=== PATIENT | male | born 1955 | race Caucasian/White ===

== ENCOUNTER 2021-12-06 10:03 | Outpatient (RCR) | payer MEDICARE, MEDICAID, SELFPAY ==
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
== END 2022-02-19 09:43 | disposition home or self-care (01) ==
LOC: ANHOT 10:03
PROVIDERS: PCP Family Medicine; Visit Provider Family Medicine
DX: M48.062 Spinal stenosis, lumbar region with neurogenic claudication (principal)
CPT/HCPCS: 97165

== ENCOUNTER 2023-10-19 11:22 | Emergency (ER) | payer OTHER, MEDICARE, MEDICAID, SELFPAY ==
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
[2023-10-19 11:25] VITALS: BP 132/78; PULSE 80; RESP 16; TEMP 36.4; O2SAT 95
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
[2023-10-19 16:07] LABS: Estimated CRCL calculation 91 ml/min; Estimated Glomerular Filt Rate > 60
[2023-10-19] MEDS: HYDROmorphone HCL INJ (*CRX) 1 MG/ML SYR IV PUSH (16:27)
[2023-10-19] MEDS: CYCLOBENZAPRINE HCL 10 MG TABLET PO (16:27)
[2023-10-19 16:29] LABS: Basophils Percent Auto 0.3 % (0.2-1.2); Eosinophils Absolute Auto 0.2 K/mm3 (0-0.3); Eosinophils Percent Auto 3.2 % (0-4.4); Hematocrit 44.9 % (42.0-52.0); Hemoglobin 15.8 g/dL (14.0-18.0); Immature Granulocyte Absolute 0.02 K/mm3 (0.00-0.031); Immature Granulocyte Percent A 0.3 % (0-0.5); Lymphocytes Absolute Auto 1.92 K/mm3 (0.9-3.2); Lymphocytes Percent Auto 27.7 % (18.3-44.2); Mean Corpuscular HGB Conc 35.2 g/dl (32-36); Mean Corpuscular Hemoglobin 29.9 pg (26-34); Mean Corpuscular Volume 84.9 fl (80-100); Mean Platelet Volume 9.3 fl (7.4-10.4); Monocytes Absolute Auto 0.6 K/mm3 (0.1-0.6); Monocytes Percent Auto 8.5 % (2.6-8.5); Neutrophils Absolute Auto 4.2 K/mm3 (1.3-6.7); Platelet Count Result 213 k/mm3 (150-375); Red Blood Count 5.29 M/mm3 (4.6-6.20); Red Cell Distribution Width 13.8 % (11.5-14.5); White Blood Count 6.9 K/mm3 (4.5-10.0)
[2023-10-19 16:33] VITALS: BP 170/95; PULSE 79; RESP 16; O2SAT 99
[2023-10-19 16:39] LABS: Alanine Aminotransferase 23 U/L (6-50); Alkaline Phosphatase 78 U/L (38-126); Anion Gap 7 mmol/L (4-12); Aspartate Amino Transferase 28 U/L (17-59); Bilirubin,Total 0.9 mg/dL (0.2-1.3); Blood Urea Nitrogen 13 mg/dL (9-20); Calcium 8.8 mg/dL (8.4-10.2); Carbon Dioxide 33 mmol/L (22-30); Chloride 96 mmol/L (98-107); Estimated CRCL calculation 114 ml/min; Estimated Glomerular Filt Rate > 60; Glucose 90 mg/dL (65-110); Potassium 3.3 mmol/L (3.4-5.0); Sodium 136 mmol/L (137-145)
[2023-10-19 16:41] LABS: Add Urine Microscopic? NO; Appearance Urine Clear (Clear); Bilirubin Urine Negative (Negative); Blood Urine Negative (Negative); Color Urine Yellow (Yellow); Glucose Urine UA Negative (Negative); Ketones Urine Negative (Negative); Leukocyte Esterase Ur Negative LEU/UL (Negative); Nitrate Urine Negative (Negative); Protein Urine Negative (Negative); Specific Grav Ur > 1.045 (1.001-1.035); pH Urine 7.5 (5.0-9.0)
== END 2023-10-19 17:12 | disposition home or self-care (01) ==
PROVIDERS: Physician Assistant; Emergency Provider Student in an Organized Health Care Education/Training Program; PCP Family Medicine
DX: S06.0XAA Concussion with loss of consciousness status unknown, initial encounter (principal); S13.4XXA Sprain of ligaments of cervical spine, initial encounter; S39.012A Strain of muscle, fascia and tendon of lower back, initial encounter; R07.9 Chest pain, unspecified; Z79.01 Long term (current) use of anticoagulants; V89.2XXA Person injured in unspecified motor-vehicle accident, traffic, initial encounter
CPT/HCPCS: 36415; 70450; 71260; 72125; 72129; 72132; 73030; 73562; 74177; 80053; 81003; 85025; 96374; 99284; A9270; J1170; Q9967

== ENCOUNTER 2024-02-27 14:47 | Inpatient (IN) | payer MEDICARE, MEDICAID, SELFPAY ==
--- NOTE | ~2024-02-27 | CT_ITS ---
EXAMINATION: CT pelvis w con DATE: 02/27/2024 16:25 INDICATION: [place] TECHNIQUE: High resolution computed tomography (CT) of the pelvis was performed with 100 mL Omnipaque -350 intravenous contrast. Additional sagittal and coronal reconstructions were performed. Automated exposure control and iterative reconstruction technique were employed. The dose-length product was 55 8.51 mGy-cm. COMPARISON: 10/19/2023 FINDINGS: Muniz catheter within the decompressed bladder which demonstrates prominent edematous wall thickening and surrounding inflammatory stranding consistent with cystitis. Enhancing urothelial thickening ext ending proximally along the bilateral ureters and the right renal pelvis consistent with associated a scending urinary tract infection. 8 mm cyst at the visualized lower pole of right kidney. Appendix an d visualized small bowel are normal. Large amount of stool in the distal colon with rectal wall thick ening and perirectal stranding suggestive of colitis/proctitis potentially stercoral colitis. No path ologically enlarged pelvic or inguinal lymphadenopathy. No free fluid or abscess in the pelvis. Stent ing of the right common iliac vein extending to the origin of the right common femoral vein. There we re bilateral common femoral and external femoral vein stents. There is a relatively shallow sacral de cubitus ulcer along the medial side of the gluteal cleft. No evident associated abscess, extension to the bone or underlying osteomyelitis is to suggest osteomyelitis. IMPRESSION: 1. Sella sacral decubitus ulcer without underlying abscess or osteomyelitis. 2. Findings consistent with cystitis and bilateral ascending urinary tract infections. 3. Distal colitis/proctitis prominent stool in the distal colon suggests this is likely related to ce rvical colitis differential including infectious, inflammatory or least likely ischemic in etiology. Reviewed, dictated and finalized at location A. GRAPHICAL FIELD ASSISTANT IMPRESSION: 1. Sella sacral decubitus ulcer without underlying abscess or osteomyelitis. 2. Findings consistent with cystitis and bilateral ascending urinary tract infe ctions. 3. Distal colitis/proctitis prominent stool in the distal colon suggests this i s likely related to cervical colitis differential including infectious, inflamm atory or least likely ischemic in etiology.
--- NOTE | ~2024-02-27 | US_ITS ---
EXAMINATION: US venous doppler [facility] DATE: 03/01/2024 08:24 INDICATION: Lower limb edema. TECHNIQUE: Grayscale ultrasound images without and with compression and Doppler ultrasound images of the bilateral lower extremity veins were obtained. COMPARISON: None. FINDINGS: The visualized portions of right common femoral vein, profunda (deep) femoral vein, femoral vein, pop liteal vein, peroneal veins, posterior tibial veins, and greater saphenous vein outflow are patent. The visualized portions of left common femoral vein, profunda femoral vein, femoral vein, popliteal v ein, peroneal veins, posterior tibial veins, and greater saphenous vein outflow are patent. IMPRESSION: 1. No deep venous thrombosis. Reviewed, dictated and finalized at location A. Y READER
[2024-02-27 14:43] VITALS: BP 149/83; PULSE 93; RESP 18; TEMP 36.4; O2SAT 97
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
[2024-02-27 15:25] LABS: Basophils Absolute Auto 0.1 K/mm3 (0.0-0.1); Basophils Percent Auto 0.4 % (0.2-1.2); Eosinophils Absolute Auto 0.3 K/mm3 (0-0.3); Eosinophils Percent Auto 2.2 % (0-4.4); Hematocrit 45.6 % (42.0-52.0); Hemoglobin 15.2 g/dL (14.0-18.0); Immature Granulocyte Absolute 0.11 K/mm3 (0.00-0.031); Immature Granulocyte Percent A 0.8 % (0-0.5); Lymphocytes Absolute Auto 2.76 K/mm3 (0.9-3.2); Lymphocytes Percent Auto 20.5 % (18.3-44.2); Mean Corpuscular HGB Conc 33.3 g/dl (32-36); Mean Corpuscular Hemoglobin 28.9 pg (26-34); Mean Corpuscular Volume 86.7 fl (80-100); Mean Platelet Volume 8.7 fl (7.4-10.4); Monocytes Absolute Auto 0.8 K/mm3 (0.1-0.6); Monocytes Percent Auto 6.1 % (2.6-8.5); Neutrophils Absolute Auto 9.4 K/mm3 (1.3-6.7); Platelet Count Result 319 k/mm3 (150-375); Red Blood Count 5.26 M/mm3 (4.6-6.20); Red Cell Distribution Width 13.9 % (11.5-14.5); White Blood Count 13.5 K/mm3 (4.5-10.0)
[2024-02-27 15:34] LABS: Alanine Aminotransferase 15 U/L (6-50); Albumin Level 3.4 g/dL (3.5-5.1); Alkaline Phosphatase 88 U/L (38-126); Anion Gap 7 mmol/L (4-12); Aspartate Amino Transferase 27 U/L (17-59); Bilirubin,Total 0.9 mg/dL (0.2-1.3); Blood Urea Nitrogen 18 mg/dL (9-20); Calcium 8.6 mg/dL (8.4-10.2); Carbon Dioxide 29 mmol/L (22-30); Chloride 101 mmol/L (98-107); Estimated CRCL calculation 123 ml/min; Estimated Glomerular Filt Rate > 60; Glucose 103 mg/dL (65-110); Potassium 3.8 mmol/L (3.4-5.0); Sodium 137 mmol/L (137-145)
[2024-02-27 15:38] LABS: Add Urine Microscopic? YES; Appearance Urine Turbid (Clear); Bacteria Urine 4+ /hpf; Bilirubin Urine Negative (Negative); Blood Urine 3+ (Negative); Color Urine Dark Yellow (Yellow); Glucose Urine UA Negative (Negative); Ketones Urine 1+ mg/dL (Negative); Leukocyte Esterase Ur 3+ LEU/UL (Negative); Need Manual Microscopic Reviewed; Nitrate Urine Positive (Negative); Protein Urine 3+ mg/dL (Negative); RBC Urine 51-100 /hpf (0-2); Specific Grav Ur 1.019 (1.001-1.035); Squamous Epithelial Cell Urine None Seen /hpf (Few); WBC Clumps Urine Present /HPF; WBC Urine >100 /hpf (0-3)
[2024-02-27 15:50] LABS: INR 1.1; Partial Thromboplastin Time 27.2 Seconds (22.3-36.8); Prothrombin Time 14.3 Seconds (11.1-14.7)
--- NOTE | 2024-02-27 16:13 | PC.NURSE ---
Patient's orantes catheter changed by this RN per verbal order from Dr Almonte.
[2024-02-27 16:23] LABS: Amorphous Sediment Urine Moderate
[2024-02-27 16:30] LABS: Lactic Acid Reflex 0.9 mmol/L (0.7-2.0)
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
[2024-02-27] MEDS: levoFLOXacin 750 MG/D5W 150 ML 750 MG/150 ML BAG 100 MG IVPB (18:02)
[2024-02-27 19:14] VITALS: BP 126/87; PULSE 88; RESP 16; TEMP 37.2; O2SAT 95
[2024-02-27] MEDS: CLINDAMYCIN 600 MG/D5W 50 ML 600 MG/50 ML PIGGYBACK 100 MG IVPB (19:23)
[2024-02-27 21:08] VITALS: BMI 27.3
--- NOTE | 2024-02-27 21:10 | ADMGEN ---
This patient, Aravind Callahan, was admitted to Medical Room 252-01. Patient/family oriented to hospital policies and general routines including ID bracelet, bed and alarms, visiting hours, pain management, procedures, bathroom and other care routines, personal items, smoking policy, room service/diet, and visiting hours. Information on how to activate the Rapid Response Team has been discussed. Patient/Family are encouraged to report perceived risks to care and to ask questions if they do not understand what they are told or what they should do.
[2024-02-27 21:32] VITALS: BP 130/69; PULSE 71; RESP 20; TEMP 36.8; O2SAT 99
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
[2024-02-27] MEDS: OMEGA 3 POLYUNSAT FATTY ACIDS 1 GM CAP 2 GM PO (23:54)
[2024-02-28] MEDS: CLINDAMYCIN 600 MG/D5W 50 ML 600 MG/50 ML PIGGYBACK 100 MG IVPB (04:54)
[2024-02-28 06:00] VITALS: BP 112/53; PULSE 83; RESP 12; TEMP 36.3; O2SAT 94
[2024-02-28 08:36] VITALS: O2SAT 95
[2024-02-28 09:16] LABS: Hematocrit 42.3 % (42.0-52.0); Hemoglobin 14.3 g/dL (14.0-18.0); Mean Corpuscular HGB Conc 33.8 g/dl (32-36); Mean Corpuscular Hemoglobin 28.9 pg (26-34); Mean Corpuscular Volume 85.6 fl (80-100); Mean Platelet Volume 8.6 fl (7.4-10.4); Platelet Count Result 298 k/mm3 (150-375); Red Blood Count 4.94 M/mm3 (4.6-6.20); Red Cell Distribution Width 13.7 % (11.5-14.5); White Blood Count 13.6 K/mm3 (4.5-10.0)
[2024-02-28] MEDS: ATORVASTATIN 20 MG TABLET PO (09:18)
[2024-02-28] MEDS: MULTIVITAMINS THERAPEUTIC TAB (*BKC) 1 TABLET PO (09:18)
[2024-02-28] MEDS: hydroCHLOROthiazide 25 MG TABLET PO (09:18)
[2024-02-28] MEDS: OMEGA 3 POLYUNSAT FATTY ACIDS 1 GM CAP 2 GM PO ×2 (09:18→20:28)
[2024-02-28] MEDS: CLOPIDOGREL BISULFATE 75 MG TABLET PO (09:32)
[2024-02-28 09:35] LABS: Alanine Aminotransferase 14 U/L (6-50); Alkaline Phosphatase 83 U/L (38-126); Anion Gap 4 mmol/L (4-12); Aspartate Amino Transferase 25 U/L (17-59); Bilirubin,Total 0.6 mg/dL (0.2-1.3); Blood Urea Nitrogen 14 mg/dL (9-20); Calcium 8.3 mg/dL (8.4-10.2); Carbon Dioxide 30 mmol/L (22-30); Chloride 99 mmol/L (98-107); Estimated CRCL calculation 105 ml/min; Estimated Glomerular Filt Rate > 60; Glucose 117 mg/dL (65-110); Potassium 3.7 mmol/L (3.4-5.0); Sodium 133 mmol/L (137-145)
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
[2024-02-28 11:36] VITALS: BMI 27.3
[2024-02-28 14:00] VITALS: BP 112/51; PULSE 90; RESP 28; TEMP 37.2; O2SAT 96
[2024-02-28] MEDS: metroNIDAZOLE 500 MG TABLET PO ×2 (14:17→20:28)
[2024-02-28] MEDS: LINEZOLID 600 MG TABLET PO ×2 (14:17→20:28)
--- NOTE | 2024-02-28 14:24 | P.PNIM_ITS ---
Progress Note: A&P Assessment and Plan (1) Sacral ulcer: Code(s): L98.429 - Non-pressure chronic ulcer of back with unspecified severity Status: Acute (2) UTI (urinary tract infection): Code(s): N39.0 - Urinary tract infection, site not specified Status: Acute Plan # Sacral Ulcer Pending wound and blood culture Monitor leukocytosis Discontinue clindamycin Started metronidazole and linezolid Pain meds as needed Nutritional and skin care assessment Pressure reducing device Repositioning every 2 hours Consulted surgery and wound care #UTI Started on Levofloxacin UC pending #Right leg stent -Xarelto and clopidogrel DVT Prophylaxis: Hold Xarelto if surgery decide debridement Subjective Date/time seen: 02/28/24 14:24 Interval history: Surgery evaluated and advised to continue wound care and medical management. Discontinued clindamycin and started metronidazole and linezolid for the decubitus ulcer. Continue levofloxacillin for UTI Exam Narrative: GENERAL: Well-appearing, well-nourished, and in no acute distress. HEAD: Normocephalic, atraumatic. NECK/BACK: Tenderness to the cervical, thoracic and lumbar spinal palpation throughout. No overlying skin changes. No crepitus, step-offs or deformities CHEST: Clear to auscultation. ?No respiratory distress. tenderness to anterior chest wall without ecchymosis, crepitus, step-offs or deformities ABD: tenderness to the right lower quadrant along the seatbelt distribution without overlying ecchymosis, hematoma, rebound, guarding or rigidity. MSK: Tenderness to the anterior aspect of the proximal left humerus with full active and passive range of motion. Tenderness to the proximal right tibia with full active and passive range of motion of knee. Radial and DP pulses 2+. Sensation intact. HEART: Regular rate and rhythm.? NEURO: ?Alert and oriented x3. SKIN : Stage 3 sacral ulcer Objective Data Vital Signs Vital Signs: Vital Signs - 24 hr 02/27/24 14:43 02/27/24 19:14 02/27/24 21:32 Temperature 97.6 F 99 F 98.2 F Pulse Rate 93 88 71 Respiratory Rate 18 16 20 Blood Pressure 149/83 H 126/87 130/69 Pulse Oximetry 97 95 99 Oxygen Delivery Room Air Fraction of Inspired Oxygen 02/28/24 06:00 02/28/24 08:36 02/28/24 09:30 Temperature 97.3 F L Pulse Rate 83 Respiratory Rate 12 Blood Pressure 112/53 L Pulse Oximetry 94 95 Oxygen Delivery Room Air Room Air Fraction of Inspired Oxygen 21 Intake/Output Intake/Output: Intake & Output 02/25/24 02/26/24 02/27/24 02/28/24 23:59 23:59 23:59 23:59 Intake Total 200 810 Output Total 1300 Balance 200 -490 Meds/Results Medications: Active Medications Generic Name Dose Route Start Last Admin Trade Name Freq PRN Reason Stop Dose Admin Atorvastatin Calcium 20 mg 02/28/24 09:00 02/28/24 09:18 Atorvastatin 20 Mg Tablet PO 20 mg DAILY ARASH Administration Clopidogrel Bisulfate 75 mg 02/28/24 09:00 02/28/24 09:32 Clopidogrel Bisulfate 75 Mg Tablet PO 75 mg DAILY ARASH Administration Fish Oil 2 gm 02/27/24 23:10 02/28/24 09:18 [place] 3 Polyunsat Fatty Acids 1 Gm Cap PO 2 gm Q12HR ARASH Administration Fluticasone Propionate 1 spray 02/28/24 21:00 Fluticasone Propionate 0.05% Na Spr 16 Gm Btl (*Bkc) NASAL HS ARASH Hydrochlorothiazide 25 mg 02/28/24 09:00 02/28/24 09:18 Hydrochlorothiazide 25 Mg Tablet PO 25 mg DAILY ARASH Administration Levofloxacin/Dextrose 750 mg in 150 mls @ 100 mls/hr 02/27/24 17:45 02/27/24 19:23 Levaquin 750 Mg/D5w 150 Ml IVPB Infused DAILY@1700 ARASH Infusion Linezolid 600 mg 02/28/24 14:30 02/28/24 14:17 Linezolid 600 Mg Tablet PO 600 mg Q12HR ARASH Administration Metronidazole 500 mg 02/28/24 14:30 02/28/24 14:17 Metronidazole 500 Mg Tablet PO 500 mg Q8HR ARASH Administration Multivitamins Therapeutic 1 tablet 02/28/24 09:00 02/28/24 09:18 Multivitamins Therapeutic Tab (*Bkc) PO 1 tablet DAILY ARASH Administration Oxycodone/Acetaminophen 1 tablet 02/27/24 23:07 Oxycodone/Acetaminophen (*Crx) 5-325 Mg Tablet PO Q6H PRN pain 4-6 Oxycodone/Acetaminophen 1 tab 02/27/24 23:07 Oxycodone/Acetaminophen (*Crx) 10-325 Mg Tablet PO Q6H PRN pain 7-10 Rivaroxaban 20 mg 02/28/24 09:00 Rivaroxaban 20 Mg Tablet PO DAILY ARASH Tamsulosin HCl 0.4 mg 02/28/24 21:00 Tamsulosin Hcl 0.4 Mg Capsule PO HS ARASH Radiology Results: ITS Impressions Pelvis CT 02/27/24 16:26 IMPRESSION: 1. Sella sacral decubitus ulcer without underlying abscess or osteomyelitis. 2. Findings consistent with cystitis and bilateral ascending urinary tract infections. 3. Distal colitis/proctitis prominent stool in the distal colon suggests this is likely related to cervical colitis differential including infectious, inflammatory or least likely ischemic in etiology. Labs Labs: Laboratory Results - last 24 hr 02/27/24 02/27/24 02/28/24 15:16 16:07 09:08 WBC 13.5 H 13.6 H RBC 5.26 4.94 Hgb 15.2 14.3 Hct 45.6 42.3 MCV 86.7 85.6 MCH 28.9 28.9 MCHC 33.3 33.8 RDW 13.9 13.7 Plt Count 319 298 MPV 8.7 8.6 Immature Gran % (Auto) 0.8 H Neut % (Auto) 70.0 Lymph % (Auto) 20.5 [place] % (Auto) 6.1 Eos % (Auto) 2.2 Baso % (Auto) 0.4 Lymph # (Auto) 2.76 [place] # (Auto) 0.8 H Eos # (Auto) 0.3 Baso # (Auto) 0.1 Abs Immat Gran (auto) 0.11 H Absolute Neuts (auto) 9.4 H Absolute Nucleated RBC 0.000 Nucleated RBC % 0.0 PT 14.3 INR 1.1 APTT 27.2 Sodium 137 133 L Potassium 3.8 3.7 Chloride 101 99 Carbon Dioxide 29 30 Anion Gap 7 4 BUN 18 14 Creatinine 0.50 L 0.60 L Estim Creat Clear Calc 123 105 Estimated GFR > 60 > 60 Glucose 103 117 H Lactic Acid 0.9 Calcium 8.6 8.3 L Total Bilirubin 0.9 0.6 AST 27 25 ALT 15 14 Alkaline Phosphatase 88 83 Total Protein 7.0 6.0 L Albumin 3.4 L 3.0 L Urine Color Dark yellow Urine Appearance Turbid H Urine pH 6.0 Ur Specific [place] 1.019 Urine Protein 3+ H Urine Glucose (UA) Negative Urine Ketones 1+ H Ur Blood (Man) 3+ H Urine Nitrate Positive H Urine Bilirubin Negative Urine Urobilinogen 1.0 Add Ur Microanalysis Reviewed Leukocyte Esterase Rfl 3+ H Urine RBC 51-100 H Urine WBC >100 H Urine WBC Clumps Present H Ur Squamous Epith Cells None seen Amorphous Sediment Moderate H Urine Bacteria 4+ H Urine Casts 6-10 Hospitalist MIPS Advance Care Plan I have confirmed that the patient's Advanced Care Plan is present, code status is documented, or surrogate decision maker is listed in patient medical record.: Yes Medication Reconciliation I have utilized all available resources to obtain, update and review the patients current medications (includes all prescriptions, OTC, herbals, cannabis, and nutritional supplements).: Yes
[2024-02-28 15:51] LABS: MRSA (PCR) NOT DETECTED (NOT DETECTE)
[2024-02-28 17:35] VITALS: PULSE 74; RESP 18; O2SAT 95
[2024-02-28] MEDS: levoFLOXacin 750 MG/D5W 150 ML 750 MG/150 ML BAG 100 MG IVPB (17:58)
[2024-02-28 20:00] VITALS: PULSE 90; RESP 20; O2SAT 96
[2024-02-28] MEDS: TAMSULOSIN HCL 0.4 MG CAPSULE PO (20:28)
[2024-02-28 20:29] VITALS: BP 115/61; PULSE 90; RESP 20; TEMP 36.9; O2SAT 96
[2024-02-29 05:35] VITALS: BP 132/73; PULSE 83; RESP 20; TEMP 36.3; O2SAT 95
[2024-02-29 05:39] LABS: Hematocrit 40.4 % (42.0-52.0); Hemoglobin 13.6 g/dL (14.0-18.0); Mean Corpuscular HGB Conc 33.7 g/dl (32-36); Mean Corpuscular Hemoglobin 28.5 pg (26-34); Mean Corpuscular Volume 84.5 fl (80-100); Mean Platelet Volume 8.8 fl (7.4-10.4); Platelet Count Result 294 k/mm3 (150-375); Red Blood Count 4.78 M/mm3 (4.6-6.20); Red Cell Distribution Width 13.6 % (11.5-14.5); White Blood Count 11.8 K/mm3 (4.5-10.0)
[2024-02-29 05:56] LABS: Alanine Aminotransferase 13 U/L (6-50); Albumin Level 2.9 g/dL (3.5-5.1); Alkaline Phosphatase 79 U/L (38-126); Anion Gap 1 mmol/L (4-12); Aspartate Amino Transferase 20 U/L (17-59); Bilirubin,Total 0.5 mg/dL (0.2-1.3); Blood Urea Nitrogen 14 mg/dL (9-20); Calcium 8.2 mg/dL (8.4-10.2); Carbon Dioxide 34 mmol/L (22-30); Chloride 97 mmol/L (98-107); Estimated CRCL calculation 123 ml/min; Estimated Glomerular Filt Rate > 60; Glucose 112 mg/dL (65-110); Potassium 3.2 mmol/L (3.4-5.0); Sodium 132 mmol/L (137-145)
[2024-02-29] MEDS: metroNIDAZOLE 500 MG TABLET PO ×3 (05:57→21:03)
[2024-02-29] MEDS: OMEGA 3 POLYUNSAT FATTY ACIDS 1 GM CAP 2 GM PO ×2 (09:14→21:03)
[2024-02-29] MEDS: MULTIVITAMINS THERAPEUTIC TAB (*BKC) 1 TABLET PO (09:14)
[2024-02-29] MEDS: LINEZOLID 600 MG TABLET PO ×2 (09:14→21:03)
[2024-02-29] MEDS: hydroCHLOROthiazide 25 MG TABLET PO (09:14)
[2024-02-29] MEDS: ATORVASTATIN 20 MG TABLET PO (09:14)
[2024-02-29] MEDS: CLOPIDOGREL BISULFATE 75 MG TABLET PO (09:14)
--- NOTE | 2024-02-29 13:14 | PCPTNOTE ---
attempted PT eval, pt politely declined stating he is having pain in his bottom and is scared to move since the wound care team told him not to scoot on his bottom, pt stated he wishes to speak to the wound care team first for some peace of mind before attempting to get out of bed, will follow
[2024-02-29 14:00] VITALS: BP 120/68; PULSE 85; RESP 24; TEMP 37.2; O2SAT 96
--- NOTE | 2024-02-29 15:21 | P.PNIM_ITS ---
Progress Note: A&P Assessment and Plan (1) Sacral ulcer: Code(s): L98.429 - Non-pressure chronic ulcer of back with unspecified severity Status: Acute (2) UTI (urinary tract infection): Code(s): N39.0 - Urinary tract infection, site not specified Status: Acute (3) Severe protein-calorie malnutrition: Code(s): E43 - Unspecified severe protein-calorie malnutrition Status: Acute Assessment and Plan: Consulted Nutrition Plan # Sacral Ulcer Pending wound and blood culture Monitor leukocytosis Discontinue clindamycin Started metronidazole and linezolid Pain meds as needed Nutritional and skin care assessment Pressure reducing device Repositioning every 2 hours Consulted surgery and wound care #UTI Started on Levofloxacin UC pending #Right leg stent -Xarelto and clopidogrel DVT Prophylaxis: Hold Xarelto if surgery decide debridement Subjective Date/time seen: 02/29/24 15:21 Interval history: Denies any complaints. Patient is followed by Nutrition. Surgery recommend medical management for now. Wound Care is on board. Exam Narrative: GENERAL: Well-appearing, well-nourished, and in no acute distress. HEAD: Normocephalic, atraumatic. NECK/BACK: Tenderness to the cervical, thoracic and lumbar spinal palpation throughout. No overlying skin changes. No crepitus, step-offs or deformities CHEST: Clear to auscultation. ?No respiratory distress. tenderness to anterior chest wall without ecchymosis, crepitus, step-offs or deformities ABD: tenderness to the right lower quadrant along the seatbelt distribution without overlying ecchymosis, hematoma, rebound, guarding or rigidity. MSK: Tenderness to the anterior aspect of the proximal left humerus with full active and passive range of motion. Tenderness to the proximal right tibia with full active and passive range of motion of knee. Radial and DP pulses 2+. Sensation intact. HEART: Regular rate and rhythm.? NEURO: ?Alert and oriented x3. SKIN : Stage 3 sacral ulcer Objective Data Vital Signs Vital Signs: Vital Signs - 24 hr 02/28/24 17:35 02/28/24 20:00 02/28/24 20:29 Temperature 98.4 F Pulse Rate 74 90 90 Respiratory Rate 18 20 20 Blood Pressure 115/61 Pulse Oximetry 95 96 96 Oxygen Delivery Room Air Fraction of Inspired Oxygen 02/29/24 05:35 02/29/24 09:20 Temperature 97.3 F L Pulse Rate 83 Respiratory Rate 20 Blood Pressure 132/73 Pulse Oximetry 95 Oxygen Delivery Room Air Fraction of Inspired Oxygen Intake/Output Intake/Output: Intake & Output 02/26/24 02/27/24 02/28/24 02/29/24 23:59 23:59 23:59 23:59 Intake Total 200 2220 1030 Output Total 1700 1725 Balance 200 520 -695 Meds/Results Medications: Active Medications Generic Name Dose Route Start Last Admin Trade Name Freq PRN Reason Stop Dose Admin Atorvastatin Calcium 20 mg 02/28/24 09:00 02/29/24 09:14 Atorvastatin 20 Mg Tablet PO 20 mg DAILY ARASH Administration Clopidogrel Bisulfate 75 mg 02/28/24 09:00 02/29/24 09:14 Clopidogrel Bisulfate 75 Mg Tablet PO 75 mg DAILY ARASH Administration Fish Oil 2 gm 02/27/24 23:10 02/29/24 09:14 [place] 3 Polyunsat Fatty Acids 1 Gm Cap PO 2 gm Q12HR ARASH Administration Fluticasone Propionate 1 spray 02/28/24 21:00 02/28/24 22:54 Fluticasone Propionate 0.05% Na Spr 16 Gm Btl (*Bkc) NASAL Not Given HS ARASH Hydrochlorothiazide 25 mg 02/28/24 09:00 02/29/24 09:14 Hydrochlorothiazide 25 Mg Tablet PO 25 mg DAILY ARASH Administration Levofloxacin/Dextrose 750 mg in 150 mls @ 100 mls/hr 02/27/24 17:45 02/28/24 17:58 Levaquin 750 Mg/D5w 150 Ml IVPB 100 mls/hr DAILY@1700 ARASH Administration Linezolid 600 mg 02/28/24 14:30 02/29/24 09:14 Linezolid 600 Mg Tablet PO 600 mg Q12HR ARASH Administration Metronidazole 500 mg 02/28/24 14:30 02/29/24 05:57 Metronidazole 500 Mg Tablet PO 500 mg Q8HR ARASH Administration Multivitamins Therapeutic 1 tablet 02/28/24 09:00 02/29/24 09:14 Multivitamins Therapeutic Tab (*Bkc) PO 1 tablet DAILY ARASH Administration Oxycodone/Acetaminophen 1 tablet 02/27/24 23:07 Oxycodone/Acetaminophen (*Crx) 5-325 Mg Tablet PO Q6H PRN pain 4-6 Oxycodone/Acetaminophen 1 tab 02/27/24 23:07 Oxycodone/Acetaminophen (*Crx) 10-325 Mg Tablet PO Q6H PRN pain 7-10 Rivaroxaban 20 mg 02/28/24 09:00 Rivaroxaban 20 Mg Tablet PO DAILY ARASH Tamsulosin HCl 0.4 mg 02/28/24 21:00 02/28/24 20:28 Tamsulosin Hcl 0.4 Mg Capsule PO 0.4 mg HS ARASH Administration Radiology Results: ITS Impressions Pelvis CT 02/27/24 16:26 IMPRESSION: 1. Sella sacral decubitus ulcer without underlying abscess or osteomyelitis. 2. Findings consistent with cystitis and bilateral ascending urinary tract infections. 3. Distal colitis/proctitis prominent stool in the distal colon suggests this is likely related to cervical colitis differential including infectious, inflammatory or least likely ischemic in etiology. Labs Labs: Laboratory Results - last 24 hr 02/28/24 02/29/24 14:20 05:17 WBC 11.8 H RBC 4.78 Hgb 13.6 L Hct 40.4 L MCV 84.5 MCH 28.5 MCHC 33.7 RDW 13.6 Plt Count 294 MPV 8.8 Sodium 132 L Potassium 3.2 L Chloride 97 L Carbon Dioxide 34 H Anion Gap 1 L BUN 14 Creatinine 0.50 L Estim Creat Clear Calc 123 Estimated GFR > 60 Glucose 112 H Calcium 8.2 L Total Bilirubin 0.5 AST 20 ALT 13 Alkaline Phosphatase 79 Total Protein 6.0 L Albumin 2.9 L Nasal MRSA (PCR) Not detected Hospitalist MIPS Advance Care Plan I have confirmed that the patient's Advanced Care Plan is present, code status is documented, or surrogate decision maker is listed in patient medical record.: Yes Medication Reconciliation I have utilized all available resources to obtain, update and review the patients current medications (includes all prescriptions, OTC, herbals, cannabis, and nutritional supplements).: Yes
[2024-02-29] MEDS: levoFLOXacin 750 MG/D5W 150 ML 750 MG/150 ML BAG 100 MG IVPB (17:57)
[2024-02-29 20:00] VITALS: PULSE 85; RESP 16; O2SAT 100
[2024-02-29 20:06] VITALS: BP 122/80; PULSE 75; RESP 16; TEMP 37; O2SAT 100
[2024-02-29 20:24] VITALS: BP 120/62; PULSE 85; RESP 16; TEMP 36.9; O2SAT 100
[2024-02-29 22:38] VITALS: BP 108/66; PULSE 89; RESP 18; TEMP 36.6; O2SAT 98
[2024-03-01] VITALS (7 sets, daily range): BP systolic 109–133; BP diastolic 61–77; PULSE 81–93; RESP 16–24; TEMP 36.3–36.9; O2SAT 95–98
[2024-03-01] MEDS: metroNIDAZOLE 500 MG TABLET PO ×3 (05:29→20:18)
[2024-03-01 05:54] LABS: Hematocrit 41.2 % (42.0-52.0); Hemoglobin 13.8 g/dL (14.0-18.0); Mean Corpuscular HGB Conc 33.5 g/dl (32-36); Mean Corpuscular Hemoglobin 29.2 pg (26-34); Mean Corpuscular Volume 87.1 fl (80-100); Mean Platelet Volume 8.9 fl (7.4-10.4); Platelet Count Result 323 k/mm3 (150-375); Red Blood Count 4.73 M/mm3 (4.6-6.20); Red Cell Distribution Width 13.7 % (11.5-14.5); White Blood Count 11.5 K/mm3 (4.5-10.0)
[2024-03-01 06:08] LABS: Alanine Aminotransferase 11 U/L (6-50); Alkaline Phosphatase 71 U/L (38-126); Anion Gap 1 mmol/L (4-12); Aspartate Amino Transferase 18 U/L (17-59); Bilirubin,Total 0.4 mg/dL (0.2-1.3); Blood Urea Nitrogen 17 mg/dL (9-20); Calcium 8.3 mg/dL (8.4-10.2); Carbon Dioxide 36 mmol/L (22-30); Chloride 96 mmol/L (98-107); Estimated CRCL calculation 123 ml/min; Estimated Glomerular Filt Rate > 60; Glucose 127 mg/dL (65-110); Potassium 3.2 mmol/L (3.4-5.0); Sodium 133 mmol/L (137-145)
--- NOTE | 2024-03-01 07:57 | PCPTNOTE ---
attempted PT eval, pt currently getting venous doppler for possible DVT, will check back in later after results are published
[2024-03-01] MEDS: CLOPIDOGREL BISULFATE 75 MG TABLET PO (08:21)
[2024-03-01] MEDS: OMEGA 3 POLYUNSAT FATTY ACIDS 1 GM CAP 2 GM PO ×2 (08:21→20:18)
[2024-03-01] MEDS: ATORVASTATIN 20 MG TABLET PO (08:21)
[2024-03-01] MEDS: LINEZOLID 600 MG TABLET PO ×2 (08:22→20:19)
[2024-03-01] MEDS: hydroCHLOROthiazide 25 MG TABLET PO (08:22)
[2024-03-01] MEDS: MULTIVITAMINS THERAPEUTIC TAB (*BKC) 1 TABLET PO (08:22)
--- NOTE | 2024-03-01 11:38 | P.PNIM_ITS ---
Progress Note: A&P Assessment and Plan (1) Sacral ulcer: Code(s): L98.429 - Non-pressure chronic ulcer of back with unspecified severity Status: Acute (2) UTI (urinary tract infection): Code(s): N39.0 - Urinary tract infection, site not specified Status: Acute (3) Severe protein-calorie malnutrition: Code(s): E43 - Unspecified severe protein-calorie malnutrition Status: Acute Assessment and Plan: Consulted Nutrition Plan # Sacral Ulcer Pending wound and blood culture Monitor leukocytosis Discontinue clindamycin Started metronidazole and linezolid Pain meds as needed Nutritional and skin care assessment Pressure reducing device Repositioning every 2 hours Consulted surgery and wound care #UTI Started on Levofloxacin UC pending #Right leg stent -Xarelto and clopidogrel DVT Prophylaxis: Hold Xarelto if surgery decide debridement Subjective Date/time seen: 03/01/24 11:38 Interval history: Surgery recommends medical management since stage 3 sacral ulcer.Replenished K 60meq and repeat shows 3.1. Again replenished K 60meq and ordered Magnesium. Patient will be discharged possibly tomorrow to rehab or long term. Exam Narrative: GENERAL: Well-appearing, well-nourished, and in no acute distress. HEAD: Normocephalic, atraumatic. NECK/BACK: Tenderness to the cervical, thoracic and lumbar spinal palpation throughout. No overlying skin changes. No crepitus, step-offs or deformities CHEST: Clear to auscultation. ?No respiratory distress. tenderness to anterior chest wall without ecchymosis, crepitus, step-offs or deformities ABD: tenderness to the right lower quadrant along the seatbelt distribution without overlying ecchymosis, hematoma, rebound, guarding or rigidity. MSK: Tenderness to the anterior aspect of the proximal left humerus with full active and passive range of motion. Tenderness to the proximal right tibia with full active and passive range of motion of knee. Radial and DP pulses 2+. Sensation intact. HEART: Regular rate and rhythm.? NEURO: ?Alert and oriented x3. SKIN : Stage 3 sacral ulcer Objective Data Vital Signs Vital Signs: Vital Signs - 24 hr 02/29/24 14:00 02/29/24 20:00 02/29/24 20:06 Temperature 98.9 F 98.6 F Pulse Rate 85 85 75 Respiratory Rate 24 H 16 16 Blood Pressure 120/68 122/80 Pulse Oximetry 96 100 100 Oxygen Delivery Room Air Fraction of Inspired Oxygen 21 02/29/24 20:24 02/29/24 22:38 03/01/24 04:49 Temperature 98.5 F 97.8 F 98.0 F Pulse Rate 85 89 86 Respiratory Rate 16 18 18 Blood Pressure 120/62 108/66 112/61 Pulse Oximetry 100 98 95 Oxygen Delivery Fraction of Inspired Oxygen 03/01/24 08:20 03/01/24 08:21 Temperature 97.3 F L Pulse Rate 81 81 Respiratory Rate 16 16 Blood Pressure 119/74 Pulse Oximetry 95 95 Oxygen Delivery Room Air Fraction of Inspired Oxygen 21 Intake/Output Intake/Output: Intake & Output 02/27/24 02/28/24 02/29/24 03/01/24 23:59 23:59 23:59 23:59 Intake Total 200 2370 2630 940 Output Total 1700 2600 Balance 200 670 30 940 Meds/Results Medications: Active Medications Generic Name Dose Route Start Last Admin Trade Name Rahq PRN Reason Stop Dose Admin Atorvastatin Calcium 20 mg 02/28/24 09:00 03/01/24 08:21 Atorvastatin 20 Mg Tablet PO 20 mg DAILY ARAHS Administration Clopidogrel Bisulfate 75 mg 02/28/24 09:00 03/01/24 08:21 Clopidogrel Bisulfate 75 Mg Tablet PO 75 mg DAILY ARASH Administration Fish Oil 2 gm 02/27/24 23:10 03/01/24 08:21 [place] 3 Polyunsat Fatty Acids 1 Gm Cap PO 2 gm Q12HR ARASH Administration Fluticasone Propionate 1 spray 02/28/24 21:00 02/29/24 21:03 Fluticasone Propionate 0.05% Na Spr 16 Gm Btl (*Bkc) NASAL Not Given HS ARASH Hydrochlorothiazide 25 mg 02/28/24 09:00 03/01/24 08:22 Hydrochlorothiazide 25 Mg Tablet PO 25 mg DAILY ARASH Administration Levofloxacin/Dextrose 750 mg in 150 mls @ 100 mls/hr 02/27/24 17:45 02/29/24 19:27 Levaquin 750 Mg/D5w 150 Ml IVPB Infused DAILY@1700 ARASH Infusion Linezolid 600 mg 02/28/24 14:30 03/01/24 08:22 Linezolid 600 Mg Tablet PO 600 mg Q12HR ARASH Administration Metronidazole 500 mg 02/28/24 14:30 03/01/24 05:29 Metronidazole 500 Mg Tablet PO 500 mg Q8HR ARASH Administration Multivitamins Therapeutic 1 tablet 02/28/24 09:00 03/01/24 08:22 Multivitamins Therapeutic Tab (*Bkc) PO 1 tablet DAILY ARASH Administration Oxycodone/Acetaminophen 1 tablet 02/27/24 23:07 Oxycodone/Acetaminophen (*Crx) 5-325 Mg Tablet PO Q6H PRN pain 4-6 Oxycodone/Acetaminophen 1 tab 02/27/24 23:07 Oxycodone/Acetaminophen (*Crx) 10-325 Mg Tablet PO Q6H PRN pain 7-10 Rivaroxaban 20 mg 02/28/24 09:00 Rivaroxaban 20 Mg Tablet PO DAILY ARASH Tamsulosin HCl 0.4 mg 02/28/24 21:00 02/29/24 21:03 Tamsulosin Hcl 0.4 Mg Capsule PO Not Given HS [facility] Radiology Results: ITS Impressions Pelvis CT 02/27/24 16:26 IMPRESSION: 1. Sella sacral decubitus ulcer without underlying abscess or osteomyelitis. 2. Findings consistent with cystitis and bilateral ascending urinary tract infections. 3. Distal colitis/proctitis prominent stool in the distal colon suggests this is likely related to cervical colitis differential including infectious, inflammatory or least likely ischemic in etiology. Venous Doppler Study 03/01/24 08:26 IMPRESSION: 1. No deep venous thrombosis. Labs Labs: Laboratory Results - last 24 hr 03/01/24 05:31 WBC 11.5 H RBC 4.73 Hgb 13.8 L Hct 41.2 L MCV 87.1 MCH 29.2 MCHC 33.5 RDW 13.7 Plt Count 323 MPV 8.9 Sodium 133 L Potassium 3.2 L Chloride 96 L Carbon Dioxide 36 H Anion Gap 1 L BUN 17 Creatinine 0.50 L Estim Creat Clear Calc 123 Estimated GFR > 60 Glucose 127 H Calcium 8.3 L Total Bilirubin 0.4 AST 18 ALT 11 Alkaline Phosphatase 71 Total Protein 6.0 L Albumin 3.0 L Hospitalist MIPS Advance Care Plan I have confirmed that the patient's Advanced Care Plan is present, code status is documented, or surrogate decision maker is listed in patient medical record.: Yes Medication Reconciliation I have utilized all available resources to obtain, update and review the patients current medications (includes all prescriptions, OTC, herbals, cannabis, and nutritional supplements).: Yes
[2024-03-01] MEDS: POTASSIUM CHLORIDE 20 MEQ ER TABLET 60 MEQ PO ×2 (12:00→16:05)
--- NOTE | 2024-03-01 12:09 | PCPTNOTE ---
attempted PT eval, pt declined eval and stated that a person from wound care came to see him yesterday and told him not to do anything to aggravate the wound , he wants to talk to another person from the wound care team before doing bed mobility or moving, spoke with nursing staff and they do not recall that encounter between pt and wound care, pt asked PT to come back tomorrow, will follow
[2024-03-01 15:17] LABS: Potassium 3.1 mmol/L (3.4-5.0)
[2024-03-01] MEDS: levoFLOXacin 750 MG/D5W 150 ML 750 MG/150 ML BAG 100 MG IVPB (16:04)
[2024-03-01] MEDS: FLUTICASONE PROPIONATE 0.05% NA SPR 16 GM BTL (*BKC) 1 SPRAY NASAL (20:18)
[2024-03-01] MEDS: TAMSULOSIN HCL 0.4 MG CAPSULE PO (20:18)
[2024-03-02] MEDS: metroNIDAZOLE 500 MG TABLET PO ×3 (05:43→20:38)
[2024-03-02 06:08] LABS: Hemoglobin 14.4 g/dL (14.0-18.0); Mean Corpuscular HGB Conc 32.7 g/dl (32-36); Mean Corpuscular Hemoglobin 28.6 pg (26-34); Mean Corpuscular Volume 87.5 fl (80-100); Mean Platelet Volume 8.8 fl (7.4-10.4); Platelet Count Result 371 k/mm3 (150-375); Red Blood Count 5.03 M/mm3 (4.6-6.20); White Blood Count 11.2 K/mm3 (4.5-10.0)
[2024-03-02 06:18] LABS: Alanine Aminotransferase 12 U/L (6-50); Albumin Level 3.3 g/dL (3.5-5.1); Alkaline Phosphatase 81 U/L (38-126); Anion Gap -1 mmol/L (4-12); Aspartate Amino Transferase 20 U/L (17-59); Bilirubin,Total 0.5 mg/dL (0.2-1.3); Blood Urea Nitrogen 17 mg/dL (9-20); Calcium 8.9 mg/dL (8.4-10.2); Carbon Dioxide 39 mmol/L (22-30); Chloride 97 mmol/L (98-107); Estimated CRCL calculation 105 ml/min; Estimated Glomerular Filt Rate > 60; Glucose 129 mg/dL (65-110); Potassium 4.7 mmol/L (3.4-5.0); Sodium 135 mmol/L (137-145)
[2024-03-02 08:04] VITALS: BP 130/75; PULSE 86; RESP 18; TEMP 36.4; O2SAT 97
[2024-03-02] MEDS: hydroCHLOROthiazide 25 MG TABLET PO (08:06)
[2024-03-02 08:07] VITALS: O2SAT 97
[2024-03-02] MEDS: CLOPIDOGREL BISULFATE 75 MG TABLET PO (08:07)
[2024-03-02] MEDS: OMEGA 3 POLYUNSAT FATTY ACIDS 1 GM CAP 2 GM PO ×2 (08:07→20:38)
[2024-03-02] MEDS: MULTIVITAMINS THERAPEUTIC TAB (*BKC) 1 TABLET PO (08:07)
[2024-03-02] MEDS: LINEZOLID 600 MG TABLET PO ×2 (08:07→20:38)
[2024-03-02] MEDS: ATORVASTATIN 20 MG TABLET PO (08:07)
[2024-03-02 14:00] VITALS: BP 130/77; PULSE 98; RESP 18; TEMP 36.8; O2SAT 97
--- NOTE | 2024-03-02 14:17 | PCNFU ---
Nutrition Follow-Up Complete: Severe Protein Calorie Malnutrition as related to inadequate protein energy intake as evidenced by significant weight loss of 70 ibs, 27% in 3 months, minimal oral intake for > 1-2 months, moderate muscle wasting (temporalis) and moderate subcutaneous fat loss (orbital fat pads). goal: Meet estimated nutritional needs Patient is progressing towards goal. No new goal. Pt current nutrition is Heart Healthy with Ensure Enlive TID and [place] BID. Last recorded weight is 86.4 kg. Bowel Motility:+BM reported 02/25 Labs Reviewed:Glu 129, Na 135, Alb 3.3 Meds Noted: Lipitor, Fish Oil, MVI Skin: stage III-sacrum. Additional Notes: Patient remains on a heart healthy diet. Intake has been good > 75% of meals. Diet supplements of Ensure Enlive are providing an additional 350 kcal and 20 gm protein. [place] BID for additional 80 kcal, 2.5 gm protein, 7 gm glutamine and 7 gm arginine. Agree with diet orders. Will monitor weight, labs, skin, oral intake, meds every 5 days.
--- NOTE | 2024-03-02 14:25 | P.PNIM_ITS ---
Progress Note: A&P Assessment and Plan (1) Sacral ulcer: Code(s): L98.429 - Non-pressure chronic ulcer of back with unspecified severity Status: Acute (2) UTI (urinary tract infection): Code(s): N39.0 - Urinary tract infection, site not specified Status: Acute (3) Severe protein-calorie malnutrition: Code(s): E43 - Unspecified severe protein-calorie malnutrition Status: Acute Assessment and Plan: Consulted Nutrition Plan # Sacral Ulcer Wound and Bc are negative Continue oral metronidazole and linezolid and prn pain meds Nutritional and skin care assessment Pressure reducing device Repositioning every 2 hours Consulted surgery and wound care on board in hospital Pt not for surgery Continue wound care in SNF #UTI UC are neg can dc iv levaquin #Right leg stent -Xarelto and clopidogrel restart xarelto Subjective Date/time seen: 03/02/24 14:25 Interval history: Pt admitted with severe malnutrition, uti and sacral ulcer Pt is improving can transition to oral abx awaiting dc to facility unable to look after himself at home because of leg weakness Review of Systems Review of Systems: No specific complaints Exam Const: General: in distress and overweight (malnournished and weak deconditioned man ) Nutritional Appearance: overweight Orientation/consciousness: oriented to person HENMT: Head: normal to inspection Resp: Effort & Inspection: no respiratory distress Auscultation: no rhonchi and no wheezes Cardio: Rate: regular rate Rhythm: regular rhythm GI: Inspection: normal to inspection GI Palp: No abdominal tenderness, No Guarding due to palpation present (GI) and No Hepatomegaly present Auscultation: normal bowel sounds Neuro: General: oriented to person Objective Data Vital Signs Vital Signs: Vital Signs - 24 hr 03/01/24 19:54 03/01/24 20:00 03/01/24 22:03 Temperature 36.5 C 36.8 C Pulse Rate 83 83 93 Respiratory Rate 16 16 16 Blood Pressure 109/77 133/68 Pulse Oximetry 98 98 96 Oxygen Delivery Room Air Fraction of Inspired Oxygen 21 03/02/24 08:04 03/02/24 08:07 03/02/24 11:35 Temperature 36.4 C L Pulse Rate 86 Respiratory Rate 18 Blood Pressure 130/75 Pulse Oximetry 97 97 Oxygen Delivery Room Air Room Air Fraction of Inspired Oxygen Intake/Output Intake/Output: Intake & Output 02/28/24 02/29/24 03/01/24 03/02/24 23:59 23:59 23:59 23:59 Intake Total 2370 2630 1790 740 Output Total 1700 2600 1850 500 Balance 670 30 -60 240 Meds/Results Medications: Active Medications Generic Name Dose Route Start Last Admin Trade Name Freq PRN Reason Stop Dose Admin Atorvastatin Calcium 20 mg 02/28/24 09:00 03/02/24 08:07 Atorvastatin 20 Mg Tablet PO 20 mg DAILY ARASH Administration Clopidogrel Bisulfate 75 mg 02/28/24 09:00 03/02/24 08:07 Clopidogrel Bisulfate 75 Mg Tablet PO 75 mg DAILY ARASH Administration Fish Oil 2 gm 02/27/24 23:10 03/02/24 08:07 [place] 3 Polyunsat Fatty Acids 1 Gm Cap PO 2 gm Q12HR ARASH Administration Fluticasone Propionate 1 spray 02/28/24 21:00 03/01/24 20:18 Fluticasone Propionate 0.05% Na Spr 16 Gm Btl (*Bkc) NASAL 1 spray HS ARASH Administration Hydrochlorothiazide 25 mg 02/28/24 09:00 03/02/24 08:06 Hydrochlorothiazide 25 Mg Tablet PO 25 mg DAILY ARSAH Administration Levofloxacin/Dextrose 750 mg in 150 mls @ 100 mls/hr 02/27/24 17:45 03/01/24 17:34 Levaquin 750 Mg/D5w 150 Ml IVPB Infused DAILY@1700 ARASH Infusion Linezolid 600 mg 02/28/24 14:30 03/02/24 08:07 Linezolid 600 Mg Tablet PO 600 mg Q12HR ARASH Administration Metronidazole 500 mg 02/28/24 14:30 03/02/24 05:43 Metronidazole 500 Mg Tablet PO 500 mg Q8HR ARASH Administration Multivitamins Therapeutic 1 tablet 02/28/24 09:00 03/02/24 08:07 Multivitamins Therapeutic Tab (*Bkc) PO 1 tablet DAILY ARASH Administration Oxycodone/Acetaminophen 1 tablet 02/27/24 23:07 Oxycodone/Acetaminophen (*Crx) 5-325 Mg Tablet PO Q6H PRN pain 4-6 Oxycodone/Acetaminophen 1 tab 02/27/24 23:07 Oxycodone/Acetaminophen (*Crx) 10-325 Mg Tablet PO Q6H PRN pain 7-10 Rivaroxaban 20 mg 02/28/24 09:00 Rivaroxaban 20 Mg Tablet PO DAILY ARASH Tamsulosin HCl 0.4 mg 02/28/24 21:00 03/01/24 20:18 Tamsulosin Hcl 0.4 Mg Capsule PO 0.4 mg HS ARASH Administration Radiology Results: ITS Impressions Pelvis CT 02/27/24 16:26 IMPRESSION: 1. Sella sacral decubitus ulcer without underlying abscess or osteomyelitis. 2. Findings consistent with cystitis and bilateral ascending urinary tract infections. 3. Distal colitis/proctitis prominent stool in the distal colon suggests this is likely related to cervical colitis differential including infectious, inflammatory or least likely ischemic in etiology. Venous Doppler Study 03/01/24 08:26 IMPRESSION: 1. No deep venous thrombosis. Labs Labs: Laboratory Results - last 24 hr 03/01/24 03/02/24 14:48 05:42 WBC 11.2 H RBC 5.03 Hgb 14.4 Hct 44.0 MCV 87.5 MCH 28.6 MCHC 32.7 RDW 14.0 Plt Count 371 MPV 8.8 Sodium 135 L Potassium 3.1 L 4.7 Chloride 97 L Carbon Dioxide 39 H Anion Gap -1 L BUN 17 Creatinine 0.60 L Estim Creat Clear Calc 105 Estimated GFR > 60 Glucose 129 H Calcium 8.9 Magnesium 2.0 Total Bilirubin 0.5 AST 20 ALT 12 Alkaline Phosphatase 81 Total Protein 6.0 L Albumin 3.3 L
[2024-03-02 20:00] VITALS: PULSE 89; RESP 18; O2SAT 98
[2024-03-02] MEDS: FLUTICASONE PROPIONATE 0.05% NA SPR 16 GM BTL (*BKC) 1 SPRAY NASAL (20:39)
[2024-03-02] MEDS: TAMSULOSIN HCL 0.4 MG CAPSULE PO (20:39)
[2024-03-02] MEDS: oxyCODONE/ACETAMINOPHEN (*CRX) 5-325 MG TABLET 1 TABLET PO (20:39)
[2024-03-02 22:00] VITALS: BP 134/71; PULSE 89; RESP 18; TEMP 36.9; O2SAT 98
[2024-03-03] MEDS: metroNIDAZOLE 500 MG TABLET PO ×3 (05:35→21:05)
[2024-03-03 06:00] VITALS: BP 114/63; PULSE 84; RESP 18; TEMP 36.9; O2SAT 95
[2024-03-03 09:17] VITALS: BP 106/65; PULSE 86; RESP 16; TEMP 36.4; O2SAT 98
[2024-03-03 09:18] VITALS: PULSE 86; RESP 16; O2SAT 98
[2024-03-03] MEDS: MULTIVITAMINS THERAPEUTIC TAB (*BKC) 1 TABLET PO (09:18)
[2024-03-03] MEDS: OMEGA 3 POLYUNSAT FATTY ACIDS 1 GM CAP 2 GM PO ×2 (09:18→21:05)
[2024-03-03] MEDS: LINEZOLID 600 MG TABLET PO ×2 (09:19→20:54)
[2024-03-03] MEDS: CLOPIDOGREL BISULFATE 75 MG TABLET PO (09:19)
[2024-03-03] MEDS: ATORVASTATIN 20 MG TABLET PO (09:19)
[2024-03-03] MEDS: hydroCHLOROthiazide 25 MG TABLET PO (09:23)
--- NOTE | 2024-03-03 11:08 | PM.IMPN ---
Progress Note: A&P Assessment and Plan (1) Sacral ulcer: Code(s): L98.429 - Non-pressure chronic ulcer of back with unspecified severity Status: Acute (2) UTI (urinary tract infection): Code(s): N39.0 - Urinary tract infection, site not specified Status: Acute (3) Severe protein-calorie malnutrition: Code(s): E43 - Unspecified severe protein-calorie malnutrition Status: Acute Assessment and Plan: Consulted Nutrition Plan # Sacral Ulcer Wound and Bc are negative Continue oral metronidazole and linezolid and prn pain meds Nutritional and skin care assessment Pressure reducing device Repositioning every 2 hours Consulted surgery and wound care on board in hospital Pt not for surgery Continue wound care in SNF #UTI UC are neg can dc iv levaquin #Right leg stent -Xarelto and clopidogrel restart xarelto DVT prophylaxis on Xarelto Awaiting placement Subjective Date/time seen: 03/03/24 11:08 Interval history: Comfortable at bedside Awaiting placement Review of Systems Review of Systems: No specific complaints Exam Narrative: GENERAL: Well-appearing, well-nourished, and in no acute distress. HEAD: Normocephalic, atraumatic. NECK/BACK: Tenderness to the cervical, thoracic and lumbar spinal palpation throughout. No overlying skin changes. No crepitus, step-offs or deformities CHEST: Clear to auscultation. ?No respiratory distress. tenderness to anterior chest wall without ecchymosis, crepitus, step-offs or deformities ABD: tenderness to the right lower quadrant along the seatbelt distribution without overlying ecchymosis, hematoma, rebound, guarding or rigidity. MSK: Tenderness to the anterior aspect of the proximal left humerus with full active and passive range of motion. Tenderness to the proximal right tibia with full active and passive range of motion of knee. Radial and DP pulses 2+. Sensation intact. HEART: Regular rate and rhythm.? NEURO: ?Alert and oriented x3. SKIN : Stage 3 sacral ulcer Const: General: in distress and overweight (malnournished and weak deconditioned man ) Nutritional Appearance: overweight (malnournished and weak deconditioned man ) Orientation/consciousness: oriented to person HENMT: Head: normal to inspection Resp: Effort & Inspection: no respiratory distress Auscultation: no rhonchi and no wheezes Cardio: Rate: regular rate Rhythm: regular rhythm GI: Inspection: normal to inspection Auscultation: normal bowel sounds Neuro: General: oriented to person Objective Data Vital Signs Vital Signs: Vital Signs - 24 hr 03/02/24 11:35 03/02/24 14:00 03/02/24 20:00 Temperature 98.2 F Pulse Rate 98 89 Respiratory Rate 18 18 Blood Pressure 130/77 Pulse Oximetry 97 98 Oxygen Delivery Room Air Room Air Fraction of Inspired Oxygen 21 03/02/24 22:00 03/03/24 06:00 03/03/24 09:17 Temperature 98.4 F 98.4 F 97.6 F Pulse Rate 89 84 86 Respiratory Rate 18 18 16 Blood Pressure 134/71 114/63 106/65 Pulse Oximetry 98 95 98 Oxygen Delivery Fraction of Inspired Oxygen 03/03/24 09:18 Temperature Pulse Rate 86 Respiratory Rate 16 Blood Pressure Pulse Oximetry 98 Oxygen Delivery Room Air Fraction of Inspired Oxygen 21 Intake/Output Intake/Output: Intake & Output 02/29/24 03/01/24 03/02/24 03/03/24 23:59 23:59 23:59 23:59 Intake Total 2630 1790 2780 240 Output Total 2600 1850 1750 1500 Balance 30 -60 1030 -1260 Meds/Results Medications: Active Medications Generic Name Dose Route Start Last Admin Trade Name Rahq PRN Reason Stop Dose Admin Atorvastatin Calcium 20 mg 02/28/24 09:00 03/03/24 09:19 Atorvastatin 20 Mg Tablet PO 20 mg DAILY ARASH Administration Clopidogrel Bisulfate 75 mg 02/28/24 09:00 03/03/24 09:19 Clopidogrel Bisulfate 75 Mg Tablet PO 75 mg DAILY ARASH Administration Fish Oil 2 gm 02/27/24 23:10 03/03/24 09:18 [place] 3 Polyunsat Fatty Acids 1 Gm Cap PO 2 gm Q12HR ARASH Administration Fluticasone Propionate 1 spray 02/28/24 21:00 03/02/24 20:39 Fluticasone Propionate 0.05% Na Spr 16 Gm Btl (*Bkc) NASAL 1 spray HS ARASH Administration Hydrochlorothiazide 25 mg 02/28/24 09:00 03/03/24 09:23 Hydrochlorothiazide 25 Mg Tablet PO 25 mg DAILY ARASH Administration Linezolid 600 mg 02/28/24 14:30 03/03/24 09:19 Linezolid 600 Mg Tablet PO 600 mg Q12HR ARASH Administration Metronidazole 500 mg 02/28/24 14:30 03/03/24 05:35 Metronidazole 500 Mg Tablet PO 500 mg Q8HR ARASH Administration Multivitamins Therapeutic 1 tablet 02/28/24 09:00 03/03/24 09:18 Multivitamins Therapeutic Tab (*Bkc) PO 1 tablet DAILY ARASH Administration Oxycodone/Acetaminophen 1 tablet 02/27/24 23:07 03/02/24 20:39 Oxycodone/Acetaminophen (*Crx) 5-325 Mg Tablet PO 1 tablet Q6H PRN Administration pain 4-6 Oxycodone/Acetaminophen 1 tab 02/27/24 23:07 Oxycodone/Acetaminophen (*Crx) 10-325 Mg Tablet PO Q6H PRN pain 7-10 Rivaroxaban 20 mg 02/28/24 09:00 Rivaroxaban 20 Mg Tablet PO DAILY ARASH Tamsulosin HCl 0.4 mg 02/28/24 21:00 03/02/24 20:39 Tamsulosin Hcl 0.4 Mg Capsule PO 0.4 mg HS ARASH Administration Radiology Results: ITS Impressions Pelvis CT 02/27/24 16:26 IMPRESSION: 1. Sella sacral decubitus ulcer without underlying abscess or osteomyelitis. 2. Findings consistent with cystitis and bilateral ascending urinary tract infections. 3. Distal colitis/proctitis prominent stool in the distal colon suggests this is likely related to cervical colitis differential including infectious, inflammatory or least likely ischemic in etiology. Venous Doppler Study 03/01/24 08:26 IMPRESSION: 1. No deep venous thrombosis.
[2024-03-03 14:00] VITALS: BP 128/64; PULSE 91; RESP 16; TEMP 36.6; O2SAT 96
[2024-03-03 20:50] VITALS: PULSE 91; RESP 16; O2SAT 96
[2024-03-03] MEDS: FLUTICASONE PROPIONATE 0.05% NA SPR 16 GM BTL (*BKC) 1 SPRAY NASAL (20:54)
[2024-03-03] MEDS: TAMSULOSIN HCL 0.4 MG CAPSULE PO (21:05)
[2024-03-03] MEDS: oxyCODONE/ACETAMINOPHEN (*CRX) 10-325 MG TABLET 1 TAB PO (21:05)
[2024-03-03 22:00] VITALS: BP 141/63; PULSE 91; RESP 18; TEMP 37.1; O2SAT 93
[2024-03-04] MEDS: metroNIDAZOLE 500 MG TABLET PO ×3 (05:31→20:35)
[2024-03-04 06:00] VITALS: BP 136/71; PULSE 84; RESP 18; TEMP 36.8; O2SAT 93
[2024-03-04] MEDS: hydroCHLOROthiazide 25 MG TABLET PO (08:34)
[2024-03-04] MEDS: CLOPIDOGREL BISULFATE 75 MG TABLET PO (08:34)
[2024-03-04] MEDS: OMEGA 3 POLYUNSAT FATTY ACIDS 1 GM CAP 2 GM PO ×2 (08:34→20:32)
[2024-03-04] MEDS: MULTIVITAMINS THERAPEUTIC TAB (*BKC) 1 TABLET PO (08:34)
[2024-03-04] MEDS: ATORVASTATIN 20 MG TABLET PO (08:34)
[2024-03-04] MEDS: LINEZOLID 600 MG TABLET PO ×2 (08:34→20:32)
--- NOTE | 2024-03-04 09:52 | P.PNIM_ITS ---
Progress Note: A&P Assessment and Plan (1) Sacral ulcer: Code(s): L98.429 - Non-pressure chronic ulcer of back with unspecified severity Status: Acute (2) UTI (urinary tract infection): Code(s): N39.0 - Urinary tract infection, site not specified Status: Acute (3) Severe protein-calorie malnutrition: Code(s): E43 - Unspecified severe protein-calorie malnutrition Status: Acute Assessment and Plan: Consulted Nutrition Plan # Sacral Ulcer Wound and Bc are negative Continue oral metronidazole and linezolid and prn pain meds Nutritional and skin care assessment Pressure reducing device Repositioning every 2 hours Consulted surgery and wound care on board in hospital Pt not for surgery Continue wound care in SNF #UTI UC are neg can dc iv levaquin #Right leg stent -Xarelto and clopidogrel restart xarelto DVT prophylaxis on Xarelto Awaiting placement tomorrow Subjective Date/time seen: 03/04/24 09:52 Interval history: Comfortable at bedside Awaiting placement tomorrow Review of Systems Review of Systems: No specific complaints Exam Narrative: GENERAL: Well-appearing, well-nourished, and in no acute distress. HEAD: Normocephalic, atraumatic. NECK/BACK: Tenderness to the cervical, thoracic and lumbar spinal palpation throughout. No overlying skin changes. No crepitus, step-offs or deformities CHEST: Clear to auscultation. ?No respiratory distress. tenderness to anterior chest wall without ecchymosis, crepitus, step-offs or deformities ABD: tenderness to the right lower quadrant along the seatbelt distribution without overlying ecchymosis, hematoma, rebound, guarding or rigidity. MSK: Tenderness to the anterior aspect of the proximal left humerus with full active and passive range of motion. Tenderness to the proximal right tibia with full active and passive range of motion of knee. Radial and DP pulses 2+. Sensation intact. HEART: Regular rate and rhythm.? NEURO: ?Alert and oriented x3. SKIN : Stage 3 sacral ulcer Const: General: in distress and overweight (malnournished and weak deconditioned man ) Nutritional Appearance: overweight (malnournished and weak deconditioned man ) Orientation/consciousness: oriented to person HENMT: Head: normal to inspection Resp: Effort & Inspection: no respiratory distress Auscultation: no rhonchi and no wheezes Cardio: Rate: regular rate Rhythm: regular rhythm GI: Inspection: normal to inspection Auscultation: normal bowel sounds Neuro: General: oriented to person Objective Data Vital Signs Vital Signs: Vital Signs - 24 hr 03/03/24 14:00 03/03/24 20:50 03/03/24 22:00 Temperature 97.8 F 98.7 F Pulse Rate 91 91 91 Respiratory Rate 16 16 18 Blood Pressure 128/64 141/63 H Pulse Oximetry 96 96 93 Oxygen Delivery Room Air Fraction of Inspired Oxygen 21 03/04/24 06:00 Temperature 98.3 F Pulse Rate 84 Respiratory Rate 18 Blood Pressure 136/71 Pulse Oximetry 93 Oxygen Delivery Fraction of Inspired Oxygen Intake/Output Intake/Output: Intake & Output 03/01/24 03/02/24 03/03/24 03/04/24 23:59 23:59 23:59 23:59 Intake Total 1790 2780 1030 600 Output Total 1850 1750 2300 1700 Balance -60 1030 -1270 -1100 Meds/Results Medications: Active Medications Generic Name Dose Route Start Last Admin Trade Name Freq PRN Reason Stop Dose Admin Atorvastatin Calcium 20 mg 02/28/24 09:00 03/04/24 08:34 Atorvastatin 20 Mg Tablet PO 20 mg DAILY ARASH Administration Clopidogrel Bisulfate 75 mg 02/28/24 09:00 03/04/24 08:34 Clopidogrel Bisulfate 75 Mg Tablet PO 75 mg DAILY ARASH Administration Fish Oil 2 gm 02/27/24 23:10 03/04/24 08:34 [place] 3 Polyunsat Fatty Acids 1 Gm Cap PO 2 gm Q12HR ARASH Administration Fluticasone Propionate 1 spray 02/28/24 21:00 03/03/24 20:54 Fluticasone Propionate 0.05% Na Spr 16 Gm Btl (*Bkc) NASAL 1 spray HS ARASH Administration Hydrochlorothiazide 25 mg 02/28/24 09:00 03/04/24 08:34 Hydrochlorothiazide 25 Mg Tablet PO 25 mg DAILY ARASH Administration Linezolid 600 mg 02/28/24 14:30 03/04/24 08:34 Linezolid 600 Mg Tablet PO 600 mg Q12HR ARASH Administration Metronidazole 500 mg 02/28/24 14:30 03/04/24 05:31 Metronidazole 500 Mg Tablet PO 500 mg Q8HR ARASH Administration Multivitamins Therapeutic 1 tablet 02/28/24 09:00 03/04/24 08:34 Multivitamins Therapeutic Tab (*Bkc) PO 1 tablet DAILY ARASH Administration Oxycodone/Acetaminophen 1 tablet 02/27/24 23:07 03/02/24 20:39 Oxycodone/Acetaminophen (*Crx) 5-325 Mg Tablet PO 1 tablet Q6H PRN Administration pain 4-6 Oxycodone/Acetaminophen 1 tab 02/27/24 23:07 03/03/24 21:05 Oxycodone/Acetaminophen (*Crx) 10-325 Mg Tablet PO 1 tab Q6H PRN Administration pain 7-10 Rivaroxaban 20 mg 02/28/24 09:00 Rivaroxaban 20 Mg Tablet PO DAILY ARASH Tamsulosin HCl 0.4 mg 02/28/24 21:00 03/03/24 21:05 Tamsulosin Hcl 0.4 Mg Capsule PO 0.4 mg HS ARASH Administration Radiology Results: ITS Impressions Pelvis CT 02/27/24 16:26 IMPRESSION: 1. Sella sacral decubitus ulcer without underlying abscess or osteomyelitis. 2. Findings consistent with cystitis and bilateral ascending urinary tract infections. 3. Distal colitis/proctitis prominent stool in the distal colon suggests this is likely related to cervical colitis differential including infectious, inflammatory or least likely ischemic in etiology. Venous Doppler Study 03/01/24 08:26 IMPRESSION: 1. No deep venous thrombosis.
[2024-03-04 14:00] VITALS: BP 128/74; PULSE 74; RESP 17; TEMP 36.6; O2SAT 94
[2024-03-04] MEDS: TAMSULOSIN HCL 0.4 MG CAPSULE PO (20:34)
[2024-03-04 20:38] VITALS: BP 127/64; PULSE 93; RESP 16; TEMP 36.7; O2SAT 96
[2024-03-04] MEDS: oxyCODONE/ACETAMINOPHEN (*CRX) 10-325 MG TABLET 1 TAB PO (20:40)
[2024-03-04] MEDS: FLUTICASONE PROPIONATE 0.05% NA SPR 16 GM BTL (*BKC) 1 SPRAY NASAL (20:42)
[2024-03-05] MEDS: metroNIDAZOLE 500 MG TABLET PO ×3 (05:34→21:40)
[2024-03-05 06:37] VITALS: BP 119/61; PULSE 86; RESP 18; TEMP 36.7; O2SAT 97
[2024-03-05] MEDS: MULTIVITAMINS THERAPEUTIC TAB (*BKC) 1 TABLET PO (08:44)
[2024-03-05] MEDS: LINEZOLID 600 MG TABLET PO ×2 (08:44→21:40)
[2024-03-05] MEDS: ATORVASTATIN 20 MG TABLET PO (08:44)
[2024-03-05] MEDS: OMEGA 3 POLYUNSAT FATTY ACIDS 1 GM CAP 2 GM PO ×2 (08:44→21:41)
[2024-03-05] MEDS: hydroCHLOROthiazide 25 MG TABLET PO (08:44)
[2024-03-05] MEDS: CLOPIDOGREL BISULFATE 75 MG TABLET PO (08:44)
--- NOTE | 2024-03-05 11:58 | PCPTNOTE ---
Patient refused treatment this session. Patient reported he did not want to get up to chair and reported it hurts too much to move. Educated patient on the importance of moving and working with PT, patient agreed to working with PT, then patient reported he needed bed prieto. Patient refused to get up to commode and wanted to be on bed prieto. Bed prieto placed, Patient hospice care transitions coordinator made aware.
[2024-03-05 14:00] VITALS: BP 112/62; PULSE 91; RESP 18; TEMP 36.5; O2SAT 96
--- NOTE | 2024-03-05 14:04 | PM.IMPN ---
Progress Note: A&P Assessment and Plan (1) Sacral ulcer: Code(s): L98.429 - Non-pressure chronic ulcer of back with unspecified severity Status: Acute (2) UTI (urinary tract infection): Code(s): N39.0 - Urinary tract infection, site not specified Status: Acute (3) Severe protein-calorie malnutrition: Code(s): E43 - Unspecified severe protein-calorie malnutrition Status: Acute Assessment and Plan: Consulted Nutrition Plan # Sacral Ulcer Wound and Bc are negative Continue oral metronidazole and linezolid and prn pain meds Nutritional and skin care assessment Pressure reducing device Repositioning every 2 hours Consulted surgery and wound care on board in hospital Pt not for surgery Continue wound care in SNF #UTI UC are neg can dc iv levaquin #Right leg stent -Xarelto and clopidogrel restart xarelto DVT prophylaxis on Xarelto Awaiting placement Subjective Date/time seen: 03/05/24 14:04 Interval history: Comfortable at bedside Awaiting placement Review of Systems Review of Systems: No specific complaints Exam Narrative: GENERAL: Well-appearing, well-nourished, and in no acute distress. HEAD: Normocephalic, atraumatic. NECK/BACK: Tenderness to the cervical, thoracic and lumbar spinal palpation throughout. No overlying skin changes. No crepitus, step-offs or deformities CHEST: Clear to auscultation. ?No respiratory distress. tenderness to anterior chest wall without ecchymosis, crepitus, step-offs or deformities ABD: tenderness to the right lower quadrant along the seatbelt distribution without overlying ecchymosis, hematoma, rebound, guarding or rigidity. MSK: Tenderness to the anterior aspect of the proximal left humerus with full active and passive range of motion. Tenderness to the proximal right tibia with full active and passive range of motion of knee. Radial and DP pulses 2+. Sensation intact. HEART: Regular rate and rhythm.? NEURO: ?Alert and oriented x3. SKIN : Stage 3 sacral ulcer Const: General: in distress and overweight (malnournished and weak deconditioned man ) Nutritional Appearance: overweight (malnournished and weak deconditioned man ) Orientation/consciousness: oriented to person HENMT: Head: normal to inspection Resp: Effort & Inspection: no respiratory distress Auscultation: no rhonchi and no wheezes Cardio: Rate: regular rate Rhythm: regular rhythm GI: Inspection: normal to inspection Auscultation: normal bowel sounds Neuro: General: oriented to person Objective Data Vital Signs Vital Signs: Vital Signs - 24 hr 03/04/24 20:00 03/04/24 20:38 03/05/24 06:37 Temperature 98.0 F 98.0 F Pulse Rate 93 86 Respiratory Rate 16 18 Blood Pressure 127/64 119/61 Pulse Oximetry 96 97 Oxygen Delivery Room Air Intake/Output Intake/Output: Intake & Output 03/02/24 03/03/24 03/04/24 03/05/24 23:59 23:59 23:59 23:59 Intake Total 2780 1030 1760 920 Output Total 1750 2300 2700 1350 Balance 1030 -1270 -940 -430 Meds/Results Medications: Active Medications Generic Name Dose Route Start Last Admin Trade Name Freq PRN Reason Stop Dose Admin Atorvastatin Calcium 20 mg 02/28/24 09:00 03/05/24 08:44 Atorvastatin 20 Mg Tablet PO 20 mg DAILY ARASH Administration Clopidogrel Bisulfate 75 mg 02/28/24 09:00 03/05/24 08:44 Clopidogrel Bisulfate 75 Mg Tablet PO 75 mg DAILY ARASH Administration Fish Oil 2 gm 02/27/24 23:10 03/05/24 08:44 [place] 3 Polyunsat Fatty Acids 1 Gm Cap PO 2 gm Q12HR ARASH Administration Fluticasone Propionate 1 spray 02/28/24 21:00 03/04/24 20:42 Fluticasone Propionate 0.05% Na Spr 16 Gm Btl (*Bkc) NASAL 1 spray HS ARASH Administration Hydrochlorothiazide 25 mg 02/28/24 09:00 03/05/24 08:44 Hydrochlorothiazide 25 Mg Tablet PO 25 mg DAILY ARASH Administration Linezolid 600 mg 02/28/24 14:30 03/05/24 08:44 Linezolid 600 Mg Tablet PO 600 mg Q12HR ARASH Administration Metronidazole 500 mg 02/28/24 14:30 03/05/24 13:02 Metronidazole 500 Mg Tablet PO 500 mg Q8HR ARASH Administration Multivitamins Therapeutic 1 tablet 02/28/24 09:00 03/05/24 08:44 Multivitamins Therapeutic Tab (*Bkc) PO 1 tablet DAILY ARASH Administration Oxycodone/Acetaminophen 1 tablet 02/27/24 23:07 03/02/24 20:39 Oxycodone/Acetaminophen (*Crx) 5-325 Mg Tablet PO 1 tablet Q6H PRN Administration pain 4-6 Oxycodone/Acetaminophen 1 tab 02/27/24 23:07 03/04/24 20:40 Oxycodone/Acetaminophen (*Crx) 10-325 Mg Tablet PO 1 tab Q6H PRN Administration pain 7-10 Rivaroxaban 20 mg 02/28/24 09:00 Rivaroxaban 20 Mg Tablet PO DAILY ARASH Tamsulosin HCl 0.4 mg 02/28/24 21:00 03/04/24 20:34 Tamsulosin Hcl 0.4 Mg Capsule PO 0.4 mg HS ARASH Administration Radiology Results: ITS Impressions Pelvis CT 02/27/24 16:26 IMPRESSION: 1. Sella sacral decubitus ulcer without underlying abscess or osteomyelitis. 2. Findings consistent with cystitis and bilateral ascending urinary tract infections. 3. Distal colitis/proctitis prominent stool in the distal colon suggests this is likely related to cervical colitis differential including infectious, inflammatory or least likely ischemic in etiology. Venous Doppler Study 03/01/24 08:26 IMPRESSION: 1. No deep venous thrombosis.
[2024-03-05 21:17] VITALS: BP 130/67; PULSE 92; RESP 16; TEMP 36.6; O2SAT 95
[2024-03-05] MEDS: TAMSULOSIN HCL 0.4 MG CAPSULE PO (21:40)
[2024-03-05] MEDS: FLUTICASONE PROPIONATE 0.05% NA SPR 16 GM BTL (*BKC) 1 SPRAY NASAL (21:42)
[2024-03-05] MEDS: oxyCODONE/ACETAMINOPHEN (*CRX) 10-325 MG TABLET 1 TAB PO (21:42)
[2024-03-06 05:11] VITALS: BP 117/72; PULSE 87; RESP 14; TEMP 36.4; O2SAT 94
[2024-03-06 05:32] LABS: Basophils Percent Auto 0.4 % (0.2-1.2); Eosinophils Absolute Auto 0.3 K/mm3 (0-0.3); Eosinophils Percent Auto 3.6 % (0-4.4); Hemoglobin 13.2 g/dL (14.0-18.0); Immature Granulocyte Absolute 0.05 K/mm3 (0.00-0.031); Immature Granulocyte Percent A 0.5 % (0-0.5); Lymphocytes Absolute Auto 2.42 K/mm3 (0.9-3.2); Lymphocytes Percent Auto 26.5 % (18.3-44.2); Mean Corpuscular HGB Conc 33.8 g/dl (32-36); Mean Corpuscular Hemoglobin 29.1 pg (26-34); Mean Corpuscular Volume 85.9 fl (80-100); Mean Platelet Volume 8.4 fl (7.4-10.4); Monocytes Absolute Auto 0.7 K/mm3 (0.1-0.6); Monocytes Percent Auto 7.5 % (2.6-8.5); Neutrophils Absolute Auto 5.6 K/mm3 (1.3-6.7); Neutrophils Percent Auto 61.5 % (45.5-73.1); Platelet Count Result 312 k/mm3 (150-375); Red Blood Count 4.54 M/mm3 (4.6-6.20); Red Cell Distribution Width 14.2 % (11.5-14.5); White Blood Count 9.1 K/mm3 (4.5-10.0)
[2024-03-06 05:40] LABS: Alanine Aminotransferase 18 U/L (6-50); Albumin Level 2.9 g/dL (3.5-5.1); Alkaline Phosphatase 67 U/L (38-126); Anion Gap -2 mmol/L (4-12); Aspartate Amino Transferase 26 U/L (17-59); Bilirubin,Total 0.4 mg/dL (0.2-1.3); Blood Urea Nitrogen 19 mg/dL (9-20); Calcium 8.2 mg/dL (8.4-10.2); Carbon Dioxide 38 mmol/L (22-30); Chloride 96 mmol/L (98-107); Estimated CRCL calculation 123 ml/min; Estimated Glomerular Filt Rate > 60; Glucose 107 mg/dL (65-110); Magnesium 2.1 mg/dL (1.6-2.3); Potassium 3.1 mmol/L (3.4-5.0); Sodium 132 mmol/L (137-145)
[2024-03-06] MEDS: metroNIDAZOLE 500 MG TABLET PO ×3 (06:01→21:53)
[2024-03-06] MEDS: hydroCHLOROthiazide 25 MG TABLET PO (08:56)
[2024-03-06] MEDS: LINEZOLID 600 MG TABLET PO ×2 (08:56→21:53)
[2024-03-06] MEDS: CLOPIDOGREL BISULFATE 75 MG TABLET PO (08:56)
[2024-03-06] MEDS: ATORVASTATIN 20 MG TABLET PO (08:56)
[2024-03-06] MEDS: MULTIVITAMINS THERAPEUTIC TAB (*BKC) 1 TABLET PO (08:56)
[2024-03-06] MEDS: OMEGA 3 POLYUNSAT FATTY ACIDS 1 GM CAP 2 GM PO ×2 (08:56→21:54)
--- NOTE | 2024-03-06 11:08 | P.PNIM_ITS ---
Progress Note: A&P Assessment and Plan (1) Sacral ulcer: Code(s): L98.429 - Non-pressure chronic ulcer of back with unspecified severity Status: Acute (2) UTI (urinary tract infection): Code(s): N39.0 - Urinary tract infection, site not specified Status: Acute (3) Severe protein-calorie malnutrition: Code(s): E43 - Unspecified severe protein-calorie malnutrition Status: Acute Assessment and Plan: Consulted Nutrition Plan # Sacral Ulcer Wound and Bc are negative Continue oral metronidazole and linezolid and prn pain meds Nutritional and skin care assessment Pressure reducing device Repositioning every 2 hours Consulted surgery and wound care on board in hospital Pt not for surgery Continue wound care in SNF #UTI UC are neg can dc iv levaquin #Right leg stent -Xarelto and clopidogrel restart xarelto DVT prophylaxis on Xarelto Awaiting placement Subjective Date/time seen: 03/06/24 11:08 Interval history: Comfortable at bedside Awaiting placement Review of Systems Review of Systems: No specific complaints Exam Narrative: GENERAL: Well-appearing, well-nourished, and in no acute distress. HEAD: Normocephalic, atraumatic. NECK/BACK: Tenderness to the cervical, thoracic and lumbar spinal palpation throughout. No overlying skin changes. No crepitus, step-offs or deformities CHEST: Clear to auscultation. ?No respiratory distress. tenderness to anterior chest wall without ecchymosis, crepitus, step-offs or deformities ABD: tenderness to the right lower quadrant along the seatbelt distribution without overlying ecchymosis, hematoma, rebound, guarding or rigidity. MSK: Tenderness to the anterior aspect of the proximal left humerus with full active and passive range of motion. Tenderness to the proximal right tibia with full active and passive range of motion of knee. Radial and DP pulses 2+. Sensation intact. HEART: Regular rate and rhythm.? NEURO: ?Alert and oriented x3. SKIN : Stage 3 sacral ulcer Const: General: in distress and overweight (malnournished and weak deconditioned man ) Nutritional Appearance: overweight (malnournished and weak deconditioned man ) Orientation/consciousness: oriented to person HENMT: Head: normal to inspection Resp: Effort & Inspection: no respiratory distress Auscultation: no rhonchi and no wheezes Cardio: Rate: regular rate Rhythm: regular rhythm GI: Inspection: normal to inspection Auscultation: normal bowel sounds Neuro: General: oriented to person Objective Data Vital Signs Vital Signs: Vital Signs - 24 hr 03/05/24 14:00 03/05/24 20:00 03/05/24 21:17 Temperature 97.7 F 97.8 F Pulse Rate 91 92 Respiratory Rate 18 16 Blood Pressure 112/62 130/67 Pulse Oximetry 96 95 Oxygen Delivery Room Air 03/06/24 05:11 Temperature 97.6 F Pulse Rate 87 Respiratory Rate 14 Blood Pressure 117/72 Pulse Oximetry 94 Oxygen Delivery Intake/Output Intake/Output: Intake & Output 03/03/24 03/04/24 03/05/24 03/06/24 23:59 23:59 23:59 23:59 Intake Total 1030 1760 1640 907 Output Total 2300 2700 1950 1000 Balance -1270 -940 -310 -93 Meds/Results Medications: Active Medications Generic Name Dose Route Start Last Admin Trade Name Freq PRN Reason Stop Dose Admin Atorvastatin Calcium 20 mg 02/28/24 09:00 03/06/24 08:56 Atorvastatin 20 Mg Tablet PO 20 mg DAILY ARASH Administration Clopidogrel Bisulfate 75 mg 02/28/24 09:00 03/06/24 08:56 Clopidogrel Bisulfate 75 Mg Tablet PO 75 mg DAILY ARASH Administration Fish Oil 2 gm 02/27/24 23:10 03/06/24 08:56 [place] 3 Polyunsat Fatty Acids 1 Gm Cap PO 2 gm Q12HR ARASH Administration Fluticasone Propionate 1 spray 02/28/24 21:00 03/05/24 21:42 Fluticasone Propionate 0.05% Na Spr 16 Gm Btl (*Bkc) NASAL 1 spray HS ARASH Administration Hydrochlorothiazide 25 mg 02/28/24 09:00 03/06/24 08:56 Hydrochlorothiazide 25 Mg Tablet PO 25 mg DAILY ARASH Administration Linezolid 600 mg 02/28/24 14:30 03/06/24 08:56 Linezolid 600 Mg Tablet PO 600 mg Q12HR ARASH Administration Metronidazole 500 mg 02/28/24 14:30 03/06/24 06:01 Metronidazole 500 Mg Tablet PO 500 mg Q8HR ARASH Administration Multivitamins Therapeutic 1 tablet 02/28/24 09:00 03/06/24 08:56 Multivitamins Therapeutic Tab (*Bkc) PO 1 tablet DAILY ARASH Administration Oxycodone/Acetaminophen 1 tablet 02/27/24 23:07 03/02/24 20:39 Oxycodone/Acetaminophen (*Crx) 5-325 Mg Tablet PO 1 tablet Q6H PRN Administration pain 4-6 Oxycodone/Acetaminophen 1 tab 02/27/24 23:07 03/05/24 21:42 Oxycodone/Acetaminophen (*Crx) 10-325 Mg Tablet PO 1 tab Q6H PRN Administration pain 7-10 Rivaroxaban 20 mg 02/28/24 09:00 Rivaroxaban 20 Mg Tablet PO DAILY ARASH Tamsulosin HCl 0.4 mg 02/28/24 21:00 03/05/24 21:40 Tamsulosin Hcl 0.4 Mg Capsule PO 0.4 mg HS ARASH Administration Radiology Results: ITS Impressions Pelvis CT 02/27/24 16:26 IMPRESSION: 1. Sella sacral decubitus ulcer without underlying abscess or osteomyelitis. 2. Findings consistent with cystitis and bilateral ascending urinary tract infections. 3. Distal colitis/proctitis prominent stool in the distal colon suggests this is likely related to cervical colitis differential including infectious, inflammatory or least likely ischemic in etiology. Venous Doppler Study 03/01/24 08:26 IMPRESSION: 1. No deep venous thrombosis. Labs Labs: Laboratory Results - last 24 hr 03/06/24 04:56 WBC 9.1 RBC 4.54 L Hgb 13.2 L Hct 39.0 L MCV 85.9 MCH 29.1 MCHC 33.8 RDW 14.2 Plt Count 312 MPV 8.4 Immature Gran % (Auto) 0.5 Neut % (Auto) 61.5 Lymph % (Auto) 26.5 [place] % (Auto) 7.5 Eos % (Auto) 3.6 Baso % (Auto) 0.4 Lymph # (Auto) 2.42 [place] # (Auto) 0.7 H Eos # (Auto) 0.3 Baso # (Auto) 0.0 Abs Immat Gran (auto) 0.05 H Absolute Neuts (auto) 5.6 Absolute Nucleated RBC 0.000 Nucleated RBC % 0.0 Sodium 132 L Potassium 3.1 L Chloride 96 L Carbon Dioxide 38 H Anion Gap -2 L BUN 19 Creatinine 0.50 L Estim Creat Clear Calc 123 Estimated GFR > 60 Glucose 107 Calcium 8.2 L Magnesium 2.1 Total Bilirubin 0.4 AST 26 ALT 18 Alkaline Phosphatase 67 Total Protein 6.0 L Albumin 2.9 L
[2024-03-06 14:00] VITALS: BP 120/66; PULSE 92; RESP 18; TEMP 36.1; O2SAT 96
[2024-03-06 20:00] VITALS: PULSE 89; RESP 16; O2SAT 98
[2024-03-06] MEDS: TAMSULOSIN HCL 0.4 MG CAPSULE PO (21:51)
[2024-03-06] MEDS: oxyCODONE/ACETAMINOPHEN (*CRX) 5-325 MG TABLET 1 TABLET PO (21:52)
[2024-03-06] MEDS: FLUTICASONE PROPIONATE 0.05% NA SPR 16 GM BTL (*BKC) 1 SPRAY NASAL (21:54)
[2024-03-06 21:56] VITALS: BP 114/61; PULSE 89; RESP 16; TEMP 36.4; O2SAT 98
[2024-03-07] MEDS: metroNIDAZOLE 500 MG TABLET PO ×3 (05:24→20:26)
[2024-03-07 06:00] VITALS: BP 123/69; PULSE 88; RESP 16; TEMP 36.4; O2SAT 97
[2024-03-07] MEDS: hydroCHLOROthiazide 25 MG TABLET PO (08:44)
[2024-03-07] MEDS: OMEGA 3 POLYUNSAT FATTY ACIDS 1 GM CAP 2 GM PO ×2 (08:44→20:26)
[2024-03-07] MEDS: CLOPIDOGREL BISULFATE 75 MG TABLET PO (08:44)
[2024-03-07] MEDS: MULTIVITAMINS THERAPEUTIC TAB (*BKC) 1 TABLET PO (08:44)
[2024-03-07] MEDS: LINEZOLID 600 MG TABLET PO ×2 (08:44→20:26)
[2024-03-07] MEDS: ATORVASTATIN 20 MG TABLET PO (08:44)
[2024-03-07 14:00] VITALS: BP 98/61; PULSE 91; RESP 16; TEMP 36.2; O2SAT 97
--- NOTE | 2024-03-07 14:39 | PM.IMPN ---
Progress Note: A&P Assessment and Plan (1) Sacral ulcer: Code(s): L98.429 - Non-pressure chronic ulcer of back with unspecified severity Status: Acute (2) UTI (urinary tract infection): Code(s): N39.0 - Urinary tract infection, site not specified Status: Acute (3) Severe protein-calorie malnutrition: Code(s): E43 - Unspecified severe protein-calorie malnutrition Status: Acute Assessment and Plan: Consulted Nutrition Plan # Sacral Ulcer Wound and Bc are negative Continue oral metronidazole and linezolid and prn pain meds Nutritional and skin care assessment Pressure reducing device Repositioning every 2 hours Consulted surgery and wound care on board in hospital Pt not for surgery Continue wound care in SNF #UTI UC are neg can dc iv levaquin #Right leg stent -Xarelto and clopidogrel restart xarelto DVT prophylaxis on Xarelto Awaiting placement alternative Subjective Date/time seen: 03/07/24 14:39 Interval history: Comfortable at bedside Insurance declined authorization yesterday CC working on alternatives Review of Systems Review of Systems: No specific complaints Exam Narrative: GENERAL: Well-appearing, well-nourished, and in no acute distress. HEAD: Normocephalic, atraumatic. NECK/BACK: Tenderness to the cervical, thoracic and lumbar spinal palpation throughout. No overlying skin changes. No crepitus, step-offs or deformities CHEST: Clear to auscultation. ?No respiratory distress. tenderness to anterior chest wall without ecchymosis, crepitus, step-offs or deformities ABD: tenderness to the right lower quadrant along the seatbelt distribution without overlying ecchymosis, hematoma, rebound, guarding or rigidity. MSK: Tenderness to the anterior aspect of the proximal left humerus with full active and passive range of motion. Tenderness to the proximal right tibia with full active and passive range of motion of knee. Radial and DP pulses 2+. Sensation intact. HEART: Regular rate and rhythm.? NEURO: ?Alert and oriented x3. SKIN : Stage 3 sacral ulcer Const: General: in distress and overweight (malnournished and weak deconditioned man ) Nutritional Appearance: overweight (malnournished and weak deconditioned man ) Orientation/consciousness: oriented to person HENMT: Head: normal to inspection Resp: Effort & Inspection: no respiratory distress Auscultation: no rhonchi and no wheezes Cardio: Rate: regular rate Rhythm: regular rhythm GI: Inspection: normal to inspection Auscultation: normal bowel sounds Neuro: General: oriented to person Objective Data Vital Signs Vital Signs: Vital Signs - 24 hr 03/06/24 20:00 03/06/24 21:56 03/07/24 06:00 Temperature 97.6 F 97.5 F L Pulse Rate 89 89 88 Respiratory Rate 16 16 16 Blood Pressure 114/61 123/69 Pulse Oximetry 98 98 97 Oxygen Delivery Room Air Fraction of Inspired Oxygen 21 Intake/Output Intake/Output: Intake & Output 03/04/24 03/05/24 03/06/24 03/07/24 23:59 23:59 23:59 23:59 Intake Total 1760 1640 2701 1120 Output Total 2700 1950 1000 1500 Balance -940 -310 1701 -380 Meds/Results Medications: Active Medications Generic Name Dose Route Start Last Admin Trade Name Freq PRN Reason Stop Dose Admin Atorvastatin Calcium 20 mg 02/28/24 09:00 03/07/24 08:44 Atorvastatin 20 Mg Tablet PO 20 mg DAILY ARASH Administration Clopidogrel Bisulfate 75 mg 02/28/24 09:00 03/07/24 08:44 Clopidogrel Bisulfate 75 Mg Tablet PO 75 mg DAILY ARASH Administration Fish Oil 2 gm 02/27/24 23:10 03/07/24 08:44 [place] 3 Polyunsat Fatty Acids 1 Gm Cap PO 2 gm Q12HR ARASH Administration Fluticasone Propionate 1 spray 02/28/24 21:00 03/06/24 21:54 Fluticasone Propionate 0.05% Na Spr 16 Gm Btl (*Bkc) NASAL 1 spray HS ARASH Administration Hydrochlorothiazide 25 mg 02/28/24 09:00 03/07/24 08:44 Hydrochlorothiazide 25 Mg Tablet PO 25 mg DAILY ARASH Administration Linezolid 600 mg 02/28/24 14:30 03/07/24 08:44 Linezolid 600 Mg Tablet PO 600 mg Q12HR ARASH Administration Metronidazole 500 mg 02/28/24 14:30 03/07/24 14:04 Metronidazole 500 Mg Tablet PO 500 mg Q8HR ARASH Administration Multivitamins Therapeutic 1 tablet 02/28/24 09:00 03/07/24 08:44 Multivitamins Therapeutic Tab (*Bkc) PO 1 tablet DAILY ARASH Administration Oxycodone/Acetaminophen 1 tablet 02/27/24 23:07 03/06/24 21:52 Oxycodone/Acetaminophen (*Crx) 5-325 Mg Tablet PO 1 tablet Q6H PRN Administration pain 4-6 Oxycodone/Acetaminophen 1 tab 02/27/24 23:07 03/05/24 21:42 Oxycodone/Acetaminophen (*Crx) 10-325 Mg Tablet PO 1 tab Q6H PRN Administration pain 7-10 Rivaroxaban 20 mg 02/28/24 09:00 Rivaroxaban 20 Mg Tablet PO DAILY ARASH Tamsulosin HCl 0.4 mg 02/28/24 21:00 03/06/24 21:51 Tamsulosin Hcl 0.4 Mg Capsule PO 0.4 mg HS ARASH Administration Radiology Results: ITS Impressions Pelvis CT 02/27/24 16:26 IMPRESSION: 1. Sella sacral decubitus ulcer without underlying abscess or osteomyelitis. 2. Findings consistent with cystitis and bilateral ascending urinary tract infections. 3. Distal colitis/proctitis prominent stool in the distal colon suggests this is likely related to cervical colitis differential including infectious, inflammatory or least likely ischemic in etiology. Venous Doppler Study 03/01/24 08:26 IMPRESSION: 1. No deep venous thrombosis.
[2024-03-07] MEDS: TAMSULOSIN HCL 0.4 MG CAPSULE PO (20:26)
[2024-03-07] MEDS: FLUTICASONE PROPIONATE 0.05% NA SPR 16 GM BTL (*BKC) 1 SPRAY NASAL (20:27)
[2024-03-07 22:00] VITALS: BP 132/63; PULSE 84; RESP 18; TEMP 36.7; O2SAT 96
[2024-03-08 06:00] VITALS: BP 116/62; PULSE 95; RESP 18; TEMP 36.7; O2SAT 92
[2024-03-08] MEDS: metroNIDAZOLE 500 MG TABLET PO ×3 (06:29→20:37)
[2024-03-08] MEDS: OMEGA 3 POLYUNSAT FATTY ACIDS 1 GM CAP 2 GM PO ×2 (08:55→20:37)
[2024-03-08] MEDS: MULTIVITAMINS THERAPEUTIC TAB (*BKC) 1 TABLET PO (08:56)
[2024-03-08] MEDS: LINEZOLID 600 MG TABLET PO ×2 (08:56→20:37)
[2024-03-08] MEDS: CLOPIDOGREL BISULFATE 75 MG TABLET PO (08:56)
[2024-03-08] MEDS: hydroCHLOROthiazide 25 MG TABLET PO (08:56)
[2024-03-08] MEDS: ATORVASTATIN 20 MG TABLET PO (08:56)
--- NOTE | 2024-03-08 10:15 | P.PNIM_ITS ---
Progress Note: A&P Assessment and Plan (1) Sacral ulcer: Code(s): L98.429 - Non-pressure chronic ulcer of back with unspecified severity Status: Acute (2) UTI (urinary tract infection): Code(s): N39.0 - Urinary tract infection, site not specified Status: Acute (3) Severe protein-calorie malnutrition: Code(s): E43 - Unspecified severe protein-calorie malnutrition Status: Acute Assessment and Plan: Consulted Nutrition Plan # Sacral Ulcer Wound and Bc are negative Continue oral metronidazole and linezolid and prn pain meds Nutritional and skin care assessment Pressure reducing device Repositioning every 2 hours Consulted surgery and wound care on board in hospital Pt not for surgery Continue wound care in SNF #UTI UC are neg can dc iv levaquin #Right leg stent -Xarelto and clopidogrel restart xarelto DVT prophylaxis on Xarelto Awaiting placement alternative Subjective Date/time seen: 03/08/24 10:15 Interval history: Comfortable at bedside Insurance declined authorization yesterday CC working on alternatives Review of Systems Review of Systems: No specific complaints Exam Narrative: GENERAL: Well-appearing, well-nourished, and in no acute distress. HEAD: Normocephalic, atraumatic. NECK/BACK: Tenderness to the cervical, thoracic and lumbar spinal palpation throughout. No overlying skin changes. No crepitus, step-offs or deformities CHEST: Clear to auscultation. ?No respiratory distress. tenderness to anterior chest wall without ecchymosis, crepitus, step-offs or deformities ABD: tenderness to the right lower quadrant along the seatbelt distribution without overlying ecchymosis, hematoma, rebound, guarding or rigidity. MSK: Tenderness to the anterior aspect of the proximal left humerus with full active and passive range of motion. Tenderness to the proximal right tibia with full active and passive range of motion of knee. Radial and DP pulses 2+. Sensation intact. HEART: Regular rate and rhythm.? NEURO: ?Alert and oriented x3. SKIN : Stage 3 sacral ulcer Const: General: in distress and overweight (malnournished and weak deconditioned man ) Nutritional Appearance: overweight (malnournished and weak deconditioned man ) Orientation/consciousness: oriented to person HENMT: Head: normal to inspection Resp: Effort & Inspection: no respiratory distress Auscultation: no rhonchi and no wheezes Cardio: Rate: regular rate Rhythm: regular rhythm GI: Inspection: normal to inspection Auscultation: normal bowel sounds Neuro: General: oriented to person Objective Data Vital Signs Vital Signs: Vital Signs - 24 hr 03/07/24 14:00 03/07/24 22:00 03/08/24 06:00 Temperature 97.1 F L 98.1 F 98.0 F Pulse Rate 91 84 95 Respiratory Rate 16 18 18 Blood Pressure 98/61 L 132/63 116/62 Pulse Oximetry 97 96 92 Intake/Output Intake/Output: Intake & Output 03/05/24 03/06/24 03/07/24 03/08/24 23:59 23:59 23:59 23:59 Intake Total 1640 2701 1900 440 Output Total 1950 1000 2800 1800 Balance -310 6676 -333 -1383 Meds/Results Medications: Active Medications Generic Name Dose Route Start Last Admin Trade Name Freq PRN Reason Stop Dose Admin Atorvastatin Calcium 20 mg 02/28/24 09:00 03/08/24 08:56 Atorvastatin 20 Mg Tablet PO 20 mg DAILY ARASH Administration Clopidogrel Bisulfate 75 mg 02/28/24 09:00 03/08/24 08:56 Clopidogrel Bisulfate 75 Mg Tablet PO 75 mg DAILY ARASH Administration Fish Oil 2 gm 02/27/24 23:10 03/08/24 08:55 [place] 3 Polyunsat Fatty Acids 1 Gm Cap PO 2 gm Q12HR ARASH Administration Fluticasone Propionate 1 spray 02/28/24 21:00 03/07/24 20:27 Fluticasone Propionate 0.05% Na Spr 16 Gm Btl (*Bkc) NASAL 1 spray ARASH Administration Hydrochlorothiazide 25 mg 02/28/24 09:00 03/08/24 08:56 Hydrochlorothiazide 25 Mg Tablet PO 25 mg DAILY ARASH Administration Linezolid 600 mg 02/28/24 14:30 03/08/24 08:56 Linezolid 600 Mg Tablet PO 600 mg Q12HR ARASH Administration Metronidazole 500 mg 02/28/24 14:30 03/08/24 06:29 Metronidazole 500 Mg Tablet PO 500 mg Q8HR ARASH Administration Miscellaneous Information 1 each 03/08/24 00:01 Order Clarification XX 04/07/24 00:00 [facility] Multivitamins Therapeutic 1 tablet 02/28/24 09:00 03/08/24 08:56 Multivitamins Therapeutic Tab (*Bkc) PO 1 tablet DAILY ARASH Administration Oxycodone/Acetaminophen 1 tablet 02/27/24 23:07 03/06/24 21:52 Oxycodone/Acetaminophen (*Crx) 5-325 Mg Tablet PO 1 tablet Q6H PRN Administration pain 4-6 Oxycodone/Acetaminophen 1 tab 02/27/24 23:07 03/05/24 21:42 Oxycodone/Acetaminophen (*Crx) 10-325 Mg Tablet PO 1 tab Q6H PRN Administration pain 7-10 Rivaroxaban 20 mg 02/28/24 09:00 Rivaroxaban 20 Mg Tablet PO DAILY ARASH Tamsulosin HCl 0.4 mg 02/28/24 21:00 03/07/24 20:26 Tamsulosin Hcl 0.4 Mg Capsule PO 0.4 mg HS ARASH Administration Radiology Results: ITS Impressions Pelvis CT 02/27/24 16:26 IMPRESSION: 1. Sella sacral decubitus ulcer without underlying abscess or osteomyelitis. 2. Findings consistent with cystitis and bilateral ascending urinary tract infections. 3. Distal colitis/proctitis prominent stool in the distal colon suggests this is likely related to cervical colitis differential including infectious, inflammatory or least likely ischemic in etiology. Venous Doppler Study 03/01/24 08:26 IMPRESSION: 1. No deep venous thrombosis.
[2024-03-08 14:00] VITALS: BP 123/65; PULSE 96; RESP 24; TEMP 36.8; O2SAT 95
--- NOTE | 2024-03-08 14:58 | PC.NURSE ---
Patient resting in bed during morning assessment. Complaints of chronic neck pain but patient denies the need for medication at this time. Stat Loc in place. Patient understands he is waiting for placement. PO ABX.
[2024-03-08] MEDS: TAMSULOSIN HCL 0.4 MG CAPSULE PO (20:37)
[2024-03-08] MEDS: FLUTICASONE PROPIONATE 0.05% NA SPR 16 GM BTL (*BKC) 1 SPRAY NASAL (20:38)
[2024-03-08] MEDS: oxyCODONE/ACETAMINOPHEN (*CRX) 10-325 MG TABLET 1 TAB PO (20:41)
[2024-03-08 22:00] VITALS: BP 136/63; PULSE 91; RESP 18; TEMP 36.9; O2SAT 95
[2024-03-09] MEDS: metroNIDAZOLE 500 MG TABLET PO ×2 (05:57→14:09)
[2024-03-09 06:00] VITALS: BP 118/67; PULSE 82; RESP 18; TEMP 37.1; O2SAT 95
[2024-03-09] MEDS: hydroCHLOROthiazide 25 MG TABLET PO (09:10)
[2024-03-09] MEDS: LINEZOLID 600 MG TABLET PO (09:10)
[2024-03-09] MEDS: MULTIVITAMINS THERAPEUTIC TAB (*BKC) 1 TABLET PO (09:10)
[2024-03-09] MEDS: CLOPIDOGREL BISULFATE 75 MG TABLET PO (09:10)
[2024-03-09] MEDS: ATORVASTATIN 20 MG TABLET PO (09:10)
[2024-03-09] MEDS: OMEGA 3 POLYUNSAT FATTY ACIDS 1 GM CAP 2 GM PO ×2 (09:10→20:31)
--- NOTE | 2024-03-09 11:55 | P.PNIM_ITS ---
Progress Note: A&P Assessment and Plan (1) Sacral ulcer: Code(s): L98.429 - Non-pressure chronic ulcer of back with unspecified severity Status: Acute (2) UTI (urinary tract infection): Code(s): N39.0 - Urinary tract infection, site not specified Status: Acute (3) Severe protein-calorie malnutrition: Code(s): E43 - Unspecified severe protein-calorie malnutrition Status: Acute Assessment and Plan: Consulted Nutrition Plan # Sacral Ulcer Wound and Bc are negative Continue oral metronidazole and linezolid and prn pain meds Nutritional and skin care assessment Pressure reducing device Repositioning every 2 hours Consulted surgery and wound care on board in hospital Pt not for surgery Continue wound care in SNF #UTI UC are neg can dc iv levaquin #Right leg stent -Xarelto and clopidogrel restart xarelto DVT prophylaxis on Xarelto Awaiting placement alternative Subjective Date/time seen: 03/09/24 11:55 Interval history: Comfortable at bedside Insurance declined authorization CC working on alternatives Review of Systems Review of Systems: No specific complaints Exam Narrative: GENERAL: Well-appearing, well-nourished, and in no acute distress. HEAD: Normocephalic, atraumatic. NECK/BACK: Tenderness to the cervical, thoracic and lumbar spinal palpation throughout. No overlying skin changes. No crepitus, step-offs or deformities CHEST: Clear to auscultation. ?No respiratory distress. tenderness to anterior chest wall without ecchymosis, crepitus, step-offs or deformities ABD: tenderness to the right lower quadrant along the seatbelt distribution without overlying ecchymosis, hematoma, rebound, guarding or rigidity. MSK: Tenderness to the anterior aspect of the proximal left humerus with full active and passive range of motion. Tenderness to the proximal right tibia with full active and passive range of motion of knee. Radial and DP pulses 2+. Sensation intact. HEART: Regular rate and rhythm.? NEURO: ?Alert and oriented x3. SKIN : Stage 3 sacral ulcer Const: General: in distress and overweight (malnournished and weak deconditioned man ) Nutritional Appearance: overweight (malnournished and weak deconditioned man ) Orientation/consciousness: oriented to person HENMT: Head: normal to inspection Resp: Effort & Inspection: no respiratory distress Auscultation: no rhonchi and no wheezes Cardio: Rate: regular rate Rhythm: regular rhythm GI: Inspection: normal to inspection Auscultation: normal bowel sounds Neuro: General: oriented to person Objective Data Vital Signs Vital Signs: Vital Signs - 24 hr 03/08/24 14:00 03/08/24 22:00 03/09/24 06:00 Temperature 98.3 F 98.5 F 98.8 F Pulse Rate 96 91 82 Respiratory Rate 24 H 18 18 Blood Pressure 123/65 136/63 118/67 Pulse Oximetry 95 95 95 Intake/Output Intake/Output: Intake & Output 03/06/24 03/07/24 03/08/24 03/09/24 23:59 23:59 23:59 23:59 Intake Total 2701 1900 1350 600 Output Total 1000 2800 2225 2000 Balance 0073 -686 -696 -3040 Meds/Results Medications: Active Medications Generic Name Dose Route Start Last Admin Trade Name Freq PRN Reason Stop Dose Admin Atorvastatin Calcium 20 mg 02/28/24 09:00 03/09/24 09:10 Atorvastatin 20 Mg Tablet PO 20 mg DAILY ARASH Administration Clopidogrel Bisulfate 75 mg 02/28/24 09:00 03/09/24 09:10 Clopidogrel Bisulfate 75 Mg Tablet PO 75 mg DAILY ARASH Administration Fish Oil 2 gm 02/27/24 23:10 03/09/24 09:10 [place] 3 Polyunsat Fatty Acids 1 Gm Cap PO 2 gm Q12HR ARASH Administration Fluticasone Propionate 1 spray 02/28/24 21:00 03/08/24 20:38 Fluticasone Propionate 0.05% Na Spr 16 Gm Btl (*Bkc) NASAL 1 spray HS ARASH Administration Hydrochlorothiazide 25 mg 02/28/24 09:00 03/09/24 09:10 Hydrochlorothiazide 25 Mg Tablet PO 25 mg DAILY ARASH Administration Linezolid 600 mg 02/28/24 14:30 03/09/24 09:10 Linezolid 600 Mg Tablet PO 600 mg Q12HR ARASH Administration Metronidazole 500 mg 02/28/24 14:30 03/09/24 05:57 Metronidazole 500 Mg Tablet PO 500 mg Q8HR ARASH Administration Miscellaneous Information 1 each 03/08/24 00:01 Order Clarification XX 04/07/24 00:00 CLARIFY ARASH Multivitamins Therapeutic 1 tablet 02/28/24 09:00 03/09/24 09:10 Multivitamins Therapeutic Tab (*Bkc) PO 1 tablet DAILY [facility] Administration Rivaroxaban 20 mg 02/28/24 09:00 Rivaroxaban 20 Mg Tablet PO DAILY [facility] Tamsulosin HCl 0.4 mg 02/28/24 21:00 03/08/24 20:37 Tamsulosin Hcl 0.4 Mg Capsule PO 0.4 mg HS [facility] Administration Radiology Results: ITS Impressions Pelvis CT 02/27/24 16:26 IMPRESSION: 1. Sella sacral decubitus ulcer without underlying abscess or osteomyelitis. 2. Findings consistent with cystitis and bilateral ascending urinary tract infections. 3. Distal colitis/proctitis prominent stool in the distal colon suggests this is likely related to cervical colitis differential including infectious, inflammatory or least likely ischemic in etiology. Venous Doppler Study 03/01/24 08:26 IMPRESSION: 1. No deep venous thrombosis.
[2024-03-09 14:00] VITALS: BP 124/64; PULSE 78; RESP 18; TEMP 36.6; O2SAT 95
[2024-03-09] MEDS: FLUTICASONE PROPIONATE 0.05% NA SPR 16 GM BTL (*BKC) 1 SPRAY NASAL (20:31)
[2024-03-09] MEDS: oxyCODONE/ACETAMINOPHEN (*CRX) 10-325 MG TABLET 1 TAB PO (20:31)
[2024-03-09] MEDS: TAMSULOSIN HCL 0.4 MG CAPSULE PO (20:31)
[2024-03-09 22:06] VITALS: BP 109/66; PULSE 91; RESP 16; TEMP 36.9; O2SAT 96
[2024-03-10 05:51] VITALS: BP 120/70; PULSE 89; RESP 17; TEMP 36.4; O2SAT 95
[2024-03-10] MEDS: OMEGA 3 POLYUNSAT FATTY ACIDS 1 GM CAP 2 GM PO (08:52)
[2024-03-10] MEDS: MULTIVITAMINS THERAPEUTIC TAB (*BKC) 1 TABLET PO (08:52)
[2024-03-10] MEDS: ATORVASTATIN 20 MG TABLET PO (08:52)
[2024-03-10] MEDS: CLOPIDOGREL BISULFATE 75 MG TABLET PO (08:52)
[2024-03-10] MEDS: hydroCHLOROthiazide 25 MG TABLET PO (08:52)
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
[2024-03-10] MEDS: POTASSIUM CHLORIDE 20 MEQ ER TABLET 40 MEQ PO (10:52)
== END 2024-03-10 13:15 | DRG 592 ==
LOC: ANHED 15:08 → ANH3MEDSUR 18:48 → ANH2MED 20:39
PROVIDERS: Internal Medicine; Admitting Provider General Practice; Emergency Provider Emergency Medicine; Visit Provider Internal Medicine
DX: L89.153 Pressure ulcer of sacral region, stage 3 (principal); E43 Unspecified severe protein-calorie malnutrition; K52.89 Other specified noninfective gastroenteritis and colitis; Z68.27 Body mass index [BMI] 27.0-27.9, adult; R62.7 Adult failure to thrive; Z74.01 Bed confinement status; Z98.890 Other specified postprocedural states; S14.109D Unspecified injury at unspecified level of cervical spinal cord, subsequent encounter; V89.2XXD Person injured in unspecified motor-vehicle accident, traffic, subsequent encounter; Z96.698 Presence of other orthopedic joint implants
CPT/HCPCS: 36415; 72193; 80053; 81001; 83605; 83735; 84132; 85025; 85027; 85610; 85730; 87040; 87086; 87641; 93970; 96366; 97110; 97161; 97165; 97530; 97535; 99212; 99285; A9270; G0378; G0463; J1956; Q9967

== ENCOUNTER 2025-02-07 09:32 | Inpatient (IN) | payer MEDICARE, MEDICAID, SELFPAY ==
--- OUTSIDE RECORDS SUMMARY | 2023-12-17 08:00 | XMS_ITS ---
Author Organization [facility] Address [address] [place] [address] Care Team Providers Care Marketing Development Representative Name Role Phone Dre Singh Primary Care Provider Unavailab Agusto Espinoza Unavailable [phone] Beronica Esqueda Unavailable [phone] ALLERGIES No Known Allergies RESULTS Component Value Reference Range Notes X ray : Cervical Spine 7 vie ws, AP, Lateral, Swimmers, Obliques, Flexion and Extension Reviewed date:12/20/2023 11:10:15 AM Interpretation:done Performing Lab: Notes/Report: done REASON FOR VISIT 1st post op ACDF MEDICATIONS Medication SIG (Take, Route, Frequency, Duration) Notes Start Date End Date Status predniSONE 10 MG 1 tablet Orally twic e a day for 10 days 12/02/2023 Not-Taking Percocet 10-325 MG 1 tablet as needed Orally every 4 hrs for 7 days 12/02/2023 Not-Taking HYDROcodone-Acetaminophen Not-Taking predniSONE 10 MG 1 tablet Orally twic e a day for 10 days 12/05/2023 Active Percocet 10-325 MG 1-2 tablet as needed Orally every 4 hrs for 15 days 12/05/2023 Active hydroCHLOROthiazide Active Multivitamin Active Tamsulosin HCl Activ e Vascepa Active Xarelto Active Plavix Active SOCIAL HISTORY Tobacco Use: Social History Observation Description Date Details (start date - stop date) Never Smoker NA - NA Sex Assigned At : Social History Observation Description Sex Assigned At Unknown Tobacco Use/Smoking Question Answer Notes Are you a nonsmoker Section Notes: He is with two child marley. He denies use of alcohol. He denies drug or chemical addiction. He is in a wheelchair and is disabled. Encounters Encounter Location Date Provider Diagnosis [facility] [address] [place] [address] 12/17/2023 Beronica Esqueda [facility] Z47.89 ; Arthrodesis status Z98.1 and Neck pain M54.2 ASSESSMENTS Encounter Date Diagnosis Assessment Notes Treatment Notes Treatment Clinical Notes Section Notes 12/17/2023 [facility] (ICD-10 - Z47.89) &nbsp 1. Status Post Cervical Fusion &nbsp <b>PLAN:</b> From a pain standpoint, Mr. Callahan is trending in an appropriate direction. He is also trending in an appropriate direction with regard to his myelopathy symptoms. I discussed with him that these symptoms will take time to see improvement, and there is no guarantee that they will fully resolve. If he has any worsening of his symptoms, he is to contact us. Otherwise, we will plan to see him back in two months. &nbsp Thank you for allowing us to participate in the care of your patient. &nbsp Sincerely, &nbsp HARRIET Andrade The patient's exam findings and imaging studies were reviewed with Agusto Rasmussen M.D. (Dictated but not read. Signed electronically by hospice patient care secretary to expedite) &nbsp LV/mknatasha 12/17/2023 Arthrodesis status (ICD-10 - Z98.1) &nbsp 1. Status Post Cervical Fusion &nbsp <b>PLAN:</b> From a pain standpoint, Mr. Callahan is trending in an appropriate direction. He is also trending in an appropriate direction with regard to his myelopathy symptoms. I discussed with him that these symptoms will take time to see improvement, and there is no guarantee that they will fully resolve. If he has any worsening of his symptoms, he is to contact us. Otherwise, we will plan to see him back in two months. &nbsp Thank you for allowing us to participate in the care of your patient. &nbsp Sincerely, &nbsp HARRIET Andrade The patient's exam findings and imaging studies were reviewed with Agusto Rasmussen M.D. (Dictated but not read. Signed electronically by hospice patient care secretary to expedite) &nbsp LV/mknatasha 12/17/2023 Neck pain (ICD-10 - M54.2) &nbsp 1. Status Post Cervical Fusion &nbsp <b>PLAN:</b> From a pain standpoint, Mr. Callahan is trending in an appropriate direction. He is also trending in an appropriate direction with regard to his myelopathy symptoms. I discussed with him that these symptoms will take time to see improvement, and there is no guarantee that they will fully resolve. If he has any worsening of his symptoms, he is to contact us. Otherwise, we will plan to see him back in two months. &nbsp Thank you for allowing us to participate in the care of your patient. &nbsp Sincerely, &nbsp HRARIET Andrade The patient's exam findings and imaging studies were reviewed with Agusto Rasmussen M.D. (Dictated but not read. Signed electronically by hospice patient care secretary to expedite) &nbsp LV/mkd PLAN OF TREATMENT No Information Progress Notes * Examination Category Sub-Category Detail Notes Category Not es X-Ray CERVICAL SPINE X-RAY: Seven view s of the cervical spine were obtained today. They demonstrate hardware and grafting from C4 to 7 that appears to be in good position. There are no signs of loosening or cage subsidence &nbsp On physical examination his surgical wound appears to be in good condition and healing well. It is still covered with majority of Dermabond glue.
--- OUTSIDE RECORDS SUMMARY | 2023-12-17 08:00 | XMS_ITS ---
Author Organization [facility] Address [address] [place] [address] Care Team Providers Care Teacher Lip Reading Name Role Phone Dre Singh Primary Care Provider Unavailab Agusto Espinoza Unavailable [phone] Beronica Esqueda Unavailable [phone] ALLERGIES No Known Allergies RESULTS Component Value [...] Encounter Location Date Provider Diagnosis [facility], [address] [place] [address] 12/17/2023 Beronica Esqueda [facility] Z47.89 ; [...] (Dictated but not read. Signed electronically by alumnae secretary to expedite) &nbsp LV/mknatasha 12/17/2023 Arthrodesis [...] (Dictated but not read. Signed electronically by alumnae secretary to expedite) &nbsp LV/mknatasha 12/17/2023 Neck [...] (Dictated but not read. Signed electronically by alumnae secretary to expedite) &nbsp LV/mkd PLAN OF [...]
--- OUTSIDE RECORDS SUMMARY | 2023-12-17 09:39 | XMS_ITS ---
Author Organization [facility] Address [address] [facility] [address] [place] [address] Care Team Providers Care Boring Machine Operator Production Name Role Phone Dre Singh Primary Care Provider Unavailab Agusto Espinoza Unavailable [phone] REASON FOR VISIT refill RX MEDICATIONS Medication SIG (Take, Route, Frequency, Duration) Notes Start Date End Date Status HYDROcodone-Acetaminophen Not-Taking predniSONE 10 MG 1 tablet Orally twic e a day for 10 days 12/05/2023 Active Percocet 5-325 MG 1 tablet as needed Orally every 6 hrs 12/17/2023 Active Plavix Active Percocet 10-325 MG 1-2 tablet as needed Orally every 4 hrs for 15 days 12/05/2023 Active hydroCHLOROthiazide Active Xarelto Active predniSONE 10 MG 1 tablet Orally twic e a day for 10 days 12/02/2023 Not-Taking Vascepa Active Percocet 10-325 MG 1 tablet as needed Orally every 4 hrs for 7 days 12/02/2023 Not-Taking Tamsulosin HCl Activ e Multivitamin Active Encounters Encounter Location Date Provider Diagnosis [facility] [address] [facility] [address] [place] [address] 12/17/2023 Agusto Rasmussen PLAN OF TREATMENT Medication Medication Name Sig Start Date Stop Date Notes Percocet 5-325 MG 1 tablet as needed Orally every 6 hrs
--- OUTSIDE RECORDS SUMMARY | 2023-12-17 09:39 | XMS_ITS ---
Author Organization [facility] Address [address] [facility] [address] [place] [address] Care Team Providers Care Supervisor Fiberglass Boat Assembly Name Role Phone Dre Singh Primary Care Provider Unavailab Agusto Espinoza Unavailable [phone] REASON FOR VISIT refill RX MEDICATIONS Medication [...] [facility] [address] [facility] [address] [place] [address] 12/17/2023 Agusto Rasmussen PLAN OF TREATMENT Medication Medication Name Sig Start Date Stop Date Notes Percocet 5-325 MG 1 tablet as needed Orally every 6 hrs
--- OUTSIDE RECORDS SUMMARY | 2023-12-26 08:08 | XMS_ITS ---
Author Organization [facility] Address [address] [place] [address] Care Team Providers Care Orchestrator Name Role Phone Dre Singh Primary Care Provider Unavailab Agusto Espinoza Unavailable [phone] REASON FOR VISIT call back Encounters Encounter Location Date Provider Diagnosis [facility] [address] [place] [address] 12/26/2023 Agusto Rasmussen PLAN OF TREATMENT No Information
--- OUTSIDE RECORDS SUMMARY | 2023-12-26 08:08 | XMS_ITS ---
Author Organization [facility] Address [address] [place] [address] Care Team Providers Care Pier Hand Helper Name Role Phone Dre Singh Primary Care Provider Unavailab Agusto Espinoza Unavailable [phone] REASON FOR VISIT call back Encounters Encounter Location Date Provider Diagnosis [facility] [address] [place] [address] 12/26/2023 Agusto Rasmussen PLAN OF TREATMENT No Information
--- OUTSIDE RECORDS SUMMARY | 2023-12-27 05:28 | XMS_ITS ---
Author Organization [facility] Address [address] [place] [address] Care Team Providers Care Slot Floor Attendant Name Role Phone Dre Singh Primary Care Provider Unavailab Agusto Espinoza Unavailable [phone] REASON FOR VISIT Urgent call back Encounters Encounter Location Date Provider Diagnosis [facility] [address] [place] [address] 12/27/2023 Agusto Rasmussen PLAN OF TREATMENT No Information
--- OUTSIDE RECORDS SUMMARY | 2023-12-27 05:28 | XMS_ITS ---
Author Organization [facility] Address [address] [place] [address] Care Team Providers Care Clip Coater Name Role Phone Dre Singh Primary Care Provider Unavailab Agusto Espinoza Unavailable [phone] REASON FOR VISIT Urgent call back Encounters Encounter Location Date Provider Diagnosis [facility] [address] [place] [address] 12/27/2023 Agusto Rasmussen PLAN OF TREATMENT No Information
--- OUTSIDE RECORDS SUMMARY | 2024-01-02 07:00 | XMS_ITS ---
Author Organization [facility] Address [address] [place] [address] Care Team Providers Care Insurance Risk Surveyor Name Role Phone Dre Singh Primary Care Provider Unavailab Agusto Espinoza Unavailable [phone] REASON FOR VISIT C4-6 Post Lami PROBLEMS Problem Type ICD Code Onset Dates Problem Status W/U Status Risk SNOMED Code Notes Problem Cervical myelopathy (G95.9) Active confirmed Cervical myelopathy (748771617) Encounters Encounter Location Date Provider Diagnosis [facility] - Inpatient [address] [place] [address] 01/02/2024 Agusto Rasmussen PLAN OF TREATMENT No Information
--- OUTSIDE RECORDS SUMMARY | 2024-01-02 07:00 | XMS_ITS ---
Author Organization [facility] Address [address] [place] [address] Care Team Providers Care Floor Layer Tile Name Role Phone Dre Singh Primary Care Provider Unavailab Agusto Espinoza Unavailable [phone] REASON FOR VISIT C4-6 Post Lami PROBLEMS Problem Type ICD Code Onset Dates Problem Status W/U Status Risk SNOMED Code Notes Problem Cervical myelopathy (G95.9) Active confirmed Information temporarily unavailable Encounters Encounter Location Date Provider Diagnosis [facility] - Inpatient [address] [place] [address] 01/02/2024 Agusto Rasmussen PLAN OF TREATMENT No Information
--- OUTSIDE RECORDS SUMMARY | 2024-01-02 07:00 | XMS_ITS ---
Author Organization [facility] Address [address] [place] [address] Care Team Providers Care Marble Polisher Name Role Phone Dre Singh Primary Care Provider Unavailab Agusto Espinoza Unavailable [phone] Magdi Mclain Unavailable [phone] REASON FOR VISIT C4-6 Post Lami Encounters Encounter Location Date Provider Diagnosis [facility] - Inpatient [address] [place] [address] 01/02/2024 Magdi Mclain PLAN OF TREATMENT No Information
--- OUTSIDE RECORDS SUMMARY | 2024-01-02 07:00 | XMS_ITS ---
Author Organization [facility] Address [address] [place] [address] Care Team Providers Care Commercial Print Salesman Name Role Phone Dre Singh Primary Care Provider Unavailab Agusto Espinoza Unavailable [phone] Magdi Mclain Unavailable [phone] REASON FOR VISIT C4-6 Post Lami Encounters Encounter Location Date Provider Diagnosis [facility] - Inpatient [address] [place] [address] 01/02/2024 Magdi Mclain PLAN OF TREATMENT No Information
--- OUTSIDE RECORDS SUMMARY | 2024-01-03 09:03 | XMS_ITS ---
Author Organization [facility] [address] [facility] [address] [place] [address] Care Team Providers Care Equipment Records Supervisor Name Role Phone Dre Singh Primary Care Provider Unavailab Agusto Espinoza Unavailable [phone] REASON FOR VISIT Postop rx MEDICATIONS Medication SIG (Take, Route, Fr equency, Duration) Notes Start Date End Date Status Percocet 5-325 MG 1 tablet as needed O rally every 4 hrs for 7 days 01/03/2024 Active predniSONE 10 MG 1 tablet Orally twic e a day for 10 days 01/03/2024 Active Encounters Encounter Location Date Provider Diagnosis [facility], [address] [facility] [address] [place] [address] 01/03/2024 Agusto Rasmussen [facility] Z47.89 ASSESSMENTS Encounter Date Diagnosis Assessment Notes Treatment Notes Treatment Clinical Notes Section Notes 01/03/2024 [facility] (ICD-10 - Z47.89) PLAN OF TREATMENT Medication Medication Name Sig Start Date Stop Date Notes Percocet 5-325 MG 1 tablet as needed O rally every 4 hrs for 7 days 01/03/2024 predniSONE 10 MG 1 tablet Orally twice a day for 10 days 1
--- OUTSIDE RECORDS SUMMARY | 2024-01-03 09:03 | XMS_ITS ---
Author Organization [facility] [address] [facility] [address] [place] [address] Care Team Providers Care Oliver Filter Operator Name Role Phone Dre Singh Primary Care Provider Unavailab Agusto Espinoza Unavailable [phone] REASON FOR VISIT Postop rx MEDICATIONS Medication SIG (Take, Route, Fr equency, Duration) Notes Start Date End Date Status Percocet 5-325 MG 1 tablet as needed O rally every 4 hrs for 7 days 01/03/2024 Active predniSONE 10 MG 1 tablet Orally twic e a day for 10 days 01/03/2024 Active Encounters Encounter Location Date Provider Diagnosis [facility], [address] [facility] [address] [place] [address] 01/03/2024 Agusto Rasmussen [facility] Z47.89 [...]
--- OUTSIDE RECORDS SUMMARY | 2024-02-03 10:03 | XMS_ITS ---
Author Organization [facility] [address] [facility] [address] [place] [address] Care Team Providers Care Laborer Cement Gun Placing Name Role Phone Dre Singh Primary Care Provider Unavailab Agusto Espinoza Unavailable [phone] REASON FOR VISIT make apt. Encounters Encounter Location Date Provider Diagnosis [facility] [address] [place] [address] 02/03/2024 Agusto Rasmussen PLAN OF TREATMENT No Information
--- OUTSIDE RECORDS SUMMARY | 2024-02-03 10:03 | XMS_ITS ---
Author Organization [facility] [address] [facility] [address] [place] [address] Care Team Providers Care Scouring Train Operator Name Role Phone Dre Singh Primary Care Provider Unavailab Agusto Espinoza Unavailable [phone] REASON FOR VISIT make apt. Encounters Encounter Location Date Provider Diagnosis [facility] [address] [place] [address] 02/03/2024 Agusto Rasmussen PLAN OF TREATMENT No Information
--- OUTSIDE RECORDS SUMMARY | 2024-02-18 08:30 | XMS_ITS ---
Author Organization [facility] [address] [place] [address] Care Team Providers Care Technical Aide Name Role Phone Dre Singh Primary Care Provider Unavailab Agusto Espinoza Unavailable [phone] REASON FOR VISIT 2nd post op ACDF Encounters Encounter Location Date Provider Diagnosis [facility] [address] [place] [address] 02/18/2024 Agusto Rasmussen PLAN OF TREATMENT No Information
--- OUTSIDE RECORDS SUMMARY | 2024-02-18 08:30 | XMS_ITS ---
Author Organization [facility] Address [address] [place] [address] Care Team Providers Care Mutual Fund Manager Name Role Phone Dre Singh Primary Care Provider Unavailab Agusto Espinoza Unavailable [phone] REASON FOR VISIT 2nd post op ACDF Encounters Encounter Location Date Provider Diagnosis [facility] [address] [place] [address] 02/18/2024 Agusto Rasmussen PLAN OF TREATMENT No Information
[2025-02-07] VITALS (16 sets, daily range): BP systolic 96–144; BP diastolic 51–70; PULSE 71–95; RESP 15–19; TEMP 36.1–36.8; O2SAT 95–100; BMI 16.4
--- NOTE | ~2025-02-07 | US_ITS ---
EXAMINATION: US venous doppler LE RT, 02/10/2025 15:19 RECORD TESTER HISTORY: RLE swelling Comparison: Comparison 03/01/2024. Technique: Batres-scale and color Doppler images were attempted of the lower saphenofemoral junction, common femoral vein,superficial femoral vein, proximal deep femoral vein, proximal deep femoral vein, popliteal vein and posterior tibial veins. Findings: Deep Venous System:There is thrombus with diminished flow in the femoral and popliteal veins, the thrombus has an echogenic appearance and is in peripheral location possibly chronic in nature, the remaining visualized deep venous system is unremarkable. Superficial Venous SystemNo superficial thrombophlebitis. Soft tissues: Soft tissues are unremarkable. Impression: Probable sequelae of remote right-sided DVT, distinction from acute thrombus is limited. Follow-up is recommended to assess for change Reviewed, dictated and finalized at location P. RD TESTER Impression: Probable sequelae of remote right-sided DVT, distinction from acute thrombus is limited. Follow-up is recommended to assess for change
--- NOTE | ~2025-02-07 | CT_ITS ---
EXAMINATION: CT abdomen pelvis w con DATE: 02/07/2025 10:43 INDICATION: Draining scrotal abscess. TECHNIQUE: Computed tomography (CT) of the abdomen and pelvis was performed with 100 mL Omnipaque 350 intravenous contrast. Automated exposure control and iterative reconstruction technique were employed. The dose-length product was 292.00 mGy-cm. COMPARISON: CT pelvis 02/27/2024 FINDINGS: The visualized portions of lung bases demonstrate mild atelectasis. There are trace right and small left pleural effusions. The heart size is normal. There is a small pericardial effusion. There is mild intrahepatic biliary duct dilatation, and the common duct is dilated to 13 mm, likely not clinically significant given the normal liver function tests. Calcifications in the spleen are consistent with old granulomatous disease. The pancreas and adrenal glands are normal. There is cortical thinning in the kidneys. There are cysts in the kidneys measuring up to 10 mm on the right. There are approximately 6 stones in right kidney measuring up to 7 mm. There is a 9 mm stone in left kidney. There is urothelial thickening and enhancement in the ureters bilaterally, consistent with pyelitis. There is diffuse bladder wall thickening, consistent with cystitis. The bladder is decompressed by a Muniz catheter. The prostate is moderately enlarged. Stool distends the rectum. There is a moderate volume of stool in the colon. The appendix is normal. There are stents in the common iliac and external iliac veins. There is nonocclusive thrombus within the stents. There are no pathologically enlarged lymph nodes. There is no free intraperitoneal fluid. There is a 4.4 x 2.1 x 5.2 cm fluid collection in the scrotum on the left containing gas and drains to the skin. There is a 5.2 x 2.0 x 3.7 cm fluid collection in the scrotum on the right. There is a sacral decubitus ulcer. There are erosions of the sacrococcygeal region, consistent with osteomyelitis. There is severe lumbar spondylosis. There is mild chronic anterior wedging of multiple vertebral bodies. There are bridging endplate osteophytes at multiple levels in the thoracic spine, consistent with diffuse idiopathic skeletal hyperostosis (DISH). IMPRESSION: 1. Bilateral scrotal abscesses. 2. Cystitis. Bilateral pyelitis. 3. Sacral decubitus ulcer with sacrococcygeal osteomyelitis. 4. Small left pleural effusion. 5. Small pericardial effusion. 6. Nonocclusive thrombus within stents in pelvic veins. Reviewed, dictated and finalized at location E. SAWYER
--- NOTE | 2025-02-07 09:42 | ECG_ITS ---
Test Date: 2025-02-07 11:04:14 Measurements Intervals [place] Rate: 80 P: 71 PA: 164 QRS: 62 QRSD: 106 T: 47 QT: 405 QTc: 469 Interpretive Statements SINUS RHYTHM MODERATE T-WAVE ABNORMALITY, CONSIDER ANTERIOR ISCHEMIA [-0.1+ mV T-WAVE IN V3/V4] No previous ECG available for comparison Electronically Signed On 02-07-2025 15:27:39 [employer]OB SITE SUPERVISOR by Venessa Kulkarni M.D.
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
[2025-02-07 10:03] LABS: Hematocrit 30.6 % (42.0-52.0); Hemoglobin 9.8 g/dL (14.0-18.0); Immature Granulocyte Percent A 0.5 % (0-0.5); Lymphocytes Absolute Auto 2.34 K/mm3 (0.9-3.2); Mean Corpuscular HGB Conc 32.0 g/dl (32-36); Mean Corpuscular Hemoglobin 23.6 pg (26-34); Mean Corpuscular Volume 73.6 fl (80-100); Nucleated Red Blood Cells Absolute Auto 0.000 K/mm3 (0.0-0.012); Nucleated Red Blood Cells Perc 0.0 % (0.0-0.2); Platelet Count Result 380 k/mm3 (150-375); Red Blood Count 4.16 M/mm3 (4.6-6.20); White Blood Count 15.1 K/mm3 (4.5-10.0)
--- OUTSIDE RECORDS SUMMARY | 2025-02-07 10:03 | XMS_ITS | Continuity of Care Document ---
Author Organization [facility], [facility] Masood Address [address] [address] Assessment Encounter Date Assessment Date Assessment LastModified by Organization Details LastModified Time 12/08/2024 12/08/2024 The patient gave verbal consent using TelePhonic services and the consent is documented in the medical record prior to using the service. The patient has been informed of what a TeleMedicine visit is. Patient is located at home. Provider is located at office. Names and roles of persons in addition to the patient and provider participating in telemedicine services include staff. The patient had a 16 minute TeleMedicine consultation via phone call to discuss the following: D/w pt about his findings and further plan of care. Educated pt about alarming symptoms to monitor at home. Pt has very limited mobility and sacral decubitus ulcer and he will benefit from Powered mobility chair for his overall health improvement. F/u as directed. [email or web address] Not available 12/08/2024 14:33:41 Plan of Treatment Reminders Order Date Submit Date Provider Last Modified By Organization Details Last Modified Time Details Appointments None recorded. Lab None recorded. Referral None recorded. Procedures None recorded. Surgeries None recorded. Imaging None recorded. Medication Orders methocarbam ol 750 mg tablet 2024 025 [facility] [address], [address] [place], [address], 14:18:35 meloxicam 7.5 mg tablet 2024 025 [facility] [address], [address] [place], [address], 5 14:18:33 hydrocodone 10 mg-acetamin ophen 325 mg tablet 2024 025 [facility] [address], [address] [place] [address], [address], 5 14:18:39 atorvastati n 20 mg tablet 2024 025 [facility] [address], [address] [place] [address], [address], 5 14:18:34 Xarelto 20 mg tablet 2024 [facility] [address], [address] [place] [address], [address], 5 14:18:31 tamsulosin 0.4 mg capsule 2024 [place] [address], [address] [place] [address], [address], 5 14:18:35 Lomotil 2.5 mg-0.025 mg tablet 2024 [place] [address], [address] [place] [address], [address], 5 14:18:37 Patient TargetsNo targets recorded. Patient Instructions Encounter Date Encounter Id Patient Instructions Last Modified By Organization Details Last Modified Time 12/08/2024 [id number] Due to the COVID-19 (Novel Coronavirus) pandemic, it is within this context (and with the understanding that this method of patient encounter is in the patient s best interest as well as the health and safety of other patients and the public) that [facility] is being provided for this patient encounter rather than a kboi-[id number] visit. This patient encounter is appropriate at this time. This patient has been advised of the potential risks and limitations of this mode of treatment (including, but not limited to, the absence of in-person examination) and has agreed to be treated in a remote fashion despite these risks. Any and all of the patient s /patient s family s questions on this issue have been answered, and I have made no promises or guarantees to the patient. The patient has also been advised to contact this office for worsening conditions or problems, and seek emergency medical treatment and/or call 911 if the patient deems either necessary. HPI and/or vitals, if listed, were provided by the patient. [email or web address] Not available 12/08/2024 14:01:27 Reason for Referral None Reported. Problems Name Problem SNOMED Code Status Onset Date Resolution Date Notes Provider Name and Address Organization Details Recorded Time Hyperlipid emia 57476950 Active Not Available [facility] 3 11:19:25 Pain of wrist region 23716893 Active Not Available [facility] 3 11:19:25 Low back pain 656088372 Active 2016 Not Available [facility] 3 11:19:25 Recurrent deep vein thrombosis 046984227 Active 2021 Daniel Anne MD [address], [address], [place], [address] , [employer] 5 14:27:20 Colorectal cancer detected by DNA-based stool screening 562398051 Active 2021 Not Available [facility] 3 11:19:25 Edema of lower extremity 636771072 Active 2022 Not Available [facility] 3 11:19:25 Abnormal gait due to impairment of balance 825954617 Active 2022 Not Available [facility] 3 11:19:25 Obesity 212718964 Active 2022 Not Available [facility] 3 11:19:25 Cellulitis 164522997 Active 2022 Not Available [facility] 3 11:19:25 Chronic back pain 043804316 Active 2022 Palak Flanagan MD [address], [address], [place], [address] , [employer] 3 16:20:27 Impaired fasting glycemia 515601736 Active 2022 Palak Flanagan MD [address], [address], [place], [address] , [facility] 3 16:27:36 Chronic low back pain 565863914 Active 2022 Ilan Bates RN null, [facility] 3 10:20:01 Sinusitis 98094256 Active 2023 MARIANA Sanchez [address], [address], [place], [address] , [facility] 4 09:39:28 Expiratory wheezing 4289203 Active 2023 MARIANA Sanchez [address], [address], [place], [address] , [facility] 4 16:26:26 Screening for malignant neoplasm of prostate Active 2023 MARAINA Sanchez [address], [address], [place], [address] , [facility] 4 10:23:02 Cervical radiculopa thy 03630625 Active 2023 Ilan Bates RN null, [facility] 4 12:02:44 Acute diarrhea 099737445 Active 2024 FABRIZIO Riddle [address], [address], [place], [address] , [facility] 5 12:41:54 Diarrhea 62665257 Active 2024 Daniel Anne MD [address], [address], [place], [address] , [facility] 5 14:11:16 Pressure injury of sacral region of back 787551243 Active 2024 Daniel Anne MD [address], [address], [place], [address] , [facility] 5 16:48:17 Chronic back pain greater than three months duration 194640773394 Active 2024 Daniel Anne MD [address], [address], [place], [address] , [facility] 5 16:53:14 Benign hypertensi on 31832348 Active 2024 Daniel Anne MD [address], [address], [place], [address] , [facility] 5 16:54:29 Mixed hyperlipid emia 762589257 Active 2024 Daniel Anne MD [address], [address], [place], [address] , [facility] 5 16:54:38 Nocturia due to benign prostatic hypertroph y 4680277109827 Active 2024 Daniel Anne MD [address], [address], [place], [address] , [facility] 5 16:59:58 Body mass index 30+ - obesity 893369884 Active 2024 Daniel Anne MD [address], [address], [place], [address] , [facility] 5 17:08:49 Pressure injury 9450901155 Active 2024 Daniel Anne MD [address], [place], [address] , [facility] 5 17:13:11 Bronchitis 09417038 Active 2024 Daniel Anne MD [address], [place], [address] , [facility] 5 15:34:24 Asthenia 53204589 Active 2024 FABRIZIO Riddle [address], [place], [address] , [facility] [employer] 15:25:41 Notes:Some problems listed i n Documents: #[id number], #[id number], #[id number], #[id number], #[id number] could not be added to this patient's chart. Please review these documents and add these problems to the patient's chart manually as needed. Problem Notes None recorded. Procedures Surgical History Date Name Laterality Status Provider Name and Address Organization Details Recorded Time Medicare Wellness CPT Code, Initial completed Dary Patel RN [place] [facility] 11/28/2022 15:03:34 Imaging Results None recorded. Procedure Notes None recorded. Medical Equipment None Reported. Allergies Allergen ID Allergen Name Allergen Category Reaction Reaction Severity Criticality Documentation Date Start Date Code Code System Note Provider Name and Address Organization Details Recorded Time 02130 Product containin g penicilli n (product) medicatio n anaphylax is Not available Not available 01/22/2025 17054 8001 SNOMED Not Available [employer] [facility] 17:03:00 60999 metformin medicatio n Not available Not available Not available 01/22/2025 6809 RxNorm Not Available [employer] [facility] [employer] 17:04:28 Medications Name Sig Start Date Stop Date Status Note LastModified by Organization Details LastModified Time cyclobenzap rine 10 mg tablet TK 1 T PO TID PRF [facility] 11/10 completed Not Available Not Available Not Available amoxicillin 500 mg capsule Take 1 capsule 3 times a day by oral route for 10 days. 01/29 completed Not Available Not Available Not Available prednisone 10 mg tablet TAKE 1 TABLET BY MOUTH TWICE DAILY 11/10 completed Not Available Not Available Not Available atorvastati n 20 mg tablet Take 1 tablet every day by oral route at bedtime for 90 days. 2024 active Not Available Not Available Not Avai lable loperamide 2 mg capsule TAKE 1 CAPSULE BY MOUTH EVERY 2 HOURS NEEDED FOR DIARRHEA AFTER EACH LOOSE STOOL (MAX DAILY DOSE OF 6 TABLETS) 11/10 completed Not Available Not Available Not Available Tab-A-Caryn tablet TAKE ONE TABLET BY MOUTH ONCE DAILY active Not Available Not Available No t Available azithromyci n 250 mg tablet TAKE 2 TABLETS (500 MG) BY ORAL ROUTE ONCE DAILY FOR 1 DAY THEN 1 TABLET (250 MG) BY ORAL ROUTE ONCE DAILY FOR 4 DAYS 06/26 completed Not Available Not Available Not Available hydrocodone 5 mg-acetamin ophen 325 mg tablet TAKE 1 TABLET BY MOUTH EVERY 4 HOURS NEEDED FOR PAIN 11/10 completed Not Available Not Available Not Available meloxicam 15 mg tablet 1 po daily 06/26 completed Not Available Not Available Not Available ondansetron HCl 4 mg tablet 11/10 completed Not Available Not Available Not Available Medrol (Julio) 4 mg tablets in a dose pack Take by oral route as directed 08/16 completed Not Available Not Available Not Available diphenoxyla te-atropine 2.5 mg-0.025 mg tablet TAKE 1 TABLET BY MOUTH EVERY 8 HOURS NEEDED FOR 15 DAYS active Not Available Not Available No t Available clopidogrel 75 mg tablet TAKE 1 TABLET BY MOUTH EVERY DAY active Not Available Not Available No t Available amlodipine 5 mg tablet active Not Available Not Available Not Available sulfamethox azole 800 mg-trimetho prim 160 mg tablet TAKE 1 TABLET BY MOUTH EVERY 12 HOURS 07/16 completed Not Available Not Available Not Available hydrocodone 10 mg-acetamin ophen 325 mg tablet TAKE 1 TABLET BY MOUTH EVERY 12 HOURS NEEDED active Not Available Not Available No t Available tramadol 50 mg tablet Take 1 tablet every 6 hours by oral route. active Not Available Not Available No t Available amoxicillin 500 mg tablet Take 1 tablet 3 times a day by oral route. active Not Available Not Available No t Available dexamethaso ne sodium phosphate 0.1 % eye drops 2 gtts affected eye 4 times a day 11/10 completed Not Available Not Available Not Available meloxicam 7.5 mg tablet Take 1 tablet every day by oral route as needed for 90 days. 2024 active Not Available Not Available Not Avai lable oxycodone-a cetaminophe n 5 mg-325 mg tablet TAKE 1 TABLET BY MOUTH EVERY 6 HOURS NEEDED 11/10 completed Not Available Not Available Not Available hydrocortis one 2.5 % topical cream with perineal applicator APPLY A THIN LAYER TO THE AFFECTED AREA(S) BY TOPICAL ROUTE 2-4 TIMESDAIL Y 11/10 completed Not Available Not Available Not Available amoxicillin 875 mg tablet TAKE 1 TABLET BY MOUTH EVERY 12 HOURS active Not Available Not Available No t Available methocarbam ol 750 mg tablet Take 1 tablet every 8 hours by oral route as needed for 30 days. 2024 active Not Available Not Available Not Avai lable oxycodone-a cetaminophe n 10 mg-325 mg tablet TAKE 1 TO 2 TABLETS BY MOUTH NEEDED EVERY 4 HOURS MAX 8 TABLETS IN 24 HOURS 11/10 completed Not Available Not Available Not Available tamsulosin 0.4 mg capsule TAKE 1 CAPSULE BY MOUTH EVERY DAY [facility] 2024 active Not Available Not Available Not Avai lable baclofen 10 mg tablet TAKE 1 TABLET BY MOUTH EVERY 8 HOURS NEEDED active Not Available Not Available No t Available amlodipine 10 mg tablet active Not Available Not Available Not Available simvastatin 20 mg tablet TAKE 1 TABLET BY MOUTH EVERY DAY active Not Available Not Available No t Available warfarin 2 mg tablet TAKE 1 TABLET BY MOUTH EVERY DAY 07/22 completed Not Available Not Available Not Available warfarin 5 mg tablet TAKE 1 TABLET BY MOUTH EVERY DAY 11/10 completed Not Available Not Available Not Available hydrochloro thiazide 25 mg tablet TAKE 1 TABLET BY MOUTH ONCE DAILY active Not Available Not Available No t Available cefdinir 300 mg capsule Take 1 capsule twice a day by oral route as directed for 10 days. 02/04 completed Not Available Not Available Not Available neomycin 3.5 mg-polymyxi n 10,000 unit-hydroc ort 10 mg/mL eye drop,susp INSTILL 1 DROP INTO AFFECTED EYE(S) BY OPHTHALMI C ROUTE EVERY 4 HOURS active Not Available Not Available No t Available fluticasone propionate 50 mcg/actuati on nasal spray,suspe nsion SPRAY 2 SPRAYS INTO EACH NOSTRIL EVERY DAY active Not Available Not Available No t Available metformin ER 500 mg tablet,exte nded release 24 hr Take 1 tablet every day by oral route. 07/22 completed Not Available Not Available Not Available naproxen 500 mg tablet TAKE 1 TABLET BY MOUTH TWICE DAILY 11/10 completed Not Available Not Available Not Available amoxicillin 875 mg-potassiu m clavulanate 125 mg tablet Take 1 tablet every 12 hours by oral route for 10 days. 07/16 completed Not Available Not Available Not Available Ventolin HFA 90 mcg/actuati on aerosol inhaler INHALE 2 PUFFS BY MOUTH EVERY 6 HOURS NEEDED active Not Available Not Available No t Available One Daily Multivitami n tablet TAKE ONE TABLET BY MOUTH ONCE DAILY active Not Available Not Available No t Available Oyster Shell Calcium-500 500 mg (as carbonate 1,250 mg) tablet take 1 tablet twice a day 07/16 completed Not Available Not Available Not Available fenofibrate 160 mg tablet 1 po daily 06/26 completed Not Available Not Available Not Available fenofibrate nanocrystal lized 145 mg tablet TK 1 T PO QD 07/21 completed Not Available Not Available Not Available Golytely 236 gram-22.74 gram-6.74 gram-5.86 gram oral solution DIRECTED 07/16 completed Not Available Not Available Not Available Xarelto 20 mg tablet Take 1 tablet every day by oral route as directed for 90 days. 2024 active Not Available Not Available Not Avai lable icosapent ethyl 1 gram capsule TAKE 2 CAPSULES BY MOUTH EVERY 12 HOURS active Not Available Not Available No t Available potassium chloride ER 20 mEq tablet,exte nded release TAKE 1 TABLET BY MOUTH ONCE DAILY active Not Available Not Available No t Available naloxone 4 mg/actuatio n nasal spray CALL 911. ADMINISTE R A SINGLE SPRAY INTRANASA LLY INTO ONE NOSTRIL UPON SIGNS OF OPIOID OVERDOSE. MAY REPEAT AFTER 3 MINUTES IF NO RESPONSE. active Not Available Not Available No t Available Wegovy 0.25 mg/0.5 mL subcutaneou s pen injector Inject 0.25 mg every week by subcutane ous route. 07/16 completed Not Available Not Available Not Available Daily-Caryn (with folic acid) 400 mcg tablet TAKE 1 TABLET BY MOUTH EVERY DAY 2023 active Not Available Not Available Not Avai lable Vitals None Recorded Social History Question Answer Notes LastModified by Organizat ion Details LastModified Time Tobacco Smoking Status Never Smoker Not Available [facility] 05/09/2022 14:45:50 What Is Your Level Of Caffeine Consumption? None Water, Tea With Little Caffine And Soda With Zero Caffine. [id number] Information not available 05/09/2022 What Type Of Diet Are You Following? REGULAR Low Salt [id number].[id number] Information not available 05/09/2022 Have There Been Any Changes To Your Family Or Social Situation? No [id number] Information not available 05/09/2022 What Was The Date Of Your Most Recent Tobacco Screening? 08/30/2021 [id number] Information not available 05/09/2022 What Is Your Relationship Status? [id number] 4111 Information not available 05/09/2022 Have You Recently Traveled Abroad? No [id number].[id number] 9602 Information not available 05/09/2022 Do You Have Any Dietary Restrictions? No MIGRATION.[id number] 5473 Information not available 05/09/2022 Sex: Unknown Functional Status Question Answer Note LastModified by Organizat ion Details LastModified Time Do you use any illicit or recreational drugs? No [id number] 026 Information not available 05/09/2022 Do you or have you ever used any other forms of tobacco or nicotine? No [id number].[id number] 026 Information not available 05/09/2022 What is your level of alcohol consumption? 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 None [id number] 026 Information not available 05/09/2022 Mental Status None recorded. Family History Nothing Reported Notes:pt was adopted Medical History No medical history recorded. Past Encounters Encounter ID Performer Location Encounter Start Date Encounter Closed Date Diagnosis/Indication Diagnosis SNOMED-CT Code Diagnosis ICD10 Code Diagnosis IMO Codes Diagnosis Note [id number] Daniel Anne MD [facility] [address] [address] 11/10/2024 16:37:31 11/10/2024 17:07:38 Seen in department 647859133 Z76.89 [id number] Staff to get recent ED records. Pressure i njury of sacral region of back 729564969 L89.159 4850595712 Recurrent deep vein thrombosis 438806349 I82.509 Chronic ba ck pain greater than three months duration 6291737207 02 M54.9 G89.29 2686244 Benign hypertension 1072 5009 I10 364943 Mixed hyperlipidemia 267 427822 E78.2 07091 Nocturia d ue to benign prostatic hypertrophy 1262744157 101 N40.1 R35.1 9039168 Body mass index 30+ - obesity 235263588 E66.9 4810598 Clinical finding 4115195 03 Z74.09 Z78.9 [id number] Daniel Anne MD [facility] [address] [place] [address] 12/08/2024 13:58:41 12/08/2024 14:35:45 Pressure injury of sacral region of back 434415323 L89.159 5201421256 Recurrent deep vein thrombosis 584600727 I82.509 Chronic ba ck pain greater than three months duration 9147467653 02 M54.9 G89.29 3892506 Benign hypertension 1072 5009 I10 135616 Mixed hyperlipidemia 267 623587 E78.2 21834 Nocturia d ue to benign prostatic hypertrophy 6824163360 101 N40.1 R35.1 0959163 Body mass index 30+ - obesity 050779607 E66.9 5156181 Clinical finding [id number] 03 Z74.09 Z78.9 0432578 [facility] 97465096 R19.7 [id number] Health Concerns Section Related Observation LastModified by Organization Detai ls LastModified Time None Recorded Concern Status LastModified by Organization Details LastModified Time None Recorded Payers Encounter Date Sequence Insurance Name Policy Number Policy Rendon Covered Member ID Rendon Member ID Guarantor Name 12/08/2024 2 [place] [employer] [employer] Aravind Callahan [id number] Aravind Callahan 12/08/2024 1 [place] Aravind Callahan [id number] Aravind Callahan Notes Date Note Type Note Provider Name and Address Organization Details Recorded Time 12/08/2024 text/html Telephone visit.ACV: Pt lives with his . Pt's son lives 5 mins from him and he also helps them out. Pt is getting home health and wound care - every Tue and Fri and they recommended pt to get Powered wheelchair for his sacral wound that his not healed yet. Pt will be out of his [place] in few days and is requesting refill on it until he can come for the office visit. He still has very limited mobility and they hired a helping lady, who comes 3 times per week to help them out. He is feeling overall better than before. His sacral wound is getting smaller and better. Pt has air mattress at home and he is not able to walk too much. Pt was seen in ED at [facility] last month and he was admitted there for IV antibiotics for his sacral wound and then he was d/c to Rehab place and about 3 weeks ago, he was d/c to home. Pt is f/u with Cardio for his HTN and PVD and is on meds by them. Daniel Anne MD [address] [place] [address], [place] [address], [place], [address], [place] [facility] 12/08/2024 14:33:53
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
--- OUTSIDE RECORDS SUMMARY | 2025-02-07 10:03 | XMS_ITS | Continuity of Care Document ---
Author Organization ID - [facility], [facility] Family [facility] Address [address] [place] [address] Assessment Encounter Date Assessment Date Assessment LastModified by Organization Details LastModified Time 01/26/2025 01/26/2025 The patient gave verbal consent [...] had a 10 minute TeleMedicine consultation via [email or web address] to discuss the following: [email or web address] Not available 01/26/2025 15:25:06 Plan of Treatment Reminders Order Date Submit Date Provider Last Modified By Organization Details Last Modified Time Details Appointments None record ed. Lab None record ed. Referral None record ed. Procedures None record ed. Surgeries None record ed. Imaging None record ed. Medication Orders None record ed. Patient TargetsNo targets recorded. Patient Instructions Encounter Date Encounter Id Patient Instructions Last Modified By Organization Details Last Modified Time 01/26/2025 [id number] Due to the COVID-19 (Novel Coronavirus) pandemic, it is within this context (and with the understanding that this method of patient encounter is in the patient s best interest as well as the health and safety of other patients and the public) that t elehealth is being provided for this patient encounter rather than a kufk-qe-jqmo visit. This patient encounter is appropriate at [...] Not available 01/26/2025 15:13:23 Reason for Referral None Reported. Problems Name Problem SNOMED Code Status Onset Date Resolution Date Notes Provider Name and Address Organization Details Recorded Time Hyperlipid emia 38780433 Active Not Available [facility] 3 11:19:25 Pain of wrist region 90344698 Active Not Available [facility] 3 11:19:25 Low back pain 430738120 Active 2016 Not Available [facility] 3 11:19:25 Recurrent deep vein thrombosis 794742477 Active 2021 Daniel Anne MD [address], [place], [address] , [employer] 5 14:27:20 Colorectal cancer detected by DNA-based stool screening 284111591 Active 2021 Not Available [facility] 3 11:19:25 Edema of lower extremity 779715516 Active 2022 Not Available [facility] 3 11:19:25 Abnormal gait due to impairment of balance 011890952 Active 2022 Not Available [facility] 3 11:19:25 Obesity 001802124 Active 2022 Not Available [facility] 3 11:19:25 Cellulitis 813824007 Active 2022 Not Available [facility] 3 11:19:25 Chronic back pain 717466053 Active 2022 Palak Flanagan MD [address], [place], [address] , [employer] 3 16:20:27 Impaired fasting glycemia 537530627 Active 2022 Palak Flanagan MD [address], [address], [place], [address] , [facility] 3 16:27:36 Chronic low back pain 513062209 Active 2022 Ilan Bates RN null, [facility] 3 10:20:01 Sinusitis 56142027 Active 2023 MARIANA Sanchez [address], [address], [place], [address] , [facility] - [facility] 4 09:39:28 Expiratory wheezing 9723901 Active 2023 MARIANA Sanchez [address], [place], [address] , [facility] - [facility] 4 16:26:26 Screening for malignant neoplasm of prostate Active 2023 MARIANA Sanchez [address], [place], [address] , [facility] 4 10:23:02 Cervical radiculopa thy 24795322 Active 2023 Ilan Bates RN null, [facility] 4 12:02:44 Acute diarrhea 068330881 Active 2024 FABRIZIO Riddle [address], [address], [place], [address] , [facility] 5 12:41:54 Diarrhea 22136521 Active 2024 Daniel Anne MD [address], [place], [address] , [facility] 5 14:11:16 Pressure injury of sacral region of back 218449000 Active 2024 Daniel Anne MD [address], [place], [address] , [facility] - [facility] 5 16:48:17 Chronic back pain greater than three months duration 822607342295 Active 2024 Daniel Anne MD [address], [address], [place], [address] , [employer] [facility] [employer] [facility] 5 16:53:14 Benign hypertensi on 92151003 Active 2024 Daniel Anne MD [address], [address], [place], [address] , [employer] [facility] [employer] [facility] 5 16:54:29 Mixed hyperlipid emia 366214473 Active 2024 Daniel Anne MD [address], [address], [place], [address] , [employer] [facility] [employer] [facility] 16:54:38 Nocturia due to benign prostatic hypertroph y 8951629022366 Active 2024 Daniel Anne MD [address], [address], [place], [address] , [employer] [facility] 5 16:59:58 Body mass index 30+ - obesity 177253525 Active 2024 Daniel Anne MD [address], [address], [place], [address] , [employer] [facility] 5 17:08:49 Pressure injury 0044633788 Active 2024 Daniel Anne MD [address], [address], [place], [address] , [employer] [facility] 5 17:13:11 Bronchitis 54510021 Active 2024 Daniel Anne MD [address], [address], [place], [address] , [employer] [facility] 5 15:34:24 Asthenia 76618189 Active 2024 FABRIZIO Riddle [address], [address], [place], [address] , [employer] [facility] [employer] [facility] 15:25:41 Notes:Some problems listed i n Documents: #[id number], #[id number], #[id number], #[id number], #[id number] could not be added to this patient's chart. Please review these documents and add these problems to the patient's chart manually as needed. Problem Notes None recorded. Procedures Surgical History Date Name Laterality Status Provider Name and Address Organization Details Recorded Time Medicare Wellness CPT Code, Initial completed Dary Patel RN [place] [facility] [employer] [facility] 11/28/2022 15:03:34 Imaging Results None recorded. Procedure Notes None recorded. Medical Equipment None Reported. Allergies Allergen ID Allergen Name Allergen Category Reaction Reaction Severity Criticality Documentation Date Start Date Code Code System Note Provider Name and Address Organization Details Recorded Time 67898 Product containin g penicilli n (product) medicatio n anaphylax is Not available Not available 01/22/2025 95079 8001 SNOMED Not Available [employer] - prod 17:03:00 20690 metformin medicatio n Not available Not available Not available 01/22/2025 6809 RxNorm Not Available [employer] [facility] [employer] 17:04:28 Medications Name Sig Start Date Stop [...] TAKE 1 CAPSULE BY MOUTH EVERY DAY Q 2024 active Not Available Not Available Not [...] Tobacco Smoking Status Never Smoker Not Available [facility] 05/09/2022 14:45:50 What Is Your Level Of Caffeine Consumption? None Water, Tea With Little Caffine And Soda With Zero Caffine. [id number] Information not available 05/09/2022 What Type Of Diet Are You Following? REGULAR Low Salt [id number].[id number] 6336 Information not available 05/09/2022 Have There Been Any Changes To Your Family Or Social Situation? No MIGRATION.853934 3496 Information not available 05/09/2022 What Was The Date Of Your Most Recent Tobacco Screening? 08/30/2021 [id number].[id number] Information not available 05/09/2022 What Is Your Relationship Status? MIGRATION.727438 6179 Information not available 05/09/2022 Have You Recently Traveled Abroad? No MIGRATION.247509 1301 Information not available 05/09/2022 Do You Have Any Dietary Restrictions? No MIGRATION.951904 7223 Information not available 05/09/2022 Sex: Unknown Functional Status Question Answer Note LastModified by Organizat ion Details LastModified Time Do you use any illicit or recreational drugs? No MIGRATION.[id number] 026 Information not available 05/09/2022 Do you or have you ever used any other forms of tobacco or nicotine? No MIGRATION.4633065 026 Information not available 05/09/2022 What is your level of alcohol consumption? 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 None MIGRATION.[id number] 026 Information not available 05/09/2022 Mental Status None recorded. Family History Nothing Reported Notes:pt was adopted Medical History No medical history recorded. Past Encounters Encounter ID Performer Location Encounter Start Date Encounter Closed Date Diagnosis/Indication Diagnosis SNOMED-CT Code Diagnosis ICD10 Code Diagnosis IMO Codes Diagnosis Note [id number] FABRIZIO Riddle [facility] [address] [address] 01/26/2025 14:13:24 01/26/2025 15:38:53 Asthenia 34597420 R53.1 48638 Is unable to reposition or turn in bed independen tly,Requir es assistance with transfers, Has adequate upper-body strength to safely use a trapeze,Th e trapeze will significan tly improve safety and reduce caregiver burden. Abnormal g ait due to impairment of balance 706521485 R26.89 Generalize d weakness, unable to position or leave bed independan tly Pressure injury 40442409 07 L89.90 [id number] Related to weakness and inability to reposition in bed. Health Concerns Section Related Observation LastModified by Organization Detai ls LastModified Time None Recorded Concern Status LastModified by Organization Details LastModified Time None Recorded Payers Encounter Date Sequence Insurance Name Policy Number Policy Rendon Covered Member ID Rendon Member ID Guarantor Name 01/26/2025 2 [place] Aravind Callahan [id number] Aravind Callahan 01/26/2025 1 [place] Aravind Callahan [id number] Aravind Callahan Notes Date Note Type Note Provider Name and Address Organization Details Recorded Time 01/26/2025 text/html Aravind Callahan is a 69 year old male patient [...] for skin breakdown and injury during transfers. Teodora Butt, OPERATION SPECIALIST [address] [facility] [facility] [address], [place], [address], [facility] [employer] [facility] 01/26/2025 15:29:28
--- OUTSIDE RECORDS SUMMARY | 2025-02-07 10:03 | XMS_ITS | Clinical Summary ---
Author Organization [facility] [employer] Address [address] [place] [address] Care Team Providers Care Office Bookkeeper Name Role Phone Palak Flanagan MD Primary Care Provider [phone] Source Comments [facility],non-owned Affiliates and Associated Physician Practices is amultiple site organization consisting of ambulatory clinics and hospital sitesin [place], [place], [place] and [place]. This disclosure is being madepursuant to the Care Everywhere program and may not contain all information available regarding this patient. Last updated 17.[facility] [employer] Allergies Active Allergy Reactions Criticality Noted Date Comments Penicillins Anaphylaxis High 04/16/2018 Medications * Be aware that medications may not be up to date on this document. Alwaysverify current medications with the patient. fenofibrate (LOFIBRA) 160 MG tabletIndicati ons:Hyperlipid emia,Take at night with dinner Take 160 mg by mouth once daily Take with largest meal of the day. Reasons: High Amount of Fats in the Blood, Take at night with dinner Active polyethylene glycol 3350 (MIRALAX) packet Take 17 g by mouth once daily 9 Active loratadine (CLARITIN) 10 MG tablet Take 1 tablet by mouth once daily 9 Active HYDROcodone-ac etaminophen (NORCO) 5-325 MG tablet Take 1 tablet by mouth every 4 hours as needed for Pain Do not exceed 3 grams of acetaminophen (TYLENOL) daily. 42 tablet 9 Active docusate sodium (COLACE) 50 MG capsule Take 1 capsule by mouth once daily 30 capsule 9 Active HYDROcodone-ac etaminophen (NORCO) 5-325 MG tablet Take 2 tablets by mouth every 8 hours as needed for Pain 60 tablet 9 Active cyclobenzaprin e (FLEXERIL) 10 MG tablet Take 1 tablet by mouth 3 times daily as needed for Muscle Spasms 90 tablet 9 Active tamsulosin (FLOMAX) 0.4 MG capsule 1 po daily Active apixaban (ELIQUIS) 5 MG tablet Take 2 tablets (10 mg) twice daily for 6 days then take one tablet (5 mg) twice daily until you are told to stop 36 tablet 2 9 Active Active Problems Problem Noted Date Diagnosed Date Deep vein thrombosis (DVT) o f proximal vein of both lower extremities 07/23/2018 Class 1 obesity in adult 04/18/2018 Vitamin D deficiency 04/17/2018 H/O urinary retention 04/17/2018 Trauma 04/17/2018 Closed displaced fracture of lateral malleolus of right fibula 04/16/2018 Bimalleolar ankle fracture, right, closed, initial encounter Ankle syndesmosis disruption, right, initial enc ounter Family History Medical History Relation Name Comments Hypertension Father Relation Name Status Comments Father Social History Tobacco Use Types Packs/Day Years Used Date Smoking Tobacco: Never Smokeless Tobacco: Never Alcohol Use Standard Drinks/Week Comments No 0 (1 standard drink = 0.6 oz pur e alcohol) Sex and Gender Information Value Date Recorded Sex Assigned at Not on file Legal Sex Male 5:44 PM MARBLEIZER Gender Identity Not on file Sexual Orientation Not on file Last Filed Vital Signs Vital Sign Reading Time Taken Comments Blood Pressure 158/81 07/24/2018 11:30 AM CDT Pulse 88 07/24/2018 11:30 AM CDT Temperature 36.6 C (97.9 F) 07/24/2018 11:30 AM CDT Respiratory Rate 18 07/24/2018 11:30 AM CDT Oxygen Saturation 100% 07/24/2018 11:30 AM CDT Inhaled Oxygen Concentration 21% 04/21/2018 7 :22 AM MARBLEIZER Weight 108 kg (238 lb) 07/23/2018 3:01 PM CDT Height 177.8 cm (5' 10) 07/23/2018 3:01 PM CDT Body Mass Index 34.15 07/23/2018 3:01 PM CDT Plan of Treatment Health Maintenance Due Date Last Done Comments COLOGUARD (AGES 45-75) - COLON CA SCREENING 1956 COLON MONITORING 1956 COLONOSCOPY - COLON CA SCREENING 1956 CT COLONOGRAPHY - COLON CA SCREENING 1955 Colorectal Cancer Screening 1956 FIT - COLON CA SCREENING 1956 FLEX SIG - COLON CA SCREENING 1956 LIPID TESTING 1956 DTAP/TDAP/TD VACCINES (1 - Tdap) 10/10/1975 PNEUMOCOCCAL VACCINE 50+ (1 of 1 - PCV) 2006 ZOSTER VACCINE (1 of 2) 2006 SCREENING FOR DIABETES 07/23/2021 9, 04/21/2018, 04/20/2018, Additional history exists DEPRESSION SCREENING 03/11/2024 COVID-19 VACCINE ( - 2024- season) 2024 INFLUENZA VACCINE (#1) 2024 Respiratory Syncytial Virus (RSV) Vaccine Pt: or over 60 yrs (1 - 1-dose 75+ series) 10/10/2031 HEPATITIS C SCREENING Completed 07/23/2018 HEPATITIS B VACCINE Aged Out No longe r eligible based on patient's age to complete this topic HIB VACCINE Aged Out No longer eligi ble based on patient's age to complete this topic HPV VACCINE Aged Out No longer eligi ble based on patient's age to complete this topic MENINGOCOCCAL (Group B) VACCINE SHARED DECISION-MAKING Aged Out No longer eligible based on patient's age to complete this topic MENINGOCOCCAL GROUPS A/C/Y/W VACCINE Aged Out No longer eligible based on patient's age to complete this topic Medical Devices Implanted Type Area Slubber Frame Changer Device Identifier Shelf Expiration Date Model / Serial / Lot Plate 106mm 6 Hl Lck Ss 2.7-3.5mm Screw Implanted:Qty: 1 on 04/17/2018 by Jesus Copeland MD at [facility] Right: Ankle [employer] [id number] / / Screw 3.5mm 2.7mm 16mm Elb [employer] Periart Implanted:Qty: 3 on 04/17/2018 by Jesus Copeland MD at [facility] Right: Ankle [employer] [id number] / / Screw 3.5mm 56mm Hua Slf-Tap Bone Implanted:Qty: 1 on 04/17/2018 by Jesus Copeland MD at [facility] Right: Ankle [employer] [id number] / / Screw 2.7mm 2.5mm 18mm Hua Slf-Tap Sm Implanted:Qty: 1 on 04/17/2018 by Jesus Copeland MD at [facility] Right: Ankle [employer] [id number] / / Screw 2.7mm 2.5mm 20mm Hua Slf-Tap Sm Implanted:Qty: 4 on 04/17/2018 by Jesus Copeland MD at [facility] Right: Ankle [employer] [id number] / / Procedures Procedure Name Priority Date/Time Associated Diagnosis Comments COMPREHENSIVE METABOLIC PANEL STAT 07/23/2018 5:07 PM CDT HEPATITIS C AB SCREEN RFLX NAAT QUANT STAT 07/23/2018 5:07 PM CDT from Last 3 Months or Most Recently Relevant to Health Maintenance Results * HEPATITIS C AB SCREEN RFLX NAAT QUANT (07/23/2018 5:07 PM CDT) Hepatitis C Antibody Non-react radha Non-reac tive 07/23/2018 5:56 PM CDT [facility] Comment: Hepatitis C Antibody screen indicates no serologic evidence of past or current infection with Hepatitis C Virus. Patients with unexplained liver disease who are immunocompromised or suspected of having acute Hepatitis C infection may benefit from Nucleic Acid Test (PRIETO) for Hepatitis C Viral RNA to confirm Hepatitis C status. Blood BLOOD SPECIMEN / Unknown Venipuncture / Unknown 07/23/2018 5:07 PM CDT 07/23/2018 5:16 PM CDT us Lou Paz MD LAB - CHEMISTRY ORDERABLES Fi nal Result [facility] [address] [place] [address] * (ABNORMAL) COMPREHENSIVE METABOLIC PANEL (07/23/2018 5:07 PM T) BUN 21 7 - 26 mg/dL 07/23/2018 6:02 PM [facility] Creatinine 1.0 0.6 - 1.2 mg/dL 07/23/2018 6:02 PM [facility] Sodium 143 136 - 145 mmol/L 07/23/2018 6:02 PM [facility] Potassium 4.0 3.5 - 4.5 mmol/L 07/23/2018 6:02 PM [facility] Chloride 108(H) 98 - 107 mmol/L 07/23/2018 6:02 PM [facility] CO2 27 22 - 29 mmol/L 07/23/2018 6:02 PM [facility] Glucose 113 70 - 115 mg/dL 07/23/2018 6:02 PM [facility] Calcium 9.7 8.4 - 10.2 mg/dL 07/23/2018 6:02 PM [facility] Protein Total 6.5 6.0 - 8.3 g/dL 07/23/2018 6:02 PM [facility] Albumin 3.5 3.4 - 5.0 g/dL 07/23/2018 6:02 PM [facility] Bilirubin Total 0.1(L) 0.2 - 1.2 mg/dL 07/23/2018 6:02 PM [facility] Alkaline Phosphatase 71 40 - 150 Units/L 07/23/2018 6:02 PM [facility] ALT 26 0 - 55 Units/L 07/23/2018 6:02 PM [facility] AST 18 5 - 34 Units/L 07/23/2018 6:02 PM [facility] Anion Gap 12 8 - 18 07/23/2018 6:02 PM [facility] BUN/Creatinine Ratio 21 7 - 23 07/23/2018 6:02 PM [facility] Osmolality Calculated 300 270 - 300 mOsm/kg 07/23/2018 6:02 PM CDT [facility] Albumin/Globulin Ratio 1.2 1.1 - 2.3 07/23/2018 6:02 PM CDT [facility] eGFR >60 >60 mL/min/1.7 3 m2 07/23/2018 6:02 PM CDT [facility] Blood BLOOD SPECIMEN / Unknown Venipuncture / Unknown 07/23/2018 5:07 PM CDT 07/23/2018 5:16 PM CDT us Lou Paz MD LAB - CHEMISTRY ORDERABLES Fi nal Result [address] [phone] from Last 3 Months or Most Recently Relevant to Health Maintenance [place] [address] [employer] [place] MED[place] Advance Directives * Full Code (Latest Code Status on File) Date Activated Date Inactivated Comments 07/23/2018 5:33 PM 07/24/2018 4:25 PM * Full Code Date Activated Date Inactivated Comments 04/16/2018 8:20 PM 04/21/2018 2:33 PM Care Teams Office Bookkeeper Relationship Specialty Start Date End Date Palak Flanagan MD [facility] [place] [address] PCP - General Family Medicine 04/16/18
--- OUTSIDE RECORDS SUMMARY | 2025-02-07 10:04 | XMS_ITS | Clinical Summary ---
Author Organization [facility] Address [address] [place] [address] Phone Care Team Providers Care [employer] [facility] Name Role Phone Unavailable Primary Care Provider Unavailabl e Allergies No known active allergies Medications atorvastatin (LIPITOR) 20 mg tablet Take 20 mg by mouth daily. 12/02/2023 Active clopidogreL (PLAVIX) 75 mg Tablet Take 1 Tablet by mouth daily. 01/26/2022 Active rivaroxaban (Xarelto) 20 mg Tablet Take 20 mg by mouth daily with supper. 12/02/2023 Active tamsulosin (FLOMAX) 0.4 mg capsule Take 0.4 mg by mouth daily at bedtime. 12/02/2023 Active oxyCODONE-acetam inophen (Percocet) 5-325 mg tablet Take 1 Tablet by mouth every 6 hours as needed. 12/17/2023 Active amLODIPine (NORVASC) 5 mg tablet Take 1 Tablet (5 mg) by mouth daily. 30 Tablet 12/31/2023 Active Active Problems Problem Noted Date Diagnosed Date JEM (acute kidney injury) 12/30/2023 Fever 12/30/2023 Generalized muscle weakness 12/29/2023 Food impaction of esophagus 12/28/2023 H/O neck surgery 12/28/2023 Overview (12/28/2023): C4-7 ACDF December 05, 2023 Dysphagia 12/28/2023 Essential hypertension 12/28/2023 BPH (benign prostatic hyperplasia) 12/28/2023 Personal history of DVT (deep vein thrombosis) 1 Overview (12/28/2023): Bilateral lower extremity DVTs 2019 Chronic anticoagulation 12/28/2023 Peripheral vascular disease 12/28/2023 Lower extremity weakness 12/28/2023 Chronic idiopathic constipation 12/28/2023 Encounters Date Type Department Care Team Description 12/29/2024 External Device Data [facility]STRACTION Provider, Abstract 12/22/2024 External Device Data [facility] Provider, Abstract 12/15/2024 External Device Data [facility] Provider, Abstract 11/24/2024 External Device Data [facility]STRACTION Provider, Abstract from Last 3 Months Family History Medical History Relation Name Comments Cancer Father Cancer Mother Relation Name Status Comments Father Mother Social History Tobacco Use Types Packs/Day Years Used Date Smoking Tobacco: Never Smokeless Tobacco: Never Tobacco Cessation:Counseling Given: Not Answered Alcohol Use Standard Drinks/Week Comments Not Currently 0 (1 standard drink = 0.6 oz pur e alcohol) Feeling Safe Answer Date Recorded Are you in a relationship wi th someone who hurts you emotionally and/or physically? No 12/28/2023 Food Insecurity Answer Date Recorded Patient needs follow up regardin 07/19/2024 Transportation Needs Answer Date Record ed Patient needs follow up regardin 07/19/2024 Housing Stability Answer Date Recorded Social/Environmental Concerns No concerns Utility Needs Answer Date Recorded Patient needs follow up regardin 07/19/2024 Sex and Gender Information Value Date Recorded Sex Assigned at Not on file Legal Sex Male 11:32 AM CDT Gender Identity Not on file Sexual Orientation Not on file Last Filed Vital Signs Vital Sign Reading Time Taken Comments Blood Pressure 161/83 12/30/2023 3:41 PM CDT Pulse 69 12/30/2023 3:41 PM CDT Temperature 37.2 C (99 F) 12/30/2023 3:41 PM CDT Respiratory Rate 18 12/30/2023 3:41 PM CDT Oxygen Saturation 96% 12/30/2023 3:41 PM CDT Inhaled Oxygen Concentration - - Weight 97.3 kg (214 lb 8 oz) 12/28/2023 4:16 PM CDT Height 177.8 cm (5' 10) 12/28/2023 4:16 PM CDT Body Mass Index 30.78 12/28/2023 4:16 PM CDT Plan of Treatment Health Maintenance Due Date Last Done Comments DTAP/TDAP/TD VACCINES (1 - Tdap) 10/10/1975 COLORECTAL SCREENING 2001 Colorectal Cancer Screening 2001 FIT-DNA Q 3 years 2001 FIT/FOBT Q 1 year 2001 Flex Sig/CT Colonography Q 5 years 2001 PNEUMOCOCCAL VACCINE 50+ YEARS (1 of 1 - PCV) 10/10/19 07 ZOSTER VACCINE (1 of 2) 2006 INFLUENZA VACCINE (#1) 2024 RSV VACCINE (60+ or ) (1 - 1-dose 75+ series) 10/10/2031 Insurance MEDICAID [place] Advance Directives For more information, please contact: [phone] * Full Code (Latest Code Status on File) Date Activated Date Inactivated Comments 12/28/2023 4:22 PM 12/30/2023 8:39 PM
--- OUTSIDE RECORDS SUMMARY | 2025-02-07 10:04 | XMS_ITS | Patient Health Record ---
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 Name Role Phone Dre Singh Primary Care Provider Unavailab Agusto Espinoza Unavailable [phone] ALLERGIES No Known Allergies REASON FOR REFERRAL No Information MEDICATIONS Medication SIG (Take, Route, Frequency, Duration) Notes Start Date End Date Status predniSONE 10 MG 1 tablet Orally twic e a day for 10 days 01/03/2024 Active HYDROcodone-Acetaminophen Not-Taking Tamsulosin HCl Activ e predniSONE 10 MG 1 tablet Orally twic e a day for 10 days 12/05/2023 Active Percocet 5-325 MG 1 tablet as needed Orally every 6 hrs 12/17/2023 Active Plavix Active Percocet 5-325 MG 1 tablet as needed Orally every 4 hrs for 7 days 01/03/2024 Active hydroCHLOROthiazide Active Xarelto Active Multivitamin Active predniSONE 10 MG 1 tablet Orally twic e a day for 10 days 12/02/2023 Not-Taking Percocet 10-325 MG 1-2 tablet as needed Orally every 4 hrs for 15 days 12/05/2023 Active Vascepa Active Percocet 10-325 MG 1 tablet as needed Orally every 4 hrs for 7 days 12/02/2023 Not-Taking SOCIAL HISTORY Tobacco Use: Social History Observation [...] is in a wheelchair and is disabled. He is with two child marley. He denies use of alcohol. He denies drug or chemical addiction. He is in a wheelchair and is disabled. He is with two child marley. He denies use of alcohol. He denies drug or chemical addiction. He is in a wheelchair and is disabled. PROBLEMS Problem Type ICD Code Onset Dates Problem Status W/U Status Risk SNOMED Code Notes Problem Cervical myelopathy with cervical 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) Active confirmed Information temporarily unavailable Problem Orthopedic aftercare (Z47.89) Active confirmed Information temporarily unavailable Problem Cervical myelopathy (G95.9) Active confirmed Information temporarily unavailable Encounters Encounter Location Date Provider Diagnosis [facility] [address] [place] [address] 02/18/2024 Agusto Rasmussen PLAN OF TREATMENT Pending Test Test Name Order Date Anterior Cervical Discectomy and Fusion 11/28/2023 Insurance Providers Payer Name Payer Address Payer Phone Subscriber Number Group Number Insured Name Patient Relationship to Insured Coverage Start Date Coverage End Date [employer] Medicare Advantage HMO [address] [address] [place] [address] [id number] Aravind Callahan Self - patient is the insured 4 MEDICAL (GENERAL) HISTORY Medical History History ICD Code Blood Clots Surgical History Surgery Date(Month/Year) C4-5, C5-6, C6-7 Anterior Fusions for My elopathy 11/21/23 Hospitalization History Reason Date(Month/Year) As per above.
--- OUTSIDE RECORDS SUMMARY | 2025-02-07 10:04 | XMS_ITS | Clinical Summary ---
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[employer] Name Role Phone Jeremy Levin MD Unavailable [phone] Dre Singh Primary Care Provider + Allergies Active Allergy Reactions Criticality Noted Date Comments Penicillins Anaphylaxis High 04/16/2018 Medications atorvastatin (LIPITOR) 20 mg tablet 4 9 Active calcium carbonate (OS-MADINA) 1,250 MG (500 mg of elemental calcium) tablet Oyster Shell Calcium 500 500 mg calcium (1,250 mg) tablet take 1 tablet twice a day Active tamsulosin (FLOMAX) 0.4 mg extended release capsule Take 1 capsule (0.4 mg total) by mouth nightly Active HYDROcodone-vini taminophen (NORCO) 5-325 mg per tabletIndicatio ns:Pain Take 1 tablet by mouth every 6 (six) hours as needed for pain 60 tablet 9 Active Additional Information Patient taking differently:1 tablet oralEvery 4 hours PRN, pain, Indications: Pain, Reported on 08/20/2024 fluticasone propionate (FLONASE) 50 mcg/actuation nasal spray fluticasone propionate 50 mcg/actuation nasal spray,suspension SPRAY 2 SPRAYS INTO EACH NOSTRIL EVERY DAY Active rivaroxaban (XARELTO) 20 mg tablet Take 1 tablet (20 mg total) by mouth daily with dinner Active clopidogreL (PLAVIX) 75 mg tablet Take 1 tablet (75 mg total) by mouth daily Active icosapent ethyL (VASCEPA) 1 gram capsule Take 2 capsules (2 g total) by mouth 2 (two) times a day Active sodium chloride 0.9% flush syringeIndicati ons:Sacral wound, initial encounter Infuse 10 mL IV as needed for line care 86126 mL 5 08/29/19 Active heparin 10 unit/mL syringe flush syringeIndicati ons:Sacral wound, initial encounter Infuse 5 mL (50 Units total) IV as needed (line care) 01911 mL 5 08/29/19 Active cyclobenzaprine (FLEXERIL) 10 mg tablet Take 1 tablet (10 mg total) by mouth 3 (three) times a day as needed for muscle spasms 5 Active acetaminophen (TYLENOL) 325 mg tablet Take 2 tablets (650 mg total) by mouth every 6 (six) hours as needed for pain 5 Active ferrous sulfate 325 mg (65 mg of elemental iron) tabletIndicatio ns:Iron Deficiency Anemia Take 1 tablet (65 mg of elemental iron total) by mouth every other day 5 09/04/19 Active loperamide (IMODIUM) 2 mg capsule Take 1 capsule (2 mg total) by mouth 3 (three) times a day 5 Active loperamide (IMODIUM) 2 mg capsule Take 2 capsules (4 mg total) by mouth 3 (three) times a day as needed for diarrhea 5 Active ampicillin-sulb actam 3 g in sodium chloride 0.9% 100 mL IVPBIndications :Bone/Joint Infection Infuse 3 g IV every 6 (six) hours for 30 minutes at 200 mL/hr Till 10/08/2024. 5 Active Active Problems Problem Noted Date Diagnosed Date Protein-calorie malnutrition, moderate 5 Sacral wound, initial encounter 08/19/2024 BPH (benign prostatic hyperplasia) 12/28/2023 Dysphagia 12/28/2023 PAD (peripheral artery disease) 12/18/2021 DVT (deep venous thrombosis) 10/03/2021 Overview (10/03/2021): Added automatically from request for surgery [id number] Positive colorectal cancer s creening using DNA-based stool test 08/30/2021 Essential hypertension 08/10/2019 Hyperlipidemia 08/10/2019 Deep vein thrombosis (DVT) o f proximal vein of both lower extremities 07/23/2018 Medical History Medical History Date Comments Hypertension BPH (benign prostatic hyperplasia) DVT (deep venous thrombosis) PAD (peripheral artery disease) Social History Tobacco Use Types Packs/Day Years Used Date Smoking Tobacco: Never Alcohol Use Standard Drinks/Week Comments Not Currently 0 (1 standard drink = 0.6 oz pur e alcohol) [facility] Utilities Answer Date Recorded In the past 12 months has th e [employer], [employer], oil, or water [employer] threatened to shut off services in your home? No 08/21/2024 Social Connection and Isolation Panel Answer Date Recorded In a typical week, how many times do you talk on the phone with family, friends, or neighbors? More than three times a week 08/21/2024 How often do you get togethe r with friends or relatives? More than three times a week 08/21/2024 How often do you attend chur ch or lutheran services? Never 08/21/2024 Do you belong to any clubs o r organizations such as denominational groups, unions, fraternal or athletic groups, or school groups? No 08/21/2024 How often do you attend meet ings of the clubs or organizations you belong to? Never 08/21/2024 Are you , , di vorced, , never , or living with a partner? 08/21/2024 Overall Financial Resource Strain (CARDIA) Answe r Date Recorded How hard is it for you to pa y for the very basics like food, housing, medical care, and heating? Not hard at all 08/21/2024 Hunger Vital Sign Answer Date Recorded Within the past 12 months, y ou worried that your food would run out before you got the money to buy more. Never true 08/22/19 25 Within the past 12 months, t he food you bought just didn't last and you didn't have money to get more. Never true 08/21/2024 PRAPARE - Transportation Answer Date Re corded In the past 12 months, has l ack of transportation kept you from medical appointments or from getting medications? No 08/09 In the past 12 months, has l ack of transportation kept you from meetings, work, or from getting things needed for daily living? No 08/21/2024 Housing Stability Vital Sign Answer Brad e Recorded In the last 12 months, was t here a time when you were not able to pay the mortgage or rent on time? No 08/21/2024 In the past 12 months, how m any times have you moved where you were living? 0 08/21/2024 At any time in the past 12 m [facility], were you homeless or living in a group home (including now)? No 08/21/2024 Personal Safety Answer Date Recorded Have you ever been in or are you currently in a harmful physical or emotional relationship or is someone making you feel afraid or unsafe? 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 Gender Identity Not on file Sexual Orientation Not on file Last Filed Vital Signs Vital Sign Reading Time Taken Comments Blood Pressure 113/63 09/10/2024 9:00 PM CDT Pulse 82 09/10/2024 9:00 PM CDT Temperature 36.8 C (98.2 F) 09/10/2024 6:44 PM CDT Respiratory Rate 17 09/10/2024 9:00 PM CDT Oxygen Saturation 97% 09/10/2024 9:00 PM CDT Inhaled Oxygen Concentration - - Weight 74.8 kg (164 lb 14.5 oz) 09/10/2024 6:44 PM CDT Height 175.3 cm (5' 9.02) 08/20/2024 1 1:52 AM CDT Body Mass Index 24.34 08/20/2024 11:52 AM CDT Plan of Treatment Health Maintenance Due Date Last Done Comments Colon Cancer Screening-Colonoscopy 1955 Depression Screening 1955 Hepatitis C Screening 1955 Prostate Cancer Screening-PSA 1956 DTaP/Tdap/Td Vaccine (1 - Tdap) 10/10/1967 Hepatitis B Screening 1974 Pneumococcal vaccine 65+ (1 of 1 - PCV) 2006 Zoster Vaccine (1 of 2) 2006 Well Visit 65+ 2021 Covid-19 Vaccine ( - season) 2024, 06/02/2020 Influenza Vaccine (#1) 2024 Fall Risk Assessment 09/01/2025 09/01/2024 Additional Health Concerns Infection Onset Date Last Indicated MDR gram neg/ESBL Comment:ACINETOBACTER CALCOACETICUS-BAUMANNII COMPLEX sacral wound 08/22/2024 08/22/2024 08/22/2024 Insurance [facility] HMO REF MEDICARE [place] MEDICARE Advance Directives For more information, please contact: [phone] * Full Code (Latest Code Status on File) Date Activated Date Inactivated Comments 08/19/2024 6:54 PM 09/02/2024 1:00 PM Care Teams Supervisor Newspaper Deliveries Relationship Specialty [place] [address] [place] [address] PCP - Home Infusion Attending Infectious Diseases 08/26/24 Dre Singh PA [address] [place] [address] PCP - General Internal Medicine 08/27/24
--- OUTSIDE RECORDS SUMMARY | 2025-02-07 10:04 | XMS_ITS | Continuity of Care Document ---
Author Organization [place] - [facility], [facility] Masood Address [address] [place] [address] Assessment Encounter Date Assessment Date Assessment LastModified [...] via phone call to discuss the following: [email or web address] Not available 11/10/2024 17:07:47 Plan of Treatment Reminders Order Date Submit Date Provider Last Modified By Organization Details Last Modified Time Details Appointments None recorded. Lab None recorded. Referral wound care referral - Please call patient to schedule an appointment . Thank you. 2024 025 [email or web address] [facility], [address] [facility], [address], [place], [address], 18:45:01 Procedures None recorded. Surgeries None recorded. Imaging None recorded. Medication Orders methocarbam ol 750 mg tablet 2024 025 [facility], [address] [place] [address], [id number], 17:04:19 meloxicam 7.5 mg tablet 2024 025 [facility], [address] [place], [address], 5 17:04:17 hydrocodone 10 mg-acetamin ophen 325 mg tablet 2024 025 [facility], [address] [place] [address], [id number], 5 17:04:20 atorvastati n 20 mg tablet 2024 025 [facility], [address] [place] [address], [id number], 5 17:04:19 Xarelto 20 mg tablet 2024 025 [facility], [address] [place] [address], [id number], 5 17:04:18 tamsulosin 0.4 mg capsule 2024 025 [facility], [address] [place] [address], [id number], 5 17:04:18 Patient TargetsNo targets recorded. Patient Instructions Encounter Date Encounter Id Patient Instructions Last Modified By Organization Details Last Modified Time 11/10/2024 [id number] Due to the COVID-19 (Novel Coronavirus) pandemic, it is within this context (and with the understanding that this method of patient encounter is in the patient s best interest as well as the health and safety of other patients and the public) that [facility] is being provided for this patient encounter rather than a sjdo-zi-hiae visit. This patient encounter is appropriate at [...] by the patient. Not available 11/10/2024 16:43:36 Reason for Referral Please call patient to rosalba vinese an appointment. Thank you. Referring Physician: Daniel Anne, Family Medicine, Encounter Date: 11/10/2024 Problems Name Problem SNOMED Code Status Onset Date Resolution Date Notes Provider Name and Address Organization Details Recorded Time Hyperlipid emia 81612278 Active Not Available [facility] 3 11:19:25 Pain of wrist region 66925997 Active Not Available [facility] 3 11:19:25 Low back pain 601376616 Active 2016 Not Available [facility] 3 11:19:25 Recurrent deep vein thrombosis 033221758 Active 2021 Daniel Anne MD [address] [facility], [facility] [address], [place], [address] , [facility] 5 14:27:20 Colorectal cancer detected by DNA-based stool screening 888895166 Active 2021 Not Available [facility] 3 11:19:25 Edema of lower extremity 230999993 Active 2022 Not Available [facility] 3 11:19:25 Abnormal gait due to impairment of balance 430808037 Active 2022 Not Available [facility] 3 11:19:25 Obesity 673214766 Active 2022 Not Available [facility] 3 11:19:25 Cellulitis 553563006 Active 2022 Not Available [facility] 3 11:19:25 Chronic back pain 405737872 Active 2022 Palak Flanagan MD [address], [place], [address] , [facility] 3 16:20:27 Impaired fasting glycemia 541069143 Active 2022 Palak Flanagan MD [address], [place], [address] , [facility] 3 16:27:36 Chronic low back pain 510485492 Active 2022 Ilan Bates RN null, [place] [facility] 3 10:20:01 Sinusitis 48814227 Active 2023 MARIANA Sanchez [address], [place], [address] , [facility] 4 09:39:28 Expiratory wheezing 2220259 Active 2023 MARIANA Sanchez [address], [place], [address] , [facility] 4 16:26:26 Screening for malignant neoplasm of prostate Active 2023 MARIANA Sanchez [address], [place], [address] , [facility] 4 10:23:02 Cervical radiculopa thy 61547590 Active 2023 Ilan Bates RN null, [facility] 4 12:02:44 Acute diarrhea 016563213 Active 2024 FABRIZIO Riddle [address], [place], [address] , [facility] 5 12:41:54 Diarrhea 88350748 Active 2024 Daniel nAne MD [address], [place], [address] , [facility] 5 14:11:16 Pressure injury of sacral region of back 475322695 Active 2024 Daniel Anne MD [address], [place], [address] , [facility] 5 16:48:17 Chronic back pain greater than three months duration 394802320624 Active 2024 Daniel Anne MD [address], [place], [address] , [place] [facility] 5 16:53:14 Benign hypertensi on 20365829 Active 2024 Daniel Anne MD [address], [place], [address] , [place] [facility] 5 16:54:29 Mixed hyperlipid emia 758649581 Active 2024 Daniel Anne MD [address], [place], [address] , [employer] [place] [facility] 5 16:54:38 Nocturia due to benign prostatic hypertroph y 5319147295915 Active 2024 Daniel Anne MD [address], [place], [address] , [employer] [facility] 5 16:59:58 Body mass index 30+ - obesity 950002243 Active 2024 Daniel Anne MD [address], [place], [address] , [employer] [facility] 17:08:49 Pressure injury 7385191473 Active 2024 Dnaiel Anne MD [address], [place], [address] , [facility] 17:13:11 Bronchitis 94253151 Active 2024 Daniel Anne MD [address], [place], [address] , [place] [facility] 15:34:24 Asthenia 04409534 Active 2024 F[address]RIZIO Riddle [address], [place], [address] , [place] [facility] 15:25:41 Notes:Some problems listed i n Documents: #[id number], #[id number], #[id number], #[id number], #[id number] could not be added to this patient's chart. Please review these documents and add these problems to the patient's chart manually as needed. Problem Notes None recorded. Procedures Surgical History Date Name Laterality Status Provider Name and Address Organization Details Recorded Time Medicare Wellness CPT Code, Initial completed Dary Patel RN [place] [facility] [employer] [facility] 11/28/2022 15:03:34 Imaging Results None recorded. Procedure Notes None recorded. Medical Equipment None Reported. Allergies Allergen ID Allergen Name Allergen Category Reaction Reaction Severity Criticality Documentation Date Start Date Code Code System Note Provider Name and Address Organization Details Recorded Time 93720 Product containin g penicilli n (product) medicatio n anaphylax is Not available Not available 01/22/2025 94865 8001 SNOMED Not Available [employer] - prod 17:03:00 63168 metformin medicatio n Not available Not available Not available 01/22/2025 6809 RxNorm Not Available [employer] - prod 17:04:28 Medications Name [...] TAKE 1 CAPSULE BY MOUTH EVERY DAY [facility] 2024 active Not Available Not [...] Tobacco Smoking Status Never Smoker Not Available [employer] 05/09/2022 14:45:50 What Is Your Level Of Caffeine Consumption? None Water, Tea With Little Caffine And Soda With Zero Caffine. [id number] Information not available 05/09/2022 What Type Of Diet Are You Following? REGULAR Low Salt [id number].507161 7907 Information not available 05/09/2022 Have There Been Any Changes To Your Family Or Social Situation? No [id number].[id number] 3353 Information not available 05/09/2022 What Was The Date Of Your Most Recent Tobacco Screening? 08/30/2021 [id number] Information not available 05/09/2022 What Is Your Relationship Status? [id number].[id number] 4383 Information not available 05/09/2022 Have You Recently Traveled Abroad? No [id number].538368 6005 Information not available 05/09/2022 Do You Have Any Dietary Restrictions? No MIGRATION.084429 9174 Information not available 05/09/2022 Sex: Unknown Functional Status Question Answer Note LastModified by Organizat ion Details LastModified Time Do you use any illicit or recreational drugs? No [id number].[id number] 026 Information not available 05/09/2022 Do you or have you ever used any other forms of tobacco or nicotine? No [id number].6261809 026 Information not available 05/09/2022 What is your level of alcohol consumption? 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 None [id number].[id number] 026 Information not available 05/09/2022 Mental Status None recorded. Family History Nothing Reported Notes:pt was adopted Medical History No medical history recorded. Past Encounters Encounter ID Performer Location Encounter Start Date Encounter Closed Date Diagnosis/Indication Diagnosis SNOMED-CT Code Diagnosis ICD10 Code Diagnosis IMO Codes Diagnosis Note [id number] Daniel Anne MD [facility] [address] [address] 11/10/2024 16:37:31 11/10/2024 17:07:38 Seen in department 942223618 Z76.89 [id number] Staff to get recent ED records. Pressure i njury of sacral region of back 745311744 L89.159 [id number] Recurrent deep vein thrombosis 207839249 I82.509 Chronic ba ck pain greater than three months duration 6074167932 02 M54.9 G89.29 2013720 Benign hypertension 1072 5009 I10 466581 Mixed hyperlipidemia 267 836683 E78.2 19109 Nocturia d ue to benign prostatic hypertrophy 8112288932 101 N40.1 R35.1 6650856 Body mass index 30+ - obesity 417980666 E66.9 0843430 Clinical finding 1806655 03 Z74.09 Z78.9 4710058 Health Concerns Section Related Observation LastModified by Organization Detai ls LastModified Time None Recorded Concern Status LastModified by Organization Details LastModified Time None Recorded Payers Encounter Date Sequence Insurance Name Policy Number Policy Rendon Covered Member ID Rendon Member ID Guarantor Name 11/10/2024 2 [place] [employer]PARTMENT [employer] PUBLIC [employer] Aravind Callahan [id number] Aravind Callahan 11/10/2024 1 MEDICARE-[place] (MEDICARE) Aravind Callahan [id number] Aravind Callahan Notes Date Note Type Note Provider Name and Address Organization Details Recorded Time 11/10/2024 text/html Telephone visit.ED fuv: Pt lives with his . Pt has [facility] set up too. Pt was seen in ED at [place] last month and he was admitted there for IV antibiotics for his sacral wound and then he was d/c to Rehab place and about 3 weeks ago, he was d/c to home. Pt is out of his [place] for his chronic sacral pain and he is requesting it. Pt is f/u with Cardio for his HTN and PVD and is on meds by them. Feeling overall better than before. His sacral wound is getting smaller and better. Pt has air mattress at home and he is not able to walk too much. Daniel Anne MD [address] [place] [address], [place] [address], [place], [address], [place] [facility] [employer] 11/10/2024 17:10:23
--- OUTSIDE RECORDS SUMMARY | 2025-02-07 10:04 | XMS_ITS | Continuity of Care Document ---
Author Organization [employer] [facility] Address [address] [place] [address] [place] [id number] Problems Condition ICD9 code ICD10 code SNOMED code Start Date End Date S tatus Results No Results Allergies, adverse reactions, alerts Substance Reaction Date Status Type No allergies have been recorded Non Drug Medications No administered medications reported Vital Signs No vital signs reported Social History No smoking Hx information available Encounters Type CPT Code Date Location Provider Indication s encounter report 09/02/2024 09:1 0 AM - 10/20/2024 12:25 PM Dave Maria MD
[2025-02-07 10:14] LABS: INR 2.3; Prothrombin Time 24.9 Seconds (11.1-14.7)
[2025-02-07 10:15] LABS: Partial Thromboplastin Time 50.6 Seconds (22.3-36.8)
[2025-02-07] MEDS: LACTATED RINGERS 800 ML 999 ML IV CONT (10:17)
[2025-02-07] MEDS: LACTATED RINGERS 1,000 ML 999 ML IV CONT (10:17)
[2025-02-07 10:18] LABS: Hypochromasia 1+; Microcytosis 1+ (NORMAL); Ovalocytes Occasional; Poikilocytosis 1+; Schistocytes Rare
[2025-02-07 10:21] LABS: Alanine Aminotransferase 8 U/L (6-50); Albumin Level 2.7 g/dL (3.5-5.1); Alkaline Phosphatase 92 U/L (38-126); Anion Gap 2 mmol/L (4-12); Aspartate Amino Transferase 24 U/L (17-59); Bilirubin,Total 0.5 mg/dL (0.2-1.3); Blood Urea Nitrogen 8 mg/dL (9-20); Calcium 8.1 mg/dL (8.4-10.2); Carbon Dioxide 35 mmol/L (22-30); Chloride 88 mmol/L (98-107); Estimated CRCL calculation 105 ml/min; Estimated Glomerular Filt Rate > 60; Glucose 97 mg/dL (65-110); Potassium 3.0 mmol/L (3.4-5.0); Sodium 125 mmol/L (137-145); Total Protein 5.9 g/dL (6.3-8.2)
[2025-02-07] MEDS: VANCOMYCIN 1,500 MG/NS 500 ML 1,500 MG/500 ML BAG 250 MG IVPB (12:03)
[2025-02-07 12:12] LABS: CRP 13.0 mg/dL (<1.0)
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
--- NOTE | 2025-02-07 12:39 | WPCEDHO ---
ED Hand Off Checklist All vitals saved:yes IV Site documented:yes All med administrations documented:yes Triage Note Triage Note Patient to the ED with complaints 02/07/25 09:29 of testicular abscess that has ruptured. EMS states abscess was noticed on Saturday by family and home health nurse. Patient was unable to get an order for antibiotic. Patient has orantes catheter in place upon arrival to the ED. Allergies Penicillins Allergy (Severe, Verified 02/07/25 10:16) Anaphylaxis as a child Active Medications including assessments/comments Vancomycin HCl (Vancomycin 1,500 Mg/Ns 500 Ml) 1,500 mg in 500 mls @ 250 mls/hr IVPB ONCE ONE Stop: 02/07/25 13:59 Last Admin: 02/07/25 12:03 Dose: 250 mls/hr Documented By: [facility] Infusion/Titration Document 02/07/25 12:03 [facility] (Rec: 02/07/25 12:03 [facility] [id number]) Intake IV Site Peripheral Access Right Wrist Container Volume 500 Waste Amount 0 Dosing Infusion Rate 250 Increase/Decrease Started Elapsed Time Elapsed Time ( 0m minutes) Administered/Completed Medications Discontinued Medications Lactated Ringer's (Lr - Lactated Ringers Iv) 1,000 mls @ 999 mls/hr IV CONT .Q1H1M STA Stop: 02/07/25 10:44 Last Infusion: 02/07/25 12:37 Dose: Infused Documented By: [facility] Admin: 02/07/25 10:17 Dose: 999 mls/hr Documented By: [facility] Lactated Ringer's (Lr - Lactated Ringers Iv) 800 mls @ 999 mls/hr IV CONT .Q49M STA Stop: 02/07/25 10:32 Last Infusion: 02/07/25 12:37 Dose: Infused Documented By: [facility] Admin: 02/07/25 10:17 Dose: 999 mls/hr Documented By: [facility] Interventions/Assessments IV / Saline Lock, Insert Start: 02/07/25 09:26 Freq: Status: Active Protocol: Document 02/07/25 12:02 [facility] (Rec: 02/07/25 12:02 [facility] [id number]) IV Assessment Peripheral Access Right Wrist IV Catheter Access Initiated IV Insertion Date 02/07/25 IV Insertion Time 12:02 Catheter Gauge 20 IV Insertion 1 Attempts Ultrasound Used for No Placement IV Site Assessment WNL IV Care and WNL Maintenance Last Vital Signs Temperature 98.2 F 02/07/25 09:29 Pulse Rate 75 02/07/25 12:30 Respiratory Rate 18 02/07/25 12:30 Pulse Oximetry 100 02/07/25 12:30 Blood Pressure 111/55 L 02/07/25 12:30 Blood Pressure Mean 73 02/07/25 12:30 Oxygen Delivery Room Air 02/07/25 09:29 Weight 58.7 kg 02/07/25 09:29 Last Result - Abnormals Only WBC 15.1 K/mm3 (4.5-10.0) H 02/07/25 09:50 RBC 4.16 M/mm3 (4.6-6.20) L 02/07/25 09:50 Hgb 9.8 g/dL (14.0-18.0) L D 02/07/25 09:50 Hct 30.6 % (42.0-52.0) L 02/07/25 09:50 MCV 73.6 fl (80-100) L 02/07/25 09:50 MCH 23.6 pg (26-34) L 02/07/25 09:50 RDW 15.8 % (11.5-14.5) H 02/07/25 09:50 Plt Count 380 k/mm3 (150-375) H 02/07/25 09:50 Neut % (Auto) 77.3 % (45.5-73.1) H 02/07/25 09:50 Lymph % (Auto) 15.5 % (18.3-44.2) L 02/07/25 09:50 [place] # (Auto) 1.0 K/mm3 (0.1-0.6) H 02/07/25 09:50 Abs Immat Gran (auto) 0.07 K/mm3 (0.00-0.031) H 02/07/25 09:50 Absolute Neuts (auto) 11.6 K/mm3 (1.3-6.7) H 02/07/25 09:50 PT 24.9 Seconds (11.1-14.7) H 02/07/25 09:50 APTT 50.6 Seconds (22.3-36.8) H 02/07/25 09:50 Sodium 125 mmol/L (137-145) L 02/07/25 09:50 Potassium 3.0 mmol/L (3.4-5.0) L 02/07/25 09:50 Chloride 88 mmol/L (98-107) L 02/07/25 09:50 Carbon Dioxide 35 mmol/L (22-30) H 02/07/25 09:50 Anion Gap 2 mmol/L (4-12) L 02/07/25 09:50 BUN 8 mg/dL (9-20) L D 02/07/25 09:50 Creatinine 0.46 mg/dL (0.7-1.3) L 02/07/25 09:50 Calcium 8.1 mg/dL (8.4-10.2) L 02/07/25 09:50 C-Reactive Protein 13.0 mg/dL (<1.0) H 02/07/25 09:50 Total Protein 5.9 g/dL (6.3-8.2) L 02/07/25 09:50 Albumin 2.7 g/dL (3.5-5.1) L 02/07/25 09:50 Most Recent Suicide Severity Rating Suicide Severity Rating NO RISK INDICATED 02/07/25 09:29
[2025-02-07] MEDS: LACTATED RINGERS 1,000 ML 125 ML IV CONT ×2 (14:12→23:43)
--- NOTE | 2025-02-07 15:25 | ADMGEN ---
This patient, Aravind Callahan, was admitted to IMU Room 205-01. Patient/family oriented to hospital policies and general routines including ID bracelet, bed and alarms, visiting hours, pain management, procedures, bathroom and other care routines, personal items, smoking policy, room service/diet, and visiting hours. Information on how to activate the Rapid Response Team has been discussed. Patient/Family are encouraged to report perceived risks to care and to ask questions if they do not understand what they are told or what they should do. Patient resting in bed and son's at bedside. Admission completed and documented. Patient voiced no complaints or concerns at this time. Call light in reach and bed low and locked. Will continue to monitor. Brenda Honeycutt RN.
--- NOTE | 2025-02-07 16:19 | WNDPHOTO ---
PHOTO ONLY - See Nursing Notes and/ or assessments for documentation.
--- NOTE | 2025-02-07 16:38 | WNDPHOTO ---
PHOTO ONLY - See Nursing Notes and/ or assessments for documentation.
--- NOTE | 2025-02-07 16:39 | WNDPHOTO ---
PHOTO ONLY - See Nursing Notes and/ or assessments for documentation.
--- NOTE | 2025-02-07 16:40 | WNDPHOTO ---
PHOTO ONLY - See Nursing Notes and/ or assessments for documentation.
--- NOTE | 2025-02-07 16:42 | WNDPHOTO ---
PHOTO ONLY - See Nursing Notes and/ or assessments for documentation.
--- NOTE | 2025-02-07 16:42 | WNDPHOTO ---
PHOTO ONLY - See Nursing Notes and/ or assessments for documentation.
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
--- NOTE | 2025-02-07 20:27 | WPDHPUPDATE1 ---
History and Physical Update Update Date/Time: 02/07/25 20:27 History and Physical has been reviewed, including an updated exam of the patient. There are NO changes in the patient's condition. Risks, benefits, and alternatives have been discussed and questions answered. Patient agrees to proceed with procedure.
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
--- NOTE | 2025-02-07 21:07 | WPDANESEPPF ---
Anes - Initial Pre Proc Eval Procedure: Operation Date: 02/07/25 21:30 Proposed Procedures p I&D Scrotal Abscess - Evelin Camp MD Date/Time: 02/07/25 21:07 Surgeon: Bebeto whitney Oca, MD Pre Op Diagnosis: osteomyelitis scrotal abscess Patient Data Age: 69 Gender: M Height: 1.75 m Weight: 50.5 kg Last Vital Signs Temp 97.7 F 02/07/25 19:36 Pulse 77 02/07/25 19:36 Resp 19 02/07/25 19:36 BP 144/70 H 02/07/25 19:36 Pulse Ox 99 02/07/25 19:36 O2 Del Method Room Air 02/07/25 16:00 Allergies Allergy/AdvReac Type Severity Reaction Status Date / Time Penicillins Allergy Severe Anaphylaxis Verified 02/07/25 13:38 Home Medications ?Medication ?Instructions ?Recorded ?Confirmed ?Type atorvastatin 20 mg tablet 20 mg PO DAILY 02/27/24 02/07/25 History clopidogrel 75 mg tablet 75 mg PO DAILY right leg stent 02/27/24 02/07/25 History fluticasone propionate 50 1 spray intranasal HS allergies 02/27/24 02/07/25 History mcg/actuation nasal spray,suspension hydrochlorothiazide 25 mg tablet 25 mg PO DAILY 02/27/24 02/07/25 History icosapent ethyl 1 gram capsule 2 g PO .q12 02/27/24 02/07/25 History (Vascepa) multivitamin with folic acid 400 1 tablet PO DAILY 02/27/24 02/07/25 History mcg tablet (Tab-A-Caryn) rivaroxaban 20 mg tablet (Xarelto) 20 mg PO DAILY 02/27/24 02/07/25 History tamsulosin 0.4 mg capsule 0.4 mg PO HS BPH 02/27/24 02/07/25 History potassium chloride 20 mEq 20 meq PO DAILY #1 tablet 03/10/24 02/07/25 Rx tablet,extended release diphenoxylate-atropine 2.5 1 tablet PO QID PRN diarrhea 02/07/25 02/07/25 History mg-0.025 mg tablet (Lomotil) hydrocodone 10 mg-acetaminophen 1 tablet PO Q12H PRN pain 02/07/25 02/07/25 History 325 mg tablet meloxicam 7.5 mg tablet 7.5 mg PO DAILY PRN pain 02/07/25 02/07/25 History Laboratory Tests 02/07/25 09:50 WBC 15.1 H K/mm3 (4.5-10.0) RBC 4.16 L M/mm3 (4.6-6.20) Hgb 9.8 L D g/dL (14.0-18.0) Hct 30.6 L % (42.0-52.0) MCV 73.6 L fl (80-100) MCH 23.6 L pg (26-34) MCHC 32.0 g/dl (32-36) RDW 15.8 H % (11.5-14.5) Plt Count 380 H k/mm3 (150-375) MPV 7.8 fl (7.4-10.4) Immature Gran % (Auto) 0.5 % (0-0.5) Neut % (Auto) 77.3 H % (45.5-73.1) Lymph % (Auto) 15.5 L % (18.3-44.2) [place] % (Auto) 6.3 % (2.6-8.5) Eos % (Auto) 0.2 % (0-4.4) Baso % (Auto) 0.2 % (0.2-1.2) Lymph # (Auto) 2.34 K/mm3 (0.9-3.2) [place] # (Auto) 1.0 H K/mm3 (0.1-0.6) Eos # (Auto) 0.0 K/mm3 (0-0.3) Baso # (Auto) 0.0 K/mm3 (0.0-0.1) Abs Immat Gran (auto) 0.07 H K/mm3 (0.00-0.031) Absolute Neuts (auto) 11.6 H K/mm3 (1.3-6.7) Absolute Nucleated RBC 0.000 K/mm3 (0.0-0.012) Band Neutrophils % Not Reportable Nucleated RBC % 0.0 % (0.0-0.2) Atypical Lymphocytes Present Platelet Estimate Adequate (Adequate) Hypochromasia 1+ Poikilocytosis 1+ Microcytosis 1+ (NORMAL) Ovalocytes Occasional Schistocytes Rare PT 24.9 H Seconds (11.1-14.7) INR 2.3 APTT 50.6 H Seconds (22.3-36.8) Sodium 125 L mmol/L (137-145) Potassium 3.0 L mmol/L (3.4-5.0) Chloride 88 L mmol/L (98-107) Carbon Dioxide 35 H mmol/L (22-30) Anion Gap 2 L mmol/L (4-12) BUN 8 L D mg/dL (9-20) Creatinine 0.46 L mg/dL (0.7-1.3) Estim Creat Clear Calc 105 ml/min Estimated GFR > 60 (59 - ) Glucose 97 mg/dL (65-110) Lactic Acid 1.0 mmol/L (0.7-2.0) Calcium 8.1 L mg/dL (8.4-10.2) Total Bilirubin 0.5 mg/dL (0.2-1.3) AST 24 U/L (17-59) ALT 8 U/L (6-50) Alkaline Phosphatase 92 U/L (38-126) C-Reactive Protein 13.0 H mg/dL (<1.0) Total Protein 5.9 L g/dL (6.3-8.2) Albumin 2.7 L g/dL (3.5-5.1) Patient hx anesthesia problems: none Family hx anesthesia problems: none Results Review: All pre-operative results and documents have been reviewed as part of the pre-operative evaluation. [facility] Past Medical History Medical History senior living current use of anticoagulant PVD (peripheral vascular disease) CAD (coronary artery disease) HTN (hypertension), benign Family History Family History Other Unknown family medical history Social History Social History Smoking status: Never smoker Alcohol intake: never Substance use: never Substance use type: does not use Lack of Transportation: No Lack of Food: Never True Current Housing: I Have Housing Concerned About Future Housing: No Difficulty Paying Gas/Electric Bills: No Difficulty Paying for Meds: No Currently Unemployed: No Education: High School Diploma/GED Difficulty w/ Childcare or Family Care: No Spiritual care concerns: No Anes - Eval Final PreProcedure Day of Procedure 02/07/25 21:07 Patient weight: normal and thin Lungs: normal air movement Airway: Mallampati scale (Full mcmanus. ) class II Neurological: alert and oriented Last oral intake: >/= 8 hours ASA classification: III Emergent: yes Anesthetic plan: proceed Anesthesia type and monitoring: general LMA and standard monitoring Results Review: All pre-operative results and documents have been reviewed as part of the pre-operative evaluation. Complicated pt for emergent I and D of scrotal abscess, stable hemodynamics preop. Full discussion w pt and OR team. Informed Consent: The patient's anesthetic plan and its attendant risks and benefits were discussed with the patient/family/POA. Questions were solicited and answers provided to the satisfaction of the patient/family/POA.
--- NOTE | 2025-02-07 22:10 | PC.NURSE ---
2040 Patient taken to OR
--- NOTE | 2025-02-07 22:21 | W.PM.PROC2 ---
Procedure Note - Detailed Date of Procedure 02/07/25 Pre-op Diagnosis Bilateral scrotal abscesses Post-op Diagnosis Same Procedure Performed Incision, drainage and washout of right scrotal abscess, washout and debridement of left scrotal wound measuring [id number] Surgeon Evelin Camp MD Anesthesia General Findings Large, approximately [id number] abscess cavities bilaterally, exudative and necrotic tissue in the left hemiscrotum Description of Procedure Patient was correctly identified informed consent was obtained. He was taken the operating placed in the dorsal lithotomy position. He was prepped and draped in the standard fashion. The left hemiscrotal wound was noted to be open and draining and an additional approximately 50 cc of purulent material was expressed. There was noted to be exudative as well as necrotic tissue of the left of the left scrotal wound. The necrotic tissue was debrided sharply using Metzenbaum scissors until the edges were bleeding. With use of ultrasound the right fluid collection was identified and an 18 gauge needle was used to aspirate with return of bloody purulent fluid. An approximately 2x2cm incision was made over the fluid collection and purulent bloody material was expressed. This cavity was bluntly dissected and probed notably extending posteriorly and communicating with the left hemiscrotum. It did appear that much of the fluid may have drained spontaneously via the left scrotal opening. Both wounds were copiously irrigated with normal saline. Saline soaked gauze with 2 x 2 Kerlix was packed into the right scrotal wound and 4 x 4 Kerlix was packed into the left scrotal wound. The scrotum was then dressed with ABD pads fluffs and mesh panties. A 16 Chinese coude catheter was placed into the bladder and 10 cc instilled into the balloon and. The patient tolerated the procedure well. Estimated Blood Loss 10 Packing Yes (2x2 Kerlix in the right scrotal wound, 4x4 Kerlix in the left scrotal wound) Condition Stable
[2025-02-07] MEDS: SODIUM CHLORIDE 0.9% IV 1,000 ML 30 ML IV CONT ×2 (22:22)
--- NOTE | 2025-02-07 23:28 | PC.NURSE ---
2328 Patient to 232 from PACU
[2025-02-07] MEDS: CEFEPIME 1 GM in SODIUM CHLORIDE 0.9% IV 50 ML 100 ML IVPB (23:43)
[2025-02-08] VITALS (19 sets, daily range): BP systolic 86–118; BP diastolic 42–78; PULSE 76–98; RESP 16–22; TEMP 36–36.8; O2SAT 96–100; BMI 19.8
[2025-02-08] MEDS: VANCOMYCIN 1,250 MG/NS 250 ML 1,250 MG/250 ML BAG 166.7 MG IVPB (00:19)
[2025-02-08 00:29] LABS: Add Urine Microscopic? YES; Appearance Urine Cloudy (Clear); Glucose Urine UA Negative (Negative); Leukocyte Esterase Ur 3+ LEU/UL (Negative); Need Manual Microscopic Reviewed; Nitrate Urine Negative (Negative); Specific Grav Ur 1.008 (1.001-1.035)
[2025-02-08 04:10] LABS: Hematocrit 24.9 % (42.0-52.0); Hemoglobin 7.8 g/dL (14.0-18.0); Immature Granulocyte Percent A 0.6 % (0-0.5); Lymphocytes Absolute Auto 1.71 K/mm3 (0.9-3.2); Mean Corpuscular HGB Conc 31.3 g/dl (32-36); Mean Corpuscular Hemoglobin 23.5 pg (26-34); Mean Corpuscular Volume 75.0 fl (80-100); Nucleated Red Blood Cells Absolute Auto 0.000 K/mm3 (0.0-0.012); Nucleated Red Blood Cells Perc 0.0 % (0.0-0.2); Platelet Count Result 303 k/mm3 (150-375); Red Blood Count 3.32 M/mm3 (4.6-6.20); White Blood Count 8.2 K/mm3 (4.5-10.0)
[2025-02-08 04:43] LABS: Alanine Aminotransferase 7 U/L (6-50); Albumin Level 2.0 g/dL (3.5-5.1); Alkaline Phosphatase 69 U/L (38-126); Anion Gap -3 mmol/L (4-12); Aspartate Amino Transferase 17 U/L (17-59); Bilirubin,Total 0.2 mg/dL (0.2-1.3); Blood Urea Nitrogen 8 mg/dL (9-20); Calcium 7.5 mg/dL (8.4-10.2); Carbon Dioxide 35 mmol/L (22-30); Chloride 97 mmol/L (98-107); Estimated CRCL calculation 76 ml/min; Estimated Glomerular Filt Rate > 60; Glucose 109 mg/dL (65-110); Potassium 2.8 mmol/L (3.4-5.0); Sodium 129 mmol/L (137-145); Total Protein 4.5 g/dL (6.3-8.2)
[2025-02-08] MEDS: POTASSIUM CHLORIDE INJ 40 MEQ in SODIUM CHLORIDE 0.9% IV 500 ML 130 MEQ IVPB (05:52)
--- NOTE | 2025-02-08 07:22 | P.PNAN_ITS ---
Anes - Prog Note Post-Op Date/Time: 02/08/25 07:22 Cardiovascular status: normal Respiratory status: normal Airway patency: baseline Mental status: baseline Post-Op hydration status: normal Vital Signs: Last Vital Signs Temp 36.4 C L 02/08/25 04:30 Pulse 81 02/08/25 05:41 Resp 18 02/08/25 04:30 BP 111/55 L 02/08/25 05:41 Pulse Ox 100 02/08/25 04:30 O2 Del Method Room Air 02/07/25 23:30 O2 Flow Rate 8 02/07/25 22:22 Pain Score (VAS): 3 I/O: Intake & Output 02/07/25 02/07/25 02/08/25 15:59 23:59 07:59 Intake Total 1800 1100 450 Output Total 315 100 Balance 1800 785 350 Laboratory Tests 02/08/25 03:51 02/08/25 03:51 02/07/25 02/08/25 02/08/25 09:50 00:00 03:51 WBC 15.1 H 8.2 RBC 4.16 L 3.32 L Hgb 9.8 L D 7.8 L Hct 30.6 L 24.9 L MCV 73.6 L 75.0 L MCH 23.6 L 23.5 L MCHC 32.0 31.3 L RDW 15.8 H 15.8 H Plt Count 380 H 303 MPV 7.8 8.1 Immature Gran % (Auto) 0.5 0.6 H Neut % (Auto) 77.3 H 70.5 Lymph % (Auto) 15.5 L 20.8 [place] % (Auto) 6.3 6.6 Eos % (Auto) 0.2 1.1 Baso % (Auto) 0.2 0.4 Lymph # (Auto) 2.34 1.71 [place] # (Auto) 1.0 H 0.5 Eos # (Auto) 0.0 0.1 Baso # (Auto) 0.0 0.0 Abs Immat Gran (auto) 0.07 H 0.05 H Absolute Neuts (auto) 11.6 H 5.8 Absolute Nucleated RBC 0.000 0.000 Band Neutrophils % Not Reportable Nucleated RBC % 0.0 0.0 Atypical Lymphocytes Present Platelet Estimate Adequate Hypochromasia 1+ Poikilocytosis 1+ Microcytosis 1+ Ovalocytes Occasional Schistocytes Rare PT 24.9 H INR 2.3 APTT 50.6 H Sodium 125 L 129 L Potassium 3.0 L 2.8 L* Chloride 88 L 97 L Carbon Dioxide 35 H 35 H Anion Gap 2 L -3 L BUN 8 L D 8 L Creatinine 0.46 L 0.56 L Estim Creat Clear Calc 105 76 Estimated GFR > 60 > 60 Glucose 97 109 Lactic Acid 1.0 Calcium 8.1 L 7.5 L Total Bilirubin 0.5 0.2 AST 24 17 ALT 8 7 Alkaline Phosphatase 92 69 C-Reactive Protein 13.0 H Total Protein 5.9 L 4.5 L Albumin 2.7 L 2.0 L Urine Color Pr[place] Urine Appearance Cloudy H Urine pH 7.0 Ur Specific [place] 1.008 Urine Protein 2+ H Urine Glucose (UA) Negative Urine Ketones Negative Ur Blood (Man) 3+ H Urine Nitrate Negative Urine Bilirubin Negative Urine Urobilinogen 1.0 Add Ur Microanalysis Reviewed Leukocyte Esterase Rfl 3+ H Urine RBC 3-5 H Urine WBC >100 H Ur Squamous Epith Cells None seen Urine Bacteria None seen Urine Casts 3-5 Post-procedural complaints: none Patient Feedback: Patient satisfied with anesthetic care.
[2025-02-08] MEDS: CEFEPIME 1 GM in SODIUM CHLORIDE 0.9% IV 50 ML 100 ML IVPB ×2 (08:17→20:33)
[2025-02-08] MEDS: POTASSIUM CHLORIDE 20 MEQ ER TABLET PO ×2 (08:19→11:55)
[2025-02-08] MEDS: ATORVASTATIN 20 MG TABLET PO (08:19)
[2025-02-08] MEDS: OMEGA 3 POLYUNSAT FATTY ACIDS 1 GM CAP 2 GM PO (08:19)
--- NOTE | 2025-02-08 09:00 | PC.NURSE ---
Spoke with Urology PA regarding pt's home medications of Xeralto and Plavix. New order to hold both these medications for at least 48 hrs in case pt has to return to the OR. Order entered by this RN
[2025-02-08] MEDS: LACTATED RINGERS 1,000 ML 125 ML IV CONT ×2 (10:30→18:33)
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
[2025-02-08 11:31] LABS: Anion Gap -2 mmol/L (4-12); Blood Urea Nitrogen 7 mg/dL (9-20); Calcium 7.5 mg/dL (8.4-10.2); Carbon Dioxide 32 mmol/L (22-30); Chloride 99 mmol/L (98-107); Estimated CRCL calculation 88 ml/min; Estimated Glomerular Filt Rate > 60; Glucose 92 mg/dL (65-110); Potassium 3.7 mmol/L (3.4-5.0); Sodium 129 mmol/L (137-145)
[2025-02-08] MEDS: VANCOMYCIN 1,250 MG/NS 250 ML 1,250 MG/250 ML BAG 167 MG IVPB (11:56)
--- NOTE | 2025-02-08 11:56 | WPDUROPN2 ---
Progress Note: A&P Assessment and Plan (1) Abscess of scrotum: Code(s): N49.2 - Inflammatory disorders of scrotum Status: Acute Assessment and Plan: - S/p I&D of Right hemiscrotum and Left scrotal debridement with Dr. Camp (02/07/2025) - Recovering well currently; minimal pain - Continue wet to dry dressing changes BID or when significantly soiled - Wound care following and to make further recommendations - Hold Xarelto/Eliquis 1-2 days - Will evaluate tomorrow morning to assess possible need for take back for further debridement (2) Urinary retention: Code(s): R33.9 - Retention of urine, unspecified Status: Acute Assessment and Plan: - Uses Muniz catheter chronically at home - Maintain Muniz on discharge; pt with home health in place managing exchanges Subjective Subjective Date/Time Seen: 02/08/25 11:56 Interval history: NAEO; resting comfortably in bed. Pt reports some mild discomfort related to the scrotum but overall tolerating well. Exam Const: General: comfortable and no acute distress HENMT: Face/Nose/Sinus: Normal nares present Eyes: General: appearance normal, both eyes and all related structures Resp: Effort & Inspection: normal respiratory effort : General: Yes bladder normal to palpation Other: Two incisional wounds of the Left hemiscrotum packed with dressings without significant drainage or bleeding. Dressings replaced; healthy appearing pink granulation tissue without any significant purulence, induration, expanding erythema Urinary Catheter: Urinary Catheter: patent and draining and urine clear Skin: General skin exam: normal color Neuro: Speech: normal speech Psych: Mental Status: mental status grossly normal Objective Data Vital Signs Vital Signs: Vital Signs - 24 hr 02/07/25 12:30 02/07/25 13:10 02/07/25 13:37 Temperature 36.4 C Pulse Rate 75 78 Respiratory Rate 18 16 Blood Pressure 111/55 L 96/54 L Pulse Oximetry 100 95 100 Oxygen Delivery Room Air Oxygen Flow Rate 02/07/25 14:00 02/07/25 16:00 02/07/25 16:00 Temperature 36.3 C L Pulse Rate 72 73 Respiratory Rate 18 Blood Pressure 106/63 Pulse Oximetry 100 100 Oxygen Delivery Room Air Oxygen Flow Rate 02/07/25 16:00 02/07/25 18:00 02/07/25 19:36 Temperature 36.5 C Pulse Rate 72 71 77 Respiratory Rate 19 Blood Pressure 144/70 H Pulse Oximetry 99 Oxygen Delivery Oxygen Flow Rate 02/07/25 20:00 02/07/25 20:00 02/07/25 22:22 Temperature 36.1 C L Pulse Rate 72 80 Respiratory Rate 16 Blood Pressure 103/61 Pulse Oximetry 99 100 Oxygen Delivery Room Air Simple Face Mask Oxygen Flow Rate 8 02/07/25 22:30 02/07/25 22:45 02/07/25 23:00 Temperature Pulse Rate 77 79 75 Respiratory Rate 16 16 16 Blood Pressure 122/61 102/63 101/64 Pulse Oximetry 100 100 99 Oxygen Delivery Room Air Room Air Room Air Oxygen Flow Rate 02/07/25 23:15 02/07/25 23:30 02/07/25 23:30 Temperature 36.3 C L Pulse Rate 75 73 Respiratory Rate 15 15 Blood Pressure 104/58 L 96/51 L Pulse Oximetry 99 98 99 Oxygen Delivery Room Air Room Air Oxygen Flow Rate 02/08/25 00:00 02/08/25 00:00 02/08/25 00:30 Temperature 36.0 C L 36.4 C L Pulse Rate 98 87 85 Respiratory Rate 16 16 Blood Pressure 99/55 L 118/78 Pulse Oximetry 98 98 Oxygen Delivery Oxygen Flow Rate 02/08/25 01:00 02/08/25 01:05 02/08/25 01:23 Temperature 36.5 C Pulse Rate 85 86 82 Respiratory Rate 16 Blood Pressure 86/44 L 88/42 L 95/52 L Pulse Oximetry 99 Oxygen Delivery Oxygen Flow Rate 02/08/25 01:30 02/08/25 02:00 02/08/25 02:27 Temperature 36.4 C L 36.5 C Pulse Rate 78 77 76 Respiratory Rate 18 18 Blood Pressure 97/57 L 93/58 L Pulse Oximetry 99 100 Oxygen Delivery Oxygen Flow Rate 02/08/25 03:31 02/08/25 04:00 02/08/25 04:30 Temperature 36.4 C L 36.4 C L Pulse Rate 80 78 79 Respiratory Rate 16 18 Blood Pressure 99/53 L 95/59 L Pulse Oximetry 100 100 Oxygen Delivery Oxygen Flow Rate 02/08/25 05:41 02/08/25 08:00 02/08/25 08:00 Temperature 36.6 C Pulse Rate 81 80 80 Respiratory Rate 16 16 Blood Pressure 111/55 L 114/62 Pulse Oximetry 98 98 Oxygen Delivery Room Air Oxygen Flow Rate 02/08/25 08:00 02/08/25 10:00 Temperature Pulse Rate 82 81 Respiratory Rate Blood Pressure Pulse Oximetry Oxygen Delivery Oxygen Flow Rate Intake/Output Intake/Output: Intake & Output 02/05/25 02/06/25 02/07/25 02/08/25 23:59 23:59 23:59 23:59 Intake Total 2900 2140 Output Total 315 100 Balance 2585 2040 Meds/Results Medications: Active Medications Generic Name Dose Route Start Last Admin Trade Name Freq PRN Reason Stop Dose Admin Hydrocodone Bitart/Acetaminophen 1 tab 02/07/25 17:37 Hydrocodone/Acetaminophen (*Crx) 10-325 Mg Tablet PO Q12H PRN Pain 4-6 Atorvastatin Calcium 20 mg 02/08/25 09:00 02/08/25 08:19 Atorvastatin 20 Mg Tablet PO 20 mg DAILY ARASH Administration Clopidogrel Bisulfate 75 mg 02/08/25 09:00 Clopidogrel Bisulfate 75 Mg Tablet PO On Hold: 02/08/25 09:00 DAILY ARASH Resume: 02/10/25 09:00 Fentanyl Citrate 25 mcg 02/07/25 21:08 Fentanyl Citrate Inj (*Crx) 100 Mcg/2 Ml Vial IV PUSH Q2M PRN Pain Fish Oil 2 gm 02/07/25 21:00 02/08/25 08:19 [place] 3 Polyunsat Fatty Acids 1 Gm Cap PO 2 gm Q12HR ARASH Administration Fluticasone Propionate 1 spray 02/07/25 21:00 02/07/25 20:05 Fluticasone Propionate 0.05% Na Spr 16 Gm Btl (*Bkc) NASAL Not Given HS ARASH Hydrochlorothiazide 25 mg 02/08/25 09:00 02/08/25 08:19 Hydrochlorothiazide 25 Mg Tablet PO 25 mg DAILY ARASH Administration Lactated Ringer's 1,000 mls @ 125 mls/hr 02/07/25 11:50 02/08/25 10:30 Lr - Lactated Ringers Iv IV CONT 125 mls/hr .Q8H ARASH Administration Vancomycin HCl 1,250 mg in 250 mls @ 166.667 mls/hr 02/08/25 00:00 02/08/25 01:49 Vancomycin 1,250 Mg/Ns 250 Ml IVPB Infused Q12H ARASH Infusion Sodium Chloride 1,000 mls @ 30 mls/hr 02/07/25 22:30 02/07/25 22:22 Normal Saline Iv IV CONT 30 mls/hr .Q24H ARASH Administration Sodium Chloride 1,000 mls @ 30 mls/hr 02/07/25 22:30 02/07/25 23:08 Normal Saline Iv IV CONT Infused .Q24H ARASH Infusion Cefepime HCl 1 gm/ Sodium 50 mls @ 100 mls/hr 02/07/25 23:30 02/08/25 10:56 Chloride IVPB Infused Q12HR ARASH Infusion Naloxone HCl 0.1 mg 02/07/25 13:05 Naloxone Hcl 0.4 Mg/Ml Vial IV PUSH Q2M PRN Opiate Reversal Ondansetron HCl 4 mg 02/07/25 13:05 Ondansetron Inj 4 Mg/2 Ml Vial IV PUSH Q6H PRN Nausea And Vomiting Ondansetron HCl 4 mg 02/07/25 21:08 Ondansetron Inj 4 Mg/2 Ml Vial IV PUSH ONCE PRN Nausea Oxycodone HCl 5 mg 02/07/25 21:08 Oxycodone Hcl (*Crx) 5 Mg Tab Ir PO ONCE PRN Pain Potassium Chloride 20 meq 02/08/25 09:00 02/08/25 08:19 Potassium Chloride 20 Meq Er Tablet PO 20 meq DAILY [facility] Administration Rivaroxaban 20 mg 02/08/25 09:00 Rivaroxaban 20 Mg Tablet PO On Hold: 02/08/25 09:00 DAILY [facility] Resume: 02/10/25 09:00 Tamsulosin HCl 0.4 mg 02/07/25 21:00 02/07/25 20:05 Tamsulosin Hcl 0.4 Mg Capsule PO Not Given HS [facility] Radiology Results: ITS Impressions Abdomen/Pelvis CT 02/07/25 10:54 IMPRESSION: 1. Bilateral scrotal abscesses. 2. Cystitis. Bilateral pyelitis. 3. Sacral decubitus ulcer with sacrococcygeal osteomyelitis. 4. Small left pleural effusion. 5. Small pericardial effusion. 6. Nonocclusive thrombus within stents in pelvic veins. Labs Labs: Laboratory Results - last 24 hr 02/07/25 02/08/25 02/08/25 09:50 00:00 03:51 WBC 8.2 RBC 3.32 L Hgb 7.8 L Hct 24.9 L MCV 75.0 L MCH 23.5 L MCHC 31.3 L RDW 15.8 H Plt Count 303 MPV 8.1 Immature Gran % (Auto) 0.6 H Neut % (Auto) 70.5 Lymph % (Auto) 20.8 [place] % (Auto) 6.6 Eos % (Auto) 1.1 Baso % (Auto) 0.4 Lymph # (Auto) 1.71 [place] # (Auto) 0.5 Eos # (Auto) 0.1 Baso # (Auto) 0.0 Abs Immat Gran (auto) 0.05 H Absolute Neuts (auto) 5.8 Absolute Nucleated RBC 0.000 Nucleated RBC % 0.0 Sodium 129 L Potassium 2.8 L* Chloride 97 L Carbon Dioxide 35 H Anion Gap -3 L BUN 8 L Creatinine 0.56 L Estim Creat Clear Calc 76 Estimated GFR > 60 Glucose 109 Calcium 7.5 L Total Bilirubin 0.2 AST 17 ALT 7 Alkaline Phosphatase 69 C-Reactive Protein 13.0 H Total Protein 4.5 L Albumin 2.0 L Urine Color [place] Urine Appearance Cloudy H Urine pH 7.0 Ur Specific [place] 1.008 Urine Protein 2+ H Urine Glucose (UA) Negative Urine Ketones Negative Ur Blood (Man) 3+ H Urine Nitrate Negative Urine Bilirubin Negative Urine Urobilinogen 1.0 Add Ur Microanalysis Reviewed Leukocyte Esterase Rfl 3+ H Urine RBC 3-5 H Urine WBC >100 H Ur Squamous Epith Cells None seen Urine Bacteria None seen Urine Casts 3-5 02/08/25 10:53 WBC RBC Hgb Hct MCV MCH MCHC RDW Plt Count MPV Immature Gran % (Auto) Neut % (Auto) Lymph % (Auto) [place] % (Auto) Eos % (Auto) Baso % (Auto) Lymph # (Auto) [place] # (Auto) Eos # (Auto) Baso # (Auto) Abs Immat Gran (auto) Absolute Neuts (auto) Absolute Nucleated RBC Nucleated RBC % Sodium 129 L Potassium 3.7 Chloride 99 Carbon Dioxide 32 H Anion Gap -2 L BUN 7 L Creatinine 0.59 L Estim Creat Clear Calc 88 Estimated GFR > 60 Glucose 92 Calcium 7.5 L Total Bilirubin AST ALT Alkaline Phosphatase C-Reactive Protein Total Protein Albumin Urine Color Urine Appearance Urine pH Ur Specific [place] Urine Protein Urine Glucose (UA) Urine Ketones Ur Blood (Man) Urine Nitrate Urine Bilirubin Urine Urobilinogen Add Ur Microanalysis Leukocyte Esterase Rfl Urine RBC Urine WBC Ur Squamous Epith Cells Urine Bacteria Urine Casts
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
[2025-02-08 15:19] LABS: Anion Gap -5 mmol/L (4-12); Blood Urea Nitrogen 7 mg/dL (9-20); Calcium 7.5 mg/dL (8.4-10.2); Carbon Dioxide 35 mmol/L (22-30); Chloride 98 mmol/L (98-107); Estimated CRCL calculation 94 ml/min; Estimated Glomerular Filt Rate > 60; Glucose 106 mg/dL (65-110); Potassium 3.7 mmol/L (3.4-5.0); Sodium 128 mmol/L (137-145)
--- OUTSIDE RECORDS SUMMARY | 2025-02-08 16:24 | XMS_ITS | Clinical Summary ---
Author Organization [facility] [employer] Address [address] [facility] [place] [address] Care Team Providers Care Certified Coder Name Role Phone Palak Flanagan MD Primary Care Provider [phone] Source Comments [facility],non-owned Affiliates and Associated Physician Practices is amultiple site organization consisting of ambulatory clinics and hospital sitesin [place], [place], [place] and [place]. This disclosure is being madepursuant to the Care Everywhere program and may not contain all information available regarding this patient. 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 Gender Identity Not on file Sexual Orientation [...] Oxygen Concentration 21% 04/21/2018 7 :22 AM [facility] NURSE Weight 108 kg (238 lb) 07/23/2018 3:01 [...] this topic Medical Devices Implanted Type Area Underlay Stitcher Device Identifier Shelf Expiration Date Model / Serial / Lot Plate 106mm 6 Hl Lck Ss 2.7-3.5mm Screw Implanted:Qty: 1 on 04/17/2018 by Jesus Copeland MD at [facility] Right: Ankle [employer] [id number] / / Screw 3.5mm 2.7mm 16mm Elb Hua Periart Implanted:Qty: 3 on 04/17/2018 by Jesus Copeland MD at [facility] Right: Ankle [employer] [id number] / / Screw 3.5mm 56mm Hua Slf-Tap Bone Implanted:Qty: 1 on 04/17/2018 by Jesus Copeland MD at [facility] Right: Ankle [employer] [id number] / / Screw 2.7mm 2.5mm 18mm Hua Slf-Tap Sm Implanted:Qty: 1 on 04/17/2018 by Jesus Copeland MD at [facility] Right: Ankle [employer] [id number] / / Screw 2.7mm 2.5mm 20mm Hua Slf-Tap Sm Implanted:Qty: 4 on 04/17/2018 by Jesus Copeland MD at [facility] Right: Ankle [employer] [id number] / / Procedures Procedure Name Priority Date/Time [...] radha Non-reac tive 07/23/2018 5:56 PM CDT [facility] Comment: Hepatitis C Antibody screen [...] LAB - CHEMISTRY ORDERABLES Fi nal Result [facility] [address] [place] [address] * (ABNORMAL) COMPREHENSIVE METABOLIC PANEL (07/23/2018 5:07 PM T) BUN 21 7 - 26 mg/dL 07/23/2018 6:02 PM [facility] Creatinine 1.0 0.6 - 1.2 mg/dL 07/23/2018 6:02 PM [facility] Sodium 143 136 - 145 mmol/L 07/23/2018 6:02 PM [facility] Potassium 4.0 3.5 - 4.5 mmol/L 07/23/2018 6:02 PM [facility] Chloride 108(H) 98 - 107 mmol/L 07/23/2018 6:02 PM [facility] CO2 27 22 - 29 mmol/L 07/23/2018 6:02 PM [facility] Glucose 113 70 - 115 mg/dL 07/23/2018 6:02 PM [facility] Calcium 9.7 8.4 - 10.2 mg/dL 07/23/2018 6:02 PM [facility] Protein Total 6.5 6.0 - 8.3 g/dL 07/23/2018 6:02 PM [facility] Albumin 3.5 3.4 - 5.0 g/dL 07/23/2018 6:02 PM [facility] Bilirubin Total 0.1(L) 0.2 - 1.2 mg/dL 07/23/2018 6:02 PM [facility] Alkaline Phosphatase 71 40 - 150 Units/L 07/23/2018 6:02 PM [facility] ALT 26 0 - 55 Units/L 07/23/2018 6:02 PM [facility] AST 18 5 - 34 Units/L 07/23/2018 6:02 PM [facility] Anion Gap 12 8 - 18 07/23/2018 6:02 PM [facility] BUN/Creatinine Ratio 21 7 - 23 07/23/2018 6:02 PM [facility] Osmolality Calculated 300 270 - 300 mOsm/kg 07/23/2018 6:02 PM CDT [facility] Albumin/Globulin Ratio 1.2 1.1 - 2.3 07/23/2018 6:02 PM CDT [facility] eGFR >60 >60 mL/min/1.7 3 m2 07/23/2018 6:02 PM CDT [facility] Blood BLOOD SPECIMEN / Unknown Venipuncture / Unknown 07/23/2018 5:07 PM CDT 07/23/2018 5:16 PM CDT us Lou Paz MD LAB - CHEMISTRY ORDERABLES Fi nal Result [address] [phone] from Last 3 Months or Most Recently Relevant to Health Maintenance Insurance MEDICAID - [place] MED[place] Advance Directives * Full Code (Latest Code Status on File) Date Activated Date Inactivated Comments 07/23/2018 5:33 PM 07/24/2018 4:25 PM * Full Code Date Activated Date Inactivated Comments 04/16/2018 8:20 PM 04/21/2018 2:33 PM Care Teams Certified Coder Relationship Specialty Start Date End Date Palak Flanagan MD [facility] [place] [address] PCP - General Family Medicine 04/16/18
--- OUTSIDE RECORDS SUMMARY | 2025-02-08 16:25 | XMS_ITS | Clinical Summary ---
Author Organization [facility] Address [address] [place] [address] Phone Care Team Providers Care Account Retention Representative Name Role Phone Unavailable Primary Care Provider [...] Advance Directives For more information, please contact: [phone] * Full Code (Latest Code Status on File) Date Activated Date Inactivated Comments 12/28/2023 4:22 PM 12/30/2023 8:39 PM
--- OUTSIDE RECORDS SUMMARY | 2025-02-08 16:25 | XMS_ITS | Patient Health Record ---
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) Active confirmed Problem Orthopedic aftercare (Z47.89) Active confirmed Problem Cervical myelopathy (G95.9) Active confirmed Cervical myelopathy ([id number]) Encounters Encounter Location Date Provider Diagnosis [facility] [address] [place] [address] 02/18/2024 Agusto Rasmussen PLAN OF TREATMENT Pending Test Test Name Order Date Anterior Cervical Discectomy and Fusion 11/28/2023 Insurance Providers Payer Name Payer Address Payer Phone Subscriber Number Group Number Insured Name Patient Relationship to Insured Coverage Start Date Coverage End Date [employer] Medicare Advantage HMO [address] [address] [place] [address] [id number] Aravind Callahan Self - patient is the insured 4 MEDICAL (GENERAL) HISTORY Medical History History ICD Code Blood Clots Surgical History Surgery Date(Month/Year) C4-5, C5-6, C6-7 Anterior Fusions for My elopathy 11/21/23 Hospitalization History Reason Date(Month/Year) As per above.
--- OUTSIDE RECORDS SUMMARY | 2025-02-08 16:25 | XMS_ITS | Clinical Summary ---
Author Organization [facility] [address] [place] [address] Care Team Providers Care Emissions Technician Name Role Phone Jeremy Levin MD Unavailable [phone] Dre Singh Primary Care Provider + [...] mL IV as needed for line care 93156 mL 5 08/29/19 Active heparin 10 unit/mL syringe flush syringeIndicati ons:Sacral wound, initial encounter Infuse 5 mL (50 Units total) IV as needed (line care) 99187 mL 5 08/29/19 Active cyclobenzaprine (FLEXERIL) 10 [...] (10/03/2021): Added automatically from request for surgery [id number] Positive colorectal cancer s creening using DNA-based [...] drink = 0.6 oz pur e alcohol) [facility] Utilities Answer Date Recorded In the past 12 months has th e [employer], [employer], oil, or water [employer] threatened to shut off services in your [...] often do you attend chur ch or druze services? Never 08/21/2024 Do you belong to any clubs o r organizations such as quaker groups, unions, fraternal or athletic groups, or [...] any time in the past 12 [facility], were you homeless or living in a prison (including now)? No 08/21/2024 Personal Safety Answer Date Recorded Have you ever been in or are you currently in a harmful physical or emotional relationship or is someone making you feel afraid or unsafe? 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 Gender Identity Not on file Sexual Orientation [...] COMPLEX sacral wound 08/22/2024 08/22/2024 08/22/2024 Insurance [facility] MDCR HMO [facility] MEDICARE Address: [address] [address] [place] [address] MEDICARE IDPA MEDICARE Advance Directives For more information, please contact: [phone] * Full Code (Latest Code Status on File) Date Activated Date Inactivated Comments 08/19/2024 6:54 PM 09/02/2024 1:00 PM Care Teams Emissions Technician Relationship Specialty Start [place] [address] [place] [address] PCP - Home Infusion Attending Infectious Diseases 08/26/24 Dre Singh PA [address] [place] [address] PCP - General Internal Medicine 08/27/24
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
--- NOTE | 2025-02-08 18:45 | WPDIDCN ---
Assessment and Plan Assessment and plan (1) Decubitus ulcer of sacral area: Code(s): L89.159 - Pressure ulcer of sacral region, unspecified stage Status: Acute (2) Abscess of scrotum: Code(s): N49.2 - Inflammatory disorders of scrotum Status: Acute Plan ASSESSMENT: 1. scrotal abscess--bilateral s/p I&D on 02/07/25 2. sacral wound--local wound care 3. BPH, HTN, HL REOMMENDATIONS: -continue vanoc and cefpeime for now -f/u on blood cxs -f/u on OR cxs d/w pharmacy staff Pt was seen via video telehealth consultation with the assistance of staff. Chart, data and patient info reviewed. Patient was located at [facility] while I was in my [place] office. Pt gave consent. HPI Data of Consult Date/Time: 02/08/25 18:45 Requesting Physician: Bebeto whitney Oca, MD Primary Care Provider: Daniel Anne, Consult Narrative Reason for consult: scrotal abscess Narrative: Aravind Callahan is a 69 year old male with pmhx/o HTN, HL, BPH, sacral wound, presented with bilateral scrotal abscess which were drained on 02/07 and seemed to connect. Urology following. Wound and blood cxs in process. on vanco and cefepime. [facility] Past Medical History Medical History correction current use of anticoagulant PVD (peripheral vascular disease) CAD (coronary artery disease) HTN (hypertension), benign Family History Family History Other Unknown family medical history Social History Social History Smoking status: Never smoker Alcohol intake: never Substance use: never Substance use type: does not use Lack of Transportation: No Lack of Food: Never True Current Housing: I Have Housing Concerned About Future Housing: No Difficulty Paying Gas/Electric Bills: No Difficulty Paying for Meds: No Currently Unemployed: No Education: High School Diploma/GED Difficulty w/ Childcare or Family Care: No Spiritual care concerns: No Meds Home Medications and Allergies Home Medications ?Medication ?Instructions ?Recorded ?Confirmed ?Type atorvastatin 20 mg tablet 20 mg PO DAILY 02/27/24 02/07/25 History clopidogrel 75 mg tablet 75 mg PO DAILY right leg stent 02/27/24 02/07/25 History fluticasone propionate 50 1 spray intranasal HS allergies 02/27/24 02/07/25 History mcg/actuation nasal spray,suspension hydrochlorothiazide 25 mg tablet 25 mg PO DAILY 02/27/24 02/07/25 History icosapent ethyl 1 gram capsule 2 g PO .q12 02/27/24 02/07/25 History (Vascepa) multivitamin with folic acid 400 1 tablet PO DAILY 02/27/24 02/07/25 History mcg tablet (Tab-A-Caryn) rivaroxaban 20 mg tablet (Xarelto) 20 mg PO DAILY 02/27/24 02/07/25 History tamsulosin 0.4 mg capsule 0.4 mg PO HS BPH 02/27/24 02/07/25 History potassium chloride 20 mEq 20 meq PO DAILY #1 tablet 03/10/24 02/07/25 Rx tablet,extended release diphenoxylate-atropine 2.5 1 tablet PO QID PRN diarrhea 02/07/25 02/07/25 History mg-0.025 mg tablet (Lomotil) hydrocodone 10 mg-acetaminophen 1 tablet PO Q12H PRN pain 02/07/25 02/07/25 History 325 mg tablet meloxicam 7.5 mg tablet 7.5 mg PO DAILY PRN pain 02/07/25 02/07/25 History Allergies Allergy/AdvReac Type Severity Reaction Status Date / Time Penicillins Allergy Severe Anaphylaxis Verified 02/07/25 13:38 Vital Signs Vital Signs - 24 hr 02/07/25 19:36 02/07/25 20:00 02/07/25 20:00 Temperature 97.7 F Pulse Rate 77 72 Respiratory Rate 19 Blood Pressure 144/70 H Pulse Oximetry 99 99 Oxygen Delivery Room Air Oxygen Flow Rate 02/07/25 22:22 02/07/25 22:30 02/07/25 22:45 Temperature 97.0 F L Pulse Rate 80 77 79 Respiratory Rate 16 16 16 Blood Pressure 103/61 122/61 102/63 Pulse Oximetry 100 100 100 Oxygen Delivery Simple Face Mask Room Air Room Air Oxygen Flow Rate 8 02/07/25 23:00 02/07/25 23:15 02/07/25 23:30 Temperature Pulse Rate 75 75 Respiratory Rate 16 15 Blood Pressure 101/64 104/58 L Pulse Oximetry 99 99 98 Oxygen Delivery Room Air Room Air Room Air Oxygen Flow Rate 02/07/25 23:30 02/08/25 00:00 02/08/25 00:00 Temperature 97.4 F L 96.8 F L Pulse Rate 73 98 87 Respiratory Rate 15 16 Blood Pressure 96/51 L 99/55 L Pulse Oximetry 99 98 Oxygen Delivery Oxygen Flow Rate 02/08/25 00:30 02/08/25 01:00 02/08/25 01:05 Temperature 97.5 F L 97.7 F Pulse Rate 85 85 86 Respiratory Rate 16 16 Blood Pressure 118/78 86/44 L 88/42 L Pulse Oximetry 98 99 Oxygen Delivery Oxygen Flow Rate 02/08/25 01:23 02/08/25 01:30 02/08/25 02:00 Temperature 97.5 F L Pulse Rate 82 78 77 Respiratory Rate 18 Blood Pressure 95/52 L 97/57 L Pulse Oximetry 99 Oxygen Delivery Oxygen Flow Rate 02/08/25 02:27 02/08/25 03:31 02/08/25 04:00 Temperature 97.7 F 97.5 F L Pulse Rate 76 80 78 Respiratory Rate 18 16 Blood Pressure 93/58 L 99/53 L Pulse Oximetry 100 100 Oxygen Delivery Oxygen Flow Rate 02/08/25 04:30 02/08/25 05:41 02/08/25 08:00 Temperature 97.5 F L 97.8 F Pulse Rate 79 81 80 Respiratory Rate 18 16 Blood Pressure 95/59 L 111/55 L 114/62 Pulse Oximetry 100 98 Oxygen Delivery Oxygen Flow Rate 02/08/25 08:00 02/08/25 08:00 02/08/25 10:00 Temperature Pulse Rate 80 82 81 Respiratory Rate 16 Blood Pressure Pulse Oximetry 98 Oxygen Delivery Room Air Oxygen Flow Rate 02/08/25 12:00 02/08/25 12:00 02/08/25 14:00 Temperature 98.2 F Pulse Rate 80 80 79 Respiratory Rate 16 Blood Pressure 111/52 L Pulse Oximetry 98 Oxygen Delivery Oxygen Flow Rate 02/08/25 16:00 Temperature 97.9 F Pulse Rate 78 Respiratory Rate 16 Blood Pressure 105/47 L Pulse Oximetry 98 Oxygen Delivery Oxygen Flow Rate Exam Narrative: on room air, NAD, non-toxic pale scrotum with edema, erythema and packed. +purulence, +orantes abd soft NT Results Labs 02/08/25 03:51 02/08/25 14:47 Labs: Short CBC 02/08/25 Range/Units 03:51 WBC 8.2 (4.5-10.0) K/mm3 Hgb 7.8 L (14.0-18.0) g/dL Hct 24.9 L (42.0-52.0) % Plt Count 303 (150-375) k/mm3 BMP 02/08/25 02/08/25 02/08/25 03:51 10:53 14:47 Sodium 129 L 129 L 128 L Potassium 2.8 L* 3.7 3.7 Chloride 97 L 99 98 Carbon Dioxide 35 H 32 H 35 H BUN 8 L 7 L 7 L Creatinine 0.56 L 0.59 L 0.55 L Glucose 109 92 106 Calcium 7.5 L 7.5 L 7.5 L Liver Function 02/08/25 Range/Units 03:51 Total Bilirubin 0.2 (0.2-1.3) mg/dL AST 17 (17-59) U/L ALT 7 (6-50) U/L Alkaline Phosphatase 69 (38-126) U/L Albumin 2.0 L (3.5-5.1) g/dL Urine 02/08/25 Range/Units 00:00 Urine Color [place] (Yellow) Urine Appearance Cloudy H (Clear) Urine pH 7.0 (5.0-9.0) Ur Specific [place] 1.008 (1.001-1.035) Urine Protein 2+ H (Negative) mg/dL Urine Glucose (UA) Negative (Negative) mg/dL
[2025-02-08] MEDS: TAMSULOSIN HCL 0.4 MG CAPSULE PO (20:34)
[2025-02-08] MEDS: FLUTICASONE PROPIONATE 0.05% NA SPR 16 GM BTL (*BKC) 1 SPRAY NASAL (20:35)
[2025-02-08] MEDS: HYDROcodone/acetaminophen (*CRX) 10-325 MG TABLET 1 TAB PO (20:38)
--- NOTE | 2025-02-08 23:17 | PC.NURSE ---
This patient, Aravind Callahan, was transferred to [facility] on 02/08/25 at 2310. Personal belongings sent with patient. Report given to Marilou DOUGLAS. Appropriate documentation sent with patient and all questions answered.
--- NOTE | 2025-02-08 23:29 | ADMGEN ---
This patient, Aravind Callahan, was transferred from IMU to Room 249-01 at 2310.
[2025-02-09] MEDS: VANCOMYCIN 1,500 MG/NS 500 ML 1,500 MG/500 ML BAG 250 MG IVPB ×3 (00:57→23:40)
[2025-02-09 04:39] LABS: Hematocrit 24.8 % (42.0-52.0); Hemoglobin 7.7 g/dL (14.0-18.0); Immature Granulocyte Percent A 0.7 % (0-0.5); Lymphocytes Absolute Auto 2.39 K/mm3 (0.9-3.2); Mean Corpuscular HGB Conc 31.0 g/dl (32-36); Mean Corpuscular Hemoglobin 23.7 pg (26-34); Mean Corpuscular Volume 76.3 fl (80-100); Nucleated Red Blood Cells Absolute Auto 0.000 K/mm3 (0.0-0.012); Nucleated Red Blood Cells Perc 0.0 % (0.0-0.2); Platelet Count Result 332 k/mm3 (150-375); Red Blood Count 3.25 M/mm3 (4.6-6.20); White Blood Count 7.3 K/mm3 (4.5-10.0)
[2025-02-09 04:52] LABS: Alanine Aminotransferase 7 U/L (6-50); Albumin Level 2.1 g/dL (3.5-5.1); Alkaline Phosphatase 65 U/L (38-126); Anion Gap -3 mmol/L (4-12); Aspartate Amino Transferase 15 U/L (17-59); Bilirubin,Total 0.1 mg/dL (0.2-1.3); Blood Urea Nitrogen 9 mg/dL (9-20); Calcium 7.5 mg/dL (8.4-10.2); Carbon Dioxide 33 mmol/L (22-30); Chloride 101 mmol/L (98-107); Estimated CRCL calculation 106 ml/min; Estimated Glomerular Filt Rate > 60; Glucose 110 mg/dL (65-110); Potassium 3.6 mmol/L (3.4-5.0); Sodium 131 mmol/L (137-145); Total Protein 4.8 g/dL (6.3-8.2)
[2025-02-09 04:54] LABS: Iron 28 ug/dL (49-181)
[2025-02-09 05:00] VITALS: BP 108/61; PULSE 72; RESP 14; TEMP 36; O2SAT 100
[2025-02-09 05:04] LABS: Percent Iron Saturation 20 % (20-50)
[2025-02-09 05:30] LABS: Ferritin 154.00 ng/mL (11.1-264)
[2025-02-09 06:04] LABS: Vitamin B12 764.0 pg/mL (239-931)
[2025-02-09 08:00] VITALS: BP 98/51; PULSE 72; RESP 16; TEMP 36.2; O2SAT 98
[2025-02-09] MEDS: CEFEPIME 1 GM in SODIUM CHLORIDE 0.9% IV 50 ML 100 ML IVPB ×2 (09:30→20:29)
[2025-02-09] MEDS: POTASSIUM CHLORIDE 20 MEQ ER TABLET PO (09:33)
[2025-02-09] MEDS: ATORVASTATIN 20 MG TABLET PO (09:33)
--- NOTE | 2025-02-09 10:51 | WPDUROPN2 ---
Progress Note: A&P Assessment and Plan (1) Abscess of scrotum: Code(s): N49.2 - Inflammatory disorders of scrotum Status: Acute Assessment and Plan: - S/p I&D of Right hemiscrotum and Left scrotal debridement with Dr. Camp (02/07/2025) - Recovering well currently; minimal pain - Continue daily wound packing/dressing changes per wound care - No indication for repeat surgical debridement at this time - Pt may resume Xarelto/Eliquis use at this time - Abx management per ID (2) Urinary retention: Code(s): R33.9 - Retention of urine, unspecified Status: Acute Assessment and Plan: - Uses Muniz catheter chronically at home - Maintain Muniz on discharge; pt with home health in place managing exchanges Subjective Subjective Date/Time Seen: 02/09/25 10:51 Interval history: NAEO; pt resting comfortably in bed. Reports mild discomfort from scrotal incisions but overall tolerable. No issues with Muniz catheter. Exam Const: General: comfortable and no acute distress HENMT: Face/Nose/Sinus: Normal nares present Eyes: General: appearance normal, both eyes and all related structures Resp: Effort & Inspection: normal respiratory effort : General: Yes bladder normal to palpation Other: Larger incision of Left hemiscrotum and smaller incision of Right hemiscrotum packed with dressings without significant drainage or bleeding. Dressings replaced; healthy appearing pink granulation tissue without any significant purulence, necrosis, induration, expanding erythema Urinary Catheter: Urinary Catheter: patent and draining and urine clear Skin: General skin exam: normal color Neuro: Speech: normal speech Psych: Mental Status: mental status grossly normal Objective Data Vital Signs Vital Signs: Vital Signs - 24 hr 02/08/25 12:00 02/08/25 12:00 02/08/25 14:00 Temperature 36.8 C Pulse Rate 80 80 79 Respiratory Rate 16 Blood Pressure 111/52 L Pulse Oximetry 98 02/08/25 16:00 02/08/25 20:00 02/08/25 23:25 Temperature 36.6 C 36.8 C 36.4 C L Pulse Rate 78 82 86 Respiratory Rate 16 22 H 20 Blood Pressure 105/47 L 101/53 L 102/59 L Pulse Oximetry 98 100 96 02/09/25 05:00 02/09/25 08:00 Temperature 36.0 C L 36.2 C L Pulse Rate 72 72 Respiratory Rate 14 16 Blood Pressure 108/61 98/51 L Pulse Oximetry 100 98 Intake/Output Intake/Output: Intake & Output 02/06/25 02/07/25 02/08/25 02/09/25 23:59 23:59 23:59 23:59 Intake Total 2900 4480 1390 Output Total 315 2200 725 Balance 2585 2280 665 Meds/Results Medications: Active Medications Generic Name Dose Route Start Last Admin Trade Name Freq PRN Reason Stop Dose Admin Hydrocodone Bitart/Acetaminophen 1 tab 02/07/25 17:37 02/08/25 20:38 Hydrocodone/Acetaminophen (*Crx) 10-325 Mg Tablet PO 1 tab Q12H PRN Administration Pain 4-6 Atorvastatin Calcium 20 mg 02/08/25 09:00 02/09/25 09:33 Atorvastatin 20 Mg Tablet PO 20 mg DAILY ARASH Administration Clopidogrel Bisulfate 75 mg 02/08/25 09:00 Clopidogrel Bisulfate 75 Mg Tablet PO On Hold: 02/08/25 09:00 DAILY ARASH Resume: 02/10/25 09:00 Fentanyl Citrate 25 mcg 02/07/25 21:08 Fentanyl Citrate Inj (*Crx) 100 Mcg/2 Ml Vial IV PUSH Q2M PRN Pain Fish Oil 2 gm 02/07/25 21:00 02/09/25 09:33 [place] 3 Polyunsat Fatty Acids 1 Gm Cap PO Not Given Q12HR ARASH Fluticasone Propionate 1 spray 02/07/25 21:00 02/08/25 20:35 Fluticasone Propionate 0.05% Na Spr 16 Gm Btl (*Bkc) NASAL 1 spray HS ARASH Administration Hydrochlorothiazide 25 mg 02/08/25 09:00 02/08/25 08:19 Hydrochlorothiazide 25 Mg Tablet PO 25 mg DAILY ARASH Administration Lactated Ringer's 1,000 mls @ 125 mls/hr 02/07/25 11:50 02/09/25 02:33 Lr - Lactated Ringers Iv IV CONT Infused .Q8H ARASH Infusion Cefepime HCl 1 gm/ Sodium 50 mls @ 100 mls/hr 02/07/25 23:30 02/09/25 09:30 Chloride IVPB 100 mls/hr Q12HR ARASH Administration Vancomycin HCl 1,500 mg in 500 mls @ 250 mls/hr 02/09/25 00:00 02/09/25 00:57 Vancomycin 1,500 Mg/Ns 500 Ml IVPB 250 mls/hr Q12H ARASH Administration Ketorolac Tromethamine 15 mg 02/09/25 10:30 Ketorolac 30 Mg/Ml Vial (*Bkc) IV PUSH Q8H PRN Pain Miscellaneous Information 1 each 02/09/25 00:01 _Toradol Has Overlapping Prn Indication With _Norco. XX 03/11/25 00:00 CLARIFY ARASH Naloxone HCl 0.1 mg 02/07/25 13:05 Naloxone Hcl 0.4 Mg/Ml Vial IV PUSH Q2M PRN Opiate Reversal Ondansetron HCl 4 mg 02/07/25 13:05 Ondansetron Inj 4 Mg/2 Ml Vial IV PUSH Q6H PRN Nausea And Vomiting Ondansetron HCl 4 mg 02/07/25 21:08 Ondansetron Inj 4 Mg/2 Ml Vial IV PUSH ONCE PRN Nausea Oxycodone HCl 5 mg 02/07/25 21:08 Oxycodone Hcl (*Crx) 5 Mg Tab Ir PO ONCE PRN Pain Potassium Chloride 20 meq 02/08/25 09:00 02/09/25 09:33 Potassium Chloride 20 Meq Er Tablet PO 20 meq DAILY ARASH Administration Rivaroxaban 20 mg 02/08/25 09:00 Rivaroxaban 20 Mg Tablet PO On Hold: 02/08/25 09:00 DAILY ARASH Resume: 02/10/25 09:00 Tamsulosin HCl 0.4 mg 02/07/25 21:00 02/08/25 20:34 Tamsulosin Hcl 0.4 Mg Capsule PO 0.4 mg HS ARASH Administration Radiology Results: ITS Impressions Abdomen/Pelvis CT 02/07/25 10:54 IMPRESSION: 1. Bilateral scrotal abscesses. 2. Cystitis. Bilateral pyelitis. 3. Sacral decubitus ulcer with sacrococcygeal osteomyelitis. 4. Small left pleural effusion. 5. Small pericardial effusion. 6. Nonocclusive thrombus within stents in pelvic veins. Labs Labs: Laboratory Results - last 24 hr 02/08/25 02/08/25 02/08/25 10:53 14:47 23:01 WBC RBC Hgb Hct MCV MCH MCHC RDW Plt Count MPV Immature Gran % (Auto) Neut % (Auto) Lymph % (Auto) Dickenson % (Auto) Eos % (Auto) Baso % (Auto) Lymph # (Auto) Dickenson # (Auto) Eos # (Auto) Baso # (Auto) Abs Immat Gran (auto) Absolute Neuts (auto) Absolute Nucleated RBC Nucleated RBC % Sodium 129 L 128 L Potassium 3.7 3.7 Chloride 99 98 Carbon Dioxide 32 H 35 H Anion Gap -2 L -5 L BUN 7 L 7 L Creatinine 0.59 L 0.55 L Estim Creat Clear Calc 88 94 Estimated GFR > 60 > 60 Glucose 92 106 Calcium 7.5 L 7.5 L Iron TIBC % Saturation Ferritin Total Bilirubin AST ALT Alkaline Phosphatase Total Protein Albumin Vitamin B12 Folate Vancomycin Trough 13.5 02/09/25 04:29 WBC 7.3 RBC 3.25 L Hgb 7.7 L Hct 24.8 L MCV 76.3 L MCH 23.7 L MCHC 31.0 L RDW 15.9 H Plt Count 332 MPV 8.1 Immature Gran % (Auto) 0.7 H Neut % (Auto) 55.3 Lymph % (Auto) 33.0 Dickenson % (Auto) 7.4 Eos % (Auto) 3.2 Baso % (Auto) 0.4 Lymph # (Auto) 2.39 Dickenson # (Auto) 0.5 Eos # (Auto) 0.2 Baso # (Auto) 0.0 Abs Immat Gran (auto) 0.05 H Absolute Neuts (auto) 4.0 Absolute Nucleated RBC 0.000 Nucleated RBC % 0.0 Sodium 131 L Potassium 3.6 Chloride 101 Carbon Dioxide 33 H Anion Gap -3 L BUN 9 Creatinine 0.48 L Estim Creat Clear Calc 106 Estimated GFR > 60 Glucose 110 Calcium 7.5 L Iron 28 L TIBC 142 L % Saturation 20 Ferritin 154.00 Total Bilirubin 0.1 L AST 15 L ALT 7 Alkaline Phosphatase 65 Total Protein 4.8 L Albumin 2.1 L Vitamin B12 764.0 Folate 3.5 Vancomycin Trough
[2025-02-09] MEDS: KETOROLAC 30 MG/ML VIAL (*BKC) 15 MG IV PUSH (11:48)
[2025-02-09 12:00] VITALS: BP 113/55; PULSE 87; RESP 15; TEMP 36.3; O2SAT 97
--- NOTE | 2025-02-09 12:39 | WPDINFPN2 ---
Progress Note: A&P Assessment and Plan (1) Decubitus ulcer of sacral area: Code(s): L89.159 - Pressure ulcer of sacral region, unspecified stage Status: Acute (2) Abscess of scrotum: Code(s): N49.2 - Inflammatory disorders of scrotum Status: Acute Plan ASSESSMENT: 1. scrotal abscess--bilateral s/p I&D on 02/07/25 2. sacral wound--local wound care 3. BPH, HTN, HL REOMMENDATIONS: -continue vanco and cefepime for now -f/u on blood cxs -f/u on OR cxs -f/u on urine cx d/w pharmacy staff Pt was seen via video telehealth consultation with the assistance of staff. Chart, data and patient info reviewed. Patient was located at [facility] while I was in my [place] office. Pt gave consent. Subjective Date/time seen: 02/09/25 12:39 Interval history: no fever no leukocytosis Exam Narrative: NAD, on room air, non-toxic, pale abd soft NT : less purulence; +orantes Objective Data Vital Signs Vital Signs: Vital Signs - 24 hr 02/08/25 14:00 02/08/25 16:00 02/08/25 20:00 Temperature 97.9 F 98.3 F Pulse Rate 79 78 82 Respiratory Rate 16 22 H Blood Pressure 105/47 L 101/53 L Pulse Oximetry 98 100 02/08/25 23:25 02/09/25 05:00 02/09/25 08:00 Temperature 97.5 F L 96.8 F L 97.1 F L Pulse Rate 86 72 72 Respiratory Rate 20 14 16 Blood Pressure 102/59 L 108/61 98/51 L Pulse Oximetry 96 100 98 Intake/Output Intake/Output: Intake & Output 02/06/25 02/07/25 02/08/25 02/09/25 23:59 23:59 23:59 23:59 Intake Total 2900 4480 1940 Output Total 315 2200 725 Balance 2585 2280 1215 Meds/Results Medications: Active Medications Generic Name Dose Route Start Last Admin Trade Name Freq PRN Reason Stop Dose Admin Hydrocodone Bitart/Acetaminophen 1 tab 02/07/25 17:37 02/08/25 20:38 Hydrocodone/Acetaminophen (*Crx) 10-325 Mg Tablet PO 1 tab Q12H PRN Administration Pain 4-6 Atorvastatin Calcium 20 mg 02/08/25 09:00 02/09/25 09:33 Atorvastatin 20 Mg Tablet PO 20 mg DAILY ARASH Administration Clopidogrel Bisulfate 75 mg 02/08/25 09:00 Clopidogrel Bisulfate 75 Mg Tablet PO On Hold: 02/08/25 09:00 DAILY ARASH Resume: 02/10/25 09:00 Fentanyl Citrate 25 mcg 02/07/25 21:08 Fentanyl Citrate Inj (*Crx) 100 Mcg/2 Ml Vial IV PUSH Q2M PRN Pain Fish Oil 2 gm 02/07/25 21:00 02/09/25 09:33 [place] 3 Polyunsat Fatty Acids 1 Gm Cap PO Not Given Q12HR ARASH Fluticasone Propionate 1 spray 02/07/25 21:00 02/08/25 20:35 Fluticasone Propionate 0.05% Na Spr 16 Gm Btl (*Bkc) NASAL 1 spray HS ARASH Administration Hydrochlorothiazide 25 mg 02/08/25 09:00 02/09/25 11:04 Hydrochlorothiazide 25 Mg Tablet PO Not Given DAILY ARASH Lactated Ringer's 1,000 mls @ 125 mls/hr 02/07/25 11:50 02/09/25 02:33 Lr - Lactated Ringers Iv IV CONT Infused .Q8H ARASH Infusion Cefepime HCl 1 gm/ Sodium 50 mls @ 100 mls/hr 02/07/25 23:30 02/09/25 10:00 Chloride IVPB Infused Q12HR ARASH Infusion Vancomycin HCl 1,500 mg in 500 mls @ 250 mls/hr 02/09/25 00:00 02/09/25 11:50 Vancomycin 1,500 Mg/Ns 500 Ml IVPB 250 mls/hr Q12H ARASH Administration Ketorolac Tromethamine 15 mg 02/09/25 10:30 02/09/25 11:48 Ketorolac 30 Mg/Ml Vial (*Bkc) IV PUSH 15 mg Q8H PRN Administration Pain Naloxone HCl 0.1 mg 02/07/25 13:05 Naloxone Hcl 0.4 Mg/Ml Vial IV PUSH Q2M PRN Opiate Reversal Ondansetron HCl 4 mg 02/07/25 13:05 Ondansetron Inj 4 Mg/2 Ml Vial IV PUSH Q6H PRN Nausea And Vomiting Ondansetron HCl 4 mg 02/07/25 21:08 Ondansetron Inj 4 Mg/2 Ml Vial IV PUSH ONCE PRN Nausea Oxycodone HCl 5 mg 02/07/25 21:08 Oxycodone Hcl (*Crx) 5 Mg Tab Ir PO ONCE PRN Pain Potassium Chloride 20 meq 02/08/25 09:00 02/09/25 09:33 Potassium Chloride 20 Meq Er Tablet PO 20 meq DAILY ARASH Administration Rivaroxaban 20 mg 02/08/25 09:00 Rivaroxaban 20 Mg Tablet PO On Hold: 02/08/25 09:00 DAILY ARASH Resume: 02/10/25 09:00 Tamsulosin HCl 0.4 mg 02/07/25 21:00 02/08/25 20:34 Tamsulosin Hcl 0.4 Mg Capsule PO 0.4 mg HS ARASH Administration Radiology Results: ITS Impressions Abdomen/Pelvis CT 02/07/25 10:54 IMPRESSION: 1. Bilateral scrotal abscesses. 2. Cystitis. Bilateral pyelitis. 3. Sacral decubitus ulcer with sacrococcygeal osteomyelitis. 4. Small left pleural effusion. 5. Small pericardial effusion. 6. Nonocclusive thrombus within stents in pelvic veins. Labs Labs: Laboratory Results - last 24 hr 02/08/25 02/08/25 02/09/25 14:47 23:01 04:29 WBC 7.3 RBC 3.25 L Hgb 7.7 L Hct 24.8 L MCV 76.3 L MCH 23.7 L MCHC 31.0 L RDW 15.9 H Plt Count 332 MPV 8.1 Immature Gran % (Auto) 0.7 H Neut % (Auto) 55.3 Lymph % (Auto) 33.0 Snyder % (Auto) 7.4 Eos % (Auto) 3.2 Baso % (Auto) 0.4 Lymph # (Auto) 2.39 Snyder # (Auto) 0.5 Eos # (Auto) 0.2 Baso # (Auto) 0.0 Abs Immat Gran (auto) 0.05 H Absolute Neuts (auto) 4.0 Absolute Nucleated RBC 0.000 Nucleated RBC % 0.0 Sodium 128 L 131 L Potassium 3.7 3.6 Chloride 98 101 Carbon Dioxide 35 H 33 H Anion Gap -5 L -3 L BUN 7 L 9 Creatinine 0.55 L 0.48 L Estim Creat Clear Calc 94 106 Estimated GFR > 60 > 60 Glucose 106 110 Calcium 7.5 L 7.5 L Iron 28 L TIBC 142 L % Saturation 20 Ferritin 154.00 Total Bilirubin 0.1 L AST 15 L ALT 7 Alkaline Phosphatase 65 Total Protein 4.8 L Albumin 2.1 L Vitamin B12 764.0 Folate 3.5 Vancomycin Trough 13.5
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
[2025-02-09] MEDS: LACTATED RINGERS 1,000 ML 125 ML IV CONT ×2 (15:32→23:39)
[2025-02-09 15:55] VITALS: BP 118/56; PULSE 88; RESP 16; TEMP 36.6; O2SAT 96
[2025-02-09 16:18] VITALS: PULSE 88; RESP 18
[2025-02-09] MEDS: ALBUTEROL SULFATE (*SP) AEROSOL 1 PUFF 2 PUFF INHALATION (16:22)
[2025-02-09 19:40] VITALS: BP 122/80; PULSE 102; RESP 20; TEMP 37.1; O2SAT 94
[2025-02-09] MEDS: TAMSULOSIN HCL 0.4 MG CAPSULE PO (20:30)
[2025-02-09] MEDS: FLUTICASONE PROPIONATE 0.05% NA SPR 16 GM BTL (*BKC) 1 SPRAY NASAL (20:30)
--- NOTE | 2025-02-09 20:35 | PC.NURSE ---
PT STATES HAS TOLD HIS DR ABOUT NOT TAKING LOVAZA PILLS DUE TO CHOKING ON THEM, CARLOS SHELBY NOTIFIED
[2025-02-10] VITALS (9 sets, daily range): BP systolic 107–118; BP diastolic 53–70; PULSE 82–94; RESP 14–18; TEMP 35.9–36.9; O2SAT 93–97
[2025-02-10 05:00] LABS: Hematocrit 25.7 % (42.0-52.0); Hemoglobin 7.9 g/dL (14.0-18.0); Immature Granulocyte Percent A 0.7 % (0-0.5); Lymphocytes Absolute Auto 2.34 K/mm3 (0.9-3.2); Mean Corpuscular HGB Conc 30.7 g/dl (32-36); Mean Corpuscular Hemoglobin 23.6 pg (26-34); Mean Corpuscular Volume 76.7 fl (80-100); Nucleated Red Blood Cells Absolute Auto 0.000 K/mm3 (0.0-0.012); Nucleated Red Blood Cells Perc 0.0 % (0.0-0.2); Platelet Count Result 400 k/mm3 (150-375); Red Blood Count 3.35 M/mm3 (4.6-6.20); White Blood Count 11.9 K/mm3 (4.5-10.0)
[2025-02-10 05:29] LABS: Alanine Aminotransferase 8 U/L (6-50); Albumin Level 2.1 g/dL (3.5-5.1); Alkaline Phosphatase 62 U/L (38-126); Anion Gap -2 mmol/L (4-12); Aspartate Amino Transferase 16 U/L (17-59); Bilirubin,Total < 0.1 mg/dL (0.2-1.3); Blood Urea Nitrogen 14 mg/dL (9-20); Calcium 7.4 mg/dL (8.4-10.2); Carbon Dioxide 30 mmol/L (22-30); Chloride 102 mmol/L (98-107); Estimated CRCL calculation 113 ml/min; Estimated Glomerular Filt Rate > 60; Glucose 104 mg/dL (65-110); Potassium 3.8 mmol/L (3.4-5.0); Sodium 130 mmol/L (137-145); Total Protein 4.6 g/dL (6.3-8.2)
[2025-02-10] MEDS: POTASSIUM CHLORIDE 20 MEQ ER TABLET PO (09:07)
[2025-02-10] MEDS: CLOPIDOGREL BISULFATE 75 MG TABLET PO (09:07)
[2025-02-10] MEDS: RIVAROXABAN 20 MG TABLET PO (09:07)
[2025-02-10] MEDS: ATORVASTATIN 20 MG TABLET PO (09:07)
[2025-02-10] MEDS: CEFEPIME 1 GM in SODIUM CHLORIDE 0.9% IV 50 ML 100 ML IVPB ×2 (09:07→20:16)
[2025-02-10] MEDS: LACTATED RINGERS 1,000 ML 125 ML IV CONT ×2 (09:18→20:16)
[2025-02-10] MEDS: VANCOMYCIN 1,500 MG/NS 500 ML 1,500 MG/500 ML BAG 250 MG IVPB ×2 (12:13→23:43)
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
--- NOTE | 2025-02-10 18:22 | WPDINFPN2 ---
Progress Note: A&P Assessment and Plan (1) Decubitus ulcer of sacral area: Code(s): L89.159 - Pressure ulcer of sacral region, unspecified stage Status: Acute (2) Abscess of scrotum: Code(s): N49.2 - Inflammatory disorders of scrotum Status: Acute Plan ASSESSMENT: 1. scrotal abscess--bilateral s/p I&D on 02/07/25 2. sacral wound--local wound care 3. BPH, HTN, HL 4. penicillin allergy-->tolerates cefepime REOMMENDATIONS: -continue vanco and cefepime for now while here -f/u on blood cxs-->so far NGTD -f/u on OR cxs-->so far unrevealing -f/u on urine cx-->so far NGTD if abscess cultures remain unrevealing, can d/c home on po keflex 500 mg QID and flagyl po 500 mg TID through Feb 16. Check with ID prior to d/c. d/w pharmacy staff Pt was seen via video telehealth consultation with the assistance of staff. Chart, data and patient info reviewed. Patient was located at [facility] while I was in my [place] office. Pt gave consent. Subjective Date/time seen: 02/10/25 18:22 Interval history: not much pain unless having wound packed Exam Narrative: : left hemiscrotum packed. Mild surrounding erythema. +edema; +Muniz with clear urine, +rectal tube Objective Data Vital Signs Vital Signs: Vital Signs - 24 hr 02/09/25 19:40 02/10/25 00:10 02/10/25 04:50 Temperature 98.8 F 98.5 F 98.2 F Pulse Rate 102 H 94 82 Respiratory Rate 20 18 16 Blood Pressure 122/80 116/60 110/53 L Pulse Oximetry 94 97 96 Oxygen Delivery 02/10/25 07:19 02/10/25 08:00 02/10/25 09:45 Temperature 97.5 F L Pulse Rate 85 Respiratory Rate 14 16 Blood Pressure 111/54 L Pulse Oximetry 94 97 97 Oxygen Delivery Room Air Room Air 02/10/25 12:00 Temperature 97.0 F L Pulse Rate 82 Respiratory Rate 16 Blood Pressure 107/53 L Pulse Oximetry 97 Oxygen Delivery Intake/Output Intake/Output: Intake & Output 02/07/25 02/08/25 02/09/25 02/10/25 23:59 23:59 23:59 23:59 Intake Total 2900 4480 4385 3527.1 Output Total 315 2200 1475 3025 Balance 2585 2280 2910 502.1 Meds/Results Medications: Active Medications Generic Name Dose Route Start Last Admin Trade Name Freq PRN Reason Stop Dose Admin Hydrocodone Bitart/Acetaminophen 1 tab 02/07/25 17:37 02/08/25 20:38 Hydrocodone/Acetaminophen (*Crx) 10-325 Mg Tablet PO 1 tab Q12H PRN Administration Pain 4-6 Albuterol 2 puff 02/09/25 15:37 02/09/25 16:22 Albuterol Sulfate (*Sp) Aerosol 1 Puff INHALATION 2 puff Q6HRT PRN Administration Shortness Of Breath Atorvastatin Calcium 20 mg 02/08/25 09:00 02/10/25 09:07 Atorvastatin 20 Mg Tablet PO 20 mg DAILY ARASH Administration Clopidogrel Bisulfate 75 mg 02/08/25 09:00 02/10/25 09:07 Clopidogrel Bisulfate 75 Mg Tablet PO 75 mg DAILY ARASH Administration Fentanyl Citrate 25 mcg 02/07/25 21:08 Fentanyl Citrate Inj (*Crx) 100 Mcg/2 Ml Vial IV PUSH Q2M PRN Pain Fish Oil 2 gm 02/07/25 21:00 02/10/25 09:08 [place] 3 Polyunsat Fatty Acids 1 Gm Cap PO Not Given Q12HR ARASH Fluticasone Propionate 1 spray 02/07/25 21:00 02/09/25 20:30 Fluticasone Propionate 0.05% Na Spr 16 Gm Btl (*Bkc) NASAL 1 spray HS ARASH Administration Hydrochlorothiazide 25 mg 02/08/25 09:00 02/10/25 09:07 Hydrochlorothiazide 25 Mg Tablet PO 25 mg DAILY ARASH Administration Lactated Ringer's 1,000 mls @ 125 mls/hr 02/07/25 11:50 02/10/25 14:35 Lr - Lactated Ringers Iv IV CONT 125 mls/hr .Q8H ARASH Infusion Cefepime HCl 1 gm/ Sodium 50 mls @ 100 mls/hr 02/07/25 23:30 02/10/25 09:37 Chloride IVPB Infused Q12HR ARASH Infusion Vancomycin HCl 1,500 mg in 500 mls @ 250 mls/hr 02/09/25 00:00 02/10/25 14:35 Vancomycin 1,500 Mg/Ns 500 Ml IVPB Infused Q12H ARASH Infusion Ketorolac Tromethamine 15 mg 02/09/25 10:30 02/09/25 11:48 Ketorolac 30 Mg/Ml Vial (*Bkc) IV PUSH 15 mg Q8H PRN Administration Pain Multi-Ingred Cream/Lotion/Oil/Oint 1 applic 02/11/25 09:00 Eucerin Cream 120 Gm Jar TOPICAL DAILY ARASH Naloxone HCl 0.1 mg 02/07/25 13:05 Naloxone Hcl 0.4 Mg/Ml Vial IV PUSH Q2M PRN Opiate Reversal Ondansetron HCl 4 mg 02/07/25 13:05 Ondansetron Inj 4 Mg/2 Ml Vial IV PUSH Q6H PRN Nausea And Vomiting Ondansetron HCl 4 mg 02/07/25 21:08 Ondansetron Inj 4 Mg/2 Ml Vial IV PUSH ONCE PRN Nausea Oxycodone HCl 5 mg 02/07/25 21:08 Oxycodone Hcl (*Crx) 5 Mg Tab Ir PO ONCE PRN Pain Potassium Chloride 20 meq 02/08/25 09:00 02/10/25 09:07 Potassium Chloride 20 Meq Er Tablet PO 20 meq DAILY ARASH Administration Rivaroxaban 20 mg 02/08/25 09:00 02/10/25 09:07 Rivaroxaban 20 Mg Tablet PO 20 mg DAILY ARASH Administration Tamsulosin HCl 0.4 mg 02/07/25 21:00 02/09/25 20:30 Tamsulosin Hcl 0.4 Mg Capsule PO 0.4 mg HS ARASH Administration Radiology Results: ITS Impressions Abdomen/Pelvis CT 02/07/25 10:54 IMPRESSION: 1. Bilateral scrotal abscesses. 2. Cystitis. Bilateral pyelitis. 3. Sacral decubitus ulcer with sacrococcygeal osteomyelitis. 4. Small left pleural effusion. 5. Small pericardial effusion. 6. Nonocclusive thrombus within stents in pelvic veins. Venous Doppler Study 02/10/25 15:59 Impression: Probable sequelae of remote right-sided DVT, distinction from acute thrombus is limited. Follow-up is recommended to assess for change Labs Labs: Laboratory Results - last 24 hr 02/10/25 02/10/25 04:35 11:01 WBC 11.9 H RBC 3.35 L Hgb 7.9 L Hct 25.7 L MCV 76.7 L MCH 23.6 L MCHC 30.7 L RDW 16.2 H Plt Count 400 H MPV 7.9 Immature Gran % (Auto) 0.7 H Neut % (Auto) 70.3 Lymph % (Auto) 19.7 [place] % (Auto) 6.1 Eos % (Auto) 2.9 Baso % (Auto) 0.3 Lymph # (Auto) 2.34 [place] # (Auto) 0.7 H Eos # (Auto) 0.3 Baso # (Auto) 0.0 Abs Immat Gran (auto) 0.08 H Absolute Neuts (auto) 8.4 H Absolute Nucleated RBC 0.000 Nucleated RBC % 0.0 Sodium 130 L Potassium 3.8 Chloride 102 Carbon Dioxide 30 Anion Gap -2 L BUN 14 D Creatinine 0.46 L Estim Creat Clear Calc 113 Estimated GFR > 60 Glucose 104 Calcium 7.4 L Total Bilirubin < 0.1 L AST 16 L ALT 8 Alkaline Phosphatase 62 Total Protein 4.6 L Albumin 2.1 L Vancomycin Trough 18.0
[2025-02-10] MEDS: TAMSULOSIN HCL 0.4 MG CAPSULE PO (20:16)
[2025-02-10] MEDS: FLUTICASONE PROPIONATE 0.05% NA SPR 16 GM BTL (*BKC) 1 SPRAY NASAL (20:18)
[2025-02-10] MEDS: ALBUTEROL SULFATE (*SP) AEROSOL 1 PUFF 2 PUFF INHALATION (21:13)
[2025-02-11] VITALS (10 sets, daily range): BP systolic 91–133; BP diastolic 53–75; PULSE 80–97; RESP 14–18; TEMP 36.1–36.8; O2SAT 97–100
[2025-02-11] MEDS: LACTATED RINGERS 1,000 ML 125 ML IV CONT ×2 (04:47→15:42)
[2025-02-11 05:35] LABS: Hematocrit 23.7 % (42.0-52.0); Hemoglobin 7.3 g/dL (14.0-18.0); Immature Granulocyte Percent A 0.7 % (0-0.5); Lymphocytes Absolute Auto 2.28 K/mm3 (0.9-3.2); Mean Corpuscular HGB Conc 30.8 g/dl (32-36); Mean Corpuscular Hemoglobin 23.4 pg (26-34); Mean Corpuscular Volume 76.0 fl (80-100); Nucleated Red Blood Cells Absolute Auto 0.000 K/mm3 (0.0-0.012); Nucleated Red Blood Cells Perc 0.0 % (0.0-0.2); Platelet Count Result 388 k/mm3 (150-375); Red Blood Count 3.12 M/mm3 (4.6-6.20); White Blood Count 9.1 K/mm3 (4.5-10.0)
[2025-02-11 05:44] LABS: Alanine Aminotransferase 7 U/L (6-50); Albumin Level 2.0 g/dL (3.5-5.1); Alkaline Phosphatase 64 U/L (38-126); Anion Gap -3 mmol/L (4-12); Aspartate Amino Transferase 15 U/L (17-59); Bilirubin,Total 0.2 mg/dL (0.2-1.3); Blood Urea Nitrogen 15 mg/dL (9-20); Calcium 7.6 mg/dL (8.4-10.2); Carbon Dioxide 30 mmol/L (22-30); Chloride 103 mmol/L (98-107); Estimated CRCL calculation 144 ml/min; Estimated Glomerular Filt Rate > 60; Glucose 91 mg/dL (65-110); Potassium 3.5 mmol/L (3.4-5.0); Sodium 130 mmol/L (137-145); Total Protein 4.4 g/dL (6.3-8.2)
[2025-02-11] MEDS: CLOPIDOGREL BISULFATE 75 MG TABLET PO (09:33)
[2025-02-11] MEDS: POTASSIUM CHLORIDE 20 MEQ ER TABLET PO (09:34)
[2025-02-11] MEDS: RIVAROXABAN 20 MG TABLET PO (09:34)
[2025-02-11] MEDS: ATORVASTATIN 20 MG TABLET PO (09:34)
[2025-02-11] MEDS: EUCERIN CREAM 120 GM JAR 1 APPLIC TOPICAL (09:34)
[2025-02-11] MEDS: CEFEPIME 2 GM in SODIUM CHLORIDE 0.9% IV 50 ML 100 ML IVPB ×2 (09:38→20:35)
[2025-02-11] MEDS: VANCOMYCIN 1,500 MG/NS 500 ML 1,500 MG/500 ML BAG 250 MG IVPB (11:01)
--- NOTE | 2025-02-11 13:07 | P.PNUR_ITS ---
Progress Note: A&P Assessment and Plan (1) Abscess of scrotum: Code(s): N49.2 - Inflammatory disorders of scrotum Status: Acute Assessment and Plan: - S/p I&D of Right hemiscrotum and Left scrotal debridement with Dr. Camp (02/07/2025) - Recovering well currently; minimal pain - Continue daily wound packing/dressing changes per wound care - patient and wounds are doing well. Still No indication for repeat surgical debridement at this time - Abx management per ID (2) Urinary retention: Code(s): R33.9 - Retention of urine, unspecified Status: Acute Assessment and Plan: - Uses Muniz catheter chronically at home - Maintain Muniz on discharge; pt with home health in place managing exchanges Subjective Subjective Date/Time Seen: 02/11/25 13:07 Interval history: no acute events overnight. patient is doing well. pain controlled unless dressings being changed. Review of Systems Review of Systems: All systems reviewed & are unremarkable except as noted in HPI and below Exam Const: General: comfortable and no acute distress HENMT: Face/Nose/Sinus: Normal nares present Eyes: General: appearance normal, both eyes and all related structures EOM: EOMs intact bilaterally Resp: Effort & Inspection: normal respiratory effort GI: Other: Soft, non tender, non distended : General: Yes bladder normal to palpation Other: Larger incision of Left hemiscrotum and smaller incision of Right hemiscrotum tissues look good. No erythema. they are without significant drainage or bleeding. Dressings replaced; healthy appearing pink granulation tissue without any significant purulence, necrosis, induration, expanding erythema Urinary Catheter: Urinary Catheter: patent and draining and urine clear Skin: General skin exam: normal color Neuro: Speech: normal speech Psych: Mental Status: mental status grossly normal Objective Data Vital Signs Vital Signs: Vital Signs - 24 hr 02/10/25 16:00 02/10/25 20:40 02/10/25 21:14 Temperature 98.2 F 96.6 F L Pulse Rate 85 82 87 Respiratory Rate 14 16 16 Blood Pressure 113/59 L 118/70 Pulse Oximetry 95 97 93 Oxygen Delivery Room Air Fraction of Inspired Oxygen 21 02/10/25 21:14 02/11/25 00:45 02/11/25 04:30 Temperature 97.2 F L 96.9 F L Pulse Rate 87 88 82 Respiratory Rate 16 18 18 Blood Pressure 133/75 91/59 L Pulse Oximetry 97 97 Oxygen Delivery Fraction of Inspired Oxygen 02/11/25 07:49 02/11/25 09:34 02/11/25 12:00 Temperature 97.6 F 98.0 F Pulse Rate 80 87 Respiratory Rate 14 16 16 Blood Pressure 98/55 L 91/55 L Pulse Oximetry 98 98 97 Oxygen Delivery Room Air Fraction of Inspired Oxygen Intake/Output Intake/Output: Intake & Output 02/08/25 02/09/25 02/10/25 02/11/25 23:59 23:59 23:59 23:59 Intake Total 4480 4385 4250.0 3715.7 Output Total 2200 1475 3025 3250 Balance 2280 2910 1225.0 465.7 Meds/Results Medications: Active Medications Generic Name Dose Route Start Last Admin Trade Name Freq PRN Reason Stop Dose Admin Hydrocodone Bitart/Acetaminophen 1 tab 02/07/25 17:37 02/08/25 20:38 Hydrocodone/Acetaminophen (*Crx) 10-325 Mg Tablet PO 1 tab Q12H PRN Administration Pain 4-6 Albuterol 2 puff 02/09/25 15:37 02/10/25 21:13 Albuterol Sulfate (*Sp) Aerosol 1 Puff INHALATION 2 puff Q6HRT PRN Administration Shortness Of Breath Atorvastatin Calcium 20 mg 02/08/25 09:00 02/11/25 09:34 Atorvastatin 20 Mg Tablet PO 20 mg DAILY ARASH Administration Clopidogrel Bisulfate 75 mg 02/08/25 09:00 02/11/25 09:33 Clopidogrel Bisulfate 75 Mg Tablet PO 75 mg DAILY ARASH Administration Fentanyl Citrate 25 mcg 02/07/25 21:08 Fentanyl Citrate Inj (*Crx) 100 Mcg/2 Ml Vial IV PUSH Q2M PRN Pain Fish Oil 2 gm 02/07/25 21:00 02/11/25 09:35 [place] 3 Polyunsat Fatty Acids 1 Gm Cap PO Not Given Q12HR ARASH Fluticasone Propionate 1 spray 02/07/25 21:00 02/10/25 20:18 Fluticasone Propionate 0.05% Na Spr 16 Gm Btl (*Bkc) NASAL 1 spray HS ARASH Administration Hydrochlorothiazide 25 mg 02/08/25 09:00 02/11/25 09:34 Hydrochlorothiazide 25 Mg Tablet PO 25 mg DAILY ARASH Administration Lactated Ringer's 1,000 mls @ 125 mls/hr 02/07/25 11:50 02/11/25 13:01 Lr - Lactated Ringers Iv IV CONT 125 mls/hr .Q8H ARASH Infusion Vancomycin HCl 1,500 mg in 500 mls @ 250 mls/hr 02/09/25 00:00 02/11/25 13:01 Vancomycin 1,500 Mg/Ns 500 Ml IVPB Infused Q12H ARASH Infusion Cefepime HCl 2 gm/ Sodium 50 mls @ 100 mls/hr 02/11/25 09:00 02/11/25 10:08 Chloride IVPB Infused Q12H ARASH Infusion Ketorolac Tromethamine 15 mg 02/09/25 10:30 02/09/25 11:48 Ketorolac 30 Mg/Ml Vial (*Bkc) IV PUSH 15 mg Q8H PRN Administration Pain Multi-Ingred Cream/Lotion/Oil/Oint 1 applic 02/11/25 09:00 02/11/25 09:34 Eucerin Cream 120 Gm Jar TOPICAL 1 applic DAILY ARASH Administration Naloxone HCl 0.1 mg 02/07/25 13:05 Naloxone Hcl 0.4 Mg/Ml Vial IV PUSH Q2M PRN Opiate Reversal Ondansetron HCl 4 mg 02/07/25 13:05 Ondansetron Inj 4 Mg/2 Ml Vial IV PUSH Q6H PRN Nausea And Vomiting Ondansetron HCl 4 mg 02/07/25 21:08 Ondansetron Inj 4 Mg/2 Ml Vial IV PUSH ONCE PRN Nausea Oxycodone HCl 5 mg 02/07/25 21:08 Oxycodone Hcl (*Crx) 5 Mg Tab Ir PO ONCE PRN Pain Potassium Chloride 20 meq 02/08/25 09:00 02/11/25 09:34 Potassium Chloride 20 Meq Er Tablet PO 20 meq DAILY ARASH Administration Rivaroxaban 20 mg 02/08/25 09:00 02/11/25 09:34 Rivaroxaban 20 Mg Tablet PO 20 mg DAILY ARASH Administration Tamsulosin HCl 0.4 mg 02/07/25 21:00 02/10/25 20:16 Tamsulosin Hcl 0.4 Mg Capsule PO 0.4 mg HS ARASH Administration Radiology Results: ITS Impressions Abdomen/Pelvis CT 02/07/25 10:54 IMPRESSION: 1. Bilateral scrotal abscesses. 2. Cystitis. Bilateral pyelitis. 3. Sacral decubitus ulcer with sacrococcygeal osteomyelitis. 4. Small left pleural effusion. 5. Small pericardial effusion. 6. Nonocclusive thrombus within stents in pelvic veins. Venous Doppler Study 02/10/25 15:59 Impression: Probable sequelae of remote right-sided DVT, distinction from acute thrombus is limited. Follow-up is recommended to assess for change Labs Labs: Laboratory Results - last 24 hr 02/11/25 05:04 WBC 9.1 RBC 3.12 L Hgb 7.3 L Hct 23.7 L MCV 76.0 L MCH 23.4 L MCHC 30.8 L RDW 16.4 H Plt Count 388 H MPV 8.0 Immature Gran % (Auto) 0.7 H Neut % (Auto) 65.6 Lymph % (Auto) 25.0 [place] % (Auto) 5.8 Eos % (Auto) 2.6 Baso % (Auto) 0.3 Lymph # (Auto) 2.28 [place] # (Auto) 0.5 Eos # (Auto) 0.2 Baso # (Auto) 0.0 Abs Immat Gran (auto) 0.06 H Absolute Neuts (auto) 6.0 Absolute Nucleated RBC 0.000 Nucleated RBC % 0.0 Sodium 130 L Potassium 3.5 Chloride 103 Carbon Dioxide 30 Anion Gap -3 L BUN 15 Creatinine 0.36 L Estim Creat Clear Calc 144 Estimated GFR > 60 Glucose 91 Calcium 7.6 L Total Bilirubin 0.2 AST 15 L ALT 7 Alkaline Phosphatase 64 Total Protein 4.4 L Albumin 2.0 L
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
[2025-02-11] MEDS: TAMSULOSIN HCL 0.4 MG CAPSULE PO (20:33)
[2025-02-11] MEDS: FLUTICASONE PROPIONATE 0.05% NA SPR 16 GM BTL (*BKC) 1 SPRAY NASAL (20:34)
[2025-02-11] MEDS: ALBUTEROL SULFATE (*SP) AEROSOL 1 PUFF 2 PUFF INHALATION (21:27)
[2025-02-12] MEDS: LACTATED RINGERS 1,000 ML 125 ML IV CONT (00:47)
[2025-02-12 02:54] VITALS: BP 124/73; PULSE 76; RESP 18; TEMP 36.4; O2SAT 100
[2025-02-12 05:54] LABS: Hematocrit 24.1 % (42.0-52.0); Hemoglobin 7.5 g/dL (14.0-18.0); Mean Corpuscular HGB Conc 31.1 g/dl (32-36); Mean Corpuscular Hemoglobin 23.7 pg (26-34); Mean Corpuscular Volume 76.3 fl (80-100); Platelet Count Result 427 k/mm3 (150-375); Red Blood Count 3.16 M/mm3 (4.6-6.20); White Blood Count 10.1 K/mm3 (4.5-10.0)
[2025-02-12 06:19] LABS: Alanine Aminotransferase 9 U/L (6-50); Albumin Level 2.1 g/dL (3.5-5.1); Alkaline Phosphatase 62 U/L (38-126); Anion Gap -3 mmol/L (4-12); Aspartate Amino Transferase 18 U/L (17-59); Bilirubin,Total 0.2 mg/dL (0.2-1.3); Blood Urea Nitrogen 18 mg/dL (9-20); Calcium 7.7 mg/dL (8.4-10.2); Carbon Dioxide 30 mmol/L (22-30); Chloride 103 mmol/L (98-107); Estimated CRCL calculation 119 ml/min; Estimated Glomerular Filt Rate > 60; Glucose 97 mg/dL (65-110); Potassium 3.3 mmol/L (3.4-5.0); Sodium 130 mmol/L (137-145); Total Protein 4.6 g/dL (6.3-8.2)
[2025-02-12] MEDS: VANCOMYCIN 1,250 MG/NS 250 ML 1,250 MG/250 ML BAG 166.67 MG IVPB (07:30)
[2025-02-12 08:00] VITALS: BP 107/47; PULSE 77; RESP 16; TEMP 36.4; O2SAT 100
[2025-02-12] MEDS: ATORVASTATIN 20 MG TABLET PO (09:58)
[2025-02-12] MEDS: CEFEPIME 2 GM in SODIUM CHLORIDE 0.9% IV 50 ML 100 ML IVPB (09:58)
[2025-02-12] MEDS: POTASSIUM CHLORIDE 20 MEQ ER TABLET PO (09:58)
[2025-02-12] MEDS: RIVAROXABAN 20 MG TABLET PO (09:59)
[2025-02-12] MEDS: CLOPIDOGREL BISULFATE 75 MG TABLET PO (09:59)
[2025-02-12] MEDS: EUCERIN CREAM 120 GM JAR 1 APPLIC TOPICAL (09:59)
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
[2025-02-12 12:00] VITALS: BP 105/62; PULSE 88; RESP 18; TEMP 36.7; O2SAT 99
--- NOTE | 2025-02-12 12:12 | WPDUROPN2 ---
Progress Note: A&P Assessment and Plan (1) Abscess of scrotum: Code(s): N49.2 - Inflammatory disorders of scrotum Status: Acute Assessment and Plan: - S/p I&D of Right hemiscrotum and Left scrotal debridement with Dr. Camp (02/07/2025) - Recovering well currently; minimal pain - Continue daily wound packing/dressing changes per wound care - patient and wounds are doing well. - Abx management per ID -patient to follow up with Dr. Camp in the next week or two after discharge. (2) Urinary retention: Code(s): R33.9 - Retention of urine, unspecified Status: Acute Assessment and Plan: - Uses Muniz catheter chronically at home - Maintain Muniz on discharge; pt with home health in place managing exchanges Subjective Subjective Date/Time Seen: 02/12/25 12:12 Interval history: Patient is doing well today. I was at bedside for some dressing applications. wound looks stable. patient reports he is doing well. he is eager to go home. Review of Systems Review of Systems: All systems reviewed & are unremarkable except as noted in HPI and below Exam Const: General: comfortable and no acute distress HENMT: Face/Nose/Sinus: Normal nares present Eyes: General: appearance normal, both eyes and all related structures EOM: EOMs intact bilaterally Resp: Effort & Inspection: normal respiratory effort GI: Other: Soft, non tender, non distended : General: Yes bladder normal to palpation Other: Larger incision of Left hemiscrotum and smaller incision of Right hemiscrotum tissues look appropriate they are without significant drainage or bleeding. Dressings replaced this morning; no purulence, necrosis, induration, expanding erythema noted Urinary Catheter: Urinary Catheter: patent and draining and urine clear Skin: General skin exam: normal color Wounds: wounds noted (multiple areas on back and sacrum) Neuro: Speech: normal speech Psych: Mental Status: mental status grossly normal Objective Data Vital Signs Vital Signs: Vital Signs - 24 hr 02/11/25 13:26 02/11/25 16:00 02/11/25 20:00 Temperature 98.1 F 98.3 F Pulse Rate 90 97 Respiratory Rate 16 18 Blood Pressure 104/60 104/60 110/53 L Pulse Oximetry 98 99 Oxygen Delivery 02/11/25 20:00 02/11/25 21:32 02/11/25 23:55 Temperature 97.4 F L Pulse Rate 89 Respiratory Rate 18 Blood Pressure 119/59 L Pulse Oximetry 98 100 Oxygen Delivery Room Air Room Air 02/12/25 02:54 02/12/25 08:00 02/12/25 10:30 Temperature 97.6 F 97.6 F Pulse Rate 76 77 Respiratory Rate 18 16 Blood Pressure 124/73 107/47 L Pulse Oximetry 100 100 Oxygen Delivery Room Air Intake/Output Intake/Output: Intake & Output 02/09/25 02/10/25 02/11/25 02/12/25 23:59 23:59 23:59 23:59 Intake Total 4385 4250.0 6247.0 530 Output Total 1475 3025 5550 1600 Balance 2910 1225.0 697.0 -1070 Meds/Results Medications: Active Medications Generic Name Dose Route Start Last Admin Trade Name Freq PRN Reason Stop Dose Admin Hydrocodone Bitart/Acetaminophen 1 tab 02/07/25 17:37 02/08/25 20:38 Hydrocodone/Acetaminophen (*Crx) 10-325 Mg Tablet PO 1 tab Q12H PRN Administration Pain 4-6 Albuterol 2 puff 02/09/25 15:37 02/11/25 21:27 Albuterol Sulfate (*Sp) Aerosol 1 Puff INHALATION 2 puff Q6HRT PRN Administration Shortness Of Breath Atorvastatin Calcium 20 mg 02/08/25 09:00 02/12/25 09:58 Atorvastatin 20 Mg Tablet PO 20 mg DAILY ARASH Administration Clopidogrel Bisulfate 75 mg 02/08/25 09:00 02/12/25 09:59 Clopidogrel Bisulfate 75 Mg Tablet PO 75 mg DAILY ARASH Administration Fentanyl Citrate 25 mcg 02/07/25 21:08 Fentanyl Citrate Inj (*Crx) 100 Mcg/2 Ml Vial IV PUSH Q2M PRN Pain Fish Oil 2 gm 02/07/25 21:00 02/12/25 10:03 [place] 3 Polyunsat Fatty Acids 1 Gm Cap PO Not Given Q12HR ARASH Fluticasone Propionate 1 spray 02/07/25 21:00 02/11/25 20:34 Fluticasone Propionate 0.05% Na Spr 16 Gm Btl (*Bkc) NASAL 1 spray HS ARASH Administration Hydrochlorothiazide 25 mg 02/08/25 09:00 02/12/25 09:59 Hydrochlorothiazide 25 Mg Tablet PO 25 mg DAILY ARASH Administration Cefepime HCl 2 gm/ Sodium 50 mls @ 100 mls/hr 02/11/25 09:00 02/12/25 10:28 Chloride IVPB Infused Q12H [facility] Infusion Vancomycin HCl 1,250 mg in 250 mls @ 166.667 mls/hr 02/12/25 20:00 Vancomycin 1,250 Mg/Ns 250 Ml IVPB Q12H [facility] Ketorolac Tromethamine 15 mg 02/09/25 10:30 02/09/25 11:48 Ketorolac 30 Mg/Ml Vial (*Bkc) IV PUSH 15 mg Q8H PRN Administration Pain Multi-Ingred Cream/Lotion/Oil/Oint 1 applic 02/11/25 09:00 02/12/25 09:59 Eucerin Cream 120 Gm Jar TOPICAL 1 applic DAILY ARASH Administration Naloxone HCl 0.1 mg 02/07/25 13:05 Naloxone Hcl 0.4 Mg/Ml Vial IV PUSH Q2M PRN Opiate Reversal Ondansetron HCl 4 mg 02/07/25 13:05 Ondansetron Inj 4 Mg/2 Ml Vial IV PUSH Q6H PRN Nausea And Vomiting Ondansetron HCl 4 mg 02/07/25 21:08 Ondansetron Inj 4 Mg/2 Ml Vial IV PUSH ONCE PRN Nausea Oxycodone HCl 5 mg 02/07/25 21:08 Oxycodone Hcl (*Crx) 5 Mg Tab Ir PO ONCE PRN Pain Potassium Chloride 20 meq 02/08/25 09:00 02/12/25 09:58 Potassium Chloride 20 Meq Er Tablet PO 20 meq DAILY ARASH Administration Rivaroxaban 20 mg 02/08/25 09:00 02/12/25 09:59 Rivaroxaban 20 Mg Tablet PO 20 mg DAILY [facility] Administration Tamsulosin HCl 0.4 mg 02/07/25 21:00 02/11/25 20:33 Tamsulosin Hcl 0.4 Mg Capsule PO 0.4 mg HS ARASH Administration Radiology Results: ITS Impressions Abdomen/Pelvis CT 02/07/25 10:54 IMPRESSION: 1. Bilateral scrotal abscesses. 2. Cystitis. Bilateral pyelitis. 3. Sacral decubitus ulcer with sacrococcygeal osteomyelitis. 4. Small left pleural effusion. 5. Small pericardial effusion. 6. Nonocclusive thrombus within stents in pelvic veins. Venous Doppler Study 02/10/25 15:59 Impression: Probable sequelae of remote right-sided DVT, distinction from acute thrombus is limited. Follow-up is recommended to assess for change Labs Labs: Laboratory Results - last 24 hr 02/11/25 02/12/25 23:24 05:07 WBC 10.1 H RBC 3.16 L Hgb 7.5 L Hct 24.1 L MCV 76.3 L MCH 23.7 L MCHC 31.1 L RDW 17.1 H Plt Count 427 H MPV 8.0 Sodium 130 L Potassium 3.3 L Chloride 103 Carbon Dioxide 30 Anion Gap -3 L BUN 18 Creatinine 0.46 L Estim Creat Clear Calc 119 Estimated GFR > 60 Glucose 97 Calcium 7.7 L Total Bilirubin 0.2 AST 18 ALT 9 Alkaline Phosphatase 62 Total Protein 4.6 L Albumin 2.1 L Vancomycin Trough 21.5 H
[2025-02-12] MEDS: POTASSIUM CHLORIDE 20 MEQ PACKET (FOR LIQUID) PO (12:16)
[2025-02-12] MEDS: CEPHALEXIN 500 MG CAPSULE PO ×3 (14:25→22:51)
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
[2025-02-12 16:00] VITALS: BP 101/54; PULSE 86; PULSE 92; RESP 20; TEMP 36.8; O2SAT 97
--- NOTE | 2025-02-12 16:09 | WPDINFPN2 ---
Progress Note: A&P Assessment and Plan (1) Decubitus ulcer of sacral area: Code(s): L89.159 - Pressure ulcer of sacral region, unspecified stage Status: Acute (2) Abscess of scrotum: Code(s): N49.2 - Inflammatory disorders of scrotum Status: Acute Plan ASSESSMENT: 1. scrotal abscess--bilateral s/p I&D on 02/07/25 2. sacral wound--local wound care 3. BPH, HTN, HL 4. penicillin allergy-->tolerates cefepime REOMMENDATIONS: -f/u on blood cxs-->so far NGTD -f/u on OR cxs-->so far unrevealing -f/u on urine cx-->neg and final switch to po keflex 500 mg QID and flagyl po 500 mg TID through Feb 16. Can stay and monitor today in hospital for possible cross allergy d/w pharmacy staff Pt was seen via video telehealth consultation with the assistance of staff. Chart, data and patient info reviewed. Patient was located at [facility] while I was in my [place] office. Pt gave consent. Subjective Date/time seen: 02/12/25 16:09 Interval history: no fevers no real leukocytosis Exam Narrative: non-toxic, on room air, NAD abd soft NT improved +orantes Objective Data Vital Signs Vital Signs: Vital Signs - 24 hr 02/11/25 20:00 02/11/25 20:00 02/11/25 21:32 Temperature 98.3 F Pulse Rate 97 Respiratory Rate 18 Blood Pressure 110/53 L Pulse Oximetry 99 98 Oxygen Delivery Room Air Room Air 02/11/25 23:55 02/12/25 02:54 02/12/25 08:00 Temperature 97.4 F L 97.6 F 97.6 F Pulse Rate 89 76 77 Respiratory Rate 18 18 16 Blood Pressure 119/59 L 124/73 107/47 L Pulse Oximetry 100 100 100 Oxygen Delivery 02/12/25 10:30 02/12/25 12:00 Temperature 98.0 F Pulse Rate 88 Respiratory Rate 18 Blood Pressure 105/62 Pulse Oximetry 99 Oxygen Delivery Room Air Intake/Output Intake/Output: Intake & Output 02/09/25 02/10/25 02/11/25 02/12/25 23:59 23:59 23:59 23:59 Intake Total 4385 4250.0 6247.0 855 Output Total 1475 3025 5550 3450 Balance 2910 1225.0 697.0 -2595 Meds/Results Medications: Active Medications Generic Name Dose Route Start Last Admin Trade Name Freq PRN Reason Stop Dose Admin Hydrocodone Bitart/Acetaminophen 1 tab 02/07/25 17:37 02/08/25 20:38 Hydrocodone/Acetaminophen (*Crx) 10-325 Mg Tablet PO 1 tab Q12H PRN Administration Pain 4-6 Albuterol 2 puff 02/09/25 15:37 02/11/25 21:27 Albuterol Sulfate (*Sp) Aerosol 1 Puff INHALATION 2 puff Q6HRT PRN Administration Shortness Of Breath Atorvastatin Calcium 20 mg 02/08/25 09:00 02/12/25 09:58 Atorvastatin 20 Mg Tablet PO 20 mg DAILY ARASH Administration Cephalexin HCl 500 mg 02/12/25 13:00 02/12/25 14:25 Cephalexin 500 Mg Capsule PO 500 mg Q6HR ARASH Administration Clopidogrel Bisulfate 75 mg 02/08/25 09:00 02/12/25 09:59 Clopidogrel Bisulfate 75 Mg Tablet PO 75 mg DAILY ARASH Administration Epinephrine HCl 0.3 mg 02/12/25 12:52 Epinephrine Hcl Inj 1 Mg/Ml Ampul IM ONCE PRN Anaphylaxis Fentanyl Citrate 25 mcg 02/07/25 21:08 Fentanyl Citrate Inj (*Crx) 100 Mcg/2 Ml Vial IV PUSH Q2M PRN Pain Fish Oil 2 gm 02/07/25 21:00 02/12/25 10:03 [place] 3 Polyunsat Fatty Acids 1 Gm Cap PO Not Given Q12HR ARASH Fluticasone Propionate 1 spray 02/07/25 21:00 02/11/25 20:34 Fluticasone Propionate 0.05% Na Spr 16 Gm Btl (*Bkc) NASAL 1 spray HS ARASH Administration Hydrochlorothiazide 25 mg 02/08/25 09:00 02/12/25 09:59 Hydrochlorothiazide 25 Mg Tablet PO 25 mg DAILY ARASH Administration Metronidazole 500 mg 02/12/25 14:00 02/12/25 14:25 Metronidazole 500 Mg Tablet PO 500 mg Q8HR ARASH Administration Multi-Ingred Cream/Lotion/Oil/Oint 1 applic 02/11/25 09:00 02/12/25 09:59 Eucerin Cream 120 Gm Jar TOPICAL 1 applic DAILY ARASH Administration Naloxone HCl 0.1 mg 02/07/25 13:05 Naloxone Hcl 0.4 Mg/Ml Vial IV PUSH Q2M PRN Opiate Reversal Ondansetron HCl 4 mg 02/07/25 13:05 Ondansetron Inj 4 Mg/2 Ml Vial IV PUSH Q6H PRN Nausea And Vomiting Ondansetron HCl 4 mg 02/07/25 21:08 Ondansetron Inj 4 Mg/2 Ml Vial IV PUSH ONCE PRN Nausea Oxycodone HCl 5 mg 02/07/25 21:08 Oxycodone Hcl (*Crx) 5 Mg Tab Ir PO ONCE PRN Pain Potassium Chloride 20 meq 02/08/25 09:00 02/12/25 09:58 Potassium Chloride 20 Meq Er Tablet PO 20 meq DAILY ARASH Administration Rivaroxaban 20 mg 02/08/25 09:00 02/12/25 09:59 Rivaroxaban 20 Mg Tablet PO 20 mg DAILY ARASH Administration Tamsulosin HCl 0.4 mg 02/07/25 21:00 02/11/25 20:33 Tamsulosin Hcl 0.4 Mg Capsule PO 0.4 mg HS ARASH Administration Radiology Results: ITS Impressions Abdomen/Pelvis CT 02/07/25 10:54 IMPRESSION: 1. Bilateral scrotal abscesses. 2. Cystitis. Bilateral pyelitis. 3. Sacral decubitus ulcer with sacrococcygeal osteomyelitis. 4. Small left pleural effusion. 5. Small pericardial effusion. 6. Nonocclusive thrombus within stents in pelvic veins. Venous Doppler Study 02/10/25 15:59 Impression: Probable sequelae of remote right-sided DVT, distinction from acute thrombus is limited. Follow-up is recommended to assess for change Labs Labs: Laboratory Results - last 24 hr 02/11/25 02/12/25 23:24 05:07 WBC 10.1 H RBC 3.16 L Hgb 7.5 L Hct 24.1 L MCV 76.3 L MCH 23.7 L MCHC 31.1 L RDW 17.1 H Plt Count 427 H MPV 8.0 Sodium 130 L Potassium 3.3 L Chloride 103 Carbon Dioxide 30 Anion Gap -3 L BUN 18 Creatinine 0.46 L Estim Creat Clear Calc 119 Estimated GFR > 60 Glucose 97 Calcium 7.7 L Total Bilirubin 0.2 AST 18 ALT 9 Alkaline Phosphatase 62 Total Protein 4.6 L Albumin 2.1 L Vancomycin Trough 21.5 H
[2025-02-12] MEDS: HYDROcodone/acetaminophen (*CRX) 10-325 MG TABLET 1 TAB PO (18:05)
[2025-02-12 20:00] VITALS: BP 91/55; PULSE 95; PULSE 97; RESP 18; TEMP 36.6; O2SAT 97
[2025-02-12] MEDS: TAMSULOSIN HCL 0.4 MG CAPSULE PO (20:22)
[2025-02-12] MEDS: FLUTICASONE PROPIONATE 0.05% NA SPR 16 GM BTL (*BKC) 1 SPRAY NASAL (20:23)
[2025-02-12 23:41] VITALS: O2SAT 98
[2025-02-13] VITALS (7 sets, daily range): BP systolic 97–108; BP diastolic 55–64; PULSE 83–103; RESP 18–20; TEMP 36.2–36.8; O2SAT 98–100
[2025-02-13] MEDS: CEPHALEXIN 500 MG CAPSULE PO ×2 (06:11→12:11)
[2025-02-13 07:36] LABS: Hematocrit 24.3 % (42.0-52.0); Hemoglobin 7.6 g/dL (14.0-18.0); Mean Corpuscular HGB Conc 31.3 g/dl (32-36); Mean Corpuscular Hemoglobin 23.9 pg (26-34); Mean Corpuscular Volume 76.4 fl (80-100); Platelet Count Result 413 k/mm3 (150-375); Red Blood Count 3.18 M/mm3 (4.6-6.20); White Blood Count 7.7 K/mm3 (4.5-10.0)
[2025-02-13 07:55] LABS: Anion Gap -3 mmol/L (4-12); Blood Urea Nitrogen 18 mg/dL (9-20); Calcium 7.9 mg/dL (8.4-10.2); Carbon Dioxide 33 mmol/L (22-30); Chloride 101 mmol/L (98-107); Estimated CRCL calculation 114 ml/min; Estimated Glomerular Filt Rate > 60; Glucose 88 mg/dL (65-110); Potassium 3.6 mmol/L (3.4-5.0); Sodium 131 mmol/L (137-145)
[2025-02-13] MEDS: RIVAROXABAN 20 MG TABLET PO (09:04)
[2025-02-13] MEDS: EUCERIN CREAM 120 GM JAR 1 APPLIC TOPICAL (09:04)
[2025-02-13] MEDS: CLOPIDOGREL BISULFATE 75 MG TABLET PO (09:04)
[2025-02-13] MEDS: POTASSIUM CHLORIDE 20 MEQ ER TABLET PO (09:04)
[2025-02-13] MEDS: ATORVASTATIN 20 MG TABLET PO (09:04)
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
--- OUTSIDE RECORDS SUMMARY | 2025-02-16 18:00 | XMS_ITS | Clinical Summary ---
Author Organization Unknown Care Team Providers Care Bottom Finisher Name Role Phone CARMEN SHAH, AFTAB Unavailable Unavailable LAURA PT, GERMAINE Unavailable Unavailable ANNELISE OPERATING ROOM SURGICAL TECHNOLOGIST, LUKAS Unavailable Unavailisadora MCDONALD OT, ALOK Unavailable Unavailable WESLEY RN, SOCRATES Unavailable aJyy LERNER LPN, JAVON Unavailable Unavailable Payers Payer Name Policy Type Policy Number Effective Date Expira tion Date MEDICARE.[facility] [id number] Problems Condition Name Condition Details Condition Category Status Onset Date Resolution Date Last Treatment Date Treating Clinician Comments PRESSURE ULCER OF SACRAL REGION, STAGE 4 Active 2024-03 0- 00:00: 00 ENCOUNTER FOR FITTING AND ADJUSTMENT OF URINARY DEVICE Active 2024-03 0-06 00:00: 00 SPINAL STENOSIS, CERVICAL REGION Active 2024-03 0- 00:00: 00 CERVICAL DISC DISORDER WITH MYELOPATHY, UNSP CERVICAL REGION Active 2024-03 0 00:00: 00 PERIPHERAL VASCULAR DISEASE, UNSPECIFIED Active 2024-03 0- 00:00: 00 ESSENTIAL (PRIMARY) HYPERTENSION Active 2024-03 0- 00:00: 00 PURE HYPERCHOLEST EROLEMIA, UNSPECIFIED Active 10-07 00:00: 00 BENIGN PROSTATIC HYPERPLASIA WITH LOWER URINARY TRACT SYMP Active 09-24 00:00: 00 OTHER SPECIFIED DISORDERS OF URINARY SYSTEM Active 09-24 00:00: 00 DEPRESSION, UNSPECIFIED Active 03-11 00:00: 00 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 Ordering Clinician Indication Dosage Frequency Signature (SIG) Comments Components clopidogrel 75 mg tablet 10-12 00:00: 00 10-30 23:59 :00 No [id number] ANTI-PLATLE T 1 tablet DAILY 1 tablet DAILY (route: oral) Med Classific ation: Hematolog ical Agents hydrochloro thiazide 25 mg tablet 10-12 00:00: 00 10-21 00:00 :00 No [id number] Per instruc tions Per instructio ns (route: oral) Med Classific ation: Cardiovas cular Therapy Agents potassium chloride ER 10 mEq tablet,exte nded release(par t/cryst) 10-08 00:00: 00 10-21 00:00 :00 No [id number] Per instruc tions Per instructio ns (route: oral) Med Classific ation: Electroly te Balance-N utritiona l Products atorvastati n 20 mg tablet 10-07 00:00: 00 Yes [id number] HIGH CHOLESTEROL 1 tablet DAILY 1 tablet DAILY (route: oral) Med Classific ation: Cardiovas cular Therapy Agents icosapent ethyl 1 gram capsule 10-05 00:00: 00 Yes [id number] SUPPLEMENT 2 capsule 2 TIMES DAILY 2 capsule 2 TIMES DAILY (route: oral) Med Classific ation: Cardiovas cular Therapy Agents Xarelto 20 mg tablet 10-04 00:00: 00 10-21 00:00 :00 No [id number] Unavailable Per instruc tions ONCE DAILY Per instructio ns ONCE DAILY (route: oral) Med Classific ation: Hematolog ical Agents diphenoxyla te-atropine 2.5 mg-0.025 mg tablet 10-03 00:00: 00 10-21 00:00 :00 No [id number] Per instruc tions Per instructio ns (route: oral) Med Classific ation: Gastroint estinal Therapy Agents hydroxyzine HCl 25 mg tablet 10-03 00:00: 00 10-21 00:00 :00 No [id number] Per instruc tions Per instructio ns (route: oral) Med Classific ation: Central Nervous System Agents hydrochloro thiazide 25 mg tablet 10-01 00:00: 00 Yes [id number] FLUID RETENTION/H IGH BLOOD PRESSURE 1 tablet DAILY 1 tablet DAILY (route: oral) Med Classific ation: Cardiovas cular Therapy Agents Heparin Lock Flush (Porcine) (PF) 10 unit/mL intravenous syringe 09-26 00:00: 00 10-21 00:00 :00 No [id number] Per instruc tions Per instructio ns (route: intravenou s) Med Classific ation: Hematolog ical Agents tamsulosin 0.4 mg capsule 09-24 00:00: 00 Yes [id number] BENIGN PROSTATIC HYPERPLASIA -BPH 1 capsule BEDTIME 1 capsule BEDTIME (route: oral) Med Classific ation: Genitouri nary Therapy Xarelto 20 mg tablet 09-24 00:00: 00 Yes [id number] BLOOD THINNER 1 tablet DAILY 1 tablet DAILY (route: oral) Med Classific ation: Hematolog ical Agents loperamide 2 mg capsule 10-21 00:00: 00 Yes [id number] NEEDED FOR LOOSE STOOLS 1 capsule EVERY 2 HOURS 1 capsule EVERY 2 HOURS (route: oral) Med Classific ation: Gastroint estinal Therapy Agents multivitami n tablet 10-21 00:00: 00 Yes [id number] SUPPLEMENT 1 tablet DAILY 1 tablet DAILY (route: oral) Med Classific ation: Electroly te Balance-N utritiona l Products potassium chloride ER 20 mEq tablet,exte nded release 10-21 00:00: 00 Yes [id number] SUPPLEMENT 1 tablet DAILY 1 tablet DAILY (route: oral) Med Classific ation: Electroly te Balance-N utritiona l Products Tylenol Extra Strength 500 mg tablet 10-30 00:00: 00 Yes [id number] PAIN 2 tablet EVERY 4 HOURS 2 tablet EVERY 4 HOURS (route: oral) Med Classific ation: Analgesic , Anti-infl ammatory or Antipyret ic diphenoxyla te-atropine 2.5 mg-0.025 mg tablet 2024-03 0-12 00:00: 00 01-03 23:59 :00 No [id number] LOOSE STOOL 1 tablet EVERY 8 HOURS 1 tablet EVERY 8 HOURS (route: oral) Med Classific ation: Gastroint estinal Therapy Agents hydrocodone 10 mg-acetamin ophen 325 mg tablet 2024-03 0-12 00:00: 00 Yes [id number] PAIN 1 tablet EVERY 12 HOURS 1 tablet EVERY 12 HOURS (route: oral) Med Classific ation: Analgesic , Anti-infl ammatory or Antipyret ic Vital Signs Vital Name Observation Time Observation Value Commen ts Temperature 2025-02-05 14:30:00.000 98.6 [degF] Temperature 2025-02-05 09:28:00.000 98.2 [degF] Temperature 2025-02-02 11:11:00.000 98.6 [degF] Temperature 2025-02-01 12:43:00.000 98.2 [degF] Temperature 2025-01-29 13:00:00.000 99.7 [degF] Temperature 2025-01-28 10:19:00.000 97.6 [degF] Temperature 2025-01-26 11:58:00.000 98.7 [degF] Temperature 2025-01-25 13:31:00.000 97.8 [degF] Temperature 2025-01-22 12:45:00.000 99.7 [degF] Temperature 2025-01-21 16:20:00.000 98 [degF] Temperature 2025-01-19 17:50:00.000 98 [degF] Temperature 2025-01-18 11:18:00.000 98.2 [degF] Temperature 2025-01-15 10:30:00.000 99.1 [degF] Temperature 2025-01-14 13:22:00.000 97.9 [degF] Temperature 2025-01-14 10:59:00.000 97.6 [degF] Temperature 2025-01-12 14:26:00.000 97.8 [degF] Temperature 2025-01-08 11:04:00.000 98.9 [degF] Temperature 2025-01-07 15:56:00.000 98.6 [degF] Temperature 2025-01-07 13:03:00.000 98 [degF] Temperature 2025-01-05 12:34:00.000 98 [degF] Temperature 2025-01-02 11:43:00.000 98 [degF] Temperature 2024-12-30 15:22:00.000 98.2 [degF] Temperature 2024-12-30 10:25:00.000 98 [degF] Temperature 2024-12-28 14:08:00.000 97.6 [degF] Temperature 2024-12-27 12:38:00.000 99.6 [degF] Temperature 2024-12-25 15:10:00.000 98.2 [degF] Temperature 2024-12-25 12:38:00.000 99.1 [degF] Temperature 2024-12-22 15:17:00.000 98.5 [degF] Temperature 2024-12-22 11:48:00.000 98.6 [degF] Pulse 2025-02-05 14:30:00.000 100 /min Pulse 2025-02-05 09:28:00.000 98 /min Pulse 2025-02-02 11:11:00.000 72 /min Pulse 2025-02-01 12:43:00.000 78 /min Pulse 2025-01-29 13:00:00.000 92 /min Pulse 2025-01-28 10:19:00.000 88 /min Pulse 2025-01-26 11:58:00.000 86 /min Pulse 2025-01-25 13:31:00.000 88 /min Pulse 2025-01-22 12:45:00.000 78 /min Pulse 2025-01-21 16:20:00.000 86 /min Pulse 2025-01-19 17:50:00.000 75 /min Pulse 2025-01-18 11:18:00.000 98 /min Pulse 2025-01-15 10:30:00.000 95 /min Pulse 2025-01-14 13:22:00.000 76 /min Pulse 2025-01-14 10:59:00.000 83 /min Pulse 2025-01-12 14:26:00.000 76 /min Pulse 2025-01-08 11:04:00.000 83 /min Pulse 2025-01-07 15:56:00.000 77 /min Pulse 2025-01-07 13:03:00.000 76 /min Pulse 2025-01-05 12:34:00.000 87 /min Pulse 2025-01-02 11:43:00.000 68 /min Pulse 2024-12-30 15:22:00.000 65 /min Pulse 2024-12-30 10:25:00.000 68 /min Pulse 2024-12-28 14:08:00.000 72 /min Pulse 2024-12-27 12:38:00.000 81 /min Pulse 2024-12-25 15:10:00.000 74 /min Pulse 2024-12-25 12:38:00.000 88 /min Pulse 2024-12-22 15:17:00.000 73 /min Pulse 2024-12-22 11:48:00.000 86 /min O2 Saturation (%) 2025-02-05 14:30:00.000 90 % O2 Saturation (%) 2025-02-02 11:11:00.000 94 % O2 Saturation (%) 2025-01-29 13:00:00.000 97 % O2 Saturation (%) 2025-01-26 11:58:00.000 90 % O2 Saturation (%) 2025-01-22 12:45:00.000 94 % O2 Saturation (%) 2025-01-19 17:50:00.000 98 % O2 Saturation (%) 2025-01-15 10:30:00.000 97 % O2 Saturation (%) 2025-01-14 13:22:00.000 90 % O2 Saturation (%) 2025-01-12 14:26:00.000 97 % O2 Saturation (%) 2025-01-08 11:04:00.000 99 % O2 Saturation (%) 2025-01-07 15:56:00.000 96 % O2 Saturation (%) 2025-01-02 11:43:00.000 96 % O2 Saturation (%) 2024-12-30 15:22:00.000 96 % O2 Saturation (%) 2024-12-27 12:38:00.000 96 % O2 Saturation (%) 2024-12-25 15:10:00.000 95 % O2 Saturation (%) 2024-12-25 12:38:00.000 97 % O2 Saturation (%) 2024-12-22 15:17:00.000 97 % O2 Saturation (%) 2024-12-22 11:48:00.000 99 % Respirations 2025-02-05 14:30:00.000 18 /min Respirations 2025-02-05 09:28:00.000 18 /min Respirations 2025-02-02 11:11:00.000 18 /min Respirations 2025-02-01 12:43:00.000 18 /min Respirations 2025-01-29 13:00:00.000 18 /min Respirations 2025-01-28 10:19:00.000 20 /min Respirations 2025-01-26 11:58:00.000 18 /min Respirations 2025-01-25 13:31:00.000 18 /min Respirations 2025-01-22 12:45:00.000 18 /min Respirations 2025-01-21 16:20:00.000 18 /min Respirations 2025-01-19 17:50:00.000 20 /min Respirations 2025-01-18 11:18:00.000 20 /min Respirations 2025-01-15 10:30:00.000 18 /min Respirations 2025-01-14 13:22:00.000 18 /min Respirations 2025-01-14 10:59:00.000 18 /min Respirations 2025-01-12 14:26:00.000 18 /min Respirations 2025-01-08 11:04:00.000 18 /min Respirations 2025-01-07 15:56:00.000 18 /min Respirations 2025-01-07 13:03:00.000 18 /min Respirations 2025-01-05 12:34:00.000 18 /min Respirations 2025-01-02 11:43:00.000 18 /min Respirations 2024-12-30 15:22:00.000 18 /min Respirations 2024-12-30 10:25:00.000 18 /min Respirations 2024-12-28 14:08:00.000 18 /min Respirations 2024-12-27 12:38:00.000 18 /min Respirations 2024-12-25 15:10:00.000 16 /min Respirations 2024-12-25 12:38:00.000 16 /min Respirations 2024-12-22 15:17:00.000 16 /min Respirations 2024-12-22 11:48:00.000 18 /min Systolic Blood Pressure 2025-02-05 14:30:00.000 108 mm [Hg] Systolic Blood Pressure 2025-02-05 09:28:00.000 116 mm [Hg] Systolic Blood Pressure 2025-02-02 11:11:00.000 122 mm [Hg] Systolic Blood Pressure 2025-02-01 12:43:00.000 100 mm [Hg] Systolic Blood Pressure 2025-01-29 13:00:00.000 110 mm [Hg] Systolic Blood Pressure 2025-01-28 10:19:00.000 112 mm [Hg] Systolic Blood Pressure 2025-01-26 11:58:00.000 100 mm [Hg] Systolic Blood Pressure 2025-01-25 13:31:00.000 108 mm [Hg] Systolic Blood Pressure 2025-01-22 12:45:00.000 104 mm [Hg] Systolic Blood Pressure 2025-01-21 16:20:00.000 112 mm [Hg] Systolic Blood Pressure 2025-01-19 17:50:00.000 124 mm [Hg] Systolic Blood Pressure 2025-01-18 11:18:00.000 122 mm [Hg] Systolic Blood Pressure 2025-01-15 10:30:00.000 104 mm [Hg] Systolic Blood Pressure 2025-01-14 13:22:00.000 110 mm [Hg] Systolic Blood Pressure 2025-01-14 10:59:00.000 122 mm [Hg] Systolic Blood Pressure 2025-01-12 14:26:00.000 130 mm [Hg] Systolic Blood Pressure 2025-01-08 11:04:00.000 122 mm [Hg] Systolic Blood Pressure 2025-01-07 15:56:00.000 122 mm [Hg] Systolic Blood Pressure 2025-01-07 13:03:00.000 110 mm [Hg] Systolic Blood Pressure 2025-01-05 12:34:00.000 120 mm [Hg] Systolic Blood Pressure 2025-01-02 11:43:00.000 124 mm [Hg] Systolic Blood Pressure 2024-12-30 15:22:00.000 122 mm [Hg] Systolic Blood Pressure 2024-12-30 10:25:00.000 112 mm [Hg] Systolic Blood Pressure 2024-12-28 14:08:00.000 108 mm [Hg] Systolic Blood Pressure 2024-12-27 12:38:00.000 120 mm [Hg] Systolic Blood Pressure 2024-12-25 15:10:00.000 116 mm [Hg] Systolic Blood Pressure 2024-12-25 12:38:00.000 122 mm [Hg] Systolic Blood Pressure 2024-12-22 15:17:00.000 116 mm [Hg] Systolic Blood Pressure 2024-12-22 11:48:00.000 130 mm [Hg] Diastolic Blood Pressure 2025-02-05 14:30:00.000 54 mm [Hg] Diastolic Blood Pressure 2025-02-05 09:28:00.000 82 mm [Hg] Diastolic Blood Pressure 2025-02-02 11:11:00.000 62 mm [Hg] Diastolic Blood Pressure 2025-02-01 12:43:00.000 50 mm [Hg] Diastolic Blood Pressure 2025-01-29 13:00:00.000 60 mm [Hg] Diastolic Blood Pressure 2025-01-28 10:19:00.000 62 mm [Hg] Diastolic Blood Pressure 2025-01-26 11:58:00.000 58 mm [Hg] Diastolic Blood Pressure 2025-01-25 13:31:00.000 60 mm [Hg] Diastolic Blood Pressure 2025-01-22 12:45:00.000 62 mm [Hg] Diastolic Blood Pressure 2025-01-21 16:20:00.000 62 mm [Hg] Diastolic Blood Pressure 2025-01-19 17:50:00.000 78 mm [Hg] Diastolic Blood Pressure 2025-01-18 11:18:00.000 62 mm [Hg] Diastolic Blood Pressure 2025-01-15 10:30:00.000 58 mm [Hg] Diastolic Blood Pressure 2025-01-14 13:22:00.000 70 mm [Hg] Diastolic Blood Pressure 2025-01-14 10:59:00.000 70 mm [Hg] Diastolic Blood Pressure 2025-01-12 14:26:00.000 82 mm [Hg] Diastolic Blood Pressure 2025-01-08 11:04:00.000 70 mm [Hg] Diastolic Blood Pressure 2025-01-07 15:56:00.000 64 mm [Hg] Diastolic Blood Pressure 2025-01-07 13:03:00.000 62 mm [Hg] Diastolic Blood Pressure 2025-01-05 12:34:00.000 82 mm [Hg] Diastolic Blood Pressure 2025-01-02 11:43:00.000 62 mm [Hg] Diastolic Blood Pressure 2024-12-30 15:22:00.000 60 mm [Hg] Diastolic Blood Pressure 2024-12-30 10:25:00.000 62 mm [Hg] Diastolic Blood Pressure 2024-12-28 14:08:00.000 62 mm [Hg] Diastolic Blood Pressure 2024-12-27 12:38:00.000 70 mm [Hg] Diastolic Blood Pressure 2024-12-25 15:10:00.000 74 mm [Hg] Diastolic Blood Pressure 2024-12-25 12:38:00.000 62 mm [Hg] Diastolic Blood Pressure 2024-12-22 15:17:00.000 72 mm [Hg] Diastolic Blood Pressure 2024-12-22 11:48:00.000 70 mm [Hg] Plan of Treatment Planned Activity Planned Date Details Comments Future Scheduled Test RN TO OBSE RVE, ASSESS, EVALUATE, AND DEVELOP AN INDIVIDUALIZED PLAN OF CARE. AGENCY MAY ACCEPT ORDERS FROM CONSULTING PHYSICIANS RN TO OBSERVE AND ASSESS, MASTER DYER/TOBACCO SCRAP SIFTER TO OBSERVE FOR RISK FOR FALLS AND INSTRUCT IN FALL PREVENTION, HOME SAFETY, MEDICATION MANAGEMENT, INFECTION PREVENTION, AND NUTRITION MANAGEMENT. RN/MASTER DYER/TOBACCO SCRAP SIFTER NURSE MAY PERFORM O2 SATURATION LEVEL ON ADMISSION AND PRN FOR EVERY VISIT FOR RN TO ASSESS/MASTER DYER TO OBSERVE PATIENT, WITH NOTIFICATION TO THE PHYSICIAN IF SATURATION IS 90% IN THE ABSENCE OF MORE SPECIFIC PARAMETERS FROM THE PHYSICIAN. AGENCY MAY PERFORM A RESUMPTION OF CARE VISIT FOLLOWING ANY HOSPITAL ADMISSION. RN/MASTER DYER/TOBACCO SCRAP SIFTER TO MONITOR CO-MORBID CONDITIONS LISTED ON THE PLAN OF CARE AND ANY NEW CONDITIONS THAT PRESENT THEMSELVES DURING THIS EPISODE TO IDENTIFY CHANGES AND INTERVENE TO MINIMIZE COMPLICATIONS. [code = RN TO OBSERVE, ASSESS, EVALUATE, AND DEVELOP AN INDIVIDUALIZED PLAN OF CARE. AGENCY MAY ACCEPT ORDERS FROM CONSULTING PHYSICIANS RN TO OBSERVE AND ASSESS, MASTER DYER/TOBACCO SCRAP SIFTER TO OBSERVE FOR RISK FOR FALLS AND INSTRUCT IN FALL PREVENTION, HOME SAFETY, MEDICATION MANAGEMENT, INFECTION PREVENTION, AND NUTRITION MANAGEMENT. RN/MASTER DYER/TOBACCO SCRAP SIFTER NURSE MAY PERFORM O2 SATURATION LEVEL ON ADMISSION AND PRN FOR EVERY VISIT FOR RN TO ASSESS/MASTER DYER TO OBSERVE PATIENT, WITH NOTIFICATION TO THE PHYSICIAN IF SATURATION IS 90% IN THE ABSENCE OF MORE SPECIFIC PARAMETERS FROM THE PHYSICIAN. AGENCY MAY PERFORM A RESUMPTION OF CARE VISIT FOLLOWING ANY HOSPITAL ADMISSION. RN/MASTER DYER/TOBACCO SCRAP SIFTER TO MONITOR CO-MORBID CONDITIONS LISTED ON THE PLAN OF CARE AND ANY NEW CONDITIONS THAT PRESENT THEMSELVES DURING THIS EPISODE TO IDENTIFY CHANGES AND INTERVENE TO MINIMIZE COMPLICATIONS.] Future Scheduled Test RISK FOR H OSPITALIZATION; RN TO ASSESS/TEACH, TOBACCO SCRAP SIFTER/MASTER DYER TO OBSERVE/TEACH PATIENT/CAREGIVER ON RISK FOR HOSPITALIZATION/EMERGENCY ROOM VISITS, TEACH SIGNS AND SYMPTOMS THAT PUT PATIENT AT RISK, WHEN TO NOTIFY NURSE/PHYSICIAN OF COMPLICATIONS/DECLINE, AND WHEN TO CALL 911. [code = RISK FOR HOSPITALIZATION; RN TO ASSESS/TEACH, TOBACCO SCRAP SIFTER/MASTER DYER TO OBSERVE/TEACH PATIENT/CAREGIVER ON RISK FOR HOSPITALIZATION/EMERGENCY ROOM VISITS, TEACH SIGNS AND SYMPTOMS THAT PUT PATIENT AT RISK, WHEN TO NOTIFY NURSE/PHYSICIAN OF COMPLICATIONS/DECLINE, AND WHEN TO CALL 911.] Future Scheduled Test MEDICATION MANAGEMENT; RN/MASTER DYER/TOBACCO SCRAP SIFTER TO REVIEW MEDICATIONS FOR INTERACTIONS, EFFECTIVENESS OF DRUG THERAPY, AND SIGNS/SYMPTOMS OF ADVERSE REACTIONS. MAY INSTRUCT AND REINFORCE MEDICATION TEACHING RELATED TO THE USE OF MEDICATIONS, DOSAGE, FREQUENCY, PURPOSE, SIDE EFFECTS, AND TO REPORT COMPLICATIONS. [code = MEDICATION MANAGEMENT; RN/MASTER DYER/TOBACCO SCRAP SIFTER TO REVIEW MEDICATIONS FOR INTERACTIONS, EFFECTIVENESS OF DRUG THERAPY, AND SIGNS/SYMPTOMS OF ADVERSE REACTIONS. MAY INSTRUCT AND REINFORCE MEDICATION TEACHING RELATED TO THE USE OF MEDICATIONS, DOSAGE, FREQUENCY, PURPOSE, SIDE EFFECTS, AND TO REPORT COMPLICATIONS.] Future Scheduled Test PAIN MANAG EMENT; RN TO ASSESS AND TEACH, TOBACCO SCRAP SIFTER/MASTER DYER TO OBSERVE AND TEACH AND PROVIDE EDUCATION ON PAIN MANAGEMENT TECHNIQUES. [code = PAIN MANAGEMENT; RN TO ASSESS AND TEACH, TOBACCO SCRAP SIFTER/MASTER DYER TO OBSERVE AND TEACH AND PROVIDE EDUCATION ON PAIN MANAGEMENT TECHNIQUES.] Future Scheduled Test PRN VISITS ; NUMBER OF RN/MASTER DYER/TOBACCO SCRAP SIFTER VISITS: 2 RN/MASTER DYER/TOBACCO SCRAP SIFTER TO PERFORM: 1 URRUTIA 1 WOUND FOR THE FOLLOWING REASONS: COMPLICATIONS [code = PRN VISITS; NUMBER OF RN/MASTER DYER/TOBACCO SCRAP SIFTER VISITS: 2 RN/MASTER DYER/TOBACCO SCRAP SIFTER TO PERFORM: 1 URRUTIA 1 WOUND FOR THE FOLLOWING REASONS: COMPLICATIONS] Future Scheduled Test FALL REDUC TION MANAGEMENT; RN TO ASSESS AND OBSERVE, MASTER DYER/TOBACCO SCRAP SIFTER TO OBSERVE FALL RISK FACTORS AND EDUCATE PATIENT/CAREGIVER ON STRATEGIES TO MINIMIZE THE RISK OF FALLING. [code = FALL REDUCTION MANAGEMENT; RN TO ASSESS AND OBSERVE, MASTER DYER/TOBACCO SCRAP SIFTER TO OBSERVE FALL RISK FACTORS AND EDUCATE PATIENT/CAREGIVER ON STRATEGIES TO MINIMIZE THE RISK OF FALLING.] Future Scheduled Test WOUND MOLE CULAR TESTING PROTOCOL UP TO 2 PRN RN/MASTER DYER/TOBACCO SCRAP SIFTER VISITS MAY BE PERFORMED FOR S/S OF WOUND INFECTION/DETERIORATION/STAGNATION. RN TO ASSESS, MASTER DYER/TOBACCO SCRAP SIFTER TO OBSERVE AND INITIATE PROTOCOL. RN/MASTER DYER/TOBACCO SCRAP SIFTER TO INSTRUCT PATIENT AND/OR CAREGIVER ON S/S OF WOUND INFECTION/DETERIORATION/STAGNATION TO REPORT TO NURSE IF NEW OR WORSENING SYMPTOMS. RN/MASTER DYER/TOBACCO SCRAP SIFTER TO OBTAIN WOUND SPECIMEN FOR MOLECULAR WOUND TESTING VIA SWAB COLLECTION PER POLICY. INCLUDE ANTIBIOTIC/ANTIFUNGAL RESISTANCE TESTING NOTIFY PROVIDER OF RESULTS AND OBTAIN FURTHER ORDERS. [code = WOUND MOLECULAR TESTING PROTOCOL UP TO 2 PRN RN/MASTER DYER/TOBACCO SCRAP SIFTER VISITS MAY BE PERFORMED FOR S/S OF WOUND INFECTION/DETERIORATION/STAGNATION. RN TO ASSESS, MASTER DYER/TOBACCO SCRAP SIFTER TO OBSERVE AND INITIATE PROTOCOL. RN/MASTER DYER/TOBACCO SCRAP SIFTER TO INSTRUCT PATIENT AND/OR CAREGIVER ON S/S OF WOUND INFECTION/DETERIORATION/STAGNATION TO REPORT TO NURSE IF NEW OR WORSENING SYMPTOMS. RN/MASTER DYER/TOBACCO SCRAP SIFTER TO OBTAIN WOUND SPECIMEN FOR MOLECULAR WOUND TESTING VIA SWAB COLLECTION PER POLICY. INCLUDE ANTIBIOTIC/ANTIFUNGAL RESISTANCE TESTING NOTIFY PROVIDER OF RESULTS AND OBTAIN FURTHER ORDERS.] Future Scheduled Test WOUND CULT URE TESTING PROTOCOL UP TO 2 PRN RN/MASTER DYER VISITS MAY BE PERFORMED FOR S/S OF WOUND INFECTION/DETERIORATION/STAGNATION. RN TO ASSESS, MASTER DYER/TOBACCO SCRAP SIFTER TO OBSERVE AND INITIATE PROTOCOL. RN/MASTER DYER/TOBACCO SCRAP SIFTER TO INSTRUCT PATIENT AND/OR CAREGIVER ON S/S OF WOUND INFECTION/DETERIORATION/STAGNATION TO REPORT TO NURSE IF NEW OR WORSENING SYMPTOMS. RN/MASTER DYER/TOBACCO SCRAP SIFTER TO OBTAIN WOUND SPECIMEN FOR CULTURE VIA SWAB COLLECTION INCLUDE ANTIBIOTIC/ANTIFUNGAL RESISTANCE TESTING NOTIFY PROVIDER OF RESULTS AND OBTAIN FURTHER ORDERS. [code = WOUND CULTURE TESTING PROTOCOL UP TO 2 PRN RN/MASTER DYER VISITS MAY BE PERFORMED FOR S/S OF WOUND INFECTION/DETERIORATION/STAGNATION. RN TO ASSESS, MASTER DYER/TOBACCO SCRAP SIFTER TO OBSERVE AND INITIATE PROTOCOL. RN/MASTER DYER/TOBACCO SCRAP SIFTER TO INSTRUCT PATIENT AND/OR CAREGIVER ON S/S OF WOUND INFECTION/DETERIORATION/STAGNATION TO REPORT TO NURSE IF NEW OR WORSENING SYMPTOMS. RN/MASTER DYER/TOBACCO SCRAP SIFTER TO OBTAIN WOUND SPECIMEN FOR CULTURE VIA SWAB COLLECTION INCLUDE ANTIBIOTIC/ANTIFUNGAL RESISTANCE TESTING NOTIFY PROVIDER OF RESULTS AND OBTAIN FURTHER ORDERS.] Future Scheduled Test GENITOURIN SUSU MANAGEMENT; RN TO ASSESS AND TEACH, MASTER DYER/TOBACCO SCRAP SIFTER TO OBSERVE AND TEACH RELATED TO ALTERED GENITOURINARY STATUS TO MINIMIZE COMPLICATIONS AND REDUCE HOSPITALIZATION. [code = GENITOURINARY MANAGEMENT; RN TO ASSESS AND TEACH, MASTER DYER/TOBACCO SCRAP SIFTER TO OBSERVE AND TEACH RELATED TO ALTERED GENITOURINARY STATUS TO MINIMIZE COMPLICATIONS AND REDUCE HOSPITALIZATION.] Future Scheduled Test URINARY CU LTURE AND SENSITIVITY PROTOCOL UP TO 2 PRN RN/MASTER DYER/TOBACCO SCRAP SIFTER VISITS MAY BE PERFORMED FOR S/S OF UTI. RN TO ASSESS, MASTER DYER/TOBACCO SCRAP SIFTER TO OBSERVE INITIATION OF UTI PROTOCOL. RN/TOBACCO SCRAP SIFTER/MASTER DYER TO INSTRUCT PATIENT AND/OR CAREGIVER ON S/S OF UTI TO REPORT TO RN/MASTER DYER/TOBACCO SCRAP SIFTER IF NEW OR WORSENING SYMPTOMS. DRINK PLENTY OF WATER THROUGHOUT THE DAY TO MAINTAIN HYDRATION (UNLESS CONTRAINDICATED.) URINATE WHEN THE URGE IS FELT, DO NOT WAIT. WASH GENITALS DAILY. WIPE FROM FRONT TO BACK AFTER HAVING A BOWEL MOVEMENT. RN/TOBACCO SCRAP SIFTER/MASTER DYER TO OBTAIN URINE SPECIMEN FOR UA WITH C/S VIA CLEAN CATCH URINE AND IF UNABLE TO OBTAIN MAY PERFORM AN IN AND OUT CATH. IF PATIENT HAS INDWELLING CATHETER MAY OBTAIN FROM SAMPLING PORT. NOTIFY PROVIDER OF RESULTS AND OBTAIN FURTHER ORDERS. [code = URINARY CULTURE AND SENSITIVITY PROTOCOL UP TO 2 PRN RN/MASTER DYER/TOBACCO SCRAP SIFTER VISITS MAY BE PERFORMED FOR S/S OF UTI. RN TO ASSESS, MASTER DYER/TOBACCO SCRAP SIFTER TO OBSERVE INITIATION OF UTI PROTOCOL. RN/TOBACCO SCRAP SIFTER/MASTER DYER TO INSTRUCT PATIENT AND/OR CAREGIVER ON S/S OF UTI TO REPORT TO RN/MASTER DYER/TOBACCO SCRAP SIFTER IF NEW OR WORSENING SYMPTOMS. DRINK PLENTY OF WATER THROUGHOUT THE DAY TO MAINTAIN HYDRATION (UNLESS CONTRAINDICATED.) URINATE WHEN THE URGE IS FELT, DO NOT WAIT. WASH GENITALS DAILY. WIPE FROM FRONT TO BACK AFTER HAVING A BOWEL MOVEMENT. RN/TOBACCO SCRAP SIFTER/MASTER DYER TO OBTAIN URINE SPECIMEN FOR UA WITH C/S VIA CLEAN CATCH URINE AND IF UNABLE TO OBTAIN MAY PERFORM AN IN AND OUT CATH. IF PATIENT HAS INDWELLING CATHETER MAY OBTAIN FROM SAMPLING PORT. NOTIFY PROVIDER OF RESULTS AND OBTAIN FURTHER ORDERS.] Future Scheduled Test URINARY MO LECULAR TESTING PROTOCOL UP TO 2 PRN RN/MASTER DYER/TOBACCO SCRAP SIFTER VISITS MAY BE PERFORMED FOR S/S OF UTI. RN TO ASSESS, MASTER DYER/TOBACCO SCRAP SIFTER TO OBSERVE INITIATION OF UTI PROTOCOL. RN/TOBACCO SCRAP SIFTER/MASTER DYER TO INSTRUCT PATIENT AND/OR CAREGIVER ON S/S OF UTI TO REPORT TO RN/TOBACCO SCRAP SIFTER/MASTER DYER IF NEW OR WORSENING SYMPTOMS. DRINK PLENTY OF WATER THROUGHOUT THE DAY TO MAINTAIN HYDRATION (UNLESS CONTRAINDICATED.) URINATE WHEN THE URGE IS FELT, DO NOT WAIT. WASH GENITALS DAILY. WIPE FROM FRONT TO BACK AFTER HAVING A BOWEL MOVEMENT. RN/TOBACCO SCRAP SIFTER/MASTER DYER TO OBTAIN URINE SPECIMEN FOR MOLECULAR URINE TESTING BY OPTION 1 OR OPTION 2 (OPTION 1) RN/TOBACCO SCRAP SIFTER/MASTER DYER TO OBTAIN URINE SPECIMEN FOR U/A WITH REFLEX TO UTI PANEL (MOLECULAR) VIA CLEAN CATCH URINE AND IF UNABLE TO OBTAIN MAY PERFORM AN IN AND OUT CATH. IF PATIENT HAS INDWELLING CATHETER MAY OBTAIN FROM SAMPLING PORT. (OPTION 2) RN/TOBACCO SCRAP SIFTER/MASTER DYER TO OBTAIN URINE SPECIMEN FOR UTI PANEL (MOLECULAR) VIA SWAB COLLECTION METHOD FROM ADULT BRIEF/DIAPER OR PAD IF PATIENT IS INCONTINENT. INCLUDE ANTIBIOTIC/ANTIFUNGAL RESISTANCE TESTING INCLUDE URINALYSIS (ONLY FOR CLEAN CATCH/ IN AND OUT CATH) NOTIFY PROVIDER OF RESULTS AND OBTAIN FURTHER ORDERS. [code = URINARY MOLECULAR TESTING PROTOCOL UP TO 2 PRN RN/MASTER DYER/TOBACCO SCRAP SIFTER VISITS MAY BE PERFORMED FOR S/S OF UTI. RN TO ASSESS, MASTER DYER/TOBACCO SCRAP SIFTER TO OBSERVE INITIATION OF UTI PROTOCOL. RN/TOBACCO SCRAP SIFTER/MASTER DYER TO INSTRUCT PATIENT AND/OR CAREGIVER ON S/S OF UTI TO REPORT TO RN/TOBACCO SCRAP SIFTER/MASTER DYER IF NEW OR WORSENING SYMPTOMS. DRINK PLENTY OF WATER THROUGHOUT THE DAY TO MAINTAIN HYDRATION (UNLESS CONTRAINDICATED.) URINATE WHEN THE URGE IS FELT, DO NOT WAIT. WASH GENITALS DAILY. WIPE FROM FRONT TO BACK AFTER HAVING A BOWEL MOVEMENT. RN/TOBACCO SCRAP SIFTER/MASTER DYER TO OBTAIN URINE SPECIMEN FOR MOLECULAR URINE TESTING BY OPTION 1 OR OPTION 2 (OPTION 1) RN/TOBACCO SCRAP SIFTER/MASTER DYER TO OBTAIN URINE SPECIMEN FOR U/A WITH REFLEX TO UTI PANEL (MOLECULAR) VIA CLEAN CATCH URINE AND IF UNABLE TO OBTAIN MAY PERFORM AN IN AND OUT CATH. IF PATIENT HAS INDWELLING CATHETER MAY OBTAIN FROM SAMPLING PORT. (OPTION 2) RN/TOBACCO SCRAP SIFTER/MASTER DYER TO OBTAIN URINE SPECIMEN FOR UTI PANEL (MOLECULAR) VIA SWAB COLLECTION METHOD FROM ADULT BRIEF/DIAPER OR PAD IF PATIENT IS INCONTINENT. INCLUDE ANTIBIOTIC/ANTIFUNGAL RESISTANCE TESTING INCLUDE URINALYSIS (ONLY FOR CLEAN CATCH/ IN AND OUT CATH) NOTIFY PROVIDER OF RESULTS AND OBTAIN FURTHER ORDERS.] Future Scheduled Test URINARY IN CONTINENCE MANAGEMENT; RN TO ASSESS AND TEACH, MASTER DYER/LVNTO OBSERVE AND TEACH MANAGEMENT OF URINARY INCONTINENCE. TEACH/INSTRUCT ON PREVENTING INFECTION AND SKIN BREAKDOWN. RN/MASTER DYER/TOBACCO SCRAP SIFTER MAY INSTRUCT IN BLADDER TRAINING PROGRAM INDICATED. [code = URINARY INCONTINENCE MANAGEMENT; RN TO ASSESS AND TEACH, MASTER DYER/LVNTO OBSERVE AND TEACH MANAGEMENT OF URINARY INCONTINENCE. TEACH/INSTRUCT ON PREVENTING INFECTION AND SKIN BREAKDOWN. RN/MASTER DYER/TOBACCO SCRAP SIFTER MAY INSTRUCT IN BLADDER TRAINING PROGRAM INDICATED.] Future Scheduled Test URINARY TR ACT INFECTION MANAGEMENT; RN/TOBACCO SCRAP SIFTER/MASTER DYER TO PROVIDE SKILLED TEACHING AND SELF- CARE MANAGEMENT RELATED TO UTI TO MINIMIZE COMPLICATIONS AND REDUCE THE RISK OF HOSPITALIZATION. [code = URINARY TRACT INFECTION MANAGEMENT; RN/TOBACCO SCRAP SIFTER/MASTER DYER TO PROVIDE SKILLED TEACHING AND SELF- CARE MANAGEMENT RELATED TO UTI TO MINIMIZE COMPLICATIONS AND REDUCE THE RISK OF HOSPITALIZATION.] Future Scheduled Test INDWELLING URINARY CATHETER MANAGEMENT; RN/MASTER DYER/TOBACCO SCRAP SIFTER TO INSTRUCT PATIENT / CAREGIVER ON INDWELLING URINARY CATHETER MANAGEMENT INCLUDING CARE OF CATHETER, SIGN AND SYMPTOMS OF COMPLICATIONS, PERINEAL CARE, TUBE AND BAG PLACEMENT, PREVENTION OF INFECTION AND SKIN BREAKDOWN. [code = INDWELLING URINARY CATHETER MANAGEMENT; RN/MASTER DYER/TOBACCO SCRAP SIFTER TO INSTRUCT PATIENT / CAREGIVER ON INDWELLING URINARY CATHETER MANAGEMENT INCLUDING CARE OF CATHETER, SIGN AND SYMPTOMS OF COMPLICATIONS, PERINEAL CARE, TUBE AND BAG PLACEMENT, PREVENTION OF INFECTION AND SKIN BREAKDOWN.] Future Scheduled Test INDWELLING URINARY CATHETER INSERTION; RN/MASTER DYER/TOBACCO SCRAP SIFTER TO PERFORM INSERTION OF 16 FR INDWELLING CATHETER, INSTILL 10 CC OF NORMAL SALINE NTO BALLOON, SECURE TUBING WITH APPROPRIATE SECUREMENT DEVICE CHANGE EVERY MONTH AND PRN FOR LEAKAGE, BLOCKAGE, DISLODGEMENT, OR MALFUNCTION. [code = INDWELLING URINARY CATHETER INSERTION; RN/MASTER DYER/TOBACCO SCRAP SIFTER TO PERFORM INSERTION OF 16 FR INDWELLING CATHETER, INSTILL 10 CC OF NORMAL SALINE NTO BALLOON, SECURE TUBING WITH APPROPRIATE SECUREMENT DEVICE CHANGE EVERY MONTH AND PRN FOR LEAKAGE, BLOCKAGE, DISLODGEMENT, OR MALFUNCTION.] Future Scheduled Test RN/MASTER DYER/TOBACCO SCRAP SIFTER TO PERFORM/TEACH PATIENT/CAREGIVER WOUND CARE PRESSURE INJURY TO SACRAL AREA . CLEANSED/IRRIGATED WOUND WITH NS, PAT DRY WITH GAUZE, APPLIED SKIN PREP TO KINGS WOUND, APPLIED CA ALGINATE WITH SILVER TO WOUND BED, LOOSELY PACKED WITH GAUZE TO FILL EMPTY SPACE OF WOUND, COVERED WITH ADHESIVE FOAM DRESSING [code = RN/MASTER DYER/TOBACCO SCRAP SIFTER TO PERFORM/TEACH PATIENT/CAREGIVER WOUND CARE PRESSURE INJURY TO SACRAL AREA . CLEANSED/IRRIGATED WOUND WITH NS, PAT DRY WITH GAUZE, APPLIED SKIN PREP TO KINGS WOUND, APPLIED CA ALGINATE WITH SILVER TO WOUND BED, LOOSELY PACKED WITH GAUZE TO FILL EMPTY SPACE OF WOUND, COVERED WITH ADHESIVE FOAM DRESSING] Future Scheduled Test SKIN INTEG RITY RN TO ASSESS AND TEACH, MASTER DYER/TOBACCO SCRAP SIFTER TO OBSERVE AND TEACH INTEGUMENTARY STATUS TO IDENTIFY CHANGES AND INTERVENE TO MINIMIZE COMPLICATIONS. PROVIDE SKILLED TEACHING OF GENERAL WOUND AND SKIN CARE AND PREVENTION RELATED TO POTENTIAL FOR OR ACTUAL ALTERED SKIN INTEGRITY [code = SKIN INTEGRITY RN TO ASSESS AND TEACH, MASTER DYER/TOBACCO SCRAP SIFTER TO OBSERVE AND TEACH INTEGUMENTARY STATUS TO IDENTIFY CHANGES AND INTERVENE TO MINIMIZE COMPLICATIONS. PROVIDE SKILLED TEACHING OF GENERAL WOUND AND SKIN CARE AND PREVENTION RELATED TO POTENTIAL FOR OR ACTUAL ALTERED SKIN INTEGRITY] Future Scheduled Test RN TO ASSE SS AND TEACH, MASTER DYER/TOBACCO SCRAP SIFTER TO OBSERVE AND TEACH INTEGUMENTARY STATUS RELATED TO PRESSURE INJURY MANAGEMENT TO IDENTIFY CHANGES AND INTERVENE TO MINIMIZE COMPLICATIONS. PROVIDE SKILLED TEACHING RELATED TO ALTERED SKIN INTEGRITY TO INCLUDE OFFLOADING, FREQUENT POSITION CHANGES, KEEP SKIN CLEAN AND DRY TO PREVENT SKIN BREAKDOWN AND MINIMIZE FRICTION AND SHEARING. REPORT SIGNIFICANT CHANGES IN STATUS TO PHYSICIAN FOR EARLY INTERVENTION. [code = RN TO ASSESS AND TEACH, MASTER DYER/TOBACCO SCRAP SIFTER TO OBSERVE AND TEACH INTEGUMENTARY STATUS RELATED TO PRESSURE INJURY MANAGEMENT TO IDENTIFY CHANGES AND INTERVENE TO MINIMIZE COMPLICATIONS. PROVIDE SKILLED TEACHING RELATED TO ALTERED SKIN INTEGRITY TO INCLUDE OFFLOADING, FREQUENT POSITION CHANGES, KEEP SKIN CLEAN AND DRY TO PREVENT SKIN BREAKDOWN AND MINIMIZE FRICTION AND SHEARING. REPORT SIGNIFICANT CHANGES IN STATUS TO PHYSICIAN FOR EARLY INTERVENTION.] Future Scheduled Test CARDIOVASC ULAR SYSTEM; RN TO ASSESS/TEACH, MASTER DYER/TOBACCO SCRAP SIFTER TO OBSERVE/TEACH RELATED TO ALTERED CARDIOVASCULAR STATUS TO MINIMIZE COMPLICATIONS AND REDUCE HOSPITALIZATION. [code = CARDIOVASCULAR SYSTEM; RN TO ASSESS/TEACH, MASTER DYER/TOBACCO SCRAP SIFTER TO OBSERVE/TEACH RELATED TO ALTERED CARDIOVASCULAR STATUS TO MINIMIZE COMPLICATIONS AND REDUCE HOSPITALIZATION.] Future Scheduled Test HYPERTENSI ON MANAGEMENT; RN TO ASSESS AND TEACH, MASTER DYER/TOBACCO SCRAP SIFTER TO OBSERVE AND TEACH WARNING SIGNS AND SYMPTOMS TO AVOID HOSPITALIZATION. [code = HYPERTENSION MANAGEMENT; RN TO ASSESS AND TEACH, MASTER DYER/TOBACCO SCRAP SIFTER TO OBSERVE AND TEACH WARNING SIGNS AND SYMPTOMS TO AVOID HOSPITALIZATION.] Future Scheduled Test ANEMIA MAN AGEMENT; RN TO ASSESS AND TEACH, TOBACCO SCRAP SIFTER/MASTER DYER TO OBSERVE AND TEACH AND PROVIDE EDUCATION ON ANEMIA. [code = ANEMIA MANAGEMENT; RN TO ASSESS AND TEACH, TOBACCO SCRAP SIFTER/MASTER DYER TO OBSERVE AND TEACH AND PROVIDE EDUCATION ON ANEMIA.] Future Scheduled Test MALNUTRITI ON MANAGEMENT; RN TO ASSESS AND TEACH, TOBACCO SCRAP SIFTER/MASTER DYER TO OBSERVE AND TEACH AND INSTRUCT PATIENT / CAREGIVER ON INTERVENTIONS TO IMPROVE NUTRITIONAL INTAKE AND PATIENT WELLBEING. [code = MALNUTRITION MANAGEMENT; RN TO ASSESS AND TEACH, TOBACCO SCRAP SIFTER/MASTER DYER TO OBSERVE AND TEACH AND INSTRUCT PATIENT / CAREGIVER ON INTERVENTIONS TO IMPROVE NUTRITIONAL INTAKE AND PATIENT WELLBEING.] Future Scheduled Test ANTITHROMB OTIC MANAGEMENT; RN TO ASSESS AND TEACH, MASTER DYER/TOBACCO SCRAP SIFTER TO OBSERVE/TEACH/MONITOR EFFECTIVENESS OF ANTITHROMBOTIC THERAPY. RN/MASTER DYER/TOBACCO SCRAP SIFTER TO INSTRUCT ON SIGNS AND SYMPTOMS OF BLEEDING/ADVERSE REACTIONS TO REPORT TO PHYSICIAN. PATIENT PRESCRIBED XARELTO [code = ANTITHROMBOTIC MANAGEMENT; RN TO ASSESS AND TEACH, MASTER DYER/TOBACCO SCRAP SIFTER TO OBSERVE/TEACH/MONITOR EFFECTIVENESS OF ANTITHROMBOTIC THERAPY. RN/MASTER DYER/TOBACCO SCRAP SIFTER TO INSTRUCT ON SIGNS AND SYMPTOMS OF BLEEDING/ADVERSE REACTIONS TO REPORT TO PHYSICIAN. PATIENT PRESCRIBED XARELTO] Goal 2024-12-15 Patient Goal - G OAL: I WANT TO BE ABLE TO GET UP AND BE MOBILE Goal Patient Goal - G OAL: I WANT TO BE ABLE TO GET UP AND BE MOBILE Goal Provider Goal - A PLAN OF CARE WILL BE ESTABLISHED THAT MEETS THE PATIENT S NEEDS. PATIENT WILL DEMONSTRATE OXYGEN SATURATION WITHIN NORMAL LIMITS OR PATIENT S OPTIMAL LEVEL ESTABLISHED BY THE PHYSICIAN THROUGHOUT CARE. CHANGES TO CO-MORBID CONDITIONS AND ANY NEW CONDITIONS WILL BE IDENTIFIED AND REPORTED TO THE PHYSICIAN. Goal Provider Goal - PATIENT/CAREGIVER WILL VERBALIZE UNDERSTANDING OF SIGNS AND SYMPTOMS THAT PUT THE PATIENT AT RISK FOR HOSPITALIZATION /EMERGENCY ROOM VISITS, WHEN TO NOTIFY NURSE/PHYSICIAN OF COMPLICATIONS/DECLINE AND WHEN TO CALL 911. Goal Provider Goal - PATIENT/CAREGIVER TO VERBALIZE, AND CONSISTENTLY DEMONSTRATE EFFECTIVE, SAFE MANAGEMENT OF MEDICATION INCLUDING KNOWLEDGE OF EFFECTIVENESS, POTENTIAL SIDE EFFECTS AND DRUG REACTIONS AND WHEN TO CONTACT THE APPROPRIATE CARE PROVIDER. PATIENT/CAREGIVER WILL BE ABLE TO VERBALIZE UNDERSTANDING OF MEDICATION REGIMEN AND ACCURATELY TAKE MEDICATIONS PRESCRIBED WITHOUT ADVERSE EFFECTS BY EOE Goal Provider Goal - PATIENT / CAREGIVER WILL VERBALIZE / DEMONSTRATE UNDERSTANDING OF PAIN CONTROL MEASURES BY EOE Goal Provider Goal - Goal Provider Goal - PATIENT/CAREGIVER WILL VERBALIZE/DEMONSTRATE UNDERSTANDING OF FALL RISK FACTORS AND IMPLEMENT STRATEGIES TO MINIMIZE FALL RISK. PATIENT/CAREGIVER WILL VERBALIZE/DEMONSTRATE AN ABILITY TO ADHERE TO FALL REDUCTION SELF-MANAGEMENT AND LIFE-STYLE CHANGES BY EOE Goal Provider Goal - PATIENT WILL DEMONSTRATE IMPROVEMENT IN S/S OF WOUND INFECTION/DETERIORATION/STAGNATION TO AVOID HOSPITALIZATION. Goal Provider Goal - PATIENT WILL DEMONSTRATE IMPROVEMENT IN S/S OF WOUND INFECTION/DETERIORATION/STAGNATION TO AVOID HOSPITALIZATION. Goal Provider Goal - PATIENT / CAREGIVER WILL VERBALIZE/DEMONSTRATE UNDERSTANDING OF MEASURES TO MANAGE ALTERED GENITOURINARY STATUS BY END OF EPISODE. Goal Provider Goal - PATIENT WILL DEMONSTRATE IMPROVEMENT IN S/S OF UTI TO AVOID HOSPITALIZATION. Goal Provider Goal - PATIENT WILL DEMONSTRATE IMPROVEMENT IN S/S OF UTI TO AVOID HOSPITALIZATION. Goal Provider Goal - PATIENT/CAREGIVER WILL VERBALIZE/DEMONSTRATE UNDERSTANDING OF CARE AND MANAGEMENT OF URINARY INCONTINENCE BY EOE. Goal Provider Goal - PATIENT/CAREGIVER WILL VERBALIZE/DEMONSTRATE UNDERSTANDING OF CARE AND MANAGEMENT OF URINARY TRACT INFECTION BY EOE Goal Provider Goal - PATIENT/CAREGIVER WILL VERBALIZE/DEMONSTRATE UNDERSTANDING OF CARE AND MANAGEMENT OF INDWELLING CATHETER BY EOE Goal Provider Goal - PATIENT WILL VERBALIZE/TOLERATE CATHETER CHANGE BY EOE Goal Provider Goal - PATIENT / CAREGIVER WILL VERBALIZE / DEMONSTRATE ABILITY TO PERFORM WOUND CARE. WOUND STATUS WILL IMPROVE EVIDENCED BY A DECREASE IN SIZE, DRAINAGE, ABSENCE OF INFECTION, AND DECREASED PAIN BY END OF EPISODE. Goal Provider Goal - CHANGES IN SKIN INTEGRITY STATUS WILL BE IDENTIFIED AND REPORTED TO THE PHYSICIAN FOR PROMPT INTERVENTION. PATIENT / CAREGIVER WILL VERBALIZE/DEMONSTRATE ADEQUATE KNOWLEDGE OF INTEGUMENTARY STATUS AND APPROPRIATE MEASURES TO PROMOTE SKIN INTEGRITY AND PREVENT INJURY BYEOE Goal Provider Goal - CHANGES IN SKIN INTEGRITY STATUS RELATED TO PRESSURE INJURY MANAGEMENT WILL BE IDENTIFIED AND REPORTED TO THE PHYSICIAN FOR PROMPT INTERVENTION. PATIENT / CAREGIVER WILL VERBALIZE/DEMONSTRATE ADEQUATE KNOWLEDGE OF INTEGUMENTARY STATUS AND APPROPRIATE MEASURES TO PROMOTE SKIN INTEGRITY AND PREVENT INJURY BY EOE Goal Provider Goal - PATIENT / CAREGIVER WILL VERBALIZE/DEMONSTRATE UNDERSTANDING OF MEASURES TO MANAGE ALTERED CARDIOVASCULAR STATUS BY EOE Goal Provider Goal - PATIENT / CAREGIVER WILL VERBALIZE/DEMONSTRATE AN ABILITY TO ADHERE TO SELF-MANAGEMENT OF HTN TO MINIMIZE COMPLICATIONS AND AVOID HOSPITALIZATION BY END OF EPISODE. Goal Provider Goal - PATIENT/CAREGIVER WILL VERBALIZE UNDERSTANDING OF CARE AND MANAGEMENT OF ANEMIA BY END OF EPISODE. Goal Provider Goal - PATIENT / CAREGIVER WILL VERBALIZE/DEMONSTRATE APPROPRIATE METHODS TO IMPROVE NUTRITIONAL STATUS BY END OF EPISODE. Goal Provider Goal - PATIENT / CAREGIVER WILL PROMPTLY REPORT SIGNS AND SYMPTOMS OF BLEEDING OR ADVERSE REACTIONS TO THE PHYSICIAN. PATIENT/CAREGIVER WILL VERBALIZE UNDERSTANDING OF ANTITHROMBOTIC THERAPY MANAGEMENT BY END OF EPISODE. Progress Notes Progress Notes <paragraph>[Visit Date: 2024 by JAVON LERNER LPN]:</paragraph><paragraph>ALF VISIT FOR BEDBOUND PT FOR WOUND CARE, AND WOUND CARE AND SKIN INTEGRITY REINFORCEMENT EDUCATION. HOMEBOUND STATUS CONFIRMED DUE TO PT BEING BEDBOUND BUT DOES HAVE MOTORIZED WC. WOUND CARE OBTAINED AND DRESSING APPLIED VIA DOCTORS ORDERS.PTS URRUTIA HAD 200 CC OF [place] YELLOW URINE IN THE DRAINAGE BAG. PTS CATHETER WAS CAKED WITH DRIED FECAL MATTER. PT AND WAS AGAIN EDUCATED ON PROPER CLEANING OF CATHETHER TO HELP DECREASE THE CHANCE OF UTI. PTS SCROTUM WAS A SIZE OF A SOFTBALL OR BIGGER, PURPLISH/RED IN COLOR, SKIN WAS PEALING FROM SCROTUM, VERY VERY SWOLLEN, TENDER TO TOUCH, HEAVY WHEN HAND WAS PLACED UNDER SCROTUM. PTS HEART RATE WAS 115, AND WENT DOWN TO 100 DURING VISIT. ADVISED PT THAT HE NEEDS TO GO TO ER FOR EVAL, PT DECLINED, I STATED I WOULD CALL HIS PCP WHICH HE STATES IS DR. MORALES IN [facility] AND GAVE ME THE NUMBER, I DID CONTACT THEIR OFFICE WHICH I LEFT A VOICEMAIL AND THEN CONTACTED THEM AGAIN AROUND 2:30PM AND DID NOT HEAR FROM OFFICE. [facility]ICKINSON [facility] CONTACTED THIS NURSE AND STATED PT STATED HIS GROIN WAS STARTING TO HURT, PAINFUL TO TOUCH STILL. PT WAS AGAIN AVISED BY [facility] TO GO TO ER FOR EVAL DUE TO SERIOUNESS OF THE SITUATION, PT STATED HE WOULD RATHER , THAN GO TO THE HOSPITAL. I REACHED OUT TO HIS SON LYNN AND ADVISED AGAIN ON THE SITUATION AND THAT I BELIEVE HE NEEDS TO BE SEEN IN THE HOSPITAL DUE TO THE VITAL SIGNS AND THE SIGNS OF THE SCROTOM. PTS SON CONTACTED ME AROUND 5-6PM AND STATED HE WAS AT [facility] AND WAS GOING TO TRY AND GET HIM TO GO TO HOSPITAL, PT WAS ADAMENT HE WANTED TO WAIT UNTIL TOMORROW. CORIE MOSLEY AT [facility] WAS CONTACTED BEFORE OFFICE CLOSED AND MADE AWARE OF THE SITUATION. ADVISED TO CONTACT HH WITH QUESTIONS OR CONCERNS</paragraph> Encounters Start Date/Time End Date/Time Encounter Type Admission Type Attending Clinicians [facility] Care Department Encounter ID Discharge Date Discharge Status Discharge Condition Discharge Reason Percent Goals Met 2024-12-20 00:00:00 2025-02-17 00:00:00 Outpatient RECERTIFIC ATION [facility] [id number] 6.98
--- OUTSIDE RECORDS SUMMARY | 2025-02-16 18:00 | XMS_ITS | Clinical Summary ---
Author Organization Unknown Care Team Providers Care Paint Line Production Supervisor Name Role Phone CARMEN SHAH, AFTAB Unavailable Unavailable LAURA PT, GERMAINE Unavailable Unavailable ANNELISE ASSEMBLING INSPECTOR, LUKAS Unavailable Unavailisadora MCDONALD OT, ALOK Unavailable Unavailable WESLEY RN, SOCRATES Unavailable Jayy LERNER LPN, JAVON Unavailable Unavailable Payers Payer Name Policy Type Policy Number Effective Date Expira tion Date MEDICARE.[place].[facility] [id number] Problems Condition Name Condition Details Condition Category [...] Active 09-24 00:00: 00 DEPRESSION, UNSPECIFIED Active 1 00:00: 00 PENITENTIARY (CURRENT) USE OF ANTICOAGULAN TS Active 09-24 [...] 10-12 00:00: 00 10-30 23:59 :00 No [id number] ANTI-PLATLE T 1 tablet DAILY 1 tablet DAILY (route: oral) Med Classific ation: Hematolog ical Agents hydrochloro thiazide 25 mg tablet 10-12 00:00: 00 10-21 00:00 :00 No [id number] Per instruc tions Per instructio ns (route: oral) Med Classific ation: Cardiovas cular Therapy Agents potassium chloride ER 10 mEq tablet,exte nded release(par t/cryst) 10-08 00:00: 00 10-21 00:00 :00 No [id number] Per instruc tions Per instructio ns (route: oral) Med Classific ation: Electroly te Balance-N utritiona l Products atorvastati n 20 mg tablet 10-07 00:00: 00 Yes [id number] HIGH CHOLESTEROL 1 tablet DAILY 1 tablet DAILY (route: oral) Med Classific ation: Cardiovas cular Therapy Agents icosapent ethyl 1 gram capsule 10-05 00:00: 00 Yes [id number] SUPPLEMENT 2 capsule 2 TIMES DAILY 2 capsule 2 TIMES DAILY (route: oral) Med Classific ation: Cardiovas cular Therapy Agents Xarelto 20 mg tablet 10-04 00:00: 00 10-21 00:00 :00 No [id number] Unavailable Per instruc tions ONCE DAILY Per instructio ns ONCE DAILY (route: oral) Med Classific ation: Hematolog ical Agents diphenoxyla te-atropine 2.5 mg-0.025 mg tablet 10-03 00:00: 00 10-21 00:00 :00 No [id number] Per instruc tions Per instructio ns (route: oral) Med Classific ation: Gastroint estinal Therapy Agents hydroxyzine HCl 25 mg tablet 10-03 00:00: 00 10-21 00:00 :00 No [id number] Per instruc tions Per instructio ns (route: oral) Med Classific ation: Central Nervous System Agents hydrochloro thiazide 25 mg tablet 10-01 00:00: 00 Yes [id number] FLUID RETENTION/H IGH BLOOD PRESSURE 1 tablet DAILY 1 tablet DAILY (route: oral) Med Classific ation: Cardiovas cular Therapy Agents Heparin Lock Flush (Porcine) (PF) 10 unit/mL intravenous syringe 09-26 00:00: 00 10-21 00:00 :00 No [id number] Per instruc tions Per instructio ns (route: intravenou s) Med Classific ation: Hematolog ical Agents tamsulosin 0.4 mg capsule 09-24 00:00: 00 Yes [id number] BENIGN PROSTATIC HYPERPLASIA -BPH 1 capsule BEDTIME 1 capsule BEDTIME (route: oral) Med Classific ation: Genitouri nary Therapy Xarelto 20 mg tablet 09-24 00:00: 00 Yes [id number] BLOOD THINNER 1 tablet DAILY 1 tablet DAILY (route: oral) Med Classific ation: Hematolog ical Agents loperamide 2 mg capsule 10-21 00:00: 00 Yes [id number] NEEDED FOR LOOSE STOOLS 1 capsule EVERY 2 HOURS 1 capsule EVERY 2 HOURS (route: oral) Med Classific ation: Gastroint estinal Therapy Agents multivitami n tablet 10-21 00:00: 00 Yes [id number] SUPPLEMENT 1 tablet DAILY 1 tablet DAILY (route: oral) Med Classific ation: Electroly te Balance-N utritiona l Products potassium chloride ER 20 mEq tablet,exte nded release 10-21 00:00: 00 Yes [id number] SUPPLEMENT 1 tablet DAILY 1 tablet DAILY (route: oral) Med Classific ation: Electroly te Balance-N utritiona l Products Tylenol Extra Strength 500 mg tablet 10-30 00:00: 00 Yes [id number] PAIN 2 tablet EVERY 4 HOURS 2 tablet EVERY 4 HOURS (route: oral) Med Classific ation: Analgesic , Anti-infl ammatory or Antipyret ic diphenoxyla te-atropine 2.5 mg-0.025 mg tablet 2024-03 0-12 00:00: 00 01-03 23:59 :00 No [id number] LOOSE STOOL 1 tablet EVERY 8 HOURS 1 tablet EVERY 8 HOURS (route: oral) Med Classific ation: Gastroint estinal Therapy Agents hydrocodone 10 mg-acetamin ophen 325 mg tablet 2024-03 0-12 00:00: 00 Yes [id number] PAIN 1 tablet EVERY 12 HOURS 1 [...] CONSULTING PHYSICIANS RN TO OBSERVE AND ASSESS, CERAMIC ARTIST/PLATE GLASS GRINDER TO OBSERVE FOR RISK FOR FALLS AND INSTRUCT IN FALL PREVENTION, HOME SAFETY, MEDICATION MANAGEMENT, INFECTION PREVENTION, AND NUTRITION MANAGEMENT. RN/CERAMIC ARTIST/PLATE GLASS GRINDER NURSE MAY PERFORM O2 SATURATION LEVEL ON ADMISSION AND PRN FOR EVERY VISIT FOR RN TO ASSESS/CERAMIC ARTIST TO OBSERVE PATIENT, WITH NOTIFICATION TO THE PHYSICIAN IF SATURATION IS 90% IN THE ABSENCE OF MORE SPECIFIC PARAMETERS FROM THE PHYSICIAN. AGENCY MAY PERFORM A RESUMPTION OF CARE VISIT FOLLOWING ANY HOSPITAL ADMISSION. RN/CERAMIC ARTIST/PLATE GLASS GRINDER TO MONITOR CO-MORBID CONDITIONS LISTED ON THE PLAN OF CARE AND ANY NEW CONDITIONS THAT PRESENT THEMSELVES DURING THIS EPISODE TO IDENTIFY CHANGES AND INTERVENE TO MINIMIZE COMPLICATIONS. [code = RN TO OBSERVE, ASSESS, EVALUATE, AND DEVELOP AN INDIVIDUALIZED PLAN OF CARE. AGENCY MAY ACCEPT ORDERS FROM CONSULTING PHYSICIANS RN TO OBSERVE AND ASSESS, CERAMIC ARTIST/PLATE GLASS GRINDER TO OBSERVE FOR RISK FOR FALLS AND INSTRUCT IN FALL PREVENTION, HOME SAFETY, MEDICATION MANAGEMENT, INFECTION PREVENTION, AND NUTRITION MANAGEMENT. RN/CERAMIC ARTIST/PLATE GLASS GRINDER NURSE MAY PERFORM O2 SATURATION LEVEL ON ADMISSION AND PRN FOR EVERY VISIT FOR RN TO ASSESS/CERAMIC ARTIST TO OBSERVE PATIENT, WITH NOTIFICATION TO THE PHYSICIAN IF SATURATION IS 90% IN THE ABSENCE OF MORE SPECIFIC PARAMETERS FROM THE PHYSICIAN. AGENCY MAY PERFORM A RESUMPTION OF CARE VISIT FOLLOWING ANY HOSPITAL ADMISSION. RN/CERAMIC ARTIST/PLATE GLASS GRINDER TO MONITOR CO-MORBID CONDITIONS LISTED ON THE PLAN OF CARE AND ANY NEW CONDITIONS THAT PRESENT THEMSELVES DURING THIS EPISODE TO IDENTIFY CHANGES AND INTERVENE TO MINIMIZE COMPLICATIONS.] Future Scheduled Test RISK FOR H OSPITALIZATION; RN TO ASSESS/TEACH, PLATE GLASS GRINDER/CERAMIC ARTIST TO OBSERVE/TEACH PATIENT/CAREGIVER ON RISK FOR HOSPITALIZATION/EMERGENCY ROOM VISITS, TEACH SIGNS AND SYMPTOMS THAT PUT PATIENT AT RISK, WHEN TO NOTIFY NURSE/PHYSICIAN OF COMPLICATIONS/DECLINE, AND WHEN TO CALL 911. [code = RISK FOR HOSPITALIZATION; RN TO ASSESS/TEACH, PLATE GLASS GRINDER/CERAMIC ARTIST TO OBSERVE/TEACH PATIENT/CAREGIVER ON RISK FOR HOSPITALIZATION/EMERGENCY ROOM VISITS, TEACH SIGNS AND SYMPTOMS THAT PUT PATIENT AT RISK, WHEN TO NOTIFY NURSE/PHYSICIAN OF COMPLICATIONS/DECLINE, AND WHEN TO CALL 911.] Future Scheduled Test MEDICATION MANAGEMENT; RN/CERAMIC ARTIST/PLATE GLASS GRINDER TO REVIEW MEDICATIONS FOR INTERACTIONS, EFFECTIVENESS OF DRUG THERAPY, AND SIGNS/SYMPTOMS OF ADVERSE REACTIONS. MAY INSTRUCT AND REINFORCE MEDICATION TEACHING RELATED TO THE USE OF MEDICATIONS, DOSAGE, FREQUENCY, PURPOSE, SIDE EFFECTS, AND TO REPORT COMPLICATIONS. [code = MEDICATION MANAGEMENT; RN/CERAMIC ARTIST/PLATE GLASS GRINDER TO REVIEW MEDICATIONS FOR INTERACTIONS, EFFECTIVENESS OF DRUG THERAPY, AND SIGNS/SYMPTOMS OF ADVERSE REACTIONS. MAY INSTRUCT AND REINFORCE MEDICATION TEACHING RELATED TO THE USE OF MEDICATIONS, DOSAGE, FREQUENCY, PURPOSE, SIDE EFFECTS, AND TO REPORT COMPLICATIONS.] Future Scheduled Test PAIN MANAG EMENT; RN TO ASSESS AND TEACH, PLATE GLASS GRINDER/CERAMIC ARTIST TO OBSERVE AND TEACH AND PROVIDE EDUCATION ON PAIN MANAGEMENT TECHNIQUES. [code = PAIN MANAGEMENT; RN TO ASSESS AND TEACH, PLATE GLASS GRINDER/CERAMIC ARTIST TO OBSERVE AND TEACH AND PROVIDE EDUCATION ON PAIN MANAGEMENT TECHNIQUES.] Future Scheduled Test PRN VISITS ; NUMBER OF RN/CERAMIC ARTIST/PLATE GLASS GRINDER VISITS: 2 RN/CERAMIC ARTIST/PLATE GLASS GRINDER TO PERFORM: 1 URRUTIA 1 WOUND FOR THE FOLLOWING REASONS: COMPLICATIONS [code = PRN VISITS; NUMBER OF RN/CERAMIC ARTIST/PLATE GLASS GRINDER VISITS: 2 RN/CERAMIC ARTIST/PLATE GLASS GRINDER TO PERFORM: 1 URRUTIA 1 WOUND FOR THE FOLLOWING REASONS: COMPLICATIONS] Future Scheduled Test FALL REDUC TION MANAGEMENT; RN TO ASSESS AND OBSERVE, CERAMIC ARTIST/PLATE GLASS GRINDER TO OBSERVE FALL RISK FACTORS AND EDUCATE PATIENT/CAREGIVER ON STRATEGIES TO MINIMIZE THE RISK OF FALLING. [code = FALL REDUCTION MANAGEMENT; RN TO ASSESS AND OBSERVE, CERAMIC ARTIST/PLATE GLASS GRINDER TO OBSERVE FALL RISK FACTORS AND EDUCATE PATIENT/CAREGIVER ON STRATEGIES TO MINIMIZE THE RISK OF FALLING.] Future Scheduled Test WOUND MOLE CULAR TESTING PROTOCOL UP TO 2 PRN RN/CERAMIC ARTIST/PLATE GLASS GRINDER VISITS MAY BE PERFORMED FOR S/S OF WOUND INFECTION/DETERIORATION/STAGNATION. RN TO ASSESS, CERAMIC ARTIST/PLATE GLASS GRINDER TO OBSERVE AND INITIATE PROTOCOL. RN/CERAMIC ARTIST/PLATE GLASS GRINDER TO INSTRUCT PATIENT AND/OR CAREGIVER ON S/S OF WOUND INFECTION/DETERIORATION/STAGNATION TO REPORT TO NURSE IF NEW OR WORSENING SYMPTOMS. RN/CERAMIC ARTIST/PLATE GLASS GRINDER TO OBTAIN WOUND SPECIMEN FOR MOLECULAR WOUND TESTING VIA SWAB COLLECTION PER POLICY. INCLUDE ANTIBIOTIC/ANTIFUNGAL RESISTANCE TESTING NOTIFY PROVIDER OF RESULTS AND OBTAIN FURTHER ORDERS. [code = WOUND MOLECULAR TESTING PROTOCOL UP TO 2 PRN RN/CERAMIC ARTIST/PLATE GLASS GRINDER VISITS MAY BE PERFORMED FOR S/S OF WOUND INFECTION/DETERIORATION/STAGNATION. RN TO ASSESS, CERAMIC ARTIST/PLATE GLASS GRINDER TO OBSERVE AND INITIATE PROTOCOL. RN/CERAMIC ARTIST/PLATE GLASS GRINDER TO INSTRUCT PATIENT AND/OR CAREGIVER ON S/S OF WOUND INFECTION/DETERIORATION/STAGNATION TO REPORT TO NURSE IF NEW OR WORSENING SYMPTOMS. RN/CERAMIC ARTIST/PLATE GLASS GRINDER TO OBTAIN WOUND SPECIMEN FOR MOLECULAR WOUND TESTING VIA SWAB COLLECTION PER POLICY. INCLUDE ANTIBIOTIC/ANTIFUNGAL RESISTANCE TESTING NOTIFY PROVIDER OF RESULTS AND OBTAIN FURTHER ORDERS.] Future Scheduled Test WOUND CULT URE TESTING PROTOCOL UP TO 2 PRN RN/CERAMIC ARTIST VISITS MAY BE PERFORMED FOR S/S OF WOUND INFECTION/DETERIORATION/STAGNATION. RN TO ASSESS, CERAMIC ARTIST/PLATE GLASS GRINDER TO OBSERVE AND INITIATE PROTOCOL. RN/CERAMIC ARTIST/PLATE GLASS GRINDER TO INSTRUCT PATIENT AND/OR CAREGIVER ON S/S OF WOUND INFECTION/DETERIORATION/STAGNATION TO REPORT TO NURSE IF NEW OR WORSENING SYMPTOMS. RN/CERAMIC ARTIST/PLATE GLASS GRINDER TO OBTAIN WOUND SPECIMEN FOR CULTURE VIA SWAB COLLECTION INCLUDE ANTIBIOTIC/ANTIFUNGAL RESISTANCE TESTING NOTIFY PROVIDER OF RESULTS AND OBTAIN FURTHER ORDERS. [code = WOUND CULTURE TESTING PROTOCOL UP TO 2 PRN RN/CERAMIC ARTIST VISITS MAY BE PERFORMED FOR S/S OF WOUND INFECTION/DETERIORATION/STAGNATION. RN TO ASSESS, CERAMIC ARTIST/PLATE GLASS GRINDER TO OBSERVE AND INITIATE PROTOCOL. RN/CERAMIC ARTIST/PLATE GLASS GRINDER TO INSTRUCT PATIENT AND/OR CAREGIVER ON S/S OF WOUND INFECTION/DETERIORATION/STAGNATION TO REPORT TO NURSE IF NEW OR WORSENING SYMPTOMS. RN/CERAMIC ARTIST/PLATE GLASS GRINDER TO OBTAIN WOUND SPECIMEN FOR CULTURE VIA SWAB COLLECTION INCLUDE ANTIBIOTIC/ANTIFUNGAL RESISTANCE TESTING NOTIFY PROVIDER OF RESULTS AND OBTAIN FURTHER ORDERS.] Future Scheduled Test GENITOURIN SUSU MANAGEMENT; RN TO ASSESS AND TEACH, CERAMIC ARTIST/PLATE GLASS GRINDER TO OBSERVE AND TEACH RELATED TO ALTERED GENITOURINARY STATUS TO MINIMIZE COMPLICATIONS AND REDUCE HOSPITALIZATION. [code = GENITOURINARY MANAGEMENT; RN TO ASSESS AND TEACH, CERAMIC ARTIST/PLATE GLASS GRINDER TO OBSERVE AND TEACH RELATED TO ALTERED GENITOURINARY STATUS TO MINIMIZE COMPLICATIONS AND REDUCE HOSPITALIZATION.] Future Scheduled Test URINARY CU LTURE AND SENSITIVITY PROTOCOL UP TO 2 PRN RN/CERAMIC ARTIST/PLATE GLASS GRINDER VISITS MAY BE PERFORMED FOR S/S OF UTI. RN TO ASSESS, CERAMIC ARTIST/PLATE GLASS GRINDER TO OBSERVE INITIATION OF UTI PROTOCOL. RN/PLATE GLASS GRINDER/CERAMIC ARTIST TO INSTRUCT PATIENT AND/OR CAREGIVER ON S/S OF UTI TO REPORT TO RN/CERAMIC ARTIST/PLATE GLASS GRINDER IF NEW OR WORSENING SYMPTOMS. DRINK PLENTY OF WATER THROUGHOUT THE DAY TO MAINTAIN HYDRATION (UNLESS CONTRAINDICATED.) URINATE WHEN THE URGE IS FELT, DO NOT WAIT. WASH GENITALS DAILY. WIPE FROM FRONT TO BACK AFTER HAVING A BOWEL MOVEMENT. RN/PLATE GLASS GRINDER/CERAMIC ARTIST TO OBTAIN URINE SPECIMEN FOR UA WITH C/S VIA CLEAN CATCH URINE AND IF UNABLE TO OBTAIN MAY PERFORM AN IN AND OUT CATH. IF PATIENT HAS INDWELLING CATHETER MAY OBTAIN FROM SAMPLING PORT. NOTIFY PROVIDER OF RESULTS AND OBTAIN FURTHER ORDERS. [code = URINARY CULTURE AND SENSITIVITY PROTOCOL UP TO 2 PRN RN/CERAMIC ARTIST/PLATE GLASS GRINDER VISITS MAY BE PERFORMED FOR S/S OF UTI. RN TO ASSESS, CERAMIC ARTIST/PLATE GLASS GRINDER TO OBSERVE INITIATION OF UTI PROTOCOL. RN/PLATE GLASS GRINDER/CERAMIC ARTIST TO INSTRUCT PATIENT AND/OR CAREGIVER ON S/S OF UTI TO REPORT TO RN/CERAMIC ARTIST/PLATE GLASS GRINDER IF NEW OR WORSENING SYMPTOMS. DRINK PLENTY OF WATER THROUGHOUT THE DAY TO MAINTAIN HYDRATION (UNLESS CONTRAINDICATED.) URINATE WHEN THE URGE IS FELT, DO NOT WAIT. WASH GENITALS DAILY. WIPE FROM FRONT TO BACK AFTER HAVING A BOWEL MOVEMENT. RN/PLATE GLASS GRINDER/CERAMIC ARTIST TO OBTAIN URINE SPECIMEN FOR UA WITH C/S VIA CLEAN CATCH URINE AND IF UNABLE TO OBTAIN MAY PERFORM AN IN AND OUT CATH. IF PATIENT HAS INDWELLING CATHETER MAY OBTAIN FROM SAMPLING PORT. NOTIFY PROVIDER OF RESULTS AND OBTAIN FURTHER ORDERS.] Future Scheduled Test URINARY MO LECULAR TESTING PROTOCOL UP TO 2 PRN RN/CERAMIC ARTIST/PLATE GLASS GRINDER VISITS MAY BE PERFORMED FOR S/S OF UTI. RN TO ASSESS, CERAMIC ARTIST/PLATE GLASS GRINDER TO OBSERVE INITIATION OF UTI PROTOCOL. RN/PLATE GLASS GRINDER/CERAMIC ARTIST TO INSTRUCT PATIENT AND/OR CAREGIVER ON S/S OF UTI TO REPORT TO RN/PLATE GLASS GRINDER/CERAMIC ARTIST IF NEW OR WORSENING SYMPTOMS. DRINK PLENTY OF WATER THROUGHOUT THE DAY TO MAINTAIN HYDRATION (UNLESS CONTRAINDICATED.) URINATE WHEN THE URGE IS FELT, DO NOT WAIT. WASH GENITALS DAILY. WIPE FROM FRONT TO BACK AFTER HAVING A BOWEL MOVEMENT. RN/PLATE GLASS GRINDER/CERAMIC ARTIST TO OBTAIN URINE SPECIMEN FOR MOLECULAR URINE TESTING BY OPTION 1 OR OPTION 2 (OPTION 1) RN/PLATE GLASS GRINDER/CERAMIC ARTIST TO OBTAIN URINE SPECIMEN FOR U/A WITH REFLEX TO UTI PANEL (MOLECULAR) VIA CLEAN CATCH URINE AND IF UNABLE TO OBTAIN MAY PERFORM AN IN AND OUT CATH. IF PATIENT HAS INDWELLING CATHETER MAY OBTAIN FROM SAMPLING PORT. (OPTION 2) RN/PLATE GLASS GRINDER/CERAMIC ARTIST TO OBTAIN URINE SPECIMEN FOR UTI PANEL (MOLECULAR) VIA SWAB COLLECTION METHOD FROM ADULT BRIEF/DIAPER OR PAD IF PATIENT IS INCONTINENT. INCLUDE ANTIBIOTIC/ANTIFUNGAL RESISTANCE TESTING INCLUDE URINALYSIS (ONLY FOR CLEAN CATCH/ IN AND OUT CATH) NOTIFY PROVIDER OF RESULTS AND OBTAIN FURTHER ORDERS. [code = URINARY MOLECULAR TESTING PROTOCOL UP TO 2 PRN RN/CERAMIC ARTIST/PLATE GLASS GRINDER VISITS MAY BE PERFORMED FOR S/S OF UTI. RN TO ASSESS, CERAMIC ARTIST/PLATE GLASS GRINDER TO OBSERVE INITIATION OF UTI PROTOCOL. RN/PLATE GLASS GRINDER/CERAMIC ARTIST TO INSTRUCT PATIENT AND/OR CAREGIVER ON S/S OF UTI TO REPORT TO RN/PLATE GLASS GRINDER/CERAMIC ARTIST IF NEW OR WORSENING SYMPTOMS. DRINK PLENTY OF WATER THROUGHOUT THE DAY TO MAINTAIN HYDRATION (UNLESS CONTRAINDICATED.) URINATE WHEN THE URGE IS FELT, DO NOT WAIT. WASH GENITALS DAILY. WIPE FROM FRONT TO BACK AFTER HAVING A BOWEL MOVEMENT. RN/PLATE GLASS GRINDER/CERAMIC ARTIST TO OBTAIN URINE SPECIMEN FOR MOLECULAR URINE TESTING BY OPTION 1 OR OPTION 2 (OPTION 1) RN/PLATE GLASS GRINDER/CERAMIC ARTIST TO OBTAIN URINE SPECIMEN FOR U/A WITH REFLEX TO UTI PANEL (MOLECULAR) VIA CLEAN CATCH URINE AND IF UNABLE TO OBTAIN MAY PERFORM AN IN AND OUT CATH. IF PATIENT HAS INDWELLING CATHETER MAY OBTAIN FROM SAMPLING PORT. (OPTION 2) RN/PLATE GLASS GRINDER/CERAMIC ARTIST TO OBTAIN URINE SPECIMEN FOR UTI PANEL (MOLECULAR) VIA SWAB COLLECTION METHOD FROM ADULT BRIEF/DIAPER OR PAD IF PATIENT IS INCONTINENT. INCLUDE ANTIBIOTIC/ANTIFUNGAL RESISTANCE TESTING INCLUDE URINALYSIS (ONLY FOR CLEAN CATCH/ IN AND OUT CATH) NOTIFY PROVIDER OF RESULTS AND OBTAIN FURTHER ORDERS.] Future Scheduled Test URINARY IN CONTINENCE MANAGEMENT; RN TO ASSESS AND TEACH, CERAMIC ARTIST/LVNTO OBSERVE AND TEACH MANAGEMENT OF URINARY INCONTINENCE. TEACH/INSTRUCT ON PREVENTING INFECTION AND SKIN BREAKDOWN. RN/CERAMIC ARTIST/PLATE GLASS GRINDER MAY INSTRUCT IN BLADDER TRAINING PROGRAM INDICATED. [code = URINARY INCONTINENCE MANAGEMENT; RN TO ASSESS AND TEACH, CERAMIC ARTIST/LVNTO OBSERVE AND TEACH MANAGEMENT OF URINARY INCONTINENCE. TEACH/INSTRUCT ON PREVENTING INFECTION AND SKIN BREAKDOWN. RN/CERAMIC ARTIST/PLATE GLASS GRINDER MAY INSTRUCT IN BLADDER TRAINING PROGRAM INDICATED.] Future Scheduled Test URINARY TR ACT INFECTION MANAGEMENT; RN/PLATE GLASS GRINDER/CERAMIC ARTIST TO PROVIDE SKILLED TEACHING AND SELF- CARE MANAGEMENT RELATED TO UTI TO MINIMIZE COMPLICATIONS AND REDUCE THE RISK OF HOSPITALIZATION. [code = URINARY TRACT INFECTION MANAGEMENT; RN/PLATE GLASS GRINDER/CERAMIC ARTIST TO PROVIDE SKILLED TEACHING AND SELF- CARE MANAGEMENT RELATED TO UTI TO MINIMIZE COMPLICATIONS AND REDUCE THE RISK OF HOSPITALIZATION.] Future Scheduled Test INDWELLING URINARY CATHETER MANAGEMENT; RN/CERAMIC ARTIST/PLATE GLASS GRINDER TO INSTRUCT PATIENT / CAREGIVER ON INDWELLING URINARY CATHETER MANAGEMENT INCLUDING CARE OF CATHETER, SIGN AND SYMPTOMS OF COMPLICATIONS, PERINEAL CARE, TUBE AND BAG PLACEMENT, PREVENTION OF INFECTION AND SKIN BREAKDOWN. [code = INDWELLING URINARY CATHETER MANAGEMENT; RN/CERAMIC ARTIST/PLATE GLASS GRINDER TO INSTRUCT PATIENT / CAREGIVER ON INDWELLING URINARY CATHETER MANAGEMENT INCLUDING CARE OF CATHETER, SIGN AND SYMPTOMS OF COMPLICATIONS, PERINEAL CARE, TUBE AND BAG PLACEMENT, PREVENTION OF INFECTION AND SKIN BREAKDOWN.] Future Scheduled Test INDWELLING URINARY CATHETER INSERTION; RN/CERAMIC ARTIST/PLATE GLASS GRINDER TO PERFORM INSERTION OF 16 FR INDWELLING CATHETER, INSTILL 10 CC OF NORMAL SALINE NTO BALLOON, SECURE TUBING WITH APPROPRIATE SECUREMENT DEVICE CHANGE EVERY MONTH AND PRN FOR LEAKAGE, BLOCKAGE, DISLODGEMENT, OR MALFUNCTION. [code = INDWELLING URINARY CATHETER INSERTION; RN/CERAMIC ARTIST/PLATE GLASS GRINDER TO PERFORM INSERTION OF 16 FR INDWELLING CATHETER, INSTILL 10 CC OF NORMAL SALINE NTO BALLOON, SECURE TUBING WITH APPROPRIATE SECUREMENT DEVICE CHANGE EVERY MONTH AND PRN FOR LEAKAGE, BLOCKAGE, DISLODGEMENT, OR MALFUNCTION.] Future Scheduled Test RN/CERAMIC ARTIST/PLATE GLASS GRINDER TO PERFORM/TEACH PATIENT/CAREGIVER WOUND CARE PRESSURE INJURY TO SACRAL AREA . CLEANSED/IRRIGATED WOUND WITH NS, PAT DRY WITH GAUZE, APPLIED SKIN PREP TO KINGS WOUND, APPLIED CA ALGINATE WITH SILVER TO WOUND BED, LOOSELY PACKED WITH GAUZE TO FILL EMPTY SPACE OF WOUND, COVERED WITH ADHESIVE FOAM DRESSING [code = RN/CERAMIC ARTIST/PLATE GLASS GRINDER TO PERFORM/TEACH PATIENT/CAREGIVER WOUND CARE PRESSURE INJURY TO SACRAL AREA . CLEANSED/IRRIGATED WOUND WITH NS, PAT DRY WITH GAUZE, APPLIED SKIN PREP TO KINGS WOUND, APPLIED CA ALGINATE WITH SILVER TO WOUND BED, LOOSELY PACKED WITH GAUZE TO FILL EMPTY SPACE OF WOUND, COVERED WITH ADHESIVE FOAM DRESSING] Future Scheduled Test SKIN INTEG RITY RN TO ASSESS AND TEACH, CERAMIC ARTIST/PLATE GLASS GRINDER TO OBSERVE AND TEACH INTEGUMENTARY STATUS TO IDENTIFY CHANGES AND INTERVENE TO MINIMIZE COMPLICATIONS. PROVIDE SKILLED TEACHING OF GENERAL WOUND AND SKIN CARE AND PREVENTION RELATED TO POTENTIAL FOR OR ACTUAL ALTERED SKIN INTEGRITY [code = SKIN INTEGRITY RN TO ASSESS AND TEACH, CERAMIC ARTIST/PLATE GLASS GRINDER TO OBSERVE AND TEACH INTEGUMENTARY STATUS TO IDENTIFY CHANGES AND INTERVENE TO MINIMIZE COMPLICATIONS. PROVIDE SKILLED TEACHING OF GENERAL WOUND AND SKIN CARE AND PREVENTION RELATED TO POTENTIAL FOR OR ACTUAL ALTERED SKIN INTEGRITY] Future Scheduled Test RN TO ASSE SS AND TEACH, CERAMIC ARTIST/PLATE GLASS GRINDER TO OBSERVE AND TEACH INTEGUMENTARY STATUS RELATED [...] [code = RN TO ASSESS AND TEACH, CERAMIC ARTIST/PLATE GLASS GRINDER TO OBSERVE AND TEACH INTEGUMENTARY STATUS RELATED [...] Test CARDIOVASC ULAR SYSTEM; RN TO ASSESS/TEACH, CERAMIC ARTIST/PLATE GLASS GRINDER TO OBSERVE/TEACH RELATED TO ALTERED CARDIOVASCULAR STATUS TO MINIMIZE COMPLICATIONS AND REDUCE HOSPITALIZATION. [code = CARDIOVASCULAR SYSTEM; RN TO ASSESS/TEACH, CERAMIC ARTIST/PLATE GLASS GRINDER TO OBSERVE/TEACH RELATED TO ALTERED CARDIOVASCULAR STATUS TO MINIMIZE COMPLICATIONS AND REDUCE HOSPITALIZATION.] Future Scheduled Test HYPERTENSI ON MANAGEMENT; RN TO ASSESS AND TEACH, CERAMIC ARTIST/PLATE GLASS GRINDER TO OBSERVE AND TEACH WARNING SIGNS AND SYMPTOMS TO AVOID HOSPITALIZATION. [code = HYPERTENSION MANAGEMENT; RN TO ASSESS AND TEACH, CERAMIC ARTIST/PLATE GLASS GRINDER TO OBSERVE AND TEACH WARNING SIGNS AND SYMPTOMS TO AVOID HOSPITALIZATION.] Future Scheduled Test ANEMIA MAN AGEMENT; RN TO ASSESS AND TEACH, PLATE GLASS GRINDER/CERAMIC ARTIST TO OBSERVE AND TEACH AND PROVIDE EDUCATION ON ANEMIA. [code = ANEMIA MANAGEMENT; RN TO ASSESS AND TEACH, PLATE GLASS GRINDER/CERAMIC ARTIST TO OBSERVE AND TEACH AND PROVIDE EDUCATION ON ANEMIA.] Future Scheduled Test MALNUTRITI ON MANAGEMENT; RN TO ASSESS AND TEACH, PLATE GLASS GRINDER/CERAMIC ARTIST TO OBSERVE AND TEACH AND INSTRUCT PATIENT / CAREGIVER ON INTERVENTIONS TO IMPROVE NUTRITIONAL INTAKE AND PATIENT WELLBEING. [code = MALNUTRITION MANAGEMENT; RN TO ASSESS AND TEACH, PLATE GLASS GRINDER/CERAMIC ARTIST TO OBSERVE AND TEACH AND INSTRUCT PATIENT / CAREGIVER ON INTERVENTIONS TO IMPROVE NUTRITIONAL INTAKE AND PATIENT WELLBEING.] Future Scheduled Test ANTITHROMB OTIC MANAGEMENT; RN TO ASSESS AND TEACH, CERAMIC ARTIST/PLATE GLASS GRINDER TO OBSERVE/TEACH/MONITOR EFFECTIVENESS OF ANTITHROMBOTIC THERAPY. RN/CERAMIC ARTIST/PLATE GLASS GRINDER TO INSTRUCT ON SIGNS AND SYMPTOMS OF BLEEDING/ADVERSE REACTIONS TO REPORT TO PHYSICIAN. PATIENT PRESCRIBED XARELTO [code = ANTITHROMBOTIC MANAGEMENT; RN TO ASSESS AND TEACH, CERAMIC ARTIST/PLATE GLASS GRINDER TO OBSERVE/TEACH/MONITOR EFFECTIVENESS OF ANTITHROMBOTIC THERAPY. RN/CERAMIC ARTIST/PLATE GLASS GRINDER TO INSTRUCT ON SIGNS AND SYMPTOMS OF [...] Notes <paragraph>[Visit Date: 2024 by JAVON LERNER LPN]:</paragraph><paragraph>SENIOR LIVING VISIT FOR BEDBOUND PT FOR WOUND CARE, [...] WHICH HE STATES IS DR. MORALES IN [facility] AND GAVE ME THE NUMBER, I DID CONTACT THEIR OFFICE WHICH I LEFT A VOICEMAIL AND THEN CONTACTED THEM AGAIN AROUND 2:30PM AND DID NOT HEAR FROM OFFICE. KADEEM DICKINSON FROM [facility] CONTACTED THIS NURSE AND STATED PT STATED [...] TO WAIT UNTIL TOMORROW. CORIE MOSLEY AT [facility] WAS CONTACTED BEFORE OFFICE CLOSED AND MADE AWARE OF THE SITUATION. ADVISED TO CONTACT HH WITH QUESTIONS OR CONCERNS</paragraph> Encounters Start Date/Time End Date/Time Encounter Type Admission Type Attending Clinicians [facility] Facility Care Department Encounter ID Discharge Date Discharge Status Discharge Condition Discharge Reason Percent Goals Met 2024-12-20 00:00:00 2025-02-17 00:00:00 Outpatient RECERTIFIC ATION SOCRATES [facility] [id number]
== END 2025-02-13 17:30 | disposition home health service (06) | DRG 717 ==
LOC: ANHED 10:00 → ANHIMU 13:10 → ANH2MED 02-09 01:23
PROVIDERS: Nurse Practitioner; Urology; Admitting Provider Student in an Organized Health Care Education/Training Program; Emergency Provider Emergency Medicine; PCP Family Medicine; Visit Provider Student in an Organized Health Care Education/Training Program
PROC: (CPT 54700; principal; 2025-02-07 21:30)
DX: N49.2 Inflammatory disorders of scrotum (principal); E43 Unspecified severe protein-calorie malnutrition; L89.153 Pressure ulcer of sacral region, stage 3; T83.511A Infection and inflammatory reaction due to indwelling urethral catheter, initial encounter; M46.28 Osteomyelitis of vertebra, sacral and sacrococcygeal region; T82.868A Thrombosis due to vascular prosthetic devices, implants and grafts, initial encounter; E87.1 Hypo-osmolality and hyponatremia; N39.0 Urinary tract infection, site not specified; Z68.1 Body mass index [BMI] 19.9 or less, adult; I73.9 Peripheral vascular disease, unspecified; I25.10 Atherosclerotic heart disease of native coronary artery without angina pectoris; I10 Essential (primary) hypertension; N40.0 Benign prostatic hyperplasia without lower urinary tract symptoms; G89.21 Chronic pain due to trauma; E87.6 Hypokalemia; D64.9 Anemia, unspecified; R33.9 Retention of urine, unspecified; V89.2XXS Person injured in unspecified motor-vehicle accident, traffic, sequela; Z74.01 Bed confinement status; Z79.02 Long term (current) use of antithrombotics/antiplatelets; Z79.01 Long term (current) use of anticoagulants
CPT/HCPCS: 36415; 74177; 80048; 80053; 80202; 81001; 82607; 82728; 82746; 83540; 83550; 83605; 85025; 85027; 85610; 85730; 86140; 87040; 87070; 87075; 87086; 93005; 93971; 94640; 96361; 96374; 99212; 99285; A9270; G0378; G0463; J0692; J1885; J2003; J2250; J2371; J2405; J2704; J3010; J3373; J3480; J7030; J7040; J7120; Q9967

== ENCOUNTER 2025-03-06 12:39 | Emergency (ER) | payer MEDICARE, MEDICAID, SELFPAY ==
--- OUTSIDE RECORDS SUMMARY | 2023-12-05 01:30 | XMS_ITS ---
Author Organization [facility] Address [address] [place] [address] Care Team Providers Care Telegraph Dispatcher Name Role Phone Dre Singh Primary Care Provider Unavailab Agusto Espinoza Unavailable [phone] Magdi Mclain Unavailable [phone] REASON FOR VISIT C4-5, C5-6, C6-7 ACDF / instrum / allo Encounters Encounter Location Date Provider Diagnosis [facility] - Inpatient [address] [place] [address] 12/05/2023 Magdi Mclain Plan Of Treatment No Information Progress Notes * Aravind CALLAHANDOB:1955 (69 yo M)Acc No.[id number]:12/05/2023 Progress Note Patient: Aravind Garcia Provider: Hernesto Mclain PA-C :1955 A ge:68 Y S ex:Male Date:12/05/2023 Phone: Address:[address] [place] [address] [facility] Pcp:Dre Singh Subjective: * Chief Complaints: * C 4-5, C5-6, C6-7 ACDF / instrum / allo Billing Information: * Procedure Codes: * Electronic signature of Magdi Mclain PA-C on 03/06/2025 at 02:56 PM EST Sign off status: Pending * Provider: Hernesto Mclain PA-C Date: 0 12/05/2023 Generated for Printi ng/Faxing/eTransmitting on: 1 05/07/2024 02:56 PM EST
--- OUTSIDE RECORDS SUMMARY | 2023-12-05 01:30 | XMS_ITS ---
Author Organization [facility] Address [address] [place] [address] Care Team Providers Care Leather Polisher Name Role Phone Dre Singh Primary Care Provider Unavailab Agusto Espinoza Unavailable [phone] REASON FOR VISIT C4-5, C5-6, C6-7 ACDF / instrum / allo Encounters Encounter Location Date Provider Diagnosis [facility] [facility] [address] [place] [address] 12/05/2023 Agusto Rasmussen Plan Of Treatment No Information Progress Notes * Aravind CALLAHANDOB:1955 (69 yo M)Acc No.[id number]:12/05/2023 Progress Note Patient: Aravind Garcia Provider: Hernesto Rasmussen MD :1955 A ge:68 Y S ex:Male Date:12/05/2023 Phone: Address:[address] [place], [place] [id number] Pcp:Dre Singh Subjective: * Chief Complaints: * C 4-5, C5-6, C6-7 ACDF / instrum / allo Billing Information: * Procedure Codes: * Electronic signature of Pari Rasmussen MD on 03/06/2025 at 02:57 PM EST Sign off status: Pending * Provider: Hernesto Rasmussen MD Date: 0 12/05/2023 Generated for Printi ng/Faxing/eTransmitting on: 1 05/07/2024 02:57 PM EST
--- OUTSIDE RECORDS SUMMARY | 2023-12-17 04:30 | XMS_ITS ---
Author Organization [facility] Address [address] [place] [address] Care Team Providers Care Hose Sprayer Name Role Phone Dre Singh Primary Care Provider Unavailab Agusto Espinoza Unavailable [phone] Beronica Esqueda Unavailable [phone] Results Component Value Reference Range Notes X ray : Cervical Spine 7 vie ws, AP, Lateral, Swimmers, Obliques, Flexion and Extension Reviewed date:12/17/2023 04:11:11 PM Interpretation:305 Performing Lab: Notes/Report: 305 REASON FOR VISIT 1st post op ACDF Medications Medication SIG (Take, Route, Frequency, Duration) Notes Start Date End Date Status Vascepa Active Percocet 10-325 MG Tablet 1 tablet as ne eded Orally every 4 hrs; Duration: 7 days 12/02/2023 Active predniSONE 10 MG Tablet 1 tablet Orally twice a day; Duration: 10 days 12/02/2023 Active Percocet 10-325 MG Tablet 1-2 tablet as needed Orally every 4 hrs; Duration: 15 days 12/05/2023 Active predniSONE 10 MG Tablet 1 tablet Orally twice a day; Duration: 10 days 12/05/2023 Active Multivitamin Active hydroCHLOROthiazide Active Xarelto Active HYDROcodone-Acetaminophen Active Tamsulosin HCl Activ e Plavix Active Social History Tobacco Use: Social History Observation Description Date Details (start date - stop date) Never Smoker NA - NA Social History Tobacco Use: Social Info Question Answer Notes Tobacco Use/Smoking Are you a nonsmoker Section Notes: He is with two child marley. He denies use of alcohol. He denies drug or chemical addiction. He is in a wheelchair and is disabled. Problems Problem Type SNOMED Code ICD Code Onset Dates Problem Status W/U Status Risk Notes Problem [facility] (Z47.89) Active confirmed Vital Signs Height 70 in 12/17/2023 Weight 270 lbs 12/17/2023 BMI 38.74 kg/m2 12/17/2023 Encounters Encounter Location Date Provider Diagnosis [facility] [address] [place] [address] 12/17/2023 Beronica Esqueda [facility] Z47.89 Assessments Encounter Date Diagnosis (ICD Code) Assessment Notes Treatment Notes Treatment Clinical Notes Section Notes 12/17/2023 [facility] (ICD-10 - Z47.89) Plan Of Treatment No Information Progress Notes * Aravind CALLAHANDOB:1955 (69 yo M)Acc No.[id number]:12/17/2023 Progress Note Patient: Aravind Garcia Provider: HARRIET Garcia :1955 A ge:68 Y S ex:Male Date:12/17/2023 Phone: Address:[address] [place], [place] [id number] Pcp:Dre Singh Subjective: * Chief Complaints: * 1 st post op ACDF * Medical History: Blood Clots Medical History Verified * Surgical History: None Documented Surgical History verified. * Hospitalization/Major Diagno stic Procedure: None Documented Hospitalization Verified. * Family History: F amily History Verified.. None Documented. * Social History: T obacco Use: T obacco Use/Smoking A re you a n onsmoker S ocial History Verified. H sue is with two children. He denies use of alcohol. He denies drug or chemical addiction. He is in a wheelchair and is disabled. * Medications: T akingPlavix HYDROcodone-Acetaminophen Tamsulosin HCl Multivitamin hydroCHLOROthiazide Xarelto Vascepa Percocet 10-325 MG Tablet 1 tablet as needed Orally every 4 hrs predniSONE 10 MG Tablet 1 tablet Orally twice a day Percocet 10-325 MG Tablet 1- 2 tablet as needed Orally every 4 hrs predniSONE 10 MG Tablet 1 tablet Orally twice a day Taking Plavix Taking HYDROcodone-Acetaminophen Taking Tamsulosin HCl Taking Multivitamin Taking hydroCHLOROthiazide Taking Xarelto Taking Vascepa Taking Percocet 10-325 MG Tablet 1 tablet as needed Orally every 4 hrs Taking predniSONE 10 MG Tablet 1 tablet Orally twice a day Taking Percocet 10-325 MG Tablet 1-2 tablet as needed Orally every 4 hrs Taking predniSONE 10 MG Tablet 1 tablet Orally twice a day * Allergies: y esAllergies Verified. Objective: * Vitals: H t:70in, Wt:270lbs, BMI:38.74Index, Ht-cm:177.8cm, Wt-k.47kg. Assessment: * Assessment: 1. O rthopedic aftercare - Z47.89 Plan: * Treatment: * Procedure Codes: q 4010 A HINES CARE PROT/HO TOOL/[id number] X-RAY EXAM OF NECK SPINE Billing Information: * Procedure Codes: q4010 A HINES CARE PROT/HO TOOL/CHECKLIST. 51551 X-RAY EXAM OF NECK SPINE. * Electronic signature of Kimberlyn Esqueda NP on 03/06/2025 at 02:56 PM EST Sign off status: Pending * Provider: HARRIET Garcia Date: Generated for Ranjit lockhart/Surya/Mariana on: 05/07/2024 02:56 PM EST
--- OUTSIDE RECORDS SUMMARY | 2024-01-02 07:00 | XMS_ITS ---
Author Organization [facility] Address [address] [place] [address] Care Team Providers Care Supervisor Phosphorus Processing Name Role Phone Dre Singh Primary Care Provider Unavailab Agusto Espinoza Unavailable [phone] REASON FOR VISIT C4-6 Post Lami Problems Problem Type SNOMED Code ICD Code Onset Dates Problem Status W/U Status Risk Notes Problem Cervical myelopathy (075383865) Cervical myelopathy (G95.9) Active confirmed Encounters Encounter Location Date Provider Diagnosis [facility] - Inpatient [address] [place] [address] 01/02/2024 Agusto Rasmussen Plan Of Treatment No Information Progress Notes * Aravind CALLAHANDOB:1955 (69 yo M)Acc No.[id number]:01/02/2024 Progress Note Patient: Aravind Garcia Provider: Hernesto Rasmussen MD :1955 A ge:68 Y S ex:Male Date:01/02/2024 Phone: Address:[address] [facility] Pcp:Dre Singh Subjective: * Chief Complaints: * C 4-6 Post Lami Billing Information: * Procedure Codes: * Electronic signature of Pari Rasmussen MD on 03/06/2025 at 02:57 PM EST Sign off status: Pending * Provider: Hernesto Rasmussen MD Date: Generated for Printi ng/Faxing/eTransmitting on: 1 05/07/2024 02:57 PM EST
--- OUTSIDE RECORDS SUMMARY | 2024-01-02 07:00 | XMS_ITS ---
Author Organization [facility] Address [address] [place] [address] Care Team Providers Care Smasher Name Role Phone Dre Singh Primary Care Provider Unavailab Agusto Espinoza Unavailable [phone] Magdi Mclain Unavailable [phone] REASON FOR VISIT C4-6 Post Lami Encounters Encounter Location Date Provider Diagnosis [facility] - Inpatient [address] [place] [address] 01/02/2024 Magdi Mclain Plan Of Treatment No Information Progress Notes * NIKOLASLIZET AravindDOB:1955 (69 yo M)Acc No.[id number]:01/02/2024 Progress Note Patient: Aravind Garcia Provider: Hernesto Mclain PA-C :1955 A ge:68 Y S ex:Male Date:01/02/2024 Phone: Address:[address] [place] [address] [facility] Pcp:Dre Singh Subjective: * Chief Complaints: * C 4-6 Post Lami Billing Information: * Procedure Codes: * Electronic signature of Magdi Mclain PA-C on 03/06/2025 at 02:57 PM EST Sign off status: Pending * Provider: Hernesto Mclain PA-C Date: Generated for Printi ng/Faxing/eTransmitting on: 1 05/07/2024 02:57 PM EST
[2025-03-06] VITALS (8 sets, daily range): BP systolic 100–130; BP diastolic 62–71; PULSE 72–94; RESP 16; TEMP 36.7; O2SAT 98–100
--- NOTE | ~2025-03-06 | US_ITS ---
EXAMINATION: Ultrasound scrotum with Doppler: DATE: 03/06/2025, 3:53 PM INDICATION: 69-year-old male scrotal pain. History of debridement procedure on February 07. TECHNIQUE: High resolution ultrasound with Doppler. COMPARISON: No prior studies available for comparison. FINDINGS: No intratesticular lesions on either side. Diffuse edema and cellulitis of the scrotal wall. Color perfusion is noted within the testes on both sides. Small right hydrocele. IMPRESSION: 1. Color perfusion noted within the testis on both sides. 2. Edema scrotal wall cellulitis. 3. Small right hydrocele. Reviewed, dictated and finalized at location T. NG MACHINE OPERATOR AUTOMATIC
--- NOTE | 2025-03-06 13:38 | ED_ITS ---
HPI - General Adult General Chief complaint: Urogenital-Male Stated complaint: scrotal pain Time Seen by Provider: 03/06/25 13:37 History of Present Illness HPI narrative: 69-year-old male with recently admitted for surgical exploration incision and drainage of a scrotal abscess and necrotic tissue presents emergency department from home with family after the home health nurse requested that he be evaluated. He denies any fevers chills no purulent discharge. Endorses same amount of pain in his testicle. Denies any trauma. Denies any abdominal pain or nausea no vomiting. 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 PVD (peripheral vascular disease) CAD (coronary artery disease) HTN (hypertension), benign Family History Family History Other Unknown family medical history Social History Social History Smoking status: Never smoker Alcohol intake: never Substance use: never Substance use type: does not use Lack of Transportation: No Lack of Food: Never True Current Housing: I Have Housing Concerned About Future Housing: No Difficulty Paying Gas/Electric Bills: No Difficulty Paying for Meds: No Currently Unemployed: No Education: High School Diploma/GED Difficulty w/ Childcare or Family Care: No Spiritual care concerns: No Exam 2 Narrative: EXAMINATION OF ORGAN SYSTEMS/BODY AREAS: Constitutional: Vital signs per nursing GENERAL:[No acute distress, non-toxic appearing.] HEAD: Normal with no signs of head trauma. EYES: EOMI, conjunctiva normal ENT: Hearing grossly intact LUNGS: Nonlabored breathing. HEART: [Regular rate and rhythm] ABD: [Soft], [nontender to palpation] exam, the testicles themselves are nontender with the scrotal wall slightly erythematous and tender, the surgical site is packed, there is no drainage. No foul odor. It is not necrotic. The abdomen is nontender. There is no inguinal lymphadenopathy EXT: Normal range of motion SKIN: [No rashes or lesions.] NEURO: [Alert. No gross focal sensory or strength deficits.] PSYCH: Normal affect Course Vital Signs Vital signs: Vital Signs Temperature 36.7 C 03/06/25 12:40 Pulse Rate 94 03/06/25 12:40 Respiratory Rate 16 03/06/25 12:40 Blood Pressure 110/62 03/06/25 12:40 Pulse Oximetry 100 03/06/25 12:40 Oxygen Delivery Room Air 03/06/25 12:40 Temperature 36.7 C 03/06/25 12:40 Pulse Rate 84 03/06/25 15:30 Respiratory Rate 16 03/06/25 15:30 Blood Pressure 100/66 03/06/25 15:30 Pulse Oximetry 99 03/06/25 15:30 Oxygen Delivery Room Air 03/06/25 12:40 [facility] Differential Diagnosis Differential Diagnosis: 61-year-old male presents with wound check. He is hemodynamically stable minimally purulent. I did think it prudent to obtain a scrotal ultrasound to rule out recurring abscess versus mass which there is no evidence also obtain basic blood work there is no leukocytosis abdomen abundance of caution to get blood cultures that were sent. Patient is adamant he does not want be admitted to the hospital despite his significant chronic comorbidities I do not think this is unreasonable given review of the EMR, I will send him home on Bactrim for his minimally purulent cellulitis strict return precautions she developed any fevers chills or concerning symptoms. Also instructed he needs to call his urologist 1st thing on Saturday morning have the wound re-evaluated scheduled appointment. Otherwise all questions answered discharge is poor baseline level of health Medical Records I have reviewed the following patient records and this information was taken into consideration when formulating the assessment and plan.: previous labs, previous ER visits, previous hospitalizations and previous clinic visits Lab Data [facility] Lab Attestation statement: I personally reviewed the patient's lab results. 03/06/25 14:51 03/06/25 14:51 Labs: Lab Results 03/06/25 Range/Units 14:51 WBC 8.0 (4.5-10.0) K/mm3 RBC 4.37 L (4.6-6.20) M/mm3 Hgb 10.8 L D (14.0-18.0) g/dL Hct 34.3 L (42.0-52.0) % MCV 78.5 L (80-100) fl MCH 24.7 L (26-34) pg MCHC 31.5 L (32-36) g/dl RDW 19.5 H (11.5-14.5) % Plt Count 262 (150-375) k/mm3 MPV 8.2 (7.4-10.4) fl Immature Gran % (Auto) 0.2 (0-0.5) % Neut % (Auto) 65.7 (45.5-73.1) % Lymph % (Auto) 25.6 (18.3-44.2) % Camp % (Auto) 7.7 (2.6-8.5) % Eos % (Auto) 0.6 (0-4.4) % Baso % (Auto) 0.2 (0.2-1.2) % Lymph # (Auto) 2.05 (0.9-3.2) K/mm3 Camp # (Auto) 0.6 (0.1-0.6) K/mm3 Eos # (Auto) 0.1 (0-0.3) K/mm3 Baso # (Auto) 0.0 (0.0-0.1) K/mm3 Abs Immat Gran (auto) 0.02 (0.00-0.031) K/mm3 Absolute Neuts (auto) 5.3 (1.3-6.7) K/mm3 Absolute Nucleated RBC 0.000 (0.0-0.012) K/mm3 Nucleated RBC % 0.0 (0.0-0.2) % Sodium 132 L (137-145) mmol/L Potassium 3.0 L (3.4-5.0) mmol/L Chloride 98 (98-107) mmol/L Carbon Dioxide 33 H (22-30) mmol/L Anion Gap 1 L (4-12) mmol/L BUN 22 H (9-20) mg/dL Creatinine 0.69 L (0.7-1.3) mg/dL Estim Creat Clear Calc Not Reportable Estimated GFR > 60 (59 - ) Glucose 104 (65-110) mg/dL Calcium 8.2 L (8.4-10.2) mg/dL Total Bilirubin 0.2 (0.2-1.3) mg/dL AST 21 (17-59) U/L ALT 11 (6-50) U/L Alkaline Phosphatase 82 (38-126) U/L Total Protein 5.7 L (6.3-8.2) g/dL Albumin 2.8 L (3.5-5.1) g/dL Imaging Data Attestation: I personally reviewed and interpreted this imaging study as follows: My impression: do not appreciate any fluid-filled structures or abscess. Radiologist's impression: ITS Impressions Scrotum Ultrasound 03/06/25 15:53 IMPRESSION: 1. Color perfusion noted within the testis on both sides. 2. Edema scrotal wall cellulitis. 3. Small right hydrocele. Discharge Plan Discharge Clinical Impression: Cellulitis of scrotum Patient Disposition: Home Condition: Improved Instructions: Antibiotic Form, Cellulitis (ED) Patient Language: Yoruba Prescriptions: New sulfamethoxazole-trimethoprim [Bactrim] 400-80 mg tablet 1 tablet PO BID 10 Days Qty: 20 0RF No Action diphenoxylate-atropine [Lomotil] 2.5-0.025 mg tablet 1 tablet PO QID PRN (Reason: diarrhea) hydrocodone-acetaminophen 10-325 mg tablet 1 tablet PO Q12H PRN (Reason: pain) cephalexin 500 mg capsule 500 mg PO Q6HR 4 Days Qty: 14 0RF Rx Instructions: Take one capsule every 6 hours. Last day of medications 02/16. naloxone 0.4 mg/mL Solution 0.1 mg IM Q2M PRN (Reason: Opiate Reversal) 5 Days Qty: 5 0RF metronidazole 500 mg Tablet 500 mg PO Q8HR 4 Days Qty: 11 0RF Rx Instructions: Take 1 tablet every 8 hours, last day of antibiotics 02/16 Minerin Creme Cream 1 applic topical DAILY 30 Days Qty: 2 0RF atorvastatin 20 mg tablet 20 mg PO DAILY 30 Days Qty: 0 0RF diphenoxylate-atropine [Lomotil] 2.5-0.025 mg tablet 1 tablet PO QID PRN (Reason: diarrhea) 30 Days Qty: 0 0RF clopidogrel 75 mg tablet 75 mg PO DAILY 30 Days Qty: 0 0RF hydrocodone-acetaminophen 10-325 mg tablet 1 tablet PO Q12H PRN (Reason: pain) 5 Days Qty: 0 0RF tamsulosin 0.4 mg capsule 0.4 mg PO HS 30 Days Qty: 0 0RF hydrochlorothiazide 25 mg tablet 12.5 mg PO DAILY 30 Days Qty: 0 0RF fluticasone propionate 50 mcg/actuation spray,suspension 1 spray INTRANASAL HS 30 Days Qty: 0 0RF Xarelto 20 mg tablet 20 mg PO DAILY 30 Days Qty: 0 0RF multivitamin with folic acid [Tab-A-Caryn] 400 mcg tablet 1 tablet PO DAILY 30 Days Qty: 0 0RF icosapent ethyl [Vascepa] 1 gram capsule 2 g PO .q12 30 Days Qty: 0 0RF potassium chloride 20 mEq tablet extended release 20 meq PO DAILY 30 Days Qty: 1 0RF Follow-up/Referrals: Anne,MD Daniel [Primary Care Provider, Unknown] Tere Mehta APRN [Advanced Practice Nurse, Urology] - 3 Days Time of Disposition: 16:26
--- OUTSIDE RECORDS SUMMARY | 2025-03-06 13:57 | XMS_ITS | Clinical Summary ---
Author Organization [facility] [address] [place] [address] Care Team Providers Care Streetcar Dispatcher Name Role Phone Jeremy Levin MD Unavailable [phone] Dre Singh Primary Care Provider + [...] mL IV as needed for line care 14137 mL 5 08/29/19 Active heparin 10 unit/mL syringe flush syringeIndicati ons:Sacral wound, initial encounter Infuse 5 mL (50 Units total) IV as needed (line care) 03288 mL 5 08/29/19 Active cyclobenzaprine (FLEXERIL) 10 [...] (10/03/2021): Added automatically from request for surgery [id number] Positive colorectal cancer s creening using DNA-based [...] drink = 0.6 oz pur e alcohol) [facility] Utilities Answer Date Recorded In the past 12 months has th e [employer], oil, or water [employer] threatened to shut off services in your [...] often do you attend chur ch or yazdanism services? Never 08/21/2024 Do you belong to any clubs o r organizations such as evangelical groups, unions, fraternal or athletic groups, or [...] any time in the past 12 m [facility], were you homeless or living in a prison (including now)? No 08/21/2024 Personal Safety Answer Date Recorded Have you ever been in or are you currently in a harmful physical or emotional relationship or is someone making you feel afraid or unsafe? 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 Gender Identity Not on file Sexual Orientation [...] COMPLEX sacral wound 08/22/2024 08/22/2024 08/22/2024 Insurance [facility] MDCR HMO REF MEDICARE IDPA MEDICARE Advance Directives For more information, please contact: [phone] * Full Code (Latest Code Status on File) Date Activated Date Inactivated Comments 08/19/2024 6:54 PM 09/02/2024 1:00 PM Care Teams Streetcar Dispatcher Relationship Specialty [place] [address] [place] [address] PCP - Home Infusion Attending Infectious Diseases 08/26/24 Dre Singh PA [address] [place] [address] PCP - General Internal Medicine 08/27/24
--- OUTSIDE RECORDS SUMMARY | 2025-03-06 13:57 | XMS_ITS | Patient Health Record ---
Author Organization [facility] Address [address] [place] [address] Care Team Providers Care Slide Fastener Repairer Name Role Phone Dre Singh Primary Care Provider UnavailAgusto Alejandro Unavailable [phone] Allergies No Known Allergies Reason For Referral No Information Medications Medication SIG (Take, Route, Frequency, Duration) Notes Start Date End Date Status predniSONE 10 MG Tablet 1 tablet Orally twice a day; Duration: 10 days 01/03/2024 Active HYDROcodone-Acetaminophen Not-Taking Tamsulosin HCl Activ e predniSONE 10 MG Tablet 1 tablet Orally twice a day; Duration: 10 days 12/05/2023 Active Percocet 5-325 MG Tablet 1 tablet as nee ded Orally every 6 hrs 12/17/2023 Active Plavix Active Percocet 5-325 MG Tablet 1 tablet as nee ded Orally every 4 hrs; Duration: 7 days 01/03/2024 Active hydroCHLOROthiazide Active Xarelto Active Multivitamin Active predniSONE 10 MG Tablet 1 tablet Orally twice a day; Duration: 10 days 12/02/2023 Not-Taking Percocet 10-325 MG Tablet 1-2 tablet as needed Orally every 4 hrs; Duration: 15 days 12/05/2023 Active Vascepa Active Percocet 10-325 MG Tablet 1 tablet as ne eded Orally every 4 hrs; Duration: 7 days 12/02/2023 Not-Taking Social History Tobacco Use: Social History Observation [...] W/U Status Risk Notes Problem Cervical myelopathy with cervical 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) Active confirmed Problem Cervical myelopathy (276345991) Cervical myelopathy (G95.9) Active confirmed Problem Orthopedic aftercare (Z47.89) Active confirmed Plan Of Treatment Pending Test Test Name Order Date Anterior Cervical Discectomy and Fusion 11/28/2023 Insurance Providers Payer Name Payer Address Payer Phone Subscriber Number Group Number Insured Name Patient Relationship to Insured Coverage Start Date Coverage End Date [facility] Medicare Advantage HMO [address] [address] [place] [address] [phone] [id number] Aravind Callahan Self - patient is the insured 4 Medical (General) History Medical History History ICD Code Blood Clots Surgical History Surgery Date(Month/Year) C4-5, C5-6, C6-7 Anterior Fusions for My elopathy 11/21/23 Hospitalization History Reason Date(Month/Year) As per above.
--- OUTSIDE RECORDS SUMMARY | 2025-03-06 13:57 | XMS_ITS | Clinical Summary ---
Author Organization [facility] Address [address] [place] [address] Care Team Providers Care Commercial Underwriter Name Role Phone Palak Flanagan MD Primary Care Provider [phone] Source Comments [facility],non-owned Affiliates and Associated Physician Practices is amultiple site organization consisting of ambulatory clinics and hospital sitesin [place], [place], [place] and [place]. This disclosure is being madepursuant to the Care Everywhere program and may not contain all information available regarding this patient. 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 Gender Identity Not on file Sexual Orientation [...] Oxygen Concentration 21% 04/21/2018 7 :22 AM DYNAMOTOR REPAIRER Weight 108 kg (238 lb) 07/23/2018 3:01 [...] this topic Medical Devices Implanted Type Area Signal Mechanic Device Identifier Shelf Expiration Date Model / Serial / Lot Plate 106mm 6 Hl Lck Ss 2.7-3.5mm Screw Implanted:Qty: 1 on 04/17/2018 by Jesus Copeland MD at [facility] Right: Ankle [employer] [id number] / / Screw 3.5mm 2.7mm 16mm Elb Hua Periart Implanted:Qty: 3 on 04/17/2018 by Jesus Copeland MD at [facility] Right: Ankle [employer] [id number] / / Screw 3.5mm 56mm Hua Slf-Tap Bone Implanted:Qty: 1 on 04/17/2018 by Jesus Copeland MD at [facility] Right: Ankle [employer] [id number] / / Screw 2.7mm 2.5mm 18mm Hua Slf-Tap Sm Implanted:Qty: 1 on 04/17/2018 by Jesus Copeland MD at [facility] Right: Ankle [employer] [id number] / / Screw 2.7mm 2.5mm 20mm Hua Slf-Tap Sm Implanted:Qty: 4 on 04/17/2018 by Jesus Copeland MD at [facility] Right: Ankle [employer] [id number] / / Procedures Procedure Name Priority Date/Time [...] LAB - CHEMISTRY ORDERABLES Fi nal Result [facility] [address] [place] [address] * (ABNORMAL) COMPREHENSIVE METABOLIC PANEL (07/23/2018 5:07 PM T) BUN 21 7 - 26 mg/dL 07/23/2018 6:02 PM [facility] Creatinine 1.0 0.6 - 1.2 mg/dL 07/23/2018 6:02 PM [facility] Sodium 143 136 - 145 mmol/L 07/23/2018 6:02 PM [facility] Potassium 4.0 3.5 - 4.5 mmol/L 07/23/2018 6:02 PM [facility] Chloride 108(H) 98 - 107 mmol/L 07/23/2018 6:02 PM [facility] CO2 27 22 - 29 mmol/L 07/23/2018 6:02 PM [facility] Glucose 113 70 - 115 mg/dL 07/23/2018 6:02 PM [facility] Calcium 9.7 8.4 - 10.2 mg/dL 07/23/2018 6:02 PM [facility] Protein Total 6.5 6.0 - 8.3 g/dL 07/23/2018 6:02 PM [facility] Albumin 3.5 3.4 - 5.0 g/dL 07/23/2018 6:02 PM [facility] Bilirubin Total 0.1(L) 0.2 - 1.2 mg/dL 07/23/2018 6:02 PM [facility] Alkaline Phosphatase 71 40 - 150 Units/L 07/23/2018 6:02 PM [facility] ALT 26 0 - 55 Units/L 07/23/2018 6:02 PM [facility] AST 18 5 - 34 Units/L 07/23/2018 6:02 PM [facility] Anion Gap 12 8 - 18 07/23/2018 6:02 PM [facility] BUN/Creatinine Ratio 21 7 - 23 07/23/2018 6:02 PM [facility] Osmolality Calculated 300 270 - 300 mOsm/kg 07/23/2018 6:02 PM CDT [facility] Albumin/Globulin Ratio 1.2 1.1 - 2.3 07/23/2018 6:02 PM CDT [facility] eGFR >60 >60 mL/min/1.7 3 m2 07/23/2018 6:02 PM CDT [facility] Blood BLOOD SPECIMEN / Unknown Venipuncture / Unknown 07/23/2018 5:07 PM CDT 07/23/2018 5:16 PM CDT us Lou Paz MD LAB - CHEMISTRY ORDERABLES Fi nal Result [address] [phone] from Last 3 Months or Most Recently Relevant to Health Maintenance Insurance MEDICAID [place] [employer] [place] MEDICA[place] Advance Directives * Full Code (Latest Code Status on File) Date Activated Date Inactivated Comments 07/23/2018 5:33 PM 07/24/2018 4:25 PM * Full Code Date Activated Date Inactivated Comments 04/16/2018 8:20 PM 04/21/2018 2:33 PM Care Teams Commercial Underwriter Relationship Specialty Start Date End Date Palak Flanagan MD [facility] [place] [address] PCP - General Family Medicine 04/16/18
--- OUTSIDE RECORDS SUMMARY | 2025-03-06 13:57 | XMS_ITS | Clinical Summary ---
Author Organization [facility] Address [address] [place] [address] Phone Care Team Providers Care Field Installer Name Role Phone Unavailable Primary Care Provider [...] (1 - 1-dose 75+ series) 10/10/2031 Insurance [facility] [id number] MEDICAID [place] Advance Directives For more information, please contact: [phone] * Full Code (Latest Code Status on File) Date Activated Date Inactivated Comments 12/28/2023 4:22 PM 12/30/2023 8:39 PM
[2025-03-06 14:57] LABS: Hematocrit 34.3 % (42.0-52.0); Hemoglobin 10.8 g/dL (14.0-18.0); Immature Granulocyte Percent A 0.2 % (0-0.5); Lymphocytes Absolute Auto 2.05 K/mm3 (0.9-3.2); Mean Corpuscular HGB Conc 31.5 g/dl (32-36); Mean Corpuscular Hemoglobin 24.7 pg (26-34); Mean Corpuscular Volume 78.5 fl (80-100); Nucleated Red Blood Cells Absolute Auto 0.000 K/mm3 (0.0-0.012); Nucleated Red Blood Cells Perc 0.0 % (0.0-0.2); Platelet Count Result 262 k/mm3 (150-375); Red Blood Count 4.37 M/mm3 (4.6-6.20); White Blood Count 8.0 K/mm3 (4.5-10.0)
[2025-03-06] MEDS: HYDROcodone/acetaminophen (*CRX) 5-325 MG TABLET 1 TAB PO (14:59)
[2025-03-06 15:10] LABS: Alanine Aminotransferase 11 U/L (6-50); Albumin Level 2.8 g/dL (3.5-5.1); Alkaline Phosphatase 82 U/L (38-126); Anion Gap 1 mmol/L (4-12); Aspartate Amino Transferase 21 U/L (17-59); Bilirubin,Total 0.2 mg/dL (0.2-1.3); Calcium 8.2 mg/dL (8.4-10.2); Carbon Dioxide 33 mmol/L (22-30); Chloride 98 mmol/L (98-107); Glucose 104 mg/dL (65-110); Potassium 3.0 mmol/L (3.4-5.0); Sodium 132 mmol/L (137-145); Total Protein 5.7 g/dL (6.3-8.2)
[2025-03-06 15:20] LABS: Blood Urea Nitrogen 22 mg/dL (9-20); Estimated Glomerular Filt Rate > 60
[2025-03-06] MEDS: SULFAMETHOXAZOLE/TRIMETHOPRIM 800/160 MG DS TABLET 1 TAB PO (16:56)
--- OUTSIDE RECORDS SUMMARY | 2025-04-17 18:00 | XMS_ITS | Clinical Summary ---
Author Organization Unknown Care Team Providers Care Diesel Retrofit Installer Name Role Phone CARMEN SHAH, AFTAB Unavailable Unavailable LAURA PT, GERMAINE Unavailable Unavailable ANNELISE POSTAL CLERK, LUKAS Unavailable Unavailisadora MCDONALD OT, ALOK Unavailable Unavailable WESLEY RN, SOCARTES Unavailable Jayy LERNER LPN, JAVON Unavailable Unavailable Payers Payer Name Policy Type Policy Number Effective Date Expira tion Date MEDICARE.[facility] [id number] Problems Condition Name Condition Details Condition Category [...] 00 DEPRESSION, UNSPECIFIED Active 1 00:00: 00 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) USE OF ANTICOAGULAN TS Active 09-24 [...] 10-12 00:00: 00 10-30 23:59 :00 No [id number] ANTI-PLATLE T 1 tablet DAILY 1 tablet DAILY (route: oral) Med Classific ation: Hematolog ical Agents hydrochloro thiazide 25 mg tablet 10-12 00:00: 00 10-21 00:00 :00 No [id number] Per instruc tions Per instructio ns (route: oral) Med Classific ation: Cardiovas cular Therapy Agents potassium chloride ER 10 mEq tablet,exte nded release(par t/cryst) 10-08 00:00: 00 10-21 00:00 :00 No [id number] Per instruc tions Per instructio ns (route: oral) Med Classific ation: Electroly te Balance-N utritiona l Products atorvastati n 20 mg tablet 10-07 00:00: 00 Yes [id number] HIGH CHOLESTEROL 1 tablet DAILY 1 tablet DAILY (route: oral) Med Classific ation: Cardiovas cular Therapy Agents icosapent ethyl 1 gram capsule 10-05 00:00: 00 Yes [id number] SUPPLEMENT 2 capsule 2 TIMES DAILY 2 capsule 2 TIMES DAILY (route: oral) Med Classific ation: Cardiovas cular Therapy Agents Xarelto 20 mg tablet 10-04 00:00: 00 10-21 00:00 :00 No [id number] Unavailable Per instruc tions ONCE DAILY Per instructio ns ONCE DAILY (route: oral) Med Classific ation: Hematolog ical Agents diphenoxyla te-atropine 2.5 mg-0.025 mg tablet 10-03 00:00: 00 10-21 00:00 :00 No [id number] Per instruc tions Per instructio ns (route: oral) Med Classific ation: Gastroint estinal Therapy Agents hydroxyzine HCl 25 mg tablet 10-03 00:00: 00 10-21 00:00 :00 No [id number] Per instruc tions Per instructio ns (route: oral) Med Classific ation: Central Nervous System Agents hydrochloro thiazide 25 mg tablet 10-01 00:00: 00 02-18 23:59 :00 No [id number] FLUID RETENTION/H IGH BLOOD PRESSURE 1 tablet DAILY 1 tablet DAILY (route: oral) Med Classific ation: Cardiovas cular Therapy Agents Heparin Lock Flush (Porcine) (PF) 10 unit/mL intravenous syringe 09-26 00:00: 00 10-21 00:00 :00 No [id number] Per instruc tions Per instructio ns (route: intravenou s) Med Classific ation: Hematolog ical Agents tamsulosin 0.4 mg capsule 09-24 00:00: 00 Yes [id number] BENIGN PROSTATIC HYPERPLASIA -BPH 1 capsule BEDTIME 1 capsule BEDTIME (route: oral) Med Classific ation: Genitouri nary Therapy Xarelto 20 mg tablet 09-24 00:00: 00 Yes [id number] BLOOD THINNER 1 tablet DAILY 1 tablet DAILY (route: oral) Med Classific ation: Hematolog ical Agents loperamide 2 mg capsule 10-21 00:00: 00 Yes [id number] NEEDED FOR LOOSE STOOLS 1 capsule EVERY 2 HOURS 1 capsule EVERY 2 HOURS (route: oral) Med Classific ation: Gastroint estinal Therapy Agents multivitami n tablet 10-21 00:00: 00 Yes [id number] SUPPLEMENT 1 tablet DAILY 1 tablet DAILY (route: oral) Med Classific ation: Electroly te Balance-N utritiona l Products potassium chloride ER 20 mEq tablet,exte nded release 10-21 00:00: 00 Yes [id number] SUPPLEMENT 1 tablet DAILY 1 tablet DAILY (route: oral) Med Classific ation: Electroly te Balance-N utritiona l Products Tylenol Extra Strength 500 mg tablet 10-30 00:00: 00 Yes [id number] PAIN 2 tablet EVERY 4 HOURS 2 tablet EVERY 4 HOURS (route: oral) Med Classific ation: Analgesic , Anti-infl ammatory or Antipyret ic diphenoxyla te-atropine 2.5 mg-0.025 mg tablet 2024-03 00:00: 00 01-03 23:59 :00 No [id number] LOOSE STOOL 1 tablet EVERY 8 HOURS 1 tablet EVERY 8 HOURS (route: oral) Med Classific ation: Gastroint estinal Therapy Agents hydrocodone 10 mg-acetamin ophen 325 mg tablet 2024-03 00:00: 00 Yes [id number] PAIN 1 tablet EVERY 12 HOURS 1 tablet EVERY 12 HOURS (route: oral) Med Classific ation: Analgesic , Anti-infl ammatory or Antipyret ic cephalexin 500 mg capsule 2024-03 00:00: 00 02-18 23:59 :00 No [id number] ANTIBIOTICS 1 capsule EVERY 4 HOURS 1 capsule EVERY 4 HOURS (route: oral) Med Classific ation: Anti-Infe ctive Agents clopidogrel 75 mg tablet 2024-03 00:00: 00 Yes [id number] BLOOD THINNER 1 tablet DAILY 1 tablet DAILY (route: oral) Med Classific ation: Hematolog ical Agents fluticasone propionate 50 mcg/actuati on nasal spray,suspe nsion 2024-03 00:00: 00 Yes [id number] ALLERGIES 1 spray DAILY 1 spray DAILY (route: nasal) Med Classific ation: Respirato ry Therapy Agents hydrochloro thiazide 12.5 mg tablet 2024-03 00:00: 00 Yes [id number] DIURETIC 1 tablet DAILY 1 tablet DAILY (route: oral) Med Classific ation: Cardiovas cular Therapy Agents Lanolin (HPA) 100 % topical cream 2024-03 00:00: 00 Yes [id number] SKIN 1 inch DAILY 1 inch DAILY (route: topical) Med Classific ation: Dermatolo gical Lomotil 2.5 mg-0.025 mg tablet 2024-03 00:00: 00 Yes [id number] ANTI DIARRHEAL 1 tablet 4 TIMES DAILY 1 tablet 4 TIMES DAILY (route: oral) Med Classific ation: Gastroint estinal Therapy Agents metronidazo le 500 mg tablet 2024-03 00:00: 00 02-18 23:59 :00 No [id number] ANTIBIOTICS 1 tablet EVERY 8 HOURS 1 tablet EVERY 8 HOURS (route: oral) Med Classific ation: Anti-Infe ctive Agents naloxone 0.4 mg/mL injection solution 2024-03 00:00: 00 Yes [id number] OPIOIDS REVERSAL 0.1 mg DIRECTED 0.1 mg DIRECTED (route: injection) Med Classific ation: Antidotes and other Reversal Agents Vital Signs Vital Name Observation Time Observation Value Commen ts Temperature 2025-03-05 10:29:00.000 98.2 [degF] Temperature 2025-03-01 12:00:00.000 98 [degF] Temperature 2025-02-25 10:38:00.000 98 [degF] Temperature 2025-02-22 15:31:00.000 97.6 [degF] Temperature 2025-02-18 12:17:00.000 97.6 [degF] Pulse 2025-03-05 10:29:00.000 65 /min Pulse 2025-03-01 12:00:00.000 84 /min Pulse 2025-02-25 10:38:00.000 78 /min Pulse 2025-02-22 15:31:00.000 76 /min Pulse 2025-02-18 12:17:00.000 84 /min O2 Saturation (%) 2025-03-05 10:29:00.000 95 % O2 Saturation (%) 2025-03-01 12:00:00.000 96 % O2 Saturation (%) 2025-02-25 10:38:00.000 97 % O2 Saturation (%) 2025-02-22 15:31:00.000 97 % O2 Saturation (%) 2025-02-18 12:17:00.000 97 % Respirations 2025-03-05 10:29:00.000 18 /min Respirations 2025-03-01 12:00:00.000 18 /min Respirations 2025-02-25 10:38:00.000 20 /min Respirations 2025-02-22 15:31:00.000 18 /min Respirations 2025-02-18 12:17:00.000 18 /min Systolic Blood Pressure 2025-03-05 10:29:00.000 104 mm [Hg] Systolic Blood Pressure 2025-03-01 12:00:00.000 110 mm [Hg] Systolic Blood Pressure 2025-02-25 10:38:00.000 135 mm [Hg] Systolic Blood Pressure 2025-02-22 15:31:00.000 120 mm [Hg] Systolic Blood Pressure 2025-02-18 12:17:00.000 135 mm [Hg] Diastolic Blood Pressure 2025-03-05 10:29:00.000 65 mm [Hg] Diastolic Blood Pressure 2025-03-01 12:00:00.000 82 mm [Hg] Diastolic Blood Pressure 2025-02-25 10:38:00.000 75 mm [Hg] Diastolic Blood Pressure 2025-02-22 15:31:00.000 76 mm [Hg] Diastolic Blood Pressure 2025-02-18 12:17:00.000 77 mm [Hg] Plan of Treatment Planned Activity Planned Date Details Comments Future Scheduled Test RN TO OBSE RVE, ASSESS, EVALUATE, AND DEVELOP AN INDIVIDUALIZED PLAN OF CARE. AGENCY MAY ACCEPT ORDERS FROM CONSULTING PHYSICIANS. RN TO OBSERVE AND ASSESS, BUFFER CHROME/KNIFE SETTER ASSEMBLER TO OBSERVE FOR RISK FOR FALLS AND INSTRUCT IN FALL PREVENTION, HOME SAFETY, MEDICATION MANAGEMENT, INFECTION PREVENTION, AND NUTRITION MANAGEMENT. RN/BUFFER CHROME/KNIFE SETTER ASSEMBLER NURSE MAY PERFORM O2 SATURATION LEVEL ON ADMISSION AND PRN FOR RN TO ASSESS/BUFFER CHROME TO OBSERVE PATIENT, WITH NOTIFICATION TO THE PHYSICIAN IF SATURATION IS 90% IN THE ABSENCE OF MORE SPECIFIC PARAMETERS FROM THE PHYSICIAN. AGENCY MAY PERFORM A RESUMPTION OF CARE VISIT FOLLOWING ANY HOSPITAL ADMISSION. RN/BUFFER CHROME/KNIFE SETTER ASSEMBLER TO MONITOR CO-MORBID CONDITIONS LISTED ON THE PLAN OF CARE AND ANY NEW CONDITIONS THAT PRESENT THEMSELVES DURING THIS EPISODE TO IDENTIFY CHANGES AND INTERVENE TO MINIMIZE COMPLICATIONS. [code = RN TO OBSERVE, ASSESS, EVALUATE, AND DEVELOP AN INDIVIDUALIZED PLAN OF CARE. AGENCY MAY ACCEPT ORDERS FROM CONSULTING PHYSICIANS. RN TO OBSERVE AND ASSESS, BUFFER CHROME/KNIFE SETTER ASSEMBLER TO OBSERVE FOR RISK FOR FALLS AND INSTRUCT IN FALL PREVENTION, HOME SAFETY, MEDICATION MANAGEMENT, INFECTION PREVENTION, AND NUTRITION MANAGEMENT. RN/BUFFER CHROME/KNIFE SETTER ASSEMBLER NURSE MAY PERFORM O2 SATURATION LEVEL ON ADMISSION AND PRN FOR RN TO ASSESS/BUFFER CHROME TO OBSERVE PATIENT, WITH NOTIFICATION TO THE PHYSICIAN IF SATURATION IS 90% IN THE ABSENCE OF MORE SPECIFIC PARAMETERS FROM THE PHYSICIAN. AGENCY MAY PERFORM A RESUMPTION OF CARE VISIT FOLLOWING ANY HOSPITAL ADMISSION. RN/BUFFER CHROME/KNIFE SETTER ASSEMBLER TO MONITOR CO-MORBID CONDITIONS LISTED ON THE PLAN OF CARE AND ANY NEW CONDITIONS THAT PRESENT THEMSELVES DURING THIS EPISODE TO IDENTIFY CHANGES AND INTERVENE TO MINIMIZE COMPLICATIONS.] Future Scheduled Test MEDICATION MANAGEMENT; RN/BUFFER CHROME/KNIFE SETTER ASSEMBLER TO REVIEW MEDICATIONS FOR INTERACTIONS, EFFECTIVENESS OF DRUG THERAPY, AND SIGNS/SYMPTOMS OF ADVERSE REACTIONS. MAY INSTRUCT AND REINFORCE MEDICATION TEACHING RELATED TO THE USE OF MEDICATIONS, DOSAGE, FREQUENCY, PURPOSE, SIDE EFFECTS, AND TO REPORT COMPLICATIONS. [code = MEDICATION MANAGEMENT; RN/BUFFER CHROME/KNIFE SETTER ASSEMBLER TO REVIEW MEDICATIONS FOR INTERACTIONS, EFFECTIVENESS OF DRUG THERAPY, AND SIGNS/SYMPTOMS OF ADVERSE REACTIONS. MAY INSTRUCT AND REINFORCE MEDICATION TEACHING RELATED TO THE USE OF MEDICATIONS, DOSAGE, FREQUENCY, PURPOSE, SIDE EFFECTS, AND TO REPORT COMPLICATIONS.] Future Scheduled Test RISK FOR H OSPITALIZATION; RN TO ASSESS/TEACH, KNIFE SETTER ASSEMBLER/BUFFER CHROME TO OBSERVE/TEACH PATIENT/CAREGIVER ON RISK FOR HOSPITALIZATION/EMERGENCY ROOM VISITS, TEACH SIGNS AND SYMPTOMS THAT PUT PATIENT AT RISK, WHEN TO NOTIFY NURSE/PHYSICIAN OF COMPLICATIONS/DECLINE, AND WHEN TO CALL 911. [code = RISK FOR HOSPITALIZATION; RN TO ASSESS/TEACH, KNIFE SETTER ASSEMBLER/BUFFER CHROME TO OBSERVE/TEACH PATIENT/CAREGIVER ON RISK FOR HOSPITALIZATION/EMERGENCY ROOM VISITS, TEACH SIGNS AND SYMPTOMS THAT PUT PATIENT AT RISK, WHEN TO NOTIFY NURSE/PHYSICIAN OF COMPLICATIONS/DECLINE, AND WHEN TO CALL 911.] Future Scheduled Test CARDIOVASC ULAR SYSTEM; RN TO ASSESS/TEACH, BUFFER CHROME/KNIFE SETTER ASSEMBLER TO OBSERVE/TEACH RELATED TO ALTERED CARDIOVASCULAR STATUS TO MINIMIZE COMPLICATIONS AND REDUCE HOSPITALIZATION. [code = CARDIOVASCULAR SYSTEM; RN TO ASSESS/TEACH, BUFFER CHROME/KNIFE SETTER ASSEMBLER TO OBSERVE/TEACH RELATED TO ALTERED CARDIOVASCULAR STATUS TO MINIMIZE COMPLICATIONS AND REDUCE HOSPITALIZATION.] Future Scheduled Test HYPERTENSI ON MANAGEMENT; RN TO ASSESS AND TEACH, BUFFER CHROME/KNIFE SETTER ASSEMBLER TO OBSERVE AND TEACH WARNING SIGNS AND SYMPTOMS TO AVOID HOSPITALIZATION. [code = HYPERTENSION MANAGEMENT; RN TO ASSESS AND TEACH, BUFFER CHROME/KNIFE SETTER ASSEMBLER TO OBSERVE AND TEACH WARNING SIGNS AND SYMPTOMS TO AVOID HOSPITALIZATION.] Future Scheduled Test RESPIRATOR Y SYSTEM MANAGEMENT; RN TO ASSESS AND TEACH, BUFFER CHROME/KNIFE SETTER ASSEMBLER TO OBSERVE AND TEACH RELATED TO ALTERED RESPIRATORY STATUS TO MINIMIZE COMPLICATIONS AND REDUCE HOSPITALIZATION. [code = RESPIRATORY SYSTEM MANAGEMENT; RN TO ASSESS AND TEACH, BUFFER CHROME/KNIFE SETTER ASSEMBLER TO OBSERVE AND TEACH RELATED TO ALTERED RESPIRATORY STATUS TO MINIMIZE COMPLICATIONS AND REDUCE HOSPITALIZATION.] Future Scheduled Test RN/BUFFER CHROME/KNIFE SETTER ASSEMBLER TO PERFORM/TEACH PATIENT/CAREGIVER WOUND CARE PRESSURE INJURY TO COCCYX: IRRIGATE/CLEANSE WITH WOUND CLEANSER, APPLY SILVER ALGINATE CUT TO WOUND SIZE, FILL WITH POLYMEM CUT TO SIZE, MAY APPLY SKIN BARRIER TO KINGS WOUND PRN TO PREVENT MACERATION AND PROTECT KINGS WOUND COVER WITH BORDERED GAUZE CHANGE DRESSING EVERY DAY AND PRN FOR LOOSE DRESSING AND EXCESS SOILAGE. CAREGIVERS WILL PROVIDE WOUND CARE IN SN ABSENCE. [code = RN/BUFFER CHROME/KNIFE SETTER ASSEMBLER TO PERFORM/TEACH PATIENT/CAREGIVER WOUND CARE PRESSURE INJURY TO COCCYX: IRRIGATE/CLEANSE WITH WOUND CLEANSER, APPLY SILVER ALGINATE CUT TO WOUND SIZE, FILL WITH POLYMEM CUT TO SIZE, MAY APPLY SKIN BARRIER TO KINGS WOUND PRN TO PREVENT MACERATION AND PROTECT KINGS WOUND COVER WITH BORDERED GAUZE CHANGE DRESSING EVERY DAY AND PRN FOR LOOSE DRESSING AND EXCESS SOILAGE. CAREGIVERS WILL PROVIDE WOUND CARE IN SN ABSENCE.] Future Scheduled Test RN/BUFFER CHROME/KNIFE SETTER ASSEMBLER TO PERFORM/TEACH INCISION CARE TO SCROTUM SAC AREA: IRRIGATE/CLEANSE WITH WOUND CLEANSER, APPLY IODOFORM STRIP INTO TUNNELING MAY APPLY SKIN BARRIER TO KINGS WOUND PRN TO PREVENT MACERATION AND PROTECT KINGS WOUND COVER WITH GAUZE, SECURE WITH TAPE, CHANGE DRESSING EVERY DAY AND PRN FOR SOILAGE AND LOOSE DRESSING [code = RN/BUFFER CHROME/KNIFE SETTER ASSEMBLER TO PERFORM/TEACH INCISION CARE TO SCROTUM SAC AREA: IRRIGATE/CLEANSE WITH WOUND CLEANSER, APPLY IODOFORM STRIP INTO TUNNELING MAY APPLY SKIN BARRIER TO KINGS WOUND PRN TO PREVENT MACERATION AND PROTECT KINGS WOUND COVER WITH GAUZE, SECURE WITH TAPE, CHANGE DRESSING EVERY DAY AND PRN FOR SOILAGE AND LOOSE DRESSING] Future Scheduled Test RN TO ASSE SS/TEACH, BUFFER CHROME/KNIFE SETTER ASSEMBLER TO OBSERVE/TEACH SURGICAL AFTERCARE MANAGEMENT TO AVOID HOSPITALIZATION. [code = RN TO ASSESS/TEACH, BUFFER CHROME/KNIFE SETTER ASSEMBLER TO OBSERVE/TEACH SURGICAL AFTERCARE MANAGEMENT TO AVOID HOSPITALIZATION.] Future Scheduled Test PAIN MANAG EMENT; RN TO ASSESS AND TEACH, KNIFE SETTER ASSEMBLER/BUFFER CHROME TO OBSERVE AND TEACH AND PROVIDE EDUCATION ON PAIN MANAGEMENT TECHNIQUES. [code = PAIN MANAGEMENT; RN TO ASSESS AND TEACH, KNIFE SETTER ASSEMBLER/BUFFER CHROME TO OBSERVE AND TEACH AND PROVIDE EDUCATION ON PAIN MANAGEMENT TECHNIQUES.] Future Scheduled Test NEUROLOGIC AL SYSTEM MANAGEMENT; RN TO ASSESS AND TEACH, KNIFE SETTER ASSEMBLER/BUFFER CHROME TO OBSERVE AND TEACH RELATED TO ALTERED NEUROLOGICAL STATUS TO MINIMIZE COMPLICATIONS AND REDUCE HOSPITALIZATION. [code = NEUROLOGICAL SYSTEM MANAGEMENT; RN TO ASSESS AND TEACH, KNIFE SETTER ASSEMBLER/BUFFER CHROME TO OBSERVE AND TEACH RELATED TO ALTERED NEUROLOGICAL STATUS TO MINIMIZE COMPLICATIONS AND REDUCE HOSPITALIZATION.] Future Scheduled Test GENITOURIN SUSU MANAGEMENT; RN TO ASSESS AND TEACH, BUFFER CHROME/KNIFE SETTER ASSEMBLER TO OBSERVE AND TEACH RELATED TO ALTERED GENITOURINARY STATUS TO MINIMIZE COMPLICATIONS AND REDUCE HOSPITALIZATION. [code = GENITOURINARY MANAGEMENT; RN TO ASSESS AND TEACH, BUFFER CHROME/KNIFE SETTER ASSEMBLER TO OBSERVE AND TEACH RELATED TO ALTERED GENITOURINARY STATUS TO MINIMIZE COMPLICATIONS AND REDUCE HOSPITALIZATION.] Future Scheduled Test URINARY MO LECULAR TESTING PROTOCOL UP TO 2 PRN RN/BUFFER CHROME/KNIFE SETTER ASSEMBLER VISITS MAY BE PERFORMED FOR S/S OF UTI. RN TO ASSESS, BUFFER CHROME/KNIFE SETTER ASSEMBLER TO OBSERVE INITIATION OF UTI PROTOCOL. RN/KNIFE SETTER ASSEMBLER/BUFFER CHROME TO INSTRUCT PATIENT AND/OR CAREGIVER ON S/S OF UTI TO REPORT TO RN/KNIFE SETTER ASSEMBLER/BUFFER CHROME IF NEW OR WORSENING SYMPTOMS. DRINK PLENTY OF WATER THROUGHOUT THE DAY TO MAINTAIN HYDRATION (UNLESS CONTRAINDICATED.) URINATE WHEN THE URGE IS FELT, DO NOT WAIT. WASH GENITALS DAILY. WIPE FROM FRONT TO BACK AFTER HAVING A BOWEL MOVEMENT. RN/KNIFE SETTER ASSEMBLER/BUFFER CHROME TO OBTAIN URINE SPECIMEN FOR MOLECULAR URINE TESTING BY OPTION 1 OR OPTION 2 (OPTION 1) RN/KNIFE SETTER ASSEMBLER/BUFFER CHROME TO OBTAIN URINE SPECIMEN FOR U/A WITH REFLEX TO UTI PANEL (MOLECULAR) VIA CLEAN CATCH URINE AND IF UNABLE TO OBTAIN MAY PERFORM AN IN AND OUT CATH. IF PATIENT HAS INDWELLING CATHETER MAY OBTAIN FROM SAMPLING PORT. (OPTION 2) RN/KNIFE SETTER ASSEMBLER/BUFFER CHROME TO OBTAIN URINE SPECIMEN FOR UTI PANEL (MOLECULAR) VIA SWAB COLLECTION METHOD FROM ADULT BRIEF/DIAPER OR PAD IF PATIENT IS INCONTINENT. INCLUDE ANTIBIOTIC/ANTIFUNGAL RESISTANCE TESTING INCLUDE URINALYSIS (ONLY FOR CLEAN CATCH/ IN AND OUT CATH) NOTIFY PROVIDER OF RESULTS AND OBTAIN FURTHER ORDERS. [code = URINARY MOLECULAR TESTING PROTOCOL UP TO 2 PRN RN/BUFFER CHROME/KNIFE SETTER ASSEMBLER VISITS MAY BE PERFORMED FOR S/S OF UTI. RN TO ASSESS, BUFFER CHROME/KNIFE SETTER ASSEMBLER TO OBSERVE INITIATION OF UTI PROTOCOL. RN/KNIFE SETTER ASSEMBLER/BUFFER CHROME TO INSTRUCT PATIENT AND/OR CAREGIVER ON S/S OF UTI TO REPORT TO RN/KNIFE SETTER ASSEMBLER/BUFFER CHROME IF NEW OR WORSENING SYMPTOMS. DRINK PLENTY OF WATER THROUGHOUT THE DAY TO MAINTAIN HYDRATION (UNLESS CONTRAINDICATED.) URINATE WHEN THE URGE IS FELT, DO NOT WAIT. WASH GENITALS DAILY. WIPE FROM FRONT TO BACK AFTER HAVING A BOWEL MOVEMENT. RN/KNIFE SETTER ASSEMBLER/BUFFER CHROME TO OBTAIN URINE SPECIMEN FOR MOLECULAR URINE TESTING BY OPTION 1 OR OPTION 2 (OPTION 1) RN/KNIFE SETTER ASSEMBLER/BUFFER CHROME TO OBTAIN URINE SPECIMEN FOR U/A WITH REFLEX TO UTI PANEL (MOLECULAR) VIA CLEAN CATCH URINE AND IF UNABLE TO OBTAIN MAY PERFORM AN IN AND OUT CATH. IF PATIENT HAS INDWELLING CATHETER MAY OBTAIN FROM SAMPLING PORT. (OPTION 2) RN/KNIFE SETTER ASSEMBLER/BUFFER CHROME TO OBTAIN URINE SPECIMEN FOR UTI PANEL (MOLECULAR) VIA SWAB COLLECTION METHOD FROM ADULT BRIEF/DIAPER OR PAD IF PATIENT IS INCONTINENT. INCLUDE ANTIBIOTIC/ANTIFUNGAL RESISTANCE TESTING INCLUDE URINALYSIS (ONLY FOR CLEAN CATCH/ IN AND OUT CATH) NOTIFY PROVIDER OF RESULTS AND OBTAIN FURTHER ORDERS.] Future Scheduled Test URINARY IN CONTINENCE MANAGEMENT; RN TO ASSESS AND TEACH, BUFFER CHROME/KNIFE SETTER ASSEMBLER TO OBSERVE AND TEACH MANAGEMENT OF URINARY INCONTINENCE. TEACH/INSTRUCT ON PREVENTING INFECTION AND SKIN BREAKDOWN. RN/BUFFER CHROME/KNIFE SETTER ASSEMBLER MAY INSTRUCT IN BLADDER TRAINING PROGRAM INDICATED. [code = URINARY INCONTINENCE MANAGEMENT; RN TO ASSESS AND TEACH, BUFFER CHROME/KNIFE SETTER ASSEMBLER TO OBSERVE AND TEACH MANAGEMENT OF URINARY INCONTINENCE. TEACH/INSTRUCT ON PREVENTING INFECTION AND SKIN BREAKDOWN. RN/BUFFER CHROME/KNIFE SETTER ASSEMBLER MAY INSTRUCT IN BLADDER TRAINING PROGRAM INDICATED.] Future Scheduled Test INDWELLING URINARY CATHETER MANAGEMENT; RN/BUFFER CHROME/KNIFE SETTER ASSEMBLER TO INSTRUCT PATIENT / CAREGIVER ON INDWELLING URINARY CATHETER MANAGEMENT INCLUDING CARE OF CATHETER, SIGN AND SYMPTOMS OF COMPLICATIONS, PERINEAL CARE, TUBE AND BAG PLACEMENT, PREVENTION OF INFECTION AND SKIN BREAKDOWN. [code = INDWELLING URINARY CATHETER MANAGEMENT; RN/BUFFER CHROME/KNIFE SETTER ASSEMBLER TO INSTRUCT PATIENT / CAREGIVER ON INDWELLING URINARY CATHETER MANAGEMENT INCLUDING CARE OF CATHETER, SIGN AND SYMPTOMS OF COMPLICATIONS, PERINEAL CARE, TUBE AND BAG PLACEMENT, PREVENTION OF INFECTION AND SKIN BREAKDOWN.] Future Scheduled Test INDWELLING URINARY CATHETER INSERTION; RN/BUFFER CHROME/KNIFE SETTER ASSEMBLER TO PERFORM INSERTION OF 18 FR INDWELLING CATHETER, INSTILL 10 CC OF SALINE INTO BALLOON, SECURE TUBING WITH APPROPRIATE SECUREMENT DEVICE CHANGE EVERY 30DAYS AND PRN FOR LEAKAGE, BLOCKAGE, DISLODGEMENT, OR MALFUNCTION. [code = INDWELLING URINARY CATHETER INSERTION; RN/BUFFER CHROME/KNIFE SETTER ASSEMBLER TO PERFORM INSERTION OF 18 FR INDWELLING CATHETER, INSTILL 10 CC OF SALINE INTO BALLOON, SECURE TUBING WITH APPROPRIATE SECUREMENT DEVICE CHANGE EVERY 30DAYS AND PRN FOR LEAKAGE, BLOCKAGE, DISLODGEMENT, OR MALFUNCTION.] Future Scheduled Test GASTROINTE STINAL MANAGEMENT; RN TO ASSESS AND TEACH, KNIFE SETTER ASSEMBLER/BUFFER CHROME TO OBSERVE AND TEACH RELATED TO ALTERED GASTROINTESTINAL STATUS TO MINIMIZE COMPLICATIONS AND REDUCE HOSPITALIZATION. [code = GASTROINTESTINAL MANAGEMENT; RN TO ASSESS AND TEACH, KNIFE SETTER ASSEMBLER/BUFFER CHROME TO OBSERVE AND TEACH RELATED TO ALTERED GASTROINTESTINAL STATUS TO MINIMIZE COMPLICATIONS AND REDUCE HOSPITALIZATION.] Future Scheduled Test BLOOD CLOT MANAGEMENT; RN TO ASSESS AND TEACH/ BUFFER CHROME /KNIFE SETTER ASSEMBLER TO OBSERVE AND TEACH AND PROVIDE EDUCATION ON BLOOD CLOT MANAGEMENT. [code = BLOOD CLOT MANAGEMENT; RN TO ASSESS AND TEACH/ BUFFER CHROME /KNIFE SETTER ASSEMBLER TO OBSERVE AND TEACH AND PROVIDE EDUCATION ON BLOOD CLOT MANAGEMENT.] Future Scheduled Test FALL REDUC TION MANAGEMENT; RN TO ASSESS AND OBSERVE, BUFFER CHROME/KNIFE SETTER ASSEMBLER TO OBSERVE FALL RISK FACTORS AND EDUCATE PATIENT/CAREGIVER ON STRATEGIES TO MINIMIZE THE RISK OF FALLING. [code = FALL REDUCTION MANAGEMENT; RN TO ASSESS AND OBSERVE, BUFFER CHROME/KNIFE SETTER ASSEMBLER TO OBSERVE FALL RISK FACTORS AND EDUCATE PATIENT/CAREGIVER ON STRATEGIES TO MINIMIZE THE RISK OF FALLING.] Future Scheduled Test OCCUPATION AL THERAPIST TO EVALUATE FOR ADLS AND IADLS [code = OCCUPATIONAL THERAPIST TO EVALUATE FOR ADLS AND IADLS] Future Scheduled Test PRN VISITS ; NUMBER OF RN/BUFFER CHROME/KNIFE SETTER ASSEMBLER VISITS: 2 RN/BUFFER CHROME/KNIFE SETTER ASSEMBLER TO PERFORM: ASSESSMENT FOR THE FOLLOWING REASONS: WOUND COMPLICATIONS, CATHETER COMPLICATIONS [code = PRN VISITS; NUMBER OF RN/BUFFER CHROME/KNIFE SETTER ASSEMBLER VISITS: 2 RN/BUFFER CHROME/KNIFE SETTER ASSEMBLER TO PERFORM: ASSESSMENT FOR THE FOLLOWING REASONS: WOUND COMPLICATIONS, CATHETER COMPLICATIONS] Goal 2024-12-15 Patient Goal - G OAL: I WANT TO BE ABLE TO GET UP AND BE MOBILE Goal 2025-02-15 Patient Goal - G OAL: I WANT [...] THE PHYSICIAN. Goal Provider Goal - PATIENT/CAREGIVER TO VERBALIZE, AND CONSISTENTLY DEMONSTRATE EFFECTIVE, SAFE MANAGEMENT OF MEDICATION INCLUDING KNOWLEDGE OF EFFECTIVENESS, POTENTIAL SIDE EFFECTS AND DRUG REACTIONS AND WHEN TO CONTACT THE APPROPRIATE CARE PROVIDER. PATIENT/CAREGIVER WILL BE ABLE TO VERBALIZE UNDERSTANDING OF MEDICATION REGIMEN AND ACCURATELY TAKE MEDICATIONS PRESCRIBED WITHOUT ADVERSE EFFECTS BY EOE Goal Provider Goal - PATIENT/CAREGIVER WILL VERBALIZE UNDERSTANDING OF SIGNS AND SYMPTOMS THAT PUT THE PATIENT AT RISK FOR HOSPITALIZATION /EMERGENCY ROOM VISITS, WHEN TO NOTIFY NURSE/PHYSICIAN OF COMPLICATIONS/DECLINE AND WHEN TO CALL 911. Goal Provider Goal - PATIENT / CAREGIVER WILL VERBALIZE/DEMONSTRATE UNDERSTANDING OF MEASURES TO MANAGE ALTERED CARDIOVASCULAR STATUS BY EOE. Goal Provider Goal - PATIENT / CAREGIVER WILL VERBALIZE/DEMONSTRATE AN ABILITY TO ADHERE TO SELF-MANAGEMENT OF HTN TO MINIMIZE COMPLICATIONS AND AVOID HOSPITALIZATION BY END OF EPISODE. Goal Provider Goal - PATIENT / CAREGIVER WILL VERBALIZE/DEMONSTRATE UNDERSTANDING OF MEASURES TO MANAGE ALTERED RESPIRATORY STATUS BY END OF EPISODE. Goal Provider [...] ABSENCE OF INFECTION, AND DECREASED PAIN BY EOE. Goal Provider Goal - PATIENT/CAREGIVER WILL VERBALIZE/DEMONSTRATE POSTOPERATIVE CARE TO MINIMIZE COMPLICATION AND AVOID HOSPITALIZATIONS BY THE END OF THE EPISODE. Goal Provider Goal - PATIENT / CAREGIVER WILL VERBALIZE / DEMONSTRATE UNDERSTANDING OF PAIN CONTROL MEASURES BY EOE Goal Provider Goal - PATIENT / CAREGIVER WILL VERBALIZE/DEMONSTRATE UNDERSTANDING OF MEASURES TO MANAGE ALTERED NEUROLOGICAL STATUS BY EOE Goal Provider Goal - PATIENT / CAREGIVER WILL VERBALIZE/DEMONSTRATE UNDERSTANDING OF MEASURES TO MANAGE ALTERED GENITOURINARY STATUS BY END OF EPISODE. Goal Provider Goal - PATIENT WILL DEMONSTRATE IMPROVEMENT IN S/S OF UTI TO AVOID HOSPITALIZATION. Goal Provider Goal - PATIENT/CAREGIVER WILL VERBALIZE/DEMONSTRATE UNDERSTANDING OF CARE AND MANAGEMENT OF URINARY INCONTINENCE BY EOE . Goal Provider Goal - PATIENT/CAREGIVER WILL VERBALIZE/DEMONSTRATE UNDERSTANDING OF CARE AND MANAGEMENT OF INDWELLING CATHETER BY EOE. Goal Provider Goal - PATIENT WILL VERBALIZE/TOLERATE CATHETER CHANGE BY EOE. Goal Provider Goal - PATIENT / CAREGIVER WILL VERBALIZE/DEMONSTRATE UNDERSTANDING OF MEASURES TO MANAGE ALTERED GASTROINTESTINAL STATUS BY END OF EPISODE. Goal Provider Goal - PATIENT/CAREGIVER WILL VERBALIZE UNDERSTANDING OF CARE AND MANAGEMENT OF BLOOD CLOT BY END OF EPISODE. Goal Provider Goal - PATIENT/CAREGIVER WILL VERBALIZE/DEMONSTRATE UNDERSTANDING OF FALL RISK FACTORS AND IMPLEMENT STRATEGIES TO MINIMIZE FALL RISK. PATIENT/CAREGIVER WILL VERBALIZE/DEMONSTRATE AN ABILITY TO ADHERE TO FALL REDUCTION SELF-MANAGEMENT AND LIFE-STYLE CHANGES BY EOE Goal Provider Goal - Goal Provider Goal - Progress Notes Progress Notes <paragraph>[Visit Date: 2024 by JAVON LERNER LPN]:</paragraph><paragraph>S N V PROVIDED TODAY FOR WOUND CARE. HOMEBOUND STATUS CONFIRMED DUE TO BEDBOUND PATIENT, AND NEEDS ASSISTANCE TO LEAVE HOME. PATIENT HAS WOUND TO COCCYX , WOUND WAS CLEANSED WITH WOUND CLEANSER, ALGINATE AND POLYNEM APPLIED IN THE WOUND BED , SKIN PREP APPLIED TO MACERATED SKIN AND A DRY DRESSING APPLIED. PATIENT HAS TWO INCISIONS TO SCROTUM , CLEANSED WITH WOUND CLEANSER AND IODOFORM PACKING WAS APPLIED TO BOTH WOUNDS AND GAUZE PLACED. PTS RIGHT SCROTOM IS ENLARGED, HEAVY, FEELS LIKE A ROCK, PAINFUL TO TOUCH, WHEN PTS SCROTOM WAS MOVED PURULENT DRAINAGE AND BLOOD WAS NOTED GOING THROUGH THE CATHETER DRAINAGE TUBING. CONTACTED PCP OFFICE DUE TO [place] [facility] OFFICE WAS CLOSED , CLINICAL LABORATORY MANAGER WAS CONTACTED AND THEY STATED PT NEEDS TO BE SEEN IN ER OR CONTACT UROLOGY. CONTACTED UROLOGY OFFICE AND THEY STATED PT HAS NOT BEEN SEEN FOR A FIRST TIME VISIT SO PT AGAIN NEEDS TO GO TO ER FOR EVALUATION. PT AND SON NITESH BIGGS WAS MADE AWARE AND PT STATES NO HE IS NOT GOING TO ER, I JUST WANT ORAL ABX, ADVISED ADVISED PATIENT HE WAS NOT GOING TO BE ABLE TO GET ORAL ABX UNLESS HE GOES TO ER DUE TO NO OFFICE OPEN AND UROLOGY NOT SEEING HIM YET IN OFFICE. CONTACTED MAGALIE DOUGLAS AT ADORATION OFFICE AND LET HER KNOW THE SITUATION WELL. PT HAS BEEN TOLD TO GO TO THE ER 3 TIMES THIS WEEK OVER THIS ISSUE AND PT CONTINUES TO REFUSE. ADVISED TO CONTACT HOME HEALTH WITH ANY QUESTIONS OR CONCERNS.</paragraph> Encounters Start Date/Time End Date/Time Encounter Type Admission Type Attending [facility] Care Facility Care Department Encounter ID Discharge Date Discharge Status Discharge Condition Discharge Reason Percent Goals Met 2025-02-18 00:00:00 2025-04-18 00:00:00 Outpatient [facility] [id number]
== END 2025-03-06 19:47 | disposition home or self-care (01) ==
PROVIDERS: Emergency Provider Emergency Medicine; PCP Family Medicine
DX: N49.2 Inflammatory disorders of scrotum (principal); I73.9 Peripheral vascular disease, unspecified; I25.10 Atherosclerotic heart disease of native coronary artery without angina pectoris; I10 Essential (primary) hypertension; N43.3 Hydrocele, unspecified; Z79.02 Long term (current) use of antithrombotics/antiplatelets; Z79.01 Long term (current) use of anticoagulants; Z79.899 Other long term (current) drug therapy
CPT/HCPCS: 36415; 76870; 80053; 85025; 87040; 93976; 99284; A9270